=== PATIENT | female | born 1940 | race Caucasian/White ===

== ENCOUNTER → 2017-05-27 12:27 | Outpatient (CLI) | payer MEDICARE, OTHER, SELFPAY ==
[2017-05-27 14:41] LABS: Absolute Neutrophil Count 6.4 X10^3/uL (2.0-7.7); Basophil# 0.02 X10^3/uL; Basophil% 0.3 % (0-1); Eosinophil# 0.01 X10^3/uL; Eosinophils% 0.1 % (0-5); Hematocrit 39.7 % (37-47); Hemoglobin 13.1 g/dl (12.0-15.0); Lymphocyte % 7.6 % (19-41); Mean Corpuscular Hgb 31.7 pg (27.0-32.0); Mean Corpuscular Volume 96.1 fL (81-99); Mean Platelet Vol. 11.3 fl (6.2-12.0); Monocyte# 0.83 X10^3/uL; Monocyte% 10.5 % (0-10); Neutrophil # 6.42 X10^3/uL (2.7-7.7); Neutrophil % 81.2 % (47-70); Platelet Count 181 K/mm3 (150-450); RBC Distribution Width CV 13.4 % (11.6-14.6); RBC Distribution Width SD 45.7 fl (35.1-43.9); Red Blood Count 4.13 M/mm3 (4.2-5.4); White Blood Count 7.9 K/mm3 (4.4-11.0)
[2017-05-27 14:42] LABS: Differential Indicated SCAN CRITERIA MET; POSITIVE COUNT NO; POSITIVE DIFFERENTIAL YES; POSITIVE MORPHOLOGY NO
[2017-05-27 14:54] LABS: ALB/GLOB Ratio 0.9 RATIO (0.9-2.4); AST(SGOT) 18 U/L (15-37); Alanine Aminotransfer ALT/SGPT 19 U/L (13-56); Albumin, Serum 3.4 g/dL (3.2-5.0); Alkaline Phosphatase 76 U/L (45-117); Anion Gap 7 (5-15); BUN 12 mg/dL (7-18); BUN/Creat Ratio 14.4 RATIO (10-20); Calcium,Total 9.4 mg/dL (8.5-10.1); Chloride 103 mmol/L (98-107); Creatinine, Serum 0.84 mg/dL (0.55-1.02); EST Glomerular Filtration Rate 70 mL/min (>60); Est Glom Filt Rate - Afr Amer 85 mL/min (>60); Globulin 3.8 g/dL (2.2-4.2); Glucose 94 mg/dL (74-106); Protein, Total 7.2 g/dL (6.4-8.2); Sodium Level 138 mmol/L (136-145)
[2017-05-27 15:04] LABS: Platelet Estimate ADEQUATE (ADEQ); Platelet Morphology LARGE
== END ==
PROVIDERS: Family Provider Internal Medicine; PCP Internal Medicine; Visit Provider Internal Medicine Rheumatology
DX: M06.00 Rheumatoid arthritis without rheumatoid factor, unspecified site (principal); M18.9 Osteoarthritis of first carpometacarpal joint, unspecified; E11.9 Type 2 diabetes mellitus without complications; I10 Essential (primary) hypertension; M79.7 Fibromyalgia; Z79.899 Other long term (current) drug therapy
CPT/HCPCS: 36415; 80053; 85025

== ENCOUNTER → 2017-07-29 11:16 | Outpatient (CLI) | payer MEDICARE, OTHER, SELFPAY ==
--- NOTE | 2017-07-29 11:16 | DT_ITS ---
This patient was seen during an EMR downtime July 27, 2017 - August 03, 2017. This patient may have a combination of paper and electronic documentation or all paper documentation. All documentation is viewable within the e-chart portion of [employer] for each patient visit.
[2017-08-03 12:48] LABS: Hematocrit 40.9 % (37-47); Hemoglobin 13.4 g/dl (12.0-15.0); Mean Corp Hgb Conc 32.8 g/gl (32-36); Mean Corpuscular Hgb 31.6 pg (27.0-32.0); Mean Corpuscular Volume 96.5 fL (81-99); Mean Platelet Vol. 11.2 fl (6.2-12.0); Platelet Count 168 K/mm3 (150-450); RBC Distribution Width CV 14.4 % (11.6-14.6); RBC Distribution Width SD 48.6 fl (35.1-43.9); Red Blood Count 4.24 M/mm3 (4.2-5.4); White Blood Count 6.4 K/mm3 (4.4-11.0)
[2017-08-03 12:49] LABS: Absolute Lymphocyte Count 0.49 X10^3/ul (0.83-4.51); Absolute Neutrophil Count 5.1 X10^3/uL (2.0-7.7); Basophil% 0.5 % (0-1); Eosinophils% 0.8 % (0-5); Lymphocyte # 0.49 X10^3/ul (4.0); Lymphocyte % 7.6 % (19-41); Monocyte% 11.2 % (0-10); Neutrophil # 5.13 X10^3/uL (2.7-7.7); Neutrophil % 79.7 % (47-70); POSITIVE COUNT NO; POSITIVE DIFFERENTIAL NO; POSITIVE MORPHOLOGY NO; Platelet Estimate ADEQUATE (ADEQ); Red Cell Morphology NORM C+C NORMAL (NORM C&C)
[2017-08-03 13:03] LABS: BUN 11 mg/dL (7-18); BUN/Creat Ratio 13.6 RATIO (10-20); Creatinine, Serum 0.81 mg/dL (0.55-1.02); EST Glomerular Filtration Rate 73 mL/min (>60); Est Glom Filt Rate - Afr Amer 88 mL/min (>60); Glucose 94 mg/dL (74-106); Protein, Total 7.4 g/dL (6.4-8.2)
[2017-08-03 13:04] LABS: ALB/GLOB Ratio 0.8 RATIO (0.9-2.4); AST(SGOT) 24 U/L (15-37); Alanine Aminotransfer ALT/SGPT 22 U/L (13-56); Albumin, Serum 3.3 g/dL (3.2-5.0); Alkaline Phosphatase 75 U/L (45-117); Anion Gap 6 (5-15); Calcium,Total 9.5 mg/dL (8.5-10.1); Chloride 105 mmol/L (98-107); Globulin 4.1 g/dL (2.2-4.2); Potassium 4.2 mmol/L (3.5-5.1); Sodium Level 140 mmol/L (136-145)
== END ==
PROVIDERS: Family Provider Internal Medicine; PCP Internal Medicine; Visit Provider Internal Medicine Rheumatology
DX: M06.00 Rheumatoid arthritis without rheumatoid factor, unspecified site (principal); Z79.899 Other long term (current) drug therapy; M79.7 Fibromyalgia; M18.9 Osteoarthritis of first carpometacarpal joint, unspecified; E11.9 Type 2 diabetes mellitus without complications; I10 Essential (primary) hypertension
CPT/HCPCS: 36415; 80053; 85025

== ENCOUNTER 2017-08-03 13:00 | Outpatient (RCR) | payer MEDICARE, OTHER, SELFPAY ==
--- NOTE | 2017-06-29 15:30 | HP.PTEVAL_ITS ---
Patient's Visit Information SAMAN HERNANDEZ is a 76 year old F referred to Physical Therapy by Shama Hernadez with a diagnosis of BACK AND SHOULDER PAIN. Date of Evaluation: 06/29/17 Physical Therapist: Lizzie Engle - Visit Plan Frequency: 2-3x /Week Duration: 4-6 Weeks Plan: *RA*. RIGHT SHOULDER AND LOW BACK US NEEDED. POSTURE CORRECTION/ STRENGTHENING, INSTRUCTION IN APPROPRIATE BODY MECHANICS AND ACTIVITY MODIFICATIONS. DLS STARTING WITH A NEUTRAL SPINE PROGRESSING ROM TOLERATED. ABHIJIT UE AND LE ROM, STRETCHING AND STRENGTHENING. HEP INSTRUCTION. - Subjective Subjective: Diagnosis: BACK AND SHOULDER PAIN. Work/Leisure: RETIRED. Present symptoms: LOW BACK PAIN L>R. MOSTLY IN HIP AREAS. RIGHT SHOULDER AND UPPER ARM PAIN. DIFFICULTY STANDING UP STRAIGHT. Present since: CHRONIC LOW BACK PAIN. RIGHT SHOULDER PAIN STARTED MORE RECENTLY. DR. HOWARD APPARENTLY GAVE HER A SHOT IN HER SHOULDER AND SHE REPORTS IT DID NOT HELP. Pain Scale: BACK: WORST 6/10, LEAST 4/10. RIGHT SHOULDER: WORST 8/10, LEAST 4/10. Currently: BACK: 4/10. SHOULDER: 4/10. Commenced as a result of: PATIENT REPORTS HER LOW BACK PAIN STARTED PROBABLY ROM ARTHRITIS AND HER RIGHT SHOULDER THE DOCTORS THINK IS FROM USING HER WALKER. Worse: STANDING, WALKING, AND REACHING WRONG. Better: SITTING. RESTING ARM. Disturbed sleep: YES. Previous history/Previous treatment: RECENT RIGHT SHOULDER INJECTION THAT DID NOT HELP BY DR. HOWARD. ALSO HAD RECENT LOW BACK INJECTION BY DR. HERNADEZ THAT DIDN'T HELP EITHER. NO RIGHT SHOULDER SURGERY. NO LOW BACK SURGERY. PT IN THE PAST FOR HER NECK, BACK AND SHOULDERS. Gait: INDEP GAIT WITH FRONT WHEELED WALKER FOR A FEW YEARS. Accidents: MOST RECENT FALL WAS ABOUT A FEW WEEKS AGO. SHE HAS HAD SEVERAL FALLS OVER THE YEARS. Unexplained weight loss: NO. Imaging: PMH: PMH: MACULAR DEGENERATION, RHEUMATOID ARTHRITIS, HTN, HEART DZ? , ABHIJIT TKR'S, EMERGENCY BOWEL SURGERY A FEW YEARS AGO. - Objective *PATIENT IS A HIGH FALL RISK*. SHE AMBULATES INDEP'LY INTO PT WITH A FWW AND SHE DOES GOOD WITH THE WALKER HOWEVER SHE REPORTS SHE FALLS AND SHE TYPICALLY FALLS BACKWARDS. SHE IS UNABLE TO TRANSFER INDEP'LY FROM SIT TO STAND WITHOUT THE USE OF HER UE'S. SHE HAS SCOLIOSIS AND MAJOR LUMBAR MVMT LOSS ALL PLANES EXCEPT FLEXION WHICH IS MOD. SHE IS ESPECIALLY LIMITED INTO EXTENSION AND LEFT SIDEGLIDING. CERVICAL MVMT LOSS: FLEX - MIN, EXT - KIA, PRO - NIL, RET - KIA, LEFT ROT - KIA, RIGHT ROT - MOD, ABHIJIT SB - KIA. BILATERAL UE AROM AT HER SHOULDERS IS ABOUT 75% AND PAINFUL ON THE RIGHT WITH A CATCHING TYPE PAIN WITH TESTING. BILATERAL SHOULDER STRENGTH IS GROSSLY 3+/5 WITH MMT. SHE HAS ARTHRITIC HANDS AND ELBOWS. BILATERAL HIP STRENGHT - 4-/5, ABHIJIT KNEE EXT 4/5, ABHIJIT KNEE FLEX 4/5, ABHIJIT ANKLE DORSIFLEXION 5/5. SHE HAS POOR CORE STRENGTH. SHE IS TENDER LATERALLY IN THE RIGHT SHOULDER INFERIOR TO THE AC JOINT. SHE IS ALSO TENDER IN THE LOWER THORACIC REGION RIGHT > LEFT. OTHER: PATIENT IS ALERT AND ORIENTED X 3. SHE FOLLOWS COMMANDS WELL LONG IS SHE IS GUIEDED DUE TO EYE SIGHT DEFICITS AND SHE IS PLEASANT AND COOPERATIVE TO WORK WITH. - Goals Goal 1:: DECREASE C/O BACK PAIN Goal Time Frame: 4-6 Weeks Goal 2:: DECREASE C/O RIGHT SHOULDER PAIN Goal Time Frame: 4-6 Weeks Goal 3:: IMPROVE STANDING, WALKING, ADL, REACHING AND HOMEMAKING FUNCTION Goal Time Frame: 4-6 Weeks Goal 4:: INDEP HEP Goal Time Frame: 4-6 Weeks - Rehabilitation Potential Rehabilitation Potential: Good - Anticipated Interventions Patient/Client Instruction: Educate patient on: Condition, Plan of Care, Risk Factors, Benefits of Fitness Program For the Purpose of:: To improve self management Therapeutic Exercise to Include: Strength training, Body mechanics, Postural training, Flexibilty training, Gait and locomotor training, Passive ROM, Active ROM, Dynamic Lumbar Stabilization, Scapular Strength/Stabilization For the Purpose of:: To decrease pain, To improve muscle performance and motor function, To increase tolerance to activity/condition/position, To improve performance and independence with ADL's, To improve ability of physical actions for home/community/work/leisure, To improve gait and locomotor functions Thermo therapy (hot pack): Yes Ultrasound (thermal/non thermal): Yes For the Purpose of:: To decrease pain, To decrease swelling/inflammation Thank you for the opportunity to evaluate your patient. For Medicare and Medicare HMO plans, please review the plan of care and approve it. It will need to be FAXED BACK to us at [phone] for Medicare purposes. Please let me know if there are questions or concerns regarding this plan of care. Physician Signature: Date:
--- NOTE | 2017-08-03 13:00 | DT_ITS ---
This patient was seen during an EMR downtime July 27, 2017 - August 03, 2017. This patient may have a combination of paper and electronic documentation or all paper documentation. All documentation is viewable within the e-chart portion of [employer] for each patient visit.
--- NOTE | 2017-09-27 12:46 | HP.PT.NRP ---
HP - Discharge Summary (1) - Patient Information SAMAN HERNANDEZ was seen in my office for initial evaluation on 06/29/17. The following Plan of Care was established for this patient: Initial Frequency: 2-3x /Week Initial Duration: 4-6 Weeks - Anticipated Interventions Patient/Client Instruction: Educate patient on: Condition, Plan of Care, Risk Factors, Benefits of Fitness Program For the Purpose of:: To improve self management Therapeutic Exercise to Include: Strength training, Body mechanics, Postural training, Flexibilty training, Gait and locomotor training, Passive ROM, Active ROM, Dynamic Lumbar Stabilization, Scapular Strength/Stabilization For the Purpose of:: To decrease pain, To improve muscle performance and motor function, To increase tolerance to activity/condition/position, To improve performance and independence with ADL's, To improve ability of physical actions for home/community/work/leisure, To improve gait and locomotor functions Thermo therapy (hot pack): Yes Ultrasound (thermal/non thermal): Yes For the Purpose of:: To decrease pain, To decrease swelling/inflammation This patient was last seen in our office 08/03/17. Pertinent comments regarding their Physical therapy will appear below: This patient has not returned to Physical Therapy and is appropriate to return to MD for further follow-up as needed. At this point I will be discontinuing this patient from physical therapy. I would be happy to see this patient again in the future if found appropriate by the physician. Thank you! Lizzie Engle
== END 2017-08-03 19:00 | disposition home or self-care (01) ==
LOC: PT 13:00
PROVIDERS: Family Provider Internal Medicine; PCP Internal Medicine; Visit Provider Anesthesiology Pain Medicine
DX: M54.9 Dorsalgia, unspecified (principal); M25.519 Pain in unspecified shoulder
CPT/HCPCS: 97035; 97110; 97162

== ENCOUNTER 2017-09-22 17:00 | Emergency (ER) | payer MEDICARE, OTHER, SELFPAY ==
[2017-09-22 17:01] VITALS: BP 211/107; PULSE 86; RESP 16; TEMP 36.7; O2SAT 95; BMI 32.8
--- NOTE | 2017-09-22 17:55 | US_ITS ---
STUDY: VENOUS DOPPLER ULTRASOUND - RIGHT LOWER EXTREMITY REASON FOR EXAM: Female, 76 years old. Swelling TECHNIQUE: Ultrasound evaluation of the deep vein system to include skelton-scale imaging and compression was performed. Skelton-scale imaging and Doppler sonographic evaluation, including duplex spectral analysis and qualitative color flow sonography, was performed. COMPARISON: None. FINDINGS: Common Femoral Vein: Normal compression, spontaneity and augmentation. Normal color Doppler. Common Femoral Vein/Greater Saphenous Junction: Normal compression. Femoral Proximal: Normal compression. Femoral Middle: Normal compression, spontaneity and augmentation. Normal color Doppler. Femoral Distal: Normal compression. Popliteal Vein: Normal compression, spontaneity and augmentation. Normal color Doppler. Posterior Tibial Vein: Normal compression. Peroneal Vein: Normal compression. Subcutaneous edema is noted. US/Venous Duplex Imag/Limited/Uni IMPRESSION: No deep venous thrombosis of the lower extremity. Electronically Signed: Andry Kim DO at 18:58 EDT Tel [phone], Service support ,
[2017-09-22 18:18] LABS: Anion Gap 6 (5-15); BUN 13 mg/dL (7-18); BUN/Creat Ratio 13.3 RATIO (10-20); Calcium,Total 9.5 mg/dL (8.5-10.1); Chloride 104 mmol/L (98-107); Creatinine, Serum 0.98 mg/dL (0.55-1.02); EST Glomerular Filtration Rate 59 mL/min (>60); Est Glom Filt Rate - Afr Amer 71 mL/min (>60); Estimated Creatinine Clearance 52.33 ml/min; Glucose 179 mg/dL (74-106); Sodium Level 138 mmol/L (136-145)
--- NOTE | 2017-09-22 18:51 | ED.VISSUMM ---
- ER Visit Summary Date of Service: 09/22/17 Chief Complaint: Right leg swelling History of Present Illness: The patient is a [address] Tidwell. She reports that she has had swelling of her right leg that is chronic but is gotten worse over the past week. She complains of an aching pain is 6 out of 10 when she pushes on it. She is pain-free at rest. She denies any paresthesias or weakness. She denies any trauma. No fall, MVA, or change in activity. Review of systems: General: No fever, chills, cold sweats. Cardiovascular: No chest pain, palpitations. Respiratory: No cough, shortness of breath, dyspnea on exertion. Gastrointestinal: No abdominal pain, nausea, vomiting, diarrhea, melena, or hematochezia. Genitourinary: No dysuria, frequency, hematuria. Skin: No rash. Neuro: No headache, numbness, weakness. Physical Examination: Vitals: Stable. Afebrile. General: Well-nourished and well-developed. Head: Normocephalic atraumatic. Neck: Supple, no lymphadenopathy. No JVD. Nontender. Cardiovascular: Regular rate and rhythm. 2 out of 6 systolic murmur. Respiratory: No respiratory distress. Clear to auscultation bilaterally. Abdominal: Soft, nontender, nondistended, normal bowel sounds. No guarding, rebound, or peritoneal signs. Back: Nontender. Extremities: 2+ pitting edema on the right. 1+ pitting edema on the left. She does have mild tenderness palpation over her calf. Skin: Normal color, no rash. Neurologic: Alert and oriented ?3. Cranial nerves II through XII are intact. Normal strength and sensation. Psych: Normal affect. Test Results: Right lower extremity Doppler is negative. Chem-7 is more for creatinine 0.98 and glucose 179. This was obtained because I thought that she would need to be anticoagulated. Emergency Department Course and Treatment: Patient refused pain medications and is resting comfortably. Treatment Plan: Patient will be discharged instructions follow-up her primary care physician in 3-5 days not improving. Return to the emergency department for any worsening symptoms. Disposition: To home in improved and stable condition. Impression: 1. Right leg edema, acute on chronic. This note was generated with [employer] software. It may contain incorrect words, spelling, and punctuation that were not noted in review of the chart prior to signing ED Disposition - Plan for ED Patient: Disposition: Home or Assisted Living Chief Complaint: Lower Extremity Injury Instructions: ED Leg Swelling Unilateral Referrals: Ge Tidwell MD [Primary Care Provider] - 1-2 Days if not improving
== END 2017-09-22 19:03 | disposition home or self-care (01) ==
PROVIDERS: Emergency Provider Emergency Medicine; Family Provider Family Medicine; PCP Family Medicine
DX: R60.0 Localized edema (principal); G89.29 Other chronic pain; I25.10 Atherosclerotic heart disease of native coronary artery without angina pectoris; E11.9 Type 2 diabetes mellitus without complications; I10 Essential (primary) hypertension; H54.8 Legal blindness, as defined in USA; Z79.02 Long term (current) use of antithrombotics/antiplatelets; Z79.82 Long term (current) use of aspirin; Z79.899 Other long term (current) drug therapy; Z96.651 Presence of right artificial knee joint
CPT/HCPCS: 80048; 93971; 99282

== ENCOUNTER → 2017-11-09 15:36 | Outpatient (CLI) | payer MEDICARE, OTHER, SELFPAY ==
[2017-11-09 16:12] LABS: Absolute Lymphocyte Count 0.75 X10^3/ul (0.83-4.51); Absolute Neutrophil Count 3.9 X10^3/uL (2.0-7.7); Basophil# 0.03 X10^3/uL; Basophil% 0.5 % (0-1); Eosinophil# 0.16 X10^3/uL; Eosinophils% 2.9 % (0-5); Hematocrit 39.9 % (37-47); Lymphocyte # 0.75 X10^3/ul (4.0); Lymphocyte % 13.6 % (19-41); Mean Corp Hgb Conc 32.6 g/gl (32-36); Mean Corpuscular Hgb 31.6 pg (27.0-32.0); Mean Corpuscular Volume 96.8 fL (81-99); Mean Platelet Vol. 11.3 fl (6.2-12.0); Monocyte# 0.67 X10^3/uL; Monocyte% 12.1 % (0-10); Neutrophil # 3.92 X10^3/uL (2.7-7.7); Neutrophil % 70.9 % (47-70); Platelet Count 136 K/mm3 (150-450); RBC Distribution Width CV 13.8 % (11.6-14.6); RBC Distribution Width SD 48.7 fl (35.1-43.9); Red Blood Count 4.12 M/mm3 (4.2-5.4); White Blood Count 5.5 K/mm3 (4.4-11.0)
[2017-11-09 16:14] LABS: POSITIVE COUNT NO; POSITIVE DIFFERENTIAL NO; POSITIVE MORPHOLOGY NO
[2017-11-09 17:44] LABS: ALB/GLOB Ratio 0.8 RATIO (0.9-2.4); AST(SGOT) 27 U/L (15-37); Alanine Aminotransfer ALT/SGPT 21 U/L (13-56); Albumin, Serum 3.2 g/dL (3.2-5.0); Alkaline Phosphatase 78 U/L (45-117); Anion Gap 5 (5-15); BUN 14 mg/dL (7-18); BUN/Creat Ratio 15.1 RATIO (10-20); Calcium,Total 9.6 mg/dL (8.5-10.1); Chloride 107 mmol/L (98-107); Creatinine, Serum 0.93 mg/dL (0.55-1.02); EST Glomerular Filtration Rate 62 mL/min (>60); Est Glom Filt Rate - Afr Amer 75 mL/min (>60); Glucose 92 mg/dL (74-106); Potassium 4.3 mmol/L (3.5-5.1); Protein, Total 7.2 g/dL (6.4-8.2); Sodium Level 138 mmol/L (136-145)
== END ==
PROVIDERS: Family Provider Family Medicine; PCP Family Medicine; Visit Provider Internal Medicine Rheumatology
DX: M06.00 Rheumatoid arthritis without rheumatoid factor, unspecified site (principal); M79.7 Fibromyalgia; M25.511 Pain in right shoulder; E11.9 Type 2 diabetes mellitus without complications; I10 Essential (primary) hypertension; M18.9 Osteoarthritis of first carpometacarpal joint, unspecified; Z79.899 Other long term (current) drug therapy
CPT/HCPCS: 36415; 80053; 85025

== ENCOUNTER 2017-11-29 16:12 | Emergency (ER) | payer MEDICARE, OTHER, SELFPAY ==
[2017-11-29 16:13] VITALS: BP 112/93; PULSE 77; RESP 16; TEMP 37.1; O2SAT 97; BMI 35.0
--- NOTE | 2017-11-29 16:26 | RAD_ITS ---
STUDY: X-RAY CHEST REASON FOR EXAM: Female, 77 years old. Fall, without chest complaints. TECHNIQUE: Portable chest COMPARISON: 06/16/2015. FINDINGS: Chronically commonly elevated right hemidiaphragm. Clear lungs. The lungs are somewhat hyperlucent suggesting underlying COPD. Correlate smoking history. Normal cardiomediastinal silhouette, rosalee and pleural margins. No acute osseous process. Mild thoracal lumbar scoliosis. No acute process is evident below the hemidiaphragms. RAD/Chest 1 View (Portable) IMPRESSION: Stable chest compared to prior imaging of 2015 with no acute cardiac pulmonary process and no evidence of acute traumatic injury. Electronically Signed: Anil Rosas, at 18:01 EDT Tel , Service support ,
--- NOTE | 2017-11-29 16:27 | RAD_ITS ---
STUDY: X-RAY - PELVIS AND LEFT HIP REASON FOR EXAM: Female, 77 years old. Fall, pain TECHNIQUE: Radiological exam, hip, unilateral, with pelvis when performed; 2 or 3 views. COMPARISON: None. FINDINGS: Prominent osteopenia. Prominent lumbar scoliosis. Multilevel low lumbar spondylosis. Mild and slightly asymmetric degenerative changes of the SI joints on the greater on the right. The sacral arcades appear symmetric and grossly intact. Iliac crests and pubic rami intact. Right hip intact. Avulsion fracture of the greater trochanter of the left femur. There does not appear to be a complete intertrochanteric fracture. The neck appears intact. There are minimal degenerative features of the articulation. There are prominent lead pipe calcifications of the femoral arteries. RAD/HIP, UNI W/ Pelvis 2-3 Views IMPRESSION: Avulsion fracture of the greater trochanter of the left femur. Severe peripheral arterial disease. Electronically Signed: Anil Rosas, at 17:35 EDT Tel , Service support ,
--- NOTE | 2017-11-29 16:29 | EKG12_ITS ---
Test Reason : DYSRHYTHMIA Blood Pressure : / mmHG Vent. Rate : 071 BPM Atrial Rate : 071 BPM P-R Int : 156 ms QRS Dur : 076 ms QT Int : 412 ms P-R-T Axes : 047 -07 036 degrees QTc Int : 447 ms Normal sinus rhythm Inferior infarct , age undetermined Abnormal ECG Confirmed by ANGELIA RIVAS, KIMBERLY ([id number]), production editor ANN GEIGER ([id number]) on 11/30/2017 2:17:38 PM Referred By: MARLEEN Confirmed By:KIMBERLY GALAN MD
[2017-11-29 16:49] LABS: Absolute Lymphocyte Count 0.79 X10^3/ul (0.83-4.51); Absolute Neutrophil Count 2.4 X10^3/uL (2.0-7.7); Basophil# 0.03 X10^3/uL; Basophil% 0.8 % (0-1); Eosinophil# 0.11 X10^3/uL; Eosinophils% 2.8 % (0-5); Hematocrit 36.9 % (37-47); Hemoglobin 12.1 g/dl (12.0-15.0); Lymphocyte # 0.79 X10^3/ul (4.0); Lymphocyte % 20.3 % (19-41); Mean Corp Hgb Conc 32.8 g/gl (32-36); Mean Corpuscular Hgb 31.7 pg (27.0-32.0); Mean Corpuscular Volume 96.6 fL (81-99); Mean Platelet Vol. 11.5 fl (6.2-12.0); Monocyte# 0.59 X10^3/uL; Monocyte% 15.1 % (0-10); Neutrophil # 2.37 X10^3/uL (2.7-7.7); Neutrophil % 60.7 % (47-70); Platelet Count 152 K/mm3 (150-450); RBC Distribution Width SD 49.7 fl (35.1-43.9); Red Blood Count 3.82 M/mm3 (4.2-5.4); White Blood Count 3.9 K/mm3 (4.4-11.0)
--- NOTE | 2017-11-29 16:49 | ED.DCSUM_ITS ---
- ER Visit Summary Date of Service: 11/29/17 Chief Complaint: Left hip pain History of Present Illness: The patient is a 77 F who presents with left hip pain that began after a fall today. Patient states she slipped in the bathroom and fell backwards. Patient states she has pain in her left hip. Patient states she was unable to ambulate after the fall. Patient states the pain is worse with any movement. Patient describes her pain as aching. Patient states the pain improves with rest. Patient denies any head injury or loss of consciousness. Patient denies any paresthesias or weakness. Patient denies any other injuries. Physical Examination: Vital signs are stable. Patient is afebrile. Patient is in no acute distress. Oral mucosa is pink and moist. Neck is supple. Trachea is midline. Heart was regular rate and rhythm. Lungs are clear and equal bilateral. There is good respiratory effort noted. Musculoskeletal exam reveals tenderness over the left hip. There is pain with external rotation. There is no obvious deformity noted. Pedal pulses are equal bilaterally. Sensation was intact to light touch in all dermatomes of the lower extremities bilaterally. The remaining physical exam is within normal limits. Test Results: EKG showed normal sinus rhythm with a rate of 71. There are no acute ST or T wave changes. This was unchanged compared to previous EKG dated 06/18/2015. Chest x-ray does not show any acute process. X-ray of the left hip shows a fracture of the greater trochanter but no femoral neck fracture. CBC was essentially within normal limits. Basic metabolic profile shows slightly elevated creatinine of 1.21. Emergency Department Course and Treatment: Case was discussed with Dr. Montano. He will follow-up with the patient as an outpatient. Patient was given a pr escription for [place]. Patient was instructed to continue using her walker. Patient was instructed to follow-up in 3-5 days. Patient and family understood and were agreeable with the plan. All questions were answered. Disposition: Discharged home Impression: Acute fracture left greater trochanter This note was generated with [employer] dictation software. It may contain incorrect words, spelling, and punctuation that were not noted in review of the chart prior to signing ED Disposition - Plan for ED Patient: Disposition: Home or Assisted Living Chief Complaint: Lower Extremity Injury Diagnosis: Fracture of greater trochanter of left femur Instructions: ED Fx Lower Ext Prescriptions: Hydrocodone Bitart/Apap 5-325 [[place] 5MG-325MG] 1 tab PO Q6H PRN PRN 3 Days #12 tab PRN Reason: Pain Referrals: Ge Tidwell MD [Primary Care Provider] -
[2017-11-29 16:52] LABS: POSITIVE COUNT NO; POSITIVE DIFFERENTIAL NO; POSITIVE MORPHOLOGY NO
[2017-11-29 17:04] LABS: ALB/GLOB Ratio 0.9 RATIO (0.9-2.4); AST(SGOT) 26 U/L (15-37); Alanine Aminotransfer ALT/SGPT 21 U/L (13-56); Albumin, Serum 3.1 g/dL (3.2-5.0); Alkaline Phosphatase 73 U/L (45-117); Anion Gap 6 (5-15); BUN 12 mg/dL (7-18); BUN/Creat Ratio 9.9 RATIO (10-20); Chloride 103 mmol/L (98-107); Creatinine, Serum 1.21 mg/dL (0.55-1.02); EST Glomerular Filtration Rate 46 mL/min (>60); Est Glom Filt Rate - Afr Amer 55 mL/min (>60); Globulin 3.6 g/dL (2.2-4.2); Glucose 156 mg/dL (74-106); Potassium 4.2 mmol/L (3.5-5.1); Protein, Total 6.7 g/dL (6.4-8.2); Sodium Level 138 mmol/L (136-145)
[2017-11-29 17:24] LABS: Prothrombin Time (Protime)PT. 13.1 SECONDS (11.7-14.9)
[2017-11-29 17:25] LABS: Partial Thromboplast Time 28.9 Seconds (24.1-36.2)
[2017-11-29 18:36] VITALS: PULSE 79; RESP 16; O2SAT 97
[2017-11-29 19:10] VITALS: BP 130/80; PULSE 78; RESP 16; O2SAT 98
== END 2017-11-29 19:11 | disposition home or self-care (01) ==
PROVIDERS: Emergency Provider Emergency Medicine; Family Provider Family Medicine; PCP Family Medicine
DX: S72.112A Displaced fracture of greater trochanter of left femur, initial encounter for closed fracture (principal); M54.2 Cervicalgia; R51 Headache; W01.0XXA Fall on same level from slipping, tripping and stumbling without subsequent striking against object, initial encounter; Y93.9 Activity, unspecified; Y92.002 Bathroom of unspecified non-institutional (private) residence as the place of occurrence of the external cause; Y99.9 Unspecified external cause status; I25.10 Atherosclerotic heart disease of native coronary artery without angina pectoris; I10 Essential (primary) hypertension; Z79.02 Long term (current) use of antithrombotics/antiplatelets; Z79.82 Long term (current) use of aspirin; Z79.899 Other long term (current) drug therapy; Z95.5 Presence of coronary angioplasty implant and graft
CPT/HCPCS: 71045; 73502; 80053; 85025; 85610; 85730; 93005; 99285; A4216

== ENCOUNTER 2017-12-01 12:15 | Inpatient (IN) | payer MEDICARE, OTHER, SELFPAY ==
[2017-12-01] VITALS (7 sets, daily range): BP systolic 148–184; BP diastolic 60–81; PULSE 72–88; RESP 16–18; TEMP 36.8–37.1; O2SAT 94–96; BMI 32.4; BMI 31.4
--- NOTE | 2017-12-01 12:48 | ED.VISSUMM ---
- ER Visit Summary Date of Service: 12/01/17 Chief Complaint: Weakness inability to ambulate History of Present Illness: The patient is a 77 F who was recently diagnosed with a greater trochanteric fracture, she was able to get around until the last few days where now she has increased weakness and has difficulty ambulating. Physical Examination: Not appear in acute distress. Lightly dry mucous membranes, no obvious facial deformity No C-spine tenderness supple neck. Regular rate and rhythm without any obvious murmurs Clear lungs bilaterally speaking in full sentences without any obvious respiratory distress Abdomen soft and nontender no guarding or rebound Patient has pain over the left greater trochanter. She has contusion over her left buttock region. She has some tenderness over the posterior elbow but full flexion-extension pronation and supination. Skin does not show any obvious rashes or lesions, no trauma. Alert oriented ?3 with no gross focal deficit Emergency Department Course and Treatment: Discussed with case management as well as hospitalist patient will be admitted, she needs placement for an ECF. At in stable condition Impression: [Trochanteric fracture, weakness] This note was generated with [employer] dictation software. It may contain incorrect words, spelling, and punctuation that were not noted in review of the chart prior to signing ED Disposition - Plan for ED Patient: Chief Complaint: Fall Referrals: Ge Tidwell MD [Primary Care Provider] -
--- NOTE | 2017-12-01 13:36 | CM.ED ---
OLAYINKA INITIAL ASSESSMENT: Patient is currently in the ED, with and [id number] at bedside. Home: Patient lives in a one-story home, with a basement. There are two steps into the home. Patient is legally blind. She lives with her , who is a dialysis patient. She has two daughters who lives in [place] and [place]. HHS/Aides: Patient states her children privately pay for an aide to clean, one day per week. Denies further HHS in past or aides. DME: Patient uses a walker at all times. She states she has a cane, grab bars, and shower chair. She does not have a wheel chair or elevated toilet seat. Home Oxygen: Denies Pharmacy: [facility] in [place] Advance Directives: Yes, she states her is her medical POA (Bryan Mclean). Advance directives are found present in the e-chart. PCP: Ge Tidwell Specialists: Dr. Killian (cardiology) and Dr. Gonsalez (rheumatology) Patient was in emergency room, on Thursday, after falling. She was found to have a fractured hip. She discharged to home and has fallen twice more. Patient's spouse states he had to call the patient's two daughters to come get her off the floor. The patient states, When I move I have pain. Discussed safe discharge planning options with patient and family. Patient expresses that she is worried to leave her spouse at home alone. Patient's spouse expresses that he does not feel the patient is safe to return home. Family at bedside agrees. I reviewed likelihood that therapy will be recommended and that a short-term SNF stay will likely be in the patient's best interest. Patient and family states they are agreeable to this plan, if recommended. Patient's goal is to return home, safely. DC Plan: TBD. Likely SNF, pending PT/OT evaluations. CM/SW will continue to follow for safe and effective discharge planning.
--- NOTE | 2017-12-01 14:04 | NURSING ---
DR LEONA SANDOVAL
--- NOTE | 2017-12-01 14:13 | NURSING ---
MED SURG LEONA ALVAREZ FX
--- NOTE | 2017-12-01 14:36 | HP.PCM_ITS ---
Problem List (1) Closed avulsion fracture of greater trochanter of femur Status: Acute (2) Hyperlipidemia Status: Chronic Qualifiers: (3) CAD (coronary artery disease) Status: Chronic Qualifiers: Comment: stent to LAD (4) HTN (hypertension) Status: Chronic Qualifiers: History of Present Illness Date of Admission: 12/01/17 Chief Complaint: Weakness The patient is a 77 year old F with a PMH as above presenting 2 days after leaving the ER after a fall. She has been falling because of age and blindness secondary to macular degeneration. She came to the ER and was found to have an avulsion fracture of the greater trochanter of the left femur. The case at the time was discussed with ortho who said it was a non-operative fracture. At the time, she elected to go home. At home she was finding mobility exceedingly difficult and her is on dialysis three times a week and was unable to provide the amount of assistance she needed. At home, because of her hip pain, she was unable to transfer and change positions and therefore unable to perform her ADLs. She was brought back to the ED for further evaluation and possible admission. Past Medical History Past Medical History (Chronic Problems): Chronic Problems (Last Updated 03/23/17 @ 16:07 by ANA Hobbs) Hyperlipidemia (Chronic) Depression (Chronic) Coronary arteriosclerosis (Chronic) CAD (coronary artery disease) (Chronic) stent to LAD S/P PTCA (percutaneous transluminal coronary angioplasty) (Chronic ~2012) LAD HTN (hypertension) (Chronic) Diabetes mellitus (Chronic) Medical History: Medical History (Last Updated 03/23/17 @ 16:07 by ANA Hobbs) Hyperlipidemia (Chronic) E78.5 Coronary arteriosclerosis (Chronic) I25.10 CAD (coronary artery disease) (Chronic) I25.10 stent to LAD HTN (hypertension) (Chronic) I10 Diabetes mellitus (Chronic) E11.9 Allergies ampicillin Allergy (Verified 12/01/17 12:19) Unknown codeine Allergy (Verified 12/01/17 12:19) Unknown diclofenac sodium [From Arthrotec 50] Allergy (Verified 12/01/17 12:19) Unknown doxycycline Allergy (Verified 12/01/17 12:19) Unknown fluticasone propionate [From Flonase] Allergy (Verified 12/01/17 12:19) Unknown misoprostol [From Arthrotec 50] Allergy (Verified 12/01/17 12:19) Unknown morphine Allergy (Verified 12/01/17 12:19) Unknown Sulfa (Sulfonamide Antibiotics) Allergy (Verified 12/01/17 12:19) Unknown Tetanus Vaccines and Toxoid [Tetanus Vaccines & Toxoid] Allergy (Verified 12/01/17 12:19) Unknown Home Medications: Ambulatory Orders Medication Instructions Recorded Aspirin 325 mg PO DAILY@0800 05/30/13 Citalopram [Celexa] 20 mg PO DAILY 05/30/13 Multivitamins,Therapeutic 1 tab PO DAILY 05/30/13 [Multivitamin] Oxybutynin Chloride [Ditropan Xl] 5 mg PO BID 05/30/13 buPROPion SR [Wellbutrin SR (150mg 150 mg PO DAILY 05/30/13 tablets)] Calcium Carbonate/Vitamin D3 1 ea PO BID 09/16/16 [Liquid Calcium 600-Vit D3 Sfgl] Leflunomide 20 mg PO DAILY 09/16/16 Nitroglycerin [Nitrostat] 0.4 mg SUBLINGUAL Q5M PRN 09/16/16 Omeprazole [Prilosec] 20 mg PO BID 09/16/16 Polyethylene Glycol 3350 [Miralax] 17 gm PO DAILY 09/16/16 Hydrocodone/Acetaminophen [[place] 1 ea PO PRN PRN 01/10/17 5-325 Tablet] atorvastatin 40 mg tablet 40 mg PO DAILY 90 Days #90 03/23/17 clopidogrel 75 mg tablet 75 mg PO DAILY #30 tab 03/23/17 lisinopril 10 mg tablet 10 mg PO DAILY #30 tab 03/23/17 metoprolol tartrate 50 mg tablet 50 mg PO BID #60 tab 03/23/17 Hydrocodone Bitart/Apap 5-325 1 tab PO Q6H PRN PRN 3 Days #12 tab 11/29/17 [[place] 5MG-325MG] Surgical History: Surgical History (Last Updated 03/23/17 @ 16:07 by ANA Hobbs) S/P PTCA (percutaneous transluminal coronary angioplasty) (Chronic) Onset Date: ~2012 Z98.61 LAD Surgical History: angioplasty, appendectomy, cataract, cholecystectomy, total knee arthroplasty - Bilaterally, - - 3 cardiac stents, surgery for diverticulitis and diverticular abscess Psychiatric History: Depression DENTAL SCHEDULING COORDINATOR History: No pertinent DENTAL SCHEDULING COORDINATOR history Smoking Status: Never smoker Alcohol: None Drugs: None - *Family History Maternal Family History: Family History (Last Updated 03/23/17 @ 16:07 by ANA Hobbs) Brother CAD (coronary artery disease) History Items: No pertinent history Paternal Family History: Family History (Last Updated 03/23/17 @ 16:07 by ANA Hobbs) Brother CAD (coronary artery disease) History Items: No pertinent history Sibling Family History: Family History (Last Updated 03/23/17 @ 16:07 by ANA Hobbs) Brother CAD (coronary artery disease) History Items: No pertinent history Review of Systems Constitutional: Denies: Chills, Fever, Weight Change HEENT: Denies: Head Aches, Sinus Congestion, Sinus Drainage Cardiovascular: Denies: Chest Pain, Palpitations Respiratory: Denies: Cough, Shortness of breath at rest, Sputum production Gastrointestinal: Denies: Abdominal Pain, Nausea, Vomiting Genitourinary: Denies: Dysuria Musculoskeletal: Reports: Arm Pain, Joint Pain, Joint Tenderness Skin: Denies: Rash, Wounds Neurological: Denies: Numbness, Tingling, Focal weakness Psychiatric: Denies: Anxiety, Depression Hematologic/ Lymphatic: Denies: Easy Bruising, Easy Bleeding VTE Information - Inpt Only VTE Present on Admission: No Patient Problems: Active and Suspected Problems (Last Updated 03/23/17 @ 16:07 by ANA Hobbs) Closed avulsion fracture of greater trochanter of femur (Acute) - Physical Exam General: Alert, Oriented x3, Cooperative, No apparent distress HEENT: Atraumatic, EOMI, Normocephalic Oral: Moist Mucosa Neck: Supple, No JVD Lungs: Clear to auscultation, Normal air movement, No rhonchi, No wheeze, No rales Cardiovascular: Regular rate, Regular Rhythm, Normal S1, Normal S2, No murmurs Abdomen: Soft, Non Tender, Non-Distended, No Hepato-splenomegaly Extremities: Capillary Refill Less than 3 Seconds, No Calf Tenderness, Edema - 1+ pitting b/l Skin: No rashes, No breakdown, - - ecchymosis over left elbow Musculoskeletal: Tenderness - left greater trochanter, left elbow Neurological: Neuro grossly intact, Sensory exam intact to light touch and pain, - - exam is limited by pain, though hip flexors appear 5/5, she had difficutly changing position d/t pain in her left hip and arm. Psych/Mental Status: Normal Affect, Appropriate Vital Signs Temp Pulse Resp BP Pulse Ox 98.8 F 81 16 148/81 H 95 12/01/17 12:16 12/01/17 12:16 12/01/17 12:16 12/01/17 12:16 12/01/17 12:21 Oxygen Delivery Method Room Air Weight: 150 lb Body Mass Index (BMI) 32.4 Assessment/Plan All Active Problems (Last Updated 03/23/17 @ 16:07 by ANA Hobbs) Closed avulsion fracture of greater trochanter of femur (Acute) 1. Avulsion of the Left greater trochanter of the femur/Contusion of left elbow/Inability to complete ADL - PT/OT for evaluation and CM for discharge planning - She would like to hold off of pain medication for now - Will start colace in anticipation fo needing pain medication to participate with therapy 2. HLD/HTN/CAD - C/w home ASA/plavix, lisinopril, metoprolol and lipitor - will monitor - Stable 3. Depression - stable - C/w wellbutrin and celexa 4. GERD - stable - c/w PPI DVT: Heparin Diet: Cardiac FULL Code Code Visit Inpatient E&M: 31196 Init Hosp L3
--- NOTE | 2017-12-01 15:38 | CASEMGMT ---
Social Work Note Physician updated this worker that he thinks pt would be a good candidate for TCU at discharge. SW placed a call to Kaylyn in TCU who states she is able to accept pt on Thursday as pt's third midnight will be . Plan: TCU Thursday Sofia Moses MSW, FABRICATION ENGINEER
[2017-12-01] MEDS: HYDROcodone Bitartrate/Apap 5/325 Tablet PO ×2 (17:07→23:40)
[2017-12-01] MEDS: Metoprolol Tartrate 50 MG Tablet PO (17:08)
[2017-12-01] MEDS: Aspirin 325 MG Tablet PO (17:09)
[2017-12-01] MEDS: Pantoprazole Sodium 20 MG Tablet PO (17:09)
[2017-12-01] MEDS: Docusate Sodium 100 MG Capsule PO (21:20)
[2017-12-01] MEDS: Atorvastatin Calcium 40 MG Tablet PO (21:20)
[2017-12-01] MEDS: Heparin Injection (Vial) 5,000 UNIT/ML VIAL 5000 UNIT SC (21:20)
[2017-12-01] MEDS: Magnesium Hydroxide 30 ML UDC PO (21:25)
[2017-12-02 02:11] VITALS: BP 147/57; PULSE 73; RESP 18; TEMP 36.9; O2SAT 95
--- NOTE | 2017-12-02 03:15 | NURSING ---
PT C/O THAT SHE FEELS LIKE SHE HAS TO VOID BUT CANT. BLADDER SCAN FOR 525. PT DOES NOT WANT TO BE CATH BUT WILL ATTEMPT ONE MORE TIME IF CANT THEN WILL BE CATH.
[2017-12-02] MEDS: HYDROcodone Bitartrate/Apap 5/325 Tablet PO (05:40)
[2017-12-02] MEDS: Polyethylene Glycol 3350 17 GM PACKET PO (05:40)
[2017-12-02 06:30] LABS: Absolute Lymphocyte Count 0.92 X10^3/ul (0.83-4.51); Absolute Neutrophil Count 3.5 X10^3/uL (2.0-7.7); Basophil# 0.03 X10^3/uL; Basophil% 0.6 % (0-1); Eosinophil# 0.14 X10^3/uL; Eosinophils% 2.7 % (0-5); Hematocrit 35.3 % (37-47); Hemoglobin 11.6 g/dl (12.0-15.0); Lymphocyte # 0.92 X10^3/ul (4.0); Lymphocyte % 17.5 % (19-41); Mean Corp Hgb Conc 32.9 g/gl (32-36); Mean Corpuscular Hgb 31.7 pg (27.0-32.0); Mean Corpuscular Volume 96.4 fL (81-99); Monocyte# 0.63 X10^3/uL; Neutrophil # 3.54 X10^3/uL (2.7-7.7); Platelet Count 139 K/mm3 (150-450); RBC Distribution Width SD 47.5 fl (35.1-43.9); Red Blood Count 3.66 M/mm3 (4.2-5.4); White Blood Count 5.3 K/mm3 (4.4-11.0)
[2017-12-02 06:34] LABS: POSITIVE COUNT NO; POSITIVE DIFFERENTIAL NO; POSITIVE MORPHOLOGY NO
[2017-12-02 06:40] LABS: Anion Gap 5 (5-15); BUN 12 mg/dL (7-18); BUN/Creat Ratio 15.9 RATIO (10-20); Calcium,Total 9.1 mg/dL (8.5-10.1); Chloride 104 mmol/L (98-107); Creatinine, Serum 0.75 mg/dL (0.55-1.02); EST Glomerular Filtration Rate 79 mL/min (>60); Est Glom Filt Rate - Afr Amer 96 mL/min (>60); Estimated Creatinine Clearance 48.17 ml/min; Glucose 110 mg/dL (74-106); Sodium Level 138 mmol/L (136-145)
[2017-12-02 08:08] VITALS: BP 185/85; PULSE 84; RESP 16; TEMP 36.5; O2SAT 95
[2017-12-02] MEDS: Aspirin 325 MG Tablet PO (08:26)
[2017-12-02] MEDS: Multivitamins,Therapeutic Tablet 1 TABLET PO (08:26)
[2017-12-02] MEDS: Citalopram 20 MG Tablet PO (09:52)
[2017-12-02 09:53] VITALS: PULSE 84
[2017-12-02] MEDS: Leflunomide 10 MG TABLET 20 MG PO (09:53)
[2017-12-02] MEDS: Metoprolol Tartrate 50 MG Tablet PO (09:53)
[2017-12-02] MEDS: Pantoprazole Sodium 20 MG Tablet PO (09:54)
[2017-12-02] MEDS: buPROPion (SR) 150 MG Tablet.SA PO (09:54)
[2017-12-02] MEDS: Lisinopril 10 MG Tablet PO (09:54)
[2017-12-02] MEDS: Heparin Injection (Vial) 5,000 UNIT/ML VIAL 5000 UNIT SC (10:03)
[2017-12-02] MEDS: Docusate Sodium 100 MG Capsule PO (10:03)
[2017-12-02] MEDS: Clopidogrel Bisulfate 75 MG Tablet PO (10:03)
--- NOTE | 2017-12-02 10:04 | CASEMGMT ---
Addendum entered by Sofia Moses 12/02/17 10:11: LUKE also placed a call to Kaylyn in TCU and left her a message that PT is stating pt is a good candidate for [facility], pt is agreeable and [facility] is able to accept pt. Original Note: Social Work Note SW discuss case with Tigist with [facility]. Tigist states that per PT, pt would be a good candidate for [facility]. SW in to speak with pt regarding discharge plans. SW educted pt to [facility]. Pt agreeable to [facility]. SW updated physician. LUKE placed a call to Tigist and informed her that pt is agreeable to [facility]. Plan: [facility] when medically cleared Sofia Moses RN TRANSITIONAL, PAVING PLANT OPERATOR
--- NOTE | 2017-12-02 14:48 | CASEMGMT ---
Social Work Note Pt is able to discharge today to [facility] if medically cleared. Green sheet on chart. Plan: [facility] when medically cleared Sofia Moses MSW, LOG CLERK
--- NOTE | 2017-12-02 16:14 | DCINST_ITS ---
- Discharge Diagnoses Current Active Problems: Current Active and Chronic Problems (Last Updated 03/23/17 @ 16:07 by ANA Hobbs) Closed avulsion fracture of greater trochanter of femur (Acute) You will use the following diet at home:: No restrictions Your food should be the consistency of: Regular Your liquids should be the consistency of: Regular/Thin Discharge Activity: Use Walker - as needed Weight Bearing Status: Weight bearing as tolerated Allergies/Adverse Reactions: Allergies ampicillin Allergy (Verified 12/01/17 12:19) Unknown codeine Allergy (Verified 12/01/17 12:19) Unknown diclofenac sodium [From Arthrotec 50] Allergy (Verified 12/01/17 12:19) Unknown doxycycline Allergy (Verified 12/01/17 12:19) Unknown fluticasone propionate [From Flonase] Allergy (Verified 12/01/17 12:19) Unknown green pepper Allergy (Verified 12/01/17 15:29) Food Allergy misoprostol [From Arthrotec 50] Allergy (Verified 12/01/17 12:19) Unknown morphine Allergy (Verified 12/01/17 12:19) Unknown Sulfa (Sulfonamide Antibiotics) Allergy (Verified 12/01/17 12:19) Unknown Tetanus Vaccines and Toxoid [Tetanus Vaccines & Toxoid] Allergy (Verified 12/01/17 12:19) Unknown Medications to take at Discharge Citalopram [Celexa] 20 mg PO DAILY 05/30/13 Multivitamins,Therapeutic [Multivitamin] 1 tab PO DAILY 05/30/13 Oxybutynin Chloride [Ditropan Xl] 5 mg PO BID 05/30/13 buPROPion SR [Wellbutrin SR (150mg tablets)] 150 mg PO DAILY 05/30/13 Calcium Carbonate/Vitamin D3 [Liquid Calcium 600-Vit D3 Sfgl] 1 ea PO BID 09/16/16 Leflunomide 20 mg PO DAILY 09/16/16 Omeprazole [Prilosec] 20 mg PO BID 09/16/16 Polyethylene Glycol 3350 [Miralax] 17 gm PO DAILY PRN 09/16/16 atorvastatin 40 mg tablet 40 mg PO QHS 90 Days #90 03/23/17 Clopidogrel Bisulfate [Plavix] 75 mg PO DAILY 12/01/17 Lisinopril [Zestril] 10 mg PO DAILY 12/01/17 Metoprolol Tartrate [Lopressor (beta hermilo)] 50 mg PO BID 12/01/17 Aspirin [Adult Aspirin] 81 mg PO DAILY #1 tablet. 12/02/17 Docusate Sodium [Colace] 100 mg PO BID capsule 12/02/17 Ensure Enlive 120 ml PO 4X/DAY liquid 12/02/17 Heparin Injection (Vial) [Heparin Na] 5,000 unit SC Q12 #28 vial 12/02/17 Hydrocodone Bitart/Apap 5-325 [[place] 5/325] 1 tablet PO Q6H PRN PRN 1 Days #1 tablet 12/02/17 The following prescriptions were given: Aspirin [Adult Aspirin] 81 mg PO DAILY #1 tablet. Heparin Injection (Vial) [Heparin Na] 5,000 unit SC Q12 #28 vial Primary Care Physician: Ge Tidwell MD [Primary Care Provider] - Test Results: Test results from this visit will be discussed in further detail at your follow- up appointment, if applicable.
[2017-12-02 16:34] VITALS: BP 172/79; PULSE 79; RESP 16; TEMP 36.6; O2SAT 97
--- NOTE | 2017-12-03 10:09 | PCM.DC.SUM ---
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 #4 coronary artery disease #5 hypertension #6 hyperlipidemia #7 GERD - Secondary Discharge Diagnosis Chronic Problems (Last Updated 03/23/17 @ 16:07 by ANA Hobbs) Hyperlipidemia (Chronic) Depression (Chronic) Coronary arteriosclerosis (Chronic) CAD (coronary artery disease) (Chronic) stent to LAD S/P PTCA (percutaneous transluminal coronary angioplasty) (Chronic ~2013) LAD HTN (hypertension) (Chronic) Diabetes mellitus (Chronic) Hospital Course and Treatment Operations: None Procedures: None Summary of Care Provided: The patient is a 77 year old F who was seen in the emergency room at [facility] with a chief complaint of stability and inability to perform ADLs at home secondary to her recent avulsion of the left greater trochanter from a fall. Patient was admitted to [place] [address], she was seen by PT and OT, and initially arrangements were made for the patient to be [facility] pending approval but the rehab unit at [facility] was contacted and agreed to take the patient for rehab services. On 12/02/17, patient was seen and examined felt to be in stable condition for transfer to the rehab unit at [facility] for inpatient rehab. Exam: On examination she appeared in good health and spirits. Vital signs as documented. Skin warm and dry and without overt rashes. Neck without JVD. Lungs clear. Heart exam notable for regular rhythm, normal sounds and absence of murmurs, rubs or gallops. Abdomen unremarkable and without evidence of organomegaly, masses, or abdominal aortic enlargement. Extremities: There is tenderness to palpation over the left hip area, no edema is noted in either lower extremity. Neuro: Cranial nerves II through XII grossly intact, no focal motor deficits were noted, sensation to pinprick and light touch is intact. Psych: Patient is alert and oriented x3, she does not appear anxious or depressed. - Physical Exam Vital Signs Temp Pulse Resp BP Pulse Ox 97.9 F 79 16 172/79 H 97 12/02/17 16:34 12/02/17 16:34 12/02/17 16:34 12/02/17 16:34 12/02/17 16:34 Oxygen Delivery Method Room Air Weight: 65.81 kg Body Mass Index (BMI) 31.4 Intake and Output for Last 24 Hours 12/01/17 12/02/17 12/03/17 23:59 23:59 23:59 Intake Total 670 / 670 1040 / 1040 Output Total 350 / 350 Balance 670 / 670 690 / 690 Discharge Activity: Use Walker - as needed Weight Bearing Status: Weight bearing as tolerated Home Medications: Medications to take at Discharge Multivitamins,Therapeutic [Multivitamin] 1 tab PO DAILY 05/30/13 Oxybutynin Chloride [Ditropan Xl] 5 mg PO BID 05/30/13 buPROPion SR [Wellbutrin SR (150mg tablets)] 150 mg PO DAILY 05/30/13 Calcium Carbonate/Vitamin D3 [Liquid Calcium 600-Vit D3 Sfgl] 1 ea PO BID 09/16/16 Leflunomide 20 mg PO DAILY 09/16/16 Omeprazole [Prilosec] 20 mg PO BID 09/16/16 Polyethylene Glycol 3350 [Miralax] 17 gm PO DAILY PRN 09/16/16 atorvastatin 40 mg tablet 40 mg PO QHS 90 Days #90 03/23/17 Clopidogrel Bisulfate [Plavix] 75 mg PO DAILY 12/01/17 Lisinopril [Zestril] 10 mg PO DAILY 12/01/17 Metoprolol Tartrate [Lopressor (beta hermilo)] 50 mg PO BID 12/01/17 Aspirin [Adult Aspirin] 81 mg PO DAILY 12/02/17 Primary Care Physician: Ge Tidwell MD [Primary Care Provider] - Disposition: Inpt Rehab Unit/Facility Minutes spent on discharge:: 32 Patient Condition:: Stable Medical Necessity - Tobacco Use Smoking Status: Never smoker Meaningful Use Info Meaningful Use Diagnoses (Choose all that apply): None applicable Code Visit Inpatient E&M: 48004 Disch Hosp
--- NOTE | 2017-12-03 10:14 | DS.PCM_ITS ---
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 #4 coronary artery disease #5 hypertension #6 hyperlipidemia #7 GERD - Secondary Discharge Diagnosis Chronic Problems (Last Updated 03/23/17 @ 16:07 by ANA Hobbs) Hyperlipidemia (Chronic) Depression (Chronic) Coronary arteriosclerosis (Chronic) CAD (coronary artery disease) (Chronic) stent to LAD S/P PTCA (percutaneous transluminal coronary angioplasty) (Chronic ~2013) LAD HTN (hypertension) (Chronic) Diabetes mellitus (Chronic) Hospital Course and Treatment Operations: None Procedures: None Summary of Care Provided: The patient is a 77 year old F who was seen in the emergency room at [facility] with a chief complaint of stability and inability to perform ADLs at home secondary to her recent avulsion of the left greater trochanter from a fall. Patient was admitted to [place] [address], she was seen by PT and OT, and initially arrangements were made for the patient to be transferred [place] a [place] [facility] facility pending approval but the rehab unit at [facility] was contacted and agreed to take the patient for rehab services. On 12/02/17, patient was seen and examined felt to be in stable condition for transfer to the rehab unit at [facility] for inpatient rehab. Exam: On examination she appeared in good health and spirits. Vital signs as documented. Skin warm and dry and without overt rashes. Neck without JVD. Lungs clear. Heart exam notable for regular rhythm, normal sounds and absence of murmurs, rubs or gallops. Abdomen unremarkable and without evidence of organomegaly, masses, or abdominal aortic enlargement. Extremities: There is tenderness to palpation over the left hip area, no edema is noted in either lower extremity. Neuro: Cranial nerves II through XII grossly intact, no focal motor deficits were noted, sensation to pinprick and light touch is intact. Psych: Patient is alert and oriented x3, she does not appear anxious or depressed. - Physical Exam Vital Signs Temp Pulse Resp BP Pulse Ox 97.9 F 79 16 172/79 H 97 12/02/17 16:34 12/02/17 16:34 12/02/17 16:34 12/02/17 16:34 12/02/17 16:34 Oxygen Delivery Method Room Air Weight: 65.81 kg Body Mass Index (BMI) 31.4 Intake and Output for Last 24 Hours 12/01/17 12/02/17 12/03/17 23:59 23:59 23:59 Intake Total 670 / 670 1040 / 1040 Output Total 350 / 350 Balance 670 / 670 690 / 690 Discharge Activity: Use Walker - as needed Weight Bearing Status: Weight bearing as tolerated Home Medications: Medications to take at Discharge Multivitamins,Therapeutic [Multivitamin] 1 tab PO DAILY 05/30/13 Oxybutynin Chloride [Ditropan Xl] 5 mg PO BID 05/30/13 buPROPion SR [Wellbutrin SR (150mg tablets)] 150 mg PO DAILY 05/30/13 Calcium Carbonate/Vitamin D3 [Liquid Calcium 600-Vit D3 Sfgl] 1 ea PO BID 09/16/16 Leflunomide 20 mg PO DAILY 09/16/16 Omeprazole [Prilosec] 20 mg PO BID 09/16/16 Polyethylene Glycol 3350 [Miralax] 17 gm PO DAILY PRN 09/16/16 atorvastatin 40 mg tablet 40 mg PO QHS 90 Days #90 03/23/17 Clopidogrel Bisulfate [Plavix] 75 mg PO DAILY 12/01/17 Lisinopril [Zestril] 10 mg PO DAILY 12/01/17 Metoprolol Tartrate [Lopressor (beta hermilo)] 50 mg PO BID 12/01/17 Aspirin [Adult Aspirin] 81 mg PO DAILY 12/02/17 Primary Care Physician: Ge Tidwell MD [Primary Care Provider] - Disposition: Inpt Rehab Unit/Facility Minutes spent on discharge:: 32 Patient Condition:: Stable Medical Necessity - Tobacco Use Smoking Status: Never smoker Meaningful Use Info Meaningful Use Diagnoses (Choose all that apply): None applicable Code Visit Inpatient E&M: 19248 Disch Hosp
== END 2017-12-02 16:55 | DRG 544 ==
LOC: ED 13:54 → MS3 14:33
PROVIDERS: Admitting Provider Family Medicine; Emergency Provider Emergency Medicine; Family Provider Family Medicine; PCP Family Medicine; Visit Provider Internal Medicine
DX: M80.052A Age-related osteoporosis with current pathological fracture, left femur, initial encounter for fracture (principal); S50.02XA Contusion of left elbow, initial encounter; S30.0XXA Contusion of lower back and pelvis, initial encounter; W19.XXXA Unspecified fall, initial encounter; Z91.81 History of falling; H35.30 Unspecified macular degeneration; E78.5 Hyperlipidemia, unspecified; I10 Essential (primary) hypertension; I25.10 Atherosclerotic heart disease of native coronary artery without angina pectoris; F32.9 Major depressive disorder, single episode, unspecified; K21.9 Gastro-esophageal reflux disease without esophagitis; R53.81 Other malaise; H54.7 Unspecified visual loss; Z95.5 Presence of coronary angioplasty implant and graft; Z79.02 Long term (current) use of antithrombotics/antiplatelets; Z79.82 Long term (current) use of aspirin; Z79.899 Other long term (current) drug therapy
CPT/HCPCS: 36415; 71045; 73502; 80048; 80053; 85025; 85610; 85730; 93005; 97162; 97165; 97802; 99285; A4216

== ENCOUNTER 2017-12-02 17:31 | Inpatient (IN) | payer MEDICARE, OTHER, SELFPAY ==
[2017-12-02 17:37] VITALS: BP 167/83; PULSE 77; RESP 16; TEMP 36.8; O2SAT 94; BMI 31.4
[2017-12-02 19:49] VITALS: O2SAT 98
[2017-12-02 20:13] VITALS: BP 149/72; PULSE 74; RESP 16; TEMP 36.8; O2SAT 95
[2017-12-02] MEDS: HYDROcodone Bitartrate/Apap 5/325 Tablet PO (21:12)
[2017-12-02] MEDS: Pantoprazole Sodium 20 MG Tablet PO (21:13)
[2017-12-02 21:14] VITALS: BP 149/72; PULSE 74
[2017-12-02] MEDS: Metoprolol Tartrate 50 MG Tablet PO (21:14)
[2017-12-02] MEDS: Atorvastatin Calcium 40 MG Tablet PO (21:14)
[2017-12-02] MEDS: Oxybutynin 5 MG Tablet PO (21:14)
[2017-12-02 22:46] LABS: Bedside Glucose 117 mg/dL (70-110)
--- NOTE | 2017-12-02 23:45 | NURSING ---
PT UP TO BSC 2 TIMES IN A ROW AND UNABLE TO PASS URINE AND FEELS UNCOMFORTABLE IN BLADDER AREA. BLADDER SCANNED FOR >450 ML.
--- NOTE | 2017-12-03 00:28 | NURSING ---
PT STRAIGHT CATHED FOR 375 ML OF CLEAR YELLOW URINE WITH NORMAL ODOR. PT TOLERATES PROCEDURE WELL.
[2017-12-03] MEDS: HYDROcodone Bitartrate/Apap 5/325 Tablet PO ×2 (04:27→20:08)
[2017-12-03 05:43] LABS: ALB/GLOB Ratio 0.7 RATIO (0.9-2.4); AST(SGOT) 17 U/L (15-37); Alanine Aminotransfer ALT/SGPT 17 U/L (13-56); Albumin, Serum 2.6 g/dL (3.2-5.0); Alkaline Phosphatase 64 U/L (45-117); Anion Gap 6 (5-15); BUN 16 mg/dL (7-18); BUN/Creat Ratio 22.5 RATIO (10-20); Chloride 104 mmol/L (98-107); Creatinine, Serum 0.71 mg/dL (0.55-1.02); EST Glomerular Filtration Rate 84 mL/min (>60); Est Glom Filt Rate - Afr Amer 102 mL/min (>60); Estimated Creatinine Clearance 48.24 ml/min; Globulin 3.5 g/dL (2.2-4.2); Glucose 104 mg/dL (74-106); Magnesium 1.8 mg/dL (1.6-2.6); Phosphorus 2.8 mg/dL (2.5-4.9); Potassium 4.1 mmol/L (3.5-5.1); Protein, Total 6.1 g/dL (6.4-8.2); Sodium Level 139 mmol/L (136-145)
[2017-12-03 05:46] LABS: Absolute Lymphocyte Count 0.85 X10^3/ul (0.83-4.51); Absolute Neutrophil Count 3.6 X10^3/uL (2.0-7.7); Basophil# 0.04 X10^3/uL; Basophil% 0.7 % (0-1); Eosinophil# 0.17 X10^3/uL; Eosinophils% 3.1 % (0-5); Hematocrit 32.9 % (37-47); Hemoglobin 10.8 g/dl (12.0-15.0); Lymphocyte # 0.85 X10^3/ul (4.0); Lymphocyte % 15.7 % (19-41); Mean Corp Hgb Conc 32.8 g/gl (32-36); Mean Corpuscular Hgb 31.9 pg (27.0-32.0); Mean Corpuscular Volume 97.1 fL (81-99); Mean Platelet Vol. 11.1 fl (6.2-12.0); Monocyte# 0.73 X10^3/uL; Monocyte% 13.5 % (0-10); Neutrophil % 66.8 % (47-70); Platelet Count 133 K/mm3 (150-450); RBC Distribution Width CV 13.8 % (11.6-14.6); RBC Distribution Width SD 46.7 fl (35.1-43.9); Red Blood Count 3.39 M/mm3 (4.2-5.4); White Blood Count 5.4 K/mm3 (4.4-11.0)
[2017-12-03 05:55] LABS: POSITIVE COUNT NO; POSITIVE DIFFERENTIAL NO; POSITIVE MORPHOLOGY NO
[2017-12-03 06:58] VITALS: O2SAT 94
[2017-12-03 07:21] LABS: Bedside Glucose 102 mg/dL (70-110)
[2017-12-03 08:13] VITALS: BP 164/83; PULSE 85; RESP 16; TEMP 36.9; O2SAT 93
[2017-12-03] MEDS: Lisinopril 10 MG Tablet PO ×2 (08:17→09:41)
[2017-12-03] MEDS: Enoxaparin 40 MG/0.4 ML Syringe SC (08:17)
[2017-12-03 08:18] VITALS: BP 164/83; PULSE 85
[2017-12-03] MEDS: Calcium Carb/Vitamin D 1 TABLET Tablet PO ×2 (08:18→17:05)
[2017-12-03] MEDS: Leflunomide 10 MG TABLET 20 MG PO (08:18)
[2017-12-03] MEDS: Clopidogrel Bisulfate 75 MG Tablet PO (08:18)
[2017-12-03] MEDS: Multivitamins,Therapeutic Tablet 1 TABLET PO (08:18)
[2017-12-03] MEDS: buPROPion (SR) 150 MG Tablet.SA PO (08:18)
[2017-12-03] MEDS: Senna/Docusate Sodium 1 Tablet 2 TABLET PO (08:18)
[2017-12-03] MEDS: Metoprolol Tartrate 50 MG Tablet PO ×2 (08:18→20:09)
[2017-12-03] MEDS: Pantoprazole Sodium 20 MG Tablet PO ×2 (08:18→20:09)
[2017-12-03] MEDS: Aspirin E.C. 81 MG Tablet PO (08:18)
--- NOTE | 2017-12-03 09:45 | VDLE_ITS ---
Reason For Study: pain RIGHT LEFT GSV is normal. GSV is normal. CFV is compressible, spontaneous, phasic, CFV is compressible, spontaneous, phasic, competent and demonstrates normal competent, and demonstrates normal augmentation. augmentation. FV is compressible, spontaneous, phasic, FV is compressible, spontaneous, phasic, competent and demonstrates normal competent and demonstrates normal augmentation. augmentation. POP V is compressible, spontaneous, phasic, POP V is compressible, spontaneous, phasic, competent and demonstrates normal competent and demonstrates normal augmentation. augmentation. T/P Trunk is compressible. T/P Trunk is compressible. PTV is compressible. PTV is compressible. RT PerV is compressible. LT PerV is compressible. Procedure Exam performed portable in patient room. The exam was diagnostic. A preliminary report was called and/or faxed to the pt's RN. Interpretation Summary Deep veins of the lower extremities are bilaterally patent and compressible segmentally. There is no evidence of deep vein thrombosis on either side. Valvular competence appears intact within the proximal deep venous systems bilaterally. The greater saphenous veins appear bilaterally patent and compressible segmentally. Ordering Physician: Lorena Elizabeth Referring Physician: Shane Yadav Performed By: Abel Hawk RVT
--- NOTE | 2017-12-03 09:50 | PCM.RU.PYE ---
Admission Information Status Changes from Prescreening?: No changes Identified Actual Problem List:: Falls, Mobility Impaired, Self Care Deficit Potential Problem List:: DVT, Bleeding, Infection, UTI, Aspiration, Falls, Skin Integrity, Depression Risk of Complications DVT: LMWH, REN Hose, Sequential Compression Device Bleeding: Monitor Lab Values, Nursing to Teach Precautions for anti-coagulation therapy., Wound, if applicable, to be assessed every shift., Stroke patients assessed for lethargy or change in status. Infection: Clinical Staff to Monitor for S/S of infection:, S/S of infection include fever, redness, warmth, etc. Urinary Tract Infection: Monitor for frequency, burning, discomfort, or incontinence., Nursing will obtain urine sample for urinalysis and C&S when ordered. Aspiration: Clinical staff will monitor for coughing, drooling, congestion., Speech will evaluate swallowing and dsyphasia., Nursing will monitor patient swallowing during meals. Falls: Patient will be evaluated for Fall Precautions, Patient will be placed on Fall Precautions as indicated per protocol. Skin Breakdown: Nursing will assess skin daily using assessment tool., Nursing will place on Skin Breakdown Precautions as indicated. Pain: Clinical staff will assess patient's pain level per protocol., Medications will be given, if needed, and the pain level reassessed., Other methods: Massage, distraction, decrease stimulus, etc. used PRN. Plan of Care Patient requires physician specializing in physical medicine and rehab oversight to provide close medical supervision of rehab issues including: Pain Management, Sleep Problems, Bowel and Bladder, Medical and co-morbidity Management, DVT prophylaxis, Rehabilitation Leadership, Coordination of treatment team Patient needs Physical Therapy: For a minimum of 1 hour, At least 5 out of 7 days Patient needs Physical Therapy to improve:: Mobility, Mobility, Mobility, Strengthening, Transfers, Stretching, ROM, Endurance, Stairs, Gait, Balance Patient needs Occupational Therapy: For a minimum of 1 hour, At least 5 out of 7 days Patient needs Occupational Therapy to improve ADL's incl.: Eating, Grooming, Bathing, Dressing, Toileting, Toilet transfers, Community Reintegration, Higher functioning activities, Household tasks, Adaptive Equipment, Splinting, Other activities as determined Patient requires 24/7 Rehabilitation Nursing for: Pain Issues, Identifying and preventing risk factors, Monitoring and reporting current medical conditions, Assisting with ambulation, transfer, and all ADL's, Teaching patients about disease process and medications, Family teaching, Providing safe environment, Bowel and Bladder Issues, Skin integrity, Medication Management Patient needs Certified Rehabilitation Counselor/ Case Management for: Discharge Planning, Arranging Home Equipment or Services, Family Interventions Patient needs Dietary and Nutrition Services for: Adequate Nutrition, Nutritional Supplements, Nutritional Education Goals Patient will remain: free from falls, or injury at time of discharge. Patient will perform bed mobility at: MOD I level of assist. Patient will complete transfers from bed to chair at: MOD I level of assist. Patient will ambulate: 100 feet, with MOD I assist, with LRD Patient will complete upper body dressing at: MOD I level of assist. Patient will complete lower body dressing at: MOD I level of assist. Patient will complete toileting at: MOD I level of assist. Patient will perform bathing at: MOD I level of assist. Patient will complete grooming at: MOD I level of assist. Patient will complete home management skills at: MOD I level of assist. Patient will achieve: 12 stairs, at MOD I assist Patient will have pain level of: of 3 or less Patient's skin will: remain intact, free from infection. Patient will receive: adequate nutrition. Discharge Planning Pt Prognosis for Sig. Practical Improv. w/in Reasonable Time: Fair Estimated Length of stay (days): 16 Anticipated D/C Destination: Home with Outpt Therapy Was Preadmission Assessment Accurate?: Yes
[2017-12-03 11:45] LABS: Bedside Glucose 81 mg/dL (70-110)
--- NOTE | 2017-12-03 13:11 | HP.PCM.COS_ITS ---
History of Present Illness Date of Admission: 12/02/17 Chief Complaint: Left Hip Fracture The patient is a 77 year old right handed Female, who is admitted to the rehab unit for rehabilitation after suffering a mechanical fall, she original presented to the ED on 11/29, and was found to have an avulsion fracture of the g reater trochanter of the left femur. Ortho Dr. Montano was consulted, there was no surgical invention required and he would follow up as an outpatient. The patient elected to go home at that time, She was discharged home with follow up appointment and pain medication. She returned on 12/01 with increase pain and in ability to ambulate without difficulty. At home she was finding mobility exceedingly difficult and her is on dialysis three times a week and was unable to provide the amount of assistance she needed. She has had an increased number of falls per the patient, when she saw her family doctor and asked him about why she was falling he felt it was a combination of her age and her blindness from macular degeneration. She has a PMH of HTN, HLD, DM II, CAD, depression and Macular degeneration. At home, because of her hip pain, she was unable to transfer and change positions and therefore unable to perform her ADLs. She lives with her in a one story home with a finished basement, but she does not go down there since falling down the steps a few months ago. She is legally blind, but prior to this fall was able to do all her own personal care. She is admitted to the rehab unit in order to restore her previous level of functional independence. Past Medical History Past Medical History (Chronic Problems): Chronic Problems (Last Updated 03/23/17 @ 16:07 by ANA Hobbs) Hyperlipidemia (Chronic) Depression (Chronic) Coronary arteriosclerosis (Chronic) CAD (coronary artery disease) (Chronic) stent to LAD S/P PTCA (percutaneous transluminal coronary angioplasty) (Chronic ~2013) LAD HTN (hypertension) (Chronic) Diabetes mellitus (Chronic) Medical History: Medical History (Last Updated 03/23/17 @ 16:07 by ANA Hobbs) Hyperlipidemia (Chronic) E78.5 Coronary arteriosclerosis (Chronic) I25.10 CAD (coronary artery disease) (Chronic) I25.10 stent to LAD HTN (hypertension) (Chronic) I10 Diabetes mellitus (Chronic) E11.9 Allergies ampicillin Allergy (Verified 12/01/17 12:19) Unknown codeine Allergy (Verified 12/01/17 12:19) Unknown diclofenac sodium [From Arthrotec 50] Allergy (Verified 12/01/17 12:19) Unknown doxycycline Allergy (Verified 12/01/17 12:19) Unknown fluticasone propionate [From Flonase] Allergy (Verified 12/01/17 12:19) Unknown green pepper Allergy (Verified 12/01/17 15:29) Food Allergy misoprostol [From Arthrotec 50] Allergy (Verified 12/01/17 12:19) Unknown morphine Allergy (Verified 12/01/17 12:19) Unknown Sulfa (Sulfonamide Antibiotics) Allergy (Verified 12/01/17 12:19) Unknown Tetanus Vaccines and Toxoid [Tetanus Vaccines & Toxoid] Allergy (Verified 12/01/17 12:19) Unknown Home Medications: Ambulatory Orders Medication Instructions Recorded Multivitamins,Therapeutic 1 tab PO DAILY 05/30/13 [Multivitamin] Oxybutynin Chloride [Ditropan Xl] 5 mg PO BID 05/30/13 buPROPion SR [Wellbutrin SR (150mg 150 mg PO DAILY 05/30/13 tablets)] Calcium Carbonate/Vitamin D3 1 ea PO BID 09/16/16 [Liquid Calcium 600-Vit D3 Sfgl] Leflunomide 20 mg PO DAILY 09/16/16 Omeprazole [Prilosec] 20 mg PO BID 09/16/16 Polyethylene Glycol 3350 [Miralax] 17 gm PO DAILY PRN 09/16/16 atorvastatin 40 mg tablet 40 mg PO QHS 90 Days #90 03/23/17 Clopidogrel Bisulfate [Plavix] 75 mg PO DAILY 12/01/17 Lisinopril [Zestril] 10 mg PO DAILY 12/01/17 Metoprolol Tartrate [Lopressor 50 mg PO BID 12/01/17 (beta maximiliano)] Aspirin [Adult Aspirin] 81 mg PO DAILY 12/02/17 Surgical History: Surgical History (Last Updated 03/23/17 @ 16:07 by ANA Hobbs) S/P PTCA (percutaneous transluminal coronary angioplasty) (Chronic) Onset Date: ~2012 Z98.61 LAD Surgical History: angioplasty, appendectomy, cataract, cholecystectomy, total knee arthroplasty - Bilaterally, - - 3 cardiac stents, surgery for diverticulitis and diverticular abscess Psychiatric History: Depression 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 Lives: Spouse/ Significant Other Smoking Status: Never smoker Alcohol: None Drugs: None - *Family History Maternal Family History: Family History (Last Updated 03/23/17 @ 16:07 by ANA Hobbs) Brother CAD (coronary artery disease) History Items: No pertinent history Paternal Family History: Family History (Last Updated 03/23/17 @ 16:07 by ANA Hobbs) Brother CAD (coronary artery disease) History Items: No pertinent history Sibling Family History: Family History (Last Updated 03/23/17 @ 16:07 by ANA Hobbs) Brother CAD (coronary artery disease) History Items: No pertinent history Review of Systems Constitutional: Denies: Chills, Fever, Weight Change HEENT: Denies: Head Aches, Sinus Congestion, Sinus Drainage Cardiovascular: Denies: Chest Pain, Palpitations Respiratory: Denies: Cough, Shortness of breath at rest, Sputum production Gastrointestinal: Denies: Abdominal Pain, Nausea, Vomiting Genitourinary: Denies: Dysuria Musculoskeletal: Denies: Joint Pain, Joint Tenderness Skin: Denies: Rash, Wounds Neurological: Denies: Numbness, Tingling, Focal weakness Psychiatric: Denies: Anxiety, Depression, Homicidal Ideations, Suicidal Ideations Hematologic/ Lymphatic: Denies: Easy Bruising, Easy Bleeding VTE Information - Inpt Only VTE Present on Admission: No VTE Mechan Device Prophylaxis: SCD's, Knee High REN Hose VTE Pharm Prophylaxis ordered?: Yes - Physical Exam General: Alert, Oriented x3, Cooperative HEENT: Atraumatic, PERRLA, EOMI, Normocephalic Neck: Supple, No JVD, Negative Carotid Bruits Lungs: Clear to auscultation, Normal air movement Cardiovascular: Regular rate, No murmurs Abdomen: Bowel Sounds Present, Soft, Non Tender Extremities: No edema, Capillary Refill Less than 3 Seconds Skin: No rashes, No breakdown Musculoskeletal: No Tenderness to Palpation of Joints or Extremities Neurological: Cranial nerves II-XII grossly intact Psych/Mental Status: Normal Affect, Appropriate, Alert and oriented to time, place, person, mood and affect Vital Signs Temp Pulse Resp BP Pulse Ox 98.4 F 85 16 164/83 H 93 10/11/18 08:13 12/03/17 08:18 12/03/17 08:13 12/03/17 08:18 12/03/17 08:13 Oxygen Delivery Method Room Air Weight: 65.9 kg Body Mass Index (BMI) 31.4 Intake and Output for Last 24 Hours 12/01/17 12/02/17 12/03/17 23:59 23:59 23:59 Output Total 1125 / 1125 Balance -1125 / -1125 Laboratory Tests Past 24 Hrs 12/03/17 12/03/17 05:00 05:00 WBC 5.4 RBC 3.39 L Hgb 10.8 L Hct 32.9 L MCV 97.1 MCH 31.9 MCHC 32.8 RDW 13.8 RDW Differential 46.7 H Plt Count 133 L MPV 11.1 Immature Gran % (Auto) 0.200 Neut % (Auto) 66.8 Lymph % (Auto) 15.7 L [place] % (Auto) 13.5 H Eos % (Auto) 3.1 Baso % (Auto) 0.7 Absolute Neuts (auto) 3.6 Absolute Lymphs (auto) 0.85 Total Counted Not Reportable Sodium 139 Potassium 4.1 Chloride 104 Carbon Dioxide 29.0 Anion Gap 6 BUN 16 Creatinine 0.71 Estim Creat Clear Calc 48.24 Est GFR (MDRD) Af Amer 102 Est GFR (MDRD) Non-Af 84 BUN/Creatinine Ratio 22.5 H Glucose 104 Calcium 9.0 Phosphorus 2.8 Magnesium 1.8 Total Bilirubin 0.60 AST 17 ALT 17 Alkaline Phosphatase 64 Total Protein 6.1 L Albumin 2.6 L Globulin 3.5 Albumin/Globulin Ratio 0.7 L POC Glucose 12/03/17 12/03/17 12/02/17 11:39 06:53 22:39 POC Glucose 81 102 117 H Active Medications Acetaminophen (Tylenol) 650 mg PO Q6H PRN PRN PRN Reason: Mild Pain (0-3/10)/Headache Hydrocodone Bitart/Acetaminophen ([place] 5mg-325mg) 1 tablet PO Q6H PRN PRN PRN Reason: PAIN Last Admin: 12/03/17 04:27 Dose: 1 tablet Aspirin (Ecotrin) 81 mg PO DAILY DANIEL Last Admin: 12/03/17 08:18 Dose: 81 mg Atorvastatin Calcium (Lipitor) 40 mg PO QHS [facility] Last Admin: 12/02/17 21:14 Dose: 40 mg Bisacodyl (Dulcolax) 10 mg RECTAL .PRN X 1 PRN PRN Reason: Constipation Bupropion HCl (Wellbutrin Sr (150mg Tablets)) 150 mg PO DAILY [facility] Last Admin: 12/03/17 08:18 Dose: 150 mg Calcium/Vitamin D (Os-Apollo 500mg + D) [facility] Last Admin: 12/03/17 08:18 Dose: 1 tablet Clopidogrel Bisulfate (Plavix) 75 mg PO DAILY [facility] Last Admin: 12/03/17 08:18 Dose: 75 mg Enoxaparin Sodium (Lovenox) 40 mg SC DAILY@0600 [facility] Last Admin: 12/03/17 08:17 Dose: 40 mg Leflunomide (Leflunomide) 20 mg PO DAILY [facility] Last Admin: 12/03/17 08:18 Dose: 20 mg Lisinopril (Zestril) 20 mg PO DAILY [facility] Magnesium Hydroxide (Milk Of Magnesia) 30 ml PO .PRN X 1 PRN PRN Reason: Constipation Metoprolol Tartrate (Lopressor (Beta Maximiliano)) 50 mg PO BID [facility] Last Admin: 12/03/17 08:18 Dose: 50 mg Multivitamins (Multivitamin) [facility] Last Admin: 12/03/17 08:18 Dose: 1 tablet Nutritional Formula (Lactose Free) (Ensure Enlive) 120 ml PO 4X/DAY [facility] Last Admin: 12/03/17 14:44 Dose: 120 ml Pantoprazole Sodium (Protonix) 20 mg PO BID [facility] Last Admin: 12/03/17 08:18 Dose: 20 mg Polyethylene Glycol (Miralax) 17 gm PO DAILY PRN PRN Reason: Constipation Senna/Docusate Sodium (Senokot-S, Lindsay-Colace) 2 tablet PO BID [facility] Last Admin: 12/03/17 08:18 Dose: 2 tablet Tamsulosin HCl (Flomax) 0.4 mg PO DAILY@1730 [facility] Assessment/Plan All Active Problems (Last Updated 03/23/17 @ 16:07 by ANA Hobbs) Closed avulsion fracture of greater trochanter of femur (Acute) Debility 2/2 to a non-operative avulsion fracture of the greater trochanter of the left femur. [id number] by DM II, HTN and Macular degeneration. Plan: - Physical therapy for gait and balance - Occupational Therapy for ADLs - Speech therapy - As needed analgesics - Bowel protoco - DVT prophylaxis: SCDs, ASA, Lovenox - Hypertension: Stable with good control, continue metoprolol and lisinopril regimen. Lisinopril regimen was increased to 20mg daily prior to admission to Rehab unit continue to monitor BP and make adjustment accordingly. - Check Hba1c => Goal is <7% - Diabetes type 2 => continue home medication. - Macular degeneration => increased fall risk 2/2 associated blindness - Hx of CAD -> continue aspirin, Plavix, metoprolol, statin. - HX of HLD -> continue statin. - Hx of Depression >-continue home dose of Wellbutrin and Celexa regimen. - Hx of GERD -> continue home does of PPI. - Hx Urinary retention -> home Ditropan regimen was switched to Flomax.
--- NOTE | 2017-12-03 15:54 | PN_ITS ---
Subjective: Patient seen and examined. Resting comfortably in bed. Denies pain currently. States she did well with therapy today and denies pain during PT. Denies GI/ complaints. - Physical Exam General: Alert, Oriented x3, Cooperative HEENT: Atraumatic, PERRLA, EOMI, Normocephalic, - - Blindness. Neck: Supple, No JVD, Negative Carotid Bruits Lungs: Clear to auscultation, Normal air movement Cardiovascular: Regular rate, Regular Rhythm, Normal S1, Normal S2, No murmurs Abdomen: Bowel Sounds Present, Soft, Non Tender, Non-Distended Extremities: No clubbing, No cyanosis, No edema, Capillary Refill Less than 3 Seconds Skin: No rashes, No breakdown, - - Scattered ecchymosis secondary to fall prior to admission. Musculoskeletal: Tenderness - Left hip. Neurological: Cranial nerves II-XII grossly intact Psych/Mental Status: Normal Affect, Appropriate Vital Signs Temp Pulse Resp BP Pulse Ox 98.4 F 85 16 164/83 H 93 12/03/17 08:13 12/03/17 08:18 12/03/17 08:13 12/03/17 08:18 12/03/17 08:13 Oxygen Delivery Method Room Air Weight: 145 lb 4.554 oz Body Mass Index (BMI) 31.4 Intake and Output for Last 24 Hours 12/01/17 12/02/17 12/03/17 23:59 23:59 23:59 Output Total 1125 / 1125 Balance -1125 / -1125 Laboratory Tests Past 24 Hrs 12/03/17 12/03/17 05:00 05:00 WBC 5.4 RBC 3.39 L Hgb 10.8 L Hct 32.9 L MCV 97.1 MCH 31.9 MCHC 32.8 RDW 13.8 RDW Differential 46.7 H Plt Count 133 L MPV 11.1 Immature Gran % (Auto) 0.200 Neut % (Auto) 66.8 Lymph % (Auto) 15.7 L [place] % (Auto) 13.5 H Eos % (Auto) 3.1 Baso % (Auto) 0.7 Absolute Neuts (auto) 3.6 Absolute Lymphs (auto) 0.85 Total Counted Not Reportable Sodium 139 Potassium 4.1 Chloride 104 Carbon Dioxide 29.0 Anion Gap 6 BUN 16 Creatinine 0.71 Estim Creat Clear Calc 48.24 Est GFR (MDRD) Af Amer 102 Est GFR (MDRD) Non-Af 84 BUN/Creatinine Ratio 22.5 H Glucose 104 Calcium 9.0 Phosphorus 2.8 Magnesium 1.8 Total Bilirubin 0.60 AST 17 ALT 17 Alkaline Phosphatase 64 Total Protein 6.1 L Albumin 2.6 L Globulin 3.5 Albumin/Globulin Ratio 0.7 L POC Glucose 12/03/17 12/03/17 12/02/17 11:39 06:53 22:39 POC Glucose 81 102 117 H Medical Necessity - Tobacco Use Smoking Status: Never smoker Assessment/Plan All Active Problems (Last Updated 03/23/17 @ 16:07 by ANA Hobbs) Closed avulsion fracture of greater trochanter of femur (Acute) 1. Debility secondary to avulsion fracture of the left greater trochanter status post mechanical fall prior to admission with underlying osteoporosis- PT/OT. PRN pain regimen. Fall precautions. 2. Macular degeneration with associated blindness-fall precautions. 3. CAD-continue aspirin, Plavix, metoprolol, statin. 4. Hypertension-Continue metoprolol and lisinopril regimen. Lisinopril regimen increased to 20 mg daily with improvement of blood pressure. Continue to monitor. 5. Hyperlipidemia-continue statin. 6. Depression-continue home Wellbutrin and Celexa regimen. 7. GERD-continue PPI. 8. Urinary retention-resolved. Home Ditropan regimen switched to Flomax. DVT prophylaxis-Lovenox subcu. This patient was seen by SNEHA Cárdenas under the supervision of Dr. Johnson.
[2017-12-03 16:21] VITALS: BP 147/72; PULSE 75
[2017-12-03] MEDS: Tamsulosin HCl 0.4 MG Capsule PO (17:05)
[2017-12-03 17:10] LABS: Bedside Glucose 149 mg/dL (70-110)
[2017-12-03 19:35] VITALS: BP 132/71; PULSE 88; RESP 16; TEMP 37.1; O2SAT 97
[2017-12-03 20:09] VITALS: BP 122/71; PULSE 98
[2017-12-03] MEDS: Atorvastatin Calcium 40 MG Tablet PO (20:09)
[2017-12-03 21:46] LABS: Bedside Glucose 190 mg/dL (70-110)
[2017-12-04] MEDS: Enoxaparin 40 MG/0.4 ML Syringe SC (05:34)
[2017-12-04] MEDS: HYDROcodone Bitartrate/Apap 5/325 Tablet PO ×2 (05:54→19:44)
[2017-12-04 06:36] LABS: Bedside Glucose 106 mg/dL (70-110)
[2017-12-04 07:10] VITALS: BP 150/76; PULSE 80; RESP 16; TEMP 36.8; O2SAT 94
[2017-12-04 07:16] VITALS: BP 150/76; PULSE 80
[2017-12-04] MEDS: Clopidogrel Bisulfate 75 MG Tablet PO (07:16)
[2017-12-04] MEDS: buPROPion (SR) 150 MG Tablet.SA PO (07:16)
[2017-12-04] MEDS: Lisinopril 20 MG Tablet PO (07:16)
[2017-12-04] MEDS: Pantoprazole Sodium 20 MG Tablet PO ×2 (07:16→21:36)
[2017-12-04] MEDS: Aspirin E.C. 81 MG Tablet PO (07:16)
[2017-12-04] MEDS: Metoprolol Tartrate 50 MG Tablet PO ×2 (07:16→21:36)
[2017-12-04] MEDS: Calcium Carb/Vitamin D 1 TABLET Tablet PO ×2 (07:17→18:30)
[2017-12-04] MEDS: Leflunomide 10 MG TABLET 20 MG PO (07:17)
[2017-12-04] MEDS: Multivitamins,Therapeutic Tablet 1 TABLET PO (07:17)
[2017-12-04 12:35] LABS: Bedside Glucose 79 mg/dL (70-110)
--- NOTE | 2017-12-04 13:41 | PCM.PN.NEU ---
Subjective: Patient seen during therapy. No new complaints, tolerating therapy. Denies any dizziness, or headaches. No issues with GI/. - Physical Exam General: Alert, Oriented x3, Cooperative HEENT: Atraumatic, PERRLA, EOMI, Normocephalic Neck: Supple, No JVD, Negative Carotid Bruits Lungs: Clear to auscultation, Normal air movement Cardiovascular: Regular rate, No murmurs Abdomen: Bowel Sounds Present, Soft, Non Tender Extremities: No edema, Capillary Refill Less than 3 Seconds Skin: No rashes, No breakdown Musculoskeletal: No Tenderness to Palpation of Joints or Extremities Neurological: Cranial nerves II-XII grossly intact Psych/Mental Status: Normal Affect, Appropriate, Alert and oriented to time, place, person, mood and affect Vital Signs Temp Pulse Resp BP Pulse Ox 98.2 F 80 16 150/76 H 94 12/04/17 07:10 12/04/17 07:16 12/04/17 07:10 12/04/17 07:16 12/04/17 07:10 Oxygen Delivery Method Room Air Weight: 65.9 kg Body Mass Index (BMI) 31.4 Intake and Output for Last 24 Hours 12/02/17 12/03/17 12/04/17 23:59 23:59 23:59 Intake Total 240 / 240 Output Total 1125 / 1125 Balance -1125 / -1125 240 / 240 POC Glucose 12/04/17 12/04/17 12/03/17 12:27 06:33 21:30 POC Glucose 79 106 190 H 12/03/17 17:04 POC Glucose 149 H Active Medications Acetaminophen (Tylenol) 650 mg PO Q6H PRN PRN PRN Reason: Mild Pain (0-3/10)/Headache Hydrocodone Bitart/Acetaminophen ([place] 5mg-325mg) 1 tablet PO Q6H PRN PRN PRN Reason: PAIN Last Admin: 12/04/17 05:54 Dose: 1 tablet Aspirin (Ecotrin) 81 mg PO DAILY [facility] Last Admin: 12/04/17 07:16 Dose: 81 mg Atorvastatin Calcium (Lipitor) 40 mg PO QHS [facility] Last Admin: 12/03/17 20:09 Dose: 40 mg Bisacodyl (Dulcolax) 10 mg RECTAL .PRN X 1 PRN PRN Reason: Constipation Bupropion HCl (Wellbutrin Sr (150mg Tablets)) 150 mg PO DAILY [facility] Last Admin: 12/04/17 07:16 Dose: 150 mg Calcium/Vitamin D (Os-Apollo 500mg + D) [facility] Last Admin: 12/04/17 07:17 Dose: 1 tablet Clopidogrel Bisulfate (Plavix) 75 mg PO DAILY [facility] Last Admin: 12/04/17 07:16 Dose: 75 mg Enoxaparin Sodium (Lovenox) 40 mg SC DAILY@0600 [facility] Last Admin: 12/04/17 05:34 Dose: 40 mg Leflunomide (Leflunomide) 20 mg PO DAILY [facility] Last Admin: 12/04/17 07:17 Dose: 20 mg Lisinopril (Zestril) 20 mg PO DAILY [facility] Last Admin: 12/04/17 07:16 Dose: 20 mg Magnesium Hydroxide (Milk Of Magnesia) 30 ml PO .PRN X 1 PRN PRN Reason: Constipation Metoprolol Tartrate (Lopressor (Beta Maximiliano)) 50 mg PO BID [facility] Last Admin: 12/04/17 07:16 Dose: 50 mg Multivitamins (Multivitamin) [facility] Last Admin: 12/04/17 07:17 Dose: 1 tablet Pantoprazole Sodium (Protonix) 20 mg PO BID [facility] Last Admin: 12/04/17 07:16 Dose: 20 mg Polyethylene Glycol (Miralax) 17 gm PO DAILY PRN PRN Reason: Constipation Senna/Docusate Sodium (Senokot-S, Lindsay-Colace) 2 tablet PO BID [facility] Last Admin: 12/04/17 07:18 Dose: Not Given Tamsulosin HCl (Flomax) 0.4 mg PO DAILY@1730 [facility] Last Admin: 12/03/17 17:05 Dose: 0.4 mg Medical Necessity - Tobacco Use Smoking Status: Never smoker Assessment/Plan All Active Problems (Last Updated 03/23/17 @ 16:07 by ANA Hobbs) Closed avulsion fracture of greater trochanter of femur (Acute) Debility 2/2 to a non-operative avulsion fracture of the greater trochanter of the left femur. [id number] by DM II, HTN and Macular degeneration. Plan: - Physical therapy for gait and balance - Occupational Therapy for ADLs - Speech therapy - As needed analgesics - Bowel protoco - DVT prophylaxis: SCDs, ASA, Lovenox - Hypertension: Stable with good control, continue metoprolol and lisinopril regimen. Lisinopril regimen was increased to 20mg daily prior to admission to Rehab unit continue to monitor BP and make adjustment accordingly. - Check Hba1c => Goal is <7% - Diabetes type 2 => continue home medication. - Macular degeneration => increased fall risk 2/2 associated blindness - Hx of CAD -> continue aspirin, Plavix, metoprolol, statin. - HX of HLD -> continue statin. - Hx of Depression >-continue home dose of Wellbutrin and Celexa regimen. - Hx of GERD -> continue home does of PPI. - Hx Urinary retention -> home Ditropan regimen was switched to Flomax.
--- NOTE | 2017-12-04 13:44 | PN.NEURO_ITS ---
Subjective: Patient seen during therapy. No new complaints, tolerating therapy. Denies any dizziness, or headaches. No issues with GI/. - Physical Exam General: Alert, Oriented x3, Cooperative HEENT: Atraumatic, PERRLA, EOMI, Normocephalic Neck: Supple, No JVD, Negative Carotid Bruits Lungs: Clear to auscultation, Normal air movement Cardiovascular: Regular rate, No murmurs Abdomen: Bowel Sounds Present, Soft, Non Tender Extremities: No edema, Capillary Refill Less than 3 Seconds Skin: No rashes, No breakdown Musculoskeletal: No Tenderness to Palpation of Joints or Extremities Neurological: Cranial nerves II-XII grossly intact Psych/Mental Status: Normal Affect, Appropriate, Alert and oriented to time, place, person, mood and affect Vital Signs Temp Pulse Resp BP Pulse Ox 98.2 F 80 16 150/76 H 94 12/04/17 07:10 12/04/17 07:16 12/04/17 07:10 12/04/17 07:16 12/04/17 07:10 Oxygen Delivery Method Room Air Weight: 65.9 kg Body Mass Index (BMI) 31.4 Intake and Output for Last 24 Hours 12/02/17 12/03/17 12/04/17 23:59 23:59 23:59 Intake Total 240 / 240 Output Total 1125 / 1125 Balance -1125 / -1125 240 / 240 POC Glucose 12/04/17 12/04/17 12/03/17 12:27 06:33 21:30 POC Glucose 79 106 190 H 12/03/17 17:04 POC Glucose 149 H Active Medications Acetaminophen (Tylenol) 650 mg PO Q6H PRN PRN PRN Reason: Mild Pain (0-3/10)/Headache Hydrocodone Bitart/Acetaminophen ([place] 5mg-325mg) 1 tablet PO Q6H PRN PRN PRN Reason: PAIN Last Admin: 12/04/17 05:54 Dose: 1 tablet Aspirin (Ecotrin) 81 mg PO DAILY [facility] Last Admin: 12/04/17 07:16 Dose: 81 mg Atorvastatin Calcium (Lipitor) 40 mg PO QHS [facility] Last Admin: 12/03/17 20:09 Dose: 40 mg Bisacodyl (Dulcolax) 10 mg RECTAL .PRN X 1 PRN PRN Reason: Constipation Bupropion HCl (Wellbutrin Sr (150mg Tablets)) 150 mg PO DAILY [facility] Last Admin: 12/04/17 07:16 Dose: 150 mg Calcium/Vitamin D (Os-Apollo 500mg + D) [facility] Last Admin: 12/04/17 07:17 Dose: 1 tablet Clopidogrel Bisulfate (Plavix) 75 mg PO DAILY [facility] Last Admin: 12/04/17 07:16 Dose: 75 mg Enoxaparin Sodium (Lovenox) 40 mg SC DAILY@0600 [facility] Last Admin: 12/04/17 05:34 Dose: 40 mg Leflunomide (Leflunomide) 20 mg PO DAILY [facility] Last Admin: 12/04/17 07:17 Dose: 20 mg Lisinopril (Zestril) 20 mg PO DAILY [facility] Last Admin: 12/04/17 07:16 Dose: 20 mg Magnesium Hydroxide (Milk Of Magnesia) 30 ml PO .PRN X 1 PRN PRN Reason: Constipation Metoprolol Tartrate (Lopressor (Beta Maximiliano)) 50 mg PO BID [facility] Last Admin: 12/04/17 07:16 Dose: 50 mg Multivitamins (Multivitamin) [facility] Last Admin: 12/04/17 07:17 Dose: 1 tablet Pantoprazole Sodium (Protonix) 20 mg PO BID [facility] Last Admin: 12/04/17 07:16 Dose: 20 mg Polyethylene Glycol (Miralax) 17 gm PO DAILY PRN PRN Reason: Constipation Senna/Docusate Sodium (Senokot-S, Lindsay-Colace) 2 tablet PO BID [facility] Last Admin: 12/04/17 07:18 Dose: Not Given Tamsulosin HCl (Flomax) 0.4 mg PO DAILY@1730 [facility] Last Admin: 12/03/17 17:05 Dose: 0.4 mg Medical Necessity - Tobacco Use Smoking Status: Never smoker Assessment/Plan All Active Problems (Last Updated 03/23/17 @ 16:07 by ANA Hobbs) Closed avulsion fracture of greater trochanter of femur (Acute) Debility 2/2 to a non-operative avulsion fracture of the greater trochanter of the left femur. [id number] by DM II, HTN and Macular degeneration. Plan: - Physical therapy for gait and balance - Occupational Therapy for ADLs - Speech therapy - As needed analgesics - Bowel protoco - DVT prophylaxis: SCDs, ASA, Lovenox - Hypertension: Stable with good control, continue metoprolol and lisinopril regimen. Lisinopril regimen was increased to 20mg daily prior to admission to Rehab unit continue to monitor BP and make adjustment accordingly. - Check Hba1c => Goal is <7% - Diabetes type 2 => continue home medication. - Macular degeneration => increased fall risk 2/2 associated blindness - Hx of CAD -> continue aspirin, Plavix, metoprolol, statin. - HX of HLD -> continue statin. - Hx of Depression >-continue home dose of Wellbutrin and Celexa regimen. - Hx of GERD -> continue home does of PPI. - Hx Urinary retention -> home Ditropan regimen was switched to Flomax.
[2017-12-04] MEDS: Tamsulosin HCl 0.4 MG Capsule PO (18:30)
[2017-12-04 19:39] VITALS: BP 164/72; PULSE 78; RESP 16; TEMP 36.9; O2SAT 97
[2017-12-04 21:36] VITALS: BP 164/72; PULSE 78
[2017-12-04] MEDS: Atorvastatin Calcium 40 MG Tablet PO (21:36)
[2017-12-05] MEDS: Enoxaparin 40 MG/0.4 ML Syringe SC (05:59)
[2017-12-05] MEDS: HYDROcodone Bitartrate/Apap 5/325 Tablet PO ×3 (05:59→21:26)
--- NOTE | 2017-12-05 06:07 | NURSING ---
PT C/O ACHING IN ABDOMEN RATED #5. ABDOMEN IS SOFT AND PT IS PASSING SOME FLATUS SHE STATES. NOTED THAT MOST RECENT BM'S WERE SMALL. BOWEL SOUNDS ARE NORMOACTIVE X 4 QUADS. HERNIA IS SOFT. MOM GIVEN.
[2017-12-05] MEDS: Magnesium Hydroxide 30 ML UDC PO (06:10)
[2017-12-05 06:25] LABS: Bedside Glucose 103 mg/dL (70-110)
[2017-12-05 07:20] VITALS: O2SAT 92
[2017-12-05 07:33] VITALS: BP 160/87; PULSE 74; RESP 16; TEMP 37.1; O2SAT 95
[2017-12-05] MEDS: Aspirin E.C. 81 MG Tablet PO (09:05)
[2017-12-05 09:06] VITALS: BP 160/87; PULSE 74
[2017-12-05] MEDS: Multivitamins,Therapeutic Tablet 1 TABLET PO (09:06)
[2017-12-05] MEDS: Leflunomide 10 MG TABLET 20 MG PO (09:06)
[2017-12-05] MEDS: Metoprolol Tartrate 50 MG Tablet PO ×2 (09:06→21:26)
[2017-12-05] MEDS: Calcium Carb/Vitamin D 1 TABLET Tablet PO ×2 (09:06→17:55)
[2017-12-05] MEDS: buPROPion (SR) 150 MG Tablet.SA PO (09:07)
[2017-12-05] MEDS: Pantoprazole Sodium 20 MG Tablet PO ×2 (09:07→21:26)
[2017-12-05] MEDS: Clopidogrel Bisulfate 75 MG Tablet PO (09:07)
[2017-12-05] MEDS: Lisinopril 20 MG Tablet PO (09:07)
[2017-12-05] MEDS: Tamsulosin HCl 0.4 MG Capsule PO (17:55)
[2017-12-05 19:36] VITALS: BP 164/89; PULSE 79; RESP 16; TEMP 36.8; O2SAT 96
[2017-12-05 21:26] VITALS: PULSE 82
[2017-12-05] MEDS: Atorvastatin Calcium 40 MG Tablet PO (21:26)
[2017-12-06] MEDS: Enoxaparin 40 MG/0.4 ML Syringe SC (05:59)
[2017-12-06 06:41] LABS: Bedside Glucose 119 mg/dL (70-110)
[2017-12-06 08:06] VITALS: BP 160/80; PULSE 80; RESP 18; TEMP 36.9; O2SAT 95
[2017-12-06] MEDS: Calcium Carb/Vitamin D 1 TABLET Tablet PO ×2 (08:59→18:16)
[2017-12-06] MEDS: Aspirin E.C. 81 MG Tablet PO (08:59)
[2017-12-06] MEDS: Leflunomide 10 MG TABLET 20 MG PO (08:59)
[2017-12-06] MEDS: Multivitamins,Therapeutic Tablet 1 TABLET PO (08:59)
[2017-12-06 09:00] VITALS: BP 160/80; PULSE 80
[2017-12-06] MEDS: Pantoprazole Sodium 20 MG Tablet PO ×2 (09:00→20:34)
[2017-12-06] MEDS: Clopidogrel Bisulfate 75 MG Tablet PO (09:00)
[2017-12-06] MEDS: buPROPion (SR) 150 MG Tablet.SA PO (09:00)
[2017-12-06] MEDS: Metoprolol Tartrate 50 MG Tablet PO ×2 (09:00→20:35)
[2017-12-06] MEDS: HYDROcodone Bitartrate/Apap 5/325 Tablet PO ×2 (09:01→20:33)
[2017-12-06] MEDS: Lisinopril 20 MG Tablet PO (09:03)
--- NOTE | 2017-12-06 12:11 | PN_ITS ---
Subjective: The patient has macular degeneration and complete blindness. Vision is restricted to head movement and perception of light Patient also has bruise in left forearm and arm secondary to fall, prior to admission. Vitals/I&O's: Vital Signs Temp Pulse Resp BP Pulse Ox 98.5 F 80 18 160/80 H 95 12/06/17 08:06 12/06/17 09:00 12/06/17 08:06 12/06/17 09:00 12/06/17 08:06 Oxygen Delivery Method Room Air Weight: 145 lb 4.554 oz Body Mass Index (BMI) 31.4 Intake and Output for Last 24 Hours 12/04/17 12/05/17 12/06/17 23:59 23:59 23:59 Intake Total 720 / 720 600 / 600 Balance 720 / 720 600 / 600 General: Alert, Oriented x3, Cooperative HEENT: Atraumatic, PERRLA, EOMI, Normocephalic Neck: Supple, No JVD, Negative Carotid Bruits Lungs: Clear to auscultation, Diminished - Diminished in bilateral lung bases Cardiovascular: Regular rate, Normal S1, Normal S2, No murmurs Abdomen: Bowel Sounds Present, Soft, Non Tender Extremities: No edema, Capillary Refill Less than 3 Seconds Skin: No rashes, No breakdown, - - Bruise and ecchymosis secondary to fall Musculoskeletal: No Tenderness to Palpation of Joints or Extremities, Arthritic Changes, Muscle Wasting Neurological: Cranial nerves II-XII grossly intact Psych/Mental Status: Normal Affect, Appropriate Laboratory Results 12/06/17 06:35: POC Glucose 119 H Current Medications Acetaminophen (Tylenol) 650 mg PO Q6H PRN PRN PRN Reason: Mild Pain (0-3/10)/Headache Hydrocodone Bitart/Acetaminophen ([place] 5mg-325mg) 1 tablet PO Q6H PRN PRN PRN Reason: PAIN Last Admin: 12/06/17 09:01 Dose: 1 tablet Aspirin (Ecotrin) 81 mg PO DAILY [facility] Last Admin: 12/06/17 08:59 Dose: 81 mg Atorvastatin Calcium (Lipitor) 40 mg PO QHS [facility] Last Admin: 12/05/17 21:26 Dose: 40 mg Bisacodyl (Dulcolax) 10 mg RECTAL .PRN X 1 PRN PRN Reason: Constipation Bupropion HCl (Wellbutrin Sr (150mg Tablets)) 150 mg PO DAILY [facility] Last Admin: 12/06/17 09:00 Dose: 150 mg Calcium/Vitamin D (Os-Apollo 500mg + D) [facility] Last Admin: 12/06/17 08:59 Dose: 1 tablet Clopidogrel Bisulfate (Plavix) 75 mg PO DAILY [facility] Last Admin: 12/06/17 09:00 Dose: 75 mg Enoxaparin Sodium (Lovenox) 40 mg SC DAILY@0600 [facility] Last Admin: 12/06/17 05:59 Dose: 40 mg Leflunomide (Leflunomide) 20 mg PO DAILY [facility] Last Admin: 12/06/17 08:59 Dose: 20 mg Lisinopril (Zestril) 20 mg PO DAILY [facility] Last Admin: 12/06/17 09:03 Dose: 20 mg Magnesium Hydroxide (Milk Of Magnesia) 30 ml PO .PRN X 1 PRN PRN Reason: Constipation Last Admin: 12/05/17 06:10 Dose: 30 ml Metoprolol Tartrate (Lopressor (Beta Maximiliano)) 50 mg PO BID [facility] Last Admin: 12/06/17 09:00 Dose: 50 mg Multivitamins (Multivitamin) [facility] Last Admin: 12/06/17 08:59 Dose: 1 tablet Pantoprazole Sodium (Protonix) 20 mg PO BID [facility] Last Admin: 12/06/17 09:00 Dose: 20 mg Polyethylene Glycol (Miralax) 17 gm PO DAILY PRN PRN Reason: Constipation Senna/Docusate Sodium (Senokot-S, Lindsay-Colace) 2 tablet PO BID [facility] Last Admin: 12/06/17 08:51 Dose: Not Given Tamsulosin HCl (Flomax) 0.4 mg PO DAILY@1730 [facility] Last Admin: 12/05/17 17:55 Dose: 0.4 mg Medical Necessity - Tobacco Use Smoking Status: Never smoker Assessment/Plan All Active Problems (Last Updated 03/23/17 @ 16:07 by ANA Hobbs) Closed avulsion fracture of greater trochanter of femur (Acute) This is a 27-year-old female who was admitted to the rehab unit at [facility] for inpatient rehab due to generalized debility from an avulsion fracture of the left hip. The patient also has blindness from macular degeneration. 1. Debility secondary to avulsion fracture of the left greater trochanter status post mechanical fall prior to admission with underlying osteoporosis- PT/OT. Patient had nonoperative conservative management. As per the orthopedic surgeon it was a nonoperative fracture. After that, she elected to go home from ER on 11/29 but came back after 2 days. She had been falling secondary to macular degeneration, arthritis and mobility issues secondary to advanced age. Thereafter patient was admitted on 10/2017 and discharged to acute rehab. PRN pain regimen. Fall precautions. 2. Macular degeneration with associated blindness-fall precautions. 3. CAD-continue aspirin, Plavix, metoprolol, statin. 4. Hypertension-Continue metoprolol and lisinopril regimen. Lisinopril regimen increased to 20 mg daily with improvement of blood pressure. Continue to monitor. 5. Hyperlipidemia-continue statin. 6. Depression-continue home Wellbutrin and Celexa regimen. 7. GERD-continue PPI. 8. Urinary retention-resolved. Home Ditropan regimen switched to Flomax. DVT prophylaxis-Lovenox subcu. Patient is having good bowel movement. Active Medications Acetaminophen (Tylenol) 650 mg PO Q6H PRN PRN PRN Reason: Mild Pain (0-3/10)/Headache Hydrocodone Bitart/Acetaminophen ([place] 5mg-325mg) 1 tablet PO Q6H PRN PRN PRN Reason: PAIN Last Admin: 12/06/17 09:01 Dose: 1 tablet Aspirin (Ecotrin) 81 mg PO DAILY [facility] Last Admin: 12/06/17 08:59 Dose: 81 mg Atorvastatin Calcium (Lipitor) 40 mg PO QHS [facility] Last Admin: 12/05/17 21:26 Dose: 40 mg Bisacodyl (Dulcolax) 10 mg RECTAL .PRN X 1 PRN PRN Reason: Constipation Bupropion HCl (Wellbutrin Sr (150mg Tablets)) 150 mg PO DAILY [facility] Last Admin: 12/06/17 09:00 Dose: 150 mg Calcium/Vitamin D (Os-Apollo 500mg + D) 1 tablet PO BIDCM [facility] Last Admin: 12/06/17 08:59 Dose: 1 tablet Clopidogrel Bisulfate (Plavix) 75 mg PO DAILY [facility] Last Admin: 12/06/17 09:00 Dose: 75 mg Enoxaparin Sodium (Lovenox) 40 mg SC DAILY@0600 [facility] Last Admin: 12/06/17 05:59 Dose: 40 mg Leflunomide (Leflunomide) 20 mg PO DAILY [facility] Last Admin: 12/06/17 08:59 Dose: 20 mg Lisinopril (Zestril) 20 mg PO DAILY [facility] Last Admin: 12/06/17 09:03 Dose: 20 mg Magnesium Hydroxide (Milk Of Magnesia) 30 ml PO .PRN X 1 PRN PRN Reason: Constipation Last Admin: 12/05/17 06:10 Dose: 30 ml Metoprolol Tartrate (Lopressor (Beta Maximiliano)) 50 mg PO BID [facility] Last Admin: 12/06/17 09:00 Dose: 50 mg Multivitamins ([facility]itamin) [facility] Last Admin: 12/06/17 08:59 Dose: 1 tablet Pantoprazole Sodium (Protonix) 20 mg PO BID [facility] Last Admin: 12/06/17 09:00 Dose: 20 mg Polyethylene Glycol (Miralax) 17 gm PO DAILY PRN PRN Reason: Constipation Senna/Docusate Sodium (Senokot-S, Lindsay-Colace) 2 tablet PO BID [facility] Last Admin: 12/06/17 08:51 Dose: Not Given Tamsulosin HCl (Flomax) 0.4 mg PO DAILY@1730 [facility] Last Admin: 12/05/17 17:55 Dose: 0.4 mg Code Visit Inpatient E&M: 54573 Subs Hosp L2
[2017-12-06] MEDS: Tamsulosin HCl 0.4 MG Capsule PO (18:16)
[2017-12-06 18:41] VITALS: BP 165/83; PULSE 78; RESP 16; TEMP 36.4; O2SAT 95
[2017-12-06 19:56] VITALS: BP 148/86; PULSE 83; RESP 17; TEMP 36.6; O2SAT 96
[2017-12-06] MEDS: Atorvastatin Calcium 40 MG Tablet PO (20:34)
[2017-12-06 20:35] VITALS: PULSE 78
[2017-12-07] MEDS: Enoxaparin 40 MG/0.4 ML Syringe SC (05:00)
[2017-12-07] MEDS: HYDROcodone Bitartrate/Apap 5/325 Tablet PO ×3 (05:01→21:20)
[2017-12-07 07:38] VITALS: BP 153/92; PULSE 74; RESP 17; TEMP 36.4; O2SAT 95
[2017-12-07] MEDS: Multivitamins,Therapeutic Tablet 1 TABLET PO (08:04)
[2017-12-07] MEDS: Calcium Carb/Vitamin D 1 TABLET Tablet PO ×2 (08:04→16:51)
[2017-12-07 08:05] VITALS: PULSE 74
[2017-12-07] MEDS: Aspirin E.C. 81 MG Tablet PO (08:05)
[2017-12-07] MEDS: Leflunomide 10 MG TABLET 20 MG PO (08:05)
[2017-12-07] MEDS: Pantoprazole Sodium 20 MG Tablet PO ×2 (08:05→21:19)
[2017-12-07] MEDS: Metoprolol Tartrate 50 MG Tablet PO ×2 (08:05→21:19)
[2017-12-07] MEDS: Clopidogrel Bisulfate 75 MG Tablet PO (08:05)
[2017-12-07] MEDS: Lisinopril 20 MG Tablet PO (08:06)
[2017-12-07] MEDS: buPROPion (SR) 150 MG Tablet.SA PO (08:07)
--- NOTE | 2017-12-07 09:52 | PCM.PN.NEU ---
Subjective: Staffed in team meeting. Family at bedside, questions answered. With Physical therapy, she is contact guard with getting in and out of the bed, and coming from a sitting position to a standing position. She is able to walk 100 feet using wheel walker, and verbal cues for directions. With Occupational therapy, she is able to do her own personal care with minimal assistance as to location of items. With lower body care once her clothing items are pull up to her knees she is able to pull them the rest of the way. With Nursing, she is having increased pain will add a Fentanyl patch and K-pad. Will re-team next Thursday 12/14. - Physical Exam General: Alert, Oriented x3, Cooperative HEENT: Atraumatic, PERRLA, EOMI, Normocephalic Neck: Supple, No JVD, Negative Carotid Bruits Lungs: Clear to auscultation, Normal air movement Cardiovascular: Regular rate, No murmurs Abdomen: Bowel Sounds Present, Soft, Non Tender Extremities: No edema, Capillary Refill Less than 3 Seconds Skin: No rashes, No breakdown Musculoskeletal: No Tenderness to Palpation of Joints or Extremities Neurological: Cranial nerves II-XII grossly intact Psych/Mental Status: Normal Affect, Appropriate, Alert and oriented to time, place, person, mood and affect Vital Signs Temp Pulse Resp BP Pulse Ox 97.6 F L 74 17 153/92 H 95 12/07/17 07:38 12/07/17 08:05 12/07/17 07:38 12/07/17 07:38 12/07/17 07:38 Oxygen Delivery Method Room Air Weight: 65.9 kg Body Mass Index (BMI) 31.4 Intake and Output for Last 24 Hours 12/05/17 12/06/17 12/07/17 23:59 23:59 23:59 Intake Total 600 / 600 Balance 600 / 600 Active Medications Acetaminophen (Tylenol) 650 mg PO Q6H PRN PRN PRN Reason: Mild Pain (0-3/10)/Headache Hydrocodone Bitart/Acetaminophen ([place] 5mg-325mg) 1 tablet PO Q6H PRN PRN PRN Reason: PAIN Last Admin: 12/07/17 05:01 Dose: 1 tablet Aspirin (Ecotrin) 81 mg PO DAILY [facility] Last Admin: 12/07/17 08:05 Dose: 81 mg Atorvastatin Calcium (Lipitor) 40 mg PO QHS [facility] Last Admin: 12/06/17 20:34 Dose: 40 mg Bisacodyl (Dulcolax) 10 mg RECTAL .PRN X 1 PRN PRN Reason: Constipation Bupropion HCl (Wellbutrin Sr (150mg Tablets)) 150 mg PO DAILY [facility] Last Admin: 12/07/17 08:07 Dose: 150 mg Calcium/Vitamin D (Os-Apollo 500mg + D) [facility] Last Admin: 12/07/17 08:04 Dose: 1 tablet Clopidogrel Bisulfate (Plavix) 75 mg PO DAILY [facility] Last Admin: 12/07/17 08:05 Dose: 75 mg Enoxaparin Sodium (Lovenox) 40 mg SC DAILY@0600 [facility] Last Admin: 12/07/17 05:00 Dose: 40 mg Fentanyl (Duragesic Patch) 12 mcg TRANSDERM. Q3D [facility] Leflunomide (Leflunomide) 20 mg PO DAILY [facility] Last Admin: 12/07/17 08:05 Dose: 20 mg Lisinopril (Zestril) 20 mg PO DAILY [facility] Last Admin: 12/07/17 08:06 Dose: 20 mg Magnesium Hydroxide (Milk Of Magnesia) 30 ml PO .PRN X 1 PRN PRN Reason: Constipation Last Admin: 12/05/17 06:10 Dose: 30 ml Metoprolol Tartrate (Lopressor (Beta Maximiliano)) 50 mg PO BID [facility] Last Admin: 12/07/17 08:05 Dose: 50 mg Multivitamins ([facility]ivitamin) [facility] Last Admin: 12/07/17 08:04 Dose: 1 tablet Pantoprazole Sodium (Protonix) 20 mg PO BID [facility] Last Admin: 12/07/17 08:05 Dose: 20 mg Polyethylene Glycol (Miralax) 17 gm PO DAILY PRN PRN Reason: Constipation Senna/Docusate Sodium (Senokot-S, Lindsay-Colace) 2 tablet PO BID [facility] Last Admin: 12/07/17 08:05 Dose: Not Given Tamsulosin HCl (Flomax) 0.4 mg PO DAILY@1730 [facility] Last Admin: 12/06/17 18:16 Dose: 0.4 mg Medical Necessity - Tobacco Use Smoking Status: Never smoker Assessment/Plan All Active Problems (Last Updated 03/23/17 @ 16:07 by ANA Hobbs) Closed avulsion fracture of greater trochanter of femur (Acute) Debility 2/2 to a non-operative avulsion fracture of the greater trochanter of the left femur. [id number] by DM II, HTN and Macular degeneration. Plan: - Physical therapy for gait and balance - Occupational Therapy for ADLs - Speech therapy - As needed analgesics - Bowel protoco - DVT prophylaxis: SCDs, ASA, Lovenox - Hypertension: Stable with good control, continue metoprolol and lisinopril regimen. Lisinopril regimen was increased to 20mg daily prior to admission to Rehab unit continue to monitor BP and make adjustment accordingly. - Check Hba1c => Goal is <7% - Diabetes type 2 => continue home medication. - Macular degeneration => increased fall risk 2/2 associated blindness - Hx of CAD -> continue aspirin, Plavix, metoprolol, statin. - HX of HLD -> continue statin. - Hx of Depression >-continue home dose of Wellbutrin and Celexa regimen. - Hx of GERD -> continue home does of PPI. - Hx Urinary retention -> home Ditropan regimen was switched to Flomax. - Uncontrolled pain => add a Fentanyl patch and K-Pad for comfort.
--- NOTE | 2017-12-07 10:11 | PN.NEURO_ITS ---
Subjective: Staffed in team meeting. Family at bedside, questions answered. With Physical therapy, she is contact guard with getting in and out of the bed, and coming from a sitting position to a standing position. She is able to walk 100 feet using wheel walker, and verbal cues for directions. With Occupational therapy, she is able to do her own personal care with minimal assistance as to location of items. With lower body care once her clothing items are pull up to her knees she is able to pull them the rest of the way. With Nursing, she is having incr eased pain will add a Fentanyl patch and K-pad. Will re-team next Thursday 12/14. - Physical Exam General: Alert, Oriented x3, Cooperative HEENT: Atraumatic, PERRLA, EOMI, Normocephalic Neck: Supple, No JVD, Negative Carotid Bruits Lungs: Clear to auscultation, Normal air movement Cardiovascular: Regular rate, No murmurs Abdomen: Bowel Sounds Present, Soft, Non Tender Extremities: No edema, Capillary Refill Less than 3 Seconds Skin: No rashes, No breakdown Musculoskeletal: No Tenderness to Palpation of Joints or Extremities Neurological: Cranial nerves II-XII grossly intact Psych/Mental Status: Normal Affect, Appropriate, Alert and oriented to time, place, person, mood and affect Vital Signs Temp Pulse Resp BP Pulse Ox 97.6 F L 74 17 153/92 H 95 12/07/17 07:38 12/07/17 08:05 12/07/17 07:38 12/07/17 07:38 12/07/17 07:38 Oxygen Delivery Method Room Air Weight: 65.9 kg Body Mass Index (BMI) 31.4 Intake and Output for Last 24 Hours 12/05/17 12/06/17 12/07/17 23:59 23:59 23:59 Intake Total 600 / 600 Balance 600 / 600 Active Medications Acetaminophen (Tylenol) 650 mg PO Q6H PRN PRN PRN Reason: Mild Pain (0-3/10)/Headache Hydrocodone Bitart/Acetaminophen ([place] 5mg-325mg) 1 tablet PO Q6H PRN PRN PRN Reason: PAIN Last Admin: 12/07/17 05:01 Dose: 1 tablet Aspirin (Ecotrin) 81 mg PO DAILY [facility] Last Admin: 12/07/17 08:05 Dose: 81 mg Atorvastatin Calcium (Lipitor) [address] [facility] Last Admin: 12/06/17 20:34 Dose: 40 mg Bisacodyl (Dulcolax) 10 mg RECTAL .PRN X 1 PRN PRN Reason: Constipation Bupropion HCl (Wellbutrin Sr (150mg Tablets)) [address] [facility] Last Admin: 12/07/17 08:07 Dose: 150 mg Calcium/Vitamin D (Os-Apollo 500mg + D) [facility] Last Admin: 12/07/17 08:04 Dose: 1 tablet Clopidogrel Bisulfate (Plavix) [address] [facility] Last Admin: 12/07/17 08:05 Dose: 75 mg Enoxaparin Sodium (Lovenox) 40 mg SC DAILY@0600 [facility] Last Admin: 12/07/17 05:00 Dose: 40 mg Fentanyl (Duragesic Patch) [address] [facility] Leflunomide (Leflunomide) [address] [facility] Last Admin: 12/07/17 08:05 Dose: 20 mg Lisinopril (Zestril) [address] [facility] Last Admin: 12/07/17 08:06 Dose: 20 mg Magnesium Hydroxide (Milk Of Magnesia) 30 ml PO .PRN X 1 PRN PRN Reason: Constipation Last Admin: 12/05/17 06:10 Dose: 30 ml Metoprolol Tartrate (Lopressor (Beta Maximiliano)) [address] [facility] Last Admin: 12/07/17 08:05 Dose: 50 mg Multivitamins (Multivitamin) [facility] Last Admin: 12/07/17 08:04 Dose: 1 tablet Pantoprazole Sodium (Protonix) [address] [facility] Last Admin: 12/07/17 08:05 Dose: 20 mg Polyethylene Glycol (Miralax) 17 gm PO DAILY PRN PRN Reason: Constipation Senna/Docusate Sodium (Senokot-S, Lindsay-Colace) [address] [facility] Last Admin: 12/07/17 08:05 Dose: Not Given Tamsulosin HCl (Flomax) 0.4 mg PO DAILY@1730 [facility] Last Admin: 12/06/17 18:16 Dose: 0.4 mg Medical Necessity - Tobacco Use Smoking Status: Never smoker Assessment/Plan All Active Problems (Last Updated 01/29/18 @ 16:07 by ANA Hobbs) Closed avulsion fracture of greater trochanter of femur (Acute) Debility 2/2 to a non-operative avulsion fracture of the greater trochanter of the left femur. [id number] by DM II, HTN and Macular degeneration. Plan: - Physical therapy for gait and balance - Occupational Therapy for ADLs - Speech therapy - As needed analgesics - Bowel protoco - DVT prophylaxis: SCDs, ASA, Lovenox - Hypertension: Stable with good control, continue metoprolol and lisinopril regimen. Lisinopril regimen was increased to 20mg daily prior to admission to Rehab unit continue to monitor BP and make adjustment accordingly. - Check Hba1c => Goal is <7% - Diabetes type 2 => continue home medication. - Macular degeneration => increased fall risk 2/2 associated blindness - Hx of CAD -> continue aspirin, Plavix, metoprolol, statin. - HX of HLD -> continue statin. - Hx of Depression >-continue home dose of Wellbutrin and Celexa regimen. - Hx of GERD -> continue home does of PPI. - Hx Urinary retention -> home Ditropan regimen was switched to Flomax. - Uncontrolled pain => add a Fentanyl patch and K-Pad for comfort.
--- NOTE | 2017-12-07 10:33 | CASEMGMT ---
Team meeting held. Patient present as well as patient daughter's. No discharge date set at this time. Patient to continue with further care and treatment on the Transitional Care Unit. Patient approved 16 Medicare Days with a discharge on or by 12/19/17. Patient plans to discharge to home with spouse at time of discharge. Patient daughter's expressing concern of patient returning to home with spouse as patient spouse is on dialysis 3x a week and is unable to assist patient within the home. Patient daughter's also reporting that patient has had multiple falls within the past year. This social and human services assistant exploring options of assisted living and [facility] home placement in the event that this is needed. Patient reluctant to discuss placement but open to conversation. This social and human services assistant provided patient and patient family with list of assisted living and [facility] facilities in the area. Current plan is to re-team patient next week and go from there. Support given. Will continue to follow. Kinjal AWAN, [employer]
--- NOTE | 2017-12-07 15:05 | RAD_ITS ---
STUDY: X-RAY - PELVIS AND LEFT HIP REASON FOR EXAM: Female, 77 years old. Increasing pain. Known left femoral greater trochanteric avulsion fracture. TECHNIQUE: Radiological exam, hip, unilateral, with pelvis when performed; 2 or 3 views. COMPARISON: November 29, 2017. FINDINGS: There is a non-specific bowel gas pattern. Normal visualized soft tissue structures. There are multiple calcified phleboliths. There are vascular calcifications. There is narrowing with cortical sclerosis and osteophyte formation of the sacroiliac joint consistent with degenerative osteoarthritic changes. Normal bilateral iliac wings and visualized sacrum. Normal bilateral superior and inferior pubic rami. Normal pubic symphysis. Normal bilateral ischial tuberosities. Normal visualized left femoral head. Normal left acetabulum. There is mild articular joint space narrowing of the left hip. Again seen is the avulsion fracture of the greater trochanter of the left femur. This appears essentially unchanged in position when compared to the prior study. There is no evidence of callus formation. RAD/HIP, UNI W/ Pelvis 2-3 Views IMPRESSION: 1. Avulsion fracture of the greater trochanter of the left femur, unchanged from previous study. 2. No other major interval change. Electronically Signed: Kodak Cheatham MD at 17:46 EDT , Service support ,
[2017-12-07] MEDS: Tamsulosin HCl 0.4 MG Capsule PO (16:51)
--- NOTE | 2017-12-07 18:16 | NURSING ---
xray orderd by dr pop d/t patient having increase pain with therapy, new today. xray results Avulsion fracture of the greater trochanter of the left femur, unchanged from previous study and No other major interval change. patient sitting up in chair stating her pain has decreased to 4/10 to left hip.
[2017-12-07 21:19] VITALS: BP 164/82; PULSE 81
[2017-12-07] MEDS: Atorvastatin Calcium 40 MG Tablet PO (21:19)
[2017-12-07 22:00] VITALS: BP 164/82; PULSE 84; RESP 16; TEMP 37.1; O2SAT 96
--- NOTE | 2017-12-08 03:35 | NURSING ---
REVIEWED AND AGREE WITH INSECT CONTROL AIDE'S FIM AND HANDOFF CHARTING.
[2017-12-08] MEDS: Enoxaparin 40 MG/0.4 ML Syringe SC (05:21)
[2017-12-08] MEDS: HYDROcodone Bitartrate/Apap 5/325 Tablet PO ×3 (05:21→20:13)
[2017-12-08 07:45] LABS: Bedside Glucose 104 mg/dL (70-110)
[2017-12-08 08:01] VITALS: BP 137/65; PULSE 69; RESP 18; TEMP 36.4; O2SAT 94
[2017-12-08] MEDS: Multivitamins,Therapeutic Tablet 1 TABLET PO (08:08)
[2017-12-08] MEDS: Aspirin E.C. 81 MG Tablet PO (08:08)
[2017-12-08] MEDS: Leflunomide 10 MG TABLET 20 MG PO (08:08)
[2017-12-08] MEDS: Calcium Carb/Vitamin D 1 TABLET Tablet PO ×2 (08:08→18:24)
[2017-12-08] MEDS: Clopidogrel Bisulfate 75 MG Tablet PO (08:08)
[2017-12-08 08:09] VITALS: BP 137/65; PULSE 69
[2017-12-08] MEDS: Lisinopril 20 MG Tablet PO (08:09)
[2017-12-08] MEDS: buPROPion (SR) 150 MG Tablet.SA PO (08:09)
[2017-12-08] MEDS: Pantoprazole Sodium 20 MG Tablet PO ×2 (08:09→20:15)
[2017-12-08] MEDS: Metoprolol Tartrate 50 MG Tablet PO ×2 (08:09→20:15)
--- NOTE | 2017-12-08 16:53 | PCM.PN.NEU ---
Subjective: Patient seen, tolerating therapy. No new complaints. - Physical Exam General: Alert, Oriented x3, Cooperative HEENT: Atraumatic, PERRLA, EOMI, Normocephalic Neck: Supple, No JVD, Negative Carotid Bruits Lungs: Clear to auscultation, Normal air movement Cardiovascular: Regular rate, No murmurs Abdomen: Bowel Sounds Present, Soft, Non Tender Extremities: No edema, Capillary Refill Less than 3 Seconds Skin: No rashes, No breakdown Musculoskeletal: No Tenderness to Palpation of Joints or Extremities Neurological: Cranial nerves II-XII grossly intact Psych/Mental Status: Normal Affect, Appropriate, Alert and oriented to time, place, person, mood and affect Vital Signs Temp Pulse Resp BP Pulse Ox 97.6 F L 69 18 137/65 H 94 12/08/17 08:01 12/08/17 08:09 12/08/17 08:01 12/08/17 08:09 12/08/17 08:01 Oxygen Delivery Method Room Air Weight: 65.9 kg Body Mass Index (BMI) 31.4 Intake and Output for Last 24 Hours 12/06/17 12/07/17 12/08/17 23:59 23:59 23:59 Intake Total 600 / 600 Balance 600 / 600 POC Glucose 12/08/17 07:40 POC Glucose 104 Active Medications Acetaminophen (Tylenol) 650 mg PO Q6H PRN PRN PRN Reason: Mild Pain (0-3/10)/Headache Hydrocodone Bitart/Acetaminophen ([place] 5mg-325mg) 1 tablet PO Q6H PRN PRN PRN Reason: PAIN Last Admin: 12/08/17 12:04 Dose: 1 tablet Aspirin (Ecotrin) 81 mg PO DAILY [facility] Last Admin: 12/08/17 08:08 Dose: 81 mg Atorvastatin Calcium (Lipitor) 40 mg PO QHS [facility] Last Admin: 12/07/17 21:19 Dose: 40 mg Bisacodyl (Dulcolax) 10 mg RECTAL .PRN X 1 PRN PRN Reason: Constipation Bupropion HCl (Wellbutrin Sr (150mg Tablets)) 150 mg PO DAILY [facility] Last Admin: 12/08/17 08:09 Dose: 150 mg Calcium/Vitamin D (Os-Apollo 500mg + D) [facility] Last Admin: 12/08/17 08:08 Dose: 1 tablet Clopidogrel Bisulfate (Plavix) 75 mg PO DAILY [facility] Last Admin: 12/08/17 08:08 Dose: 75 mg Enoxaparin Sodium (Lovenox) 40 mg SC DAILY@0600 [facility] Last Admin: 12/08/17 05:21 Dose: 40 mg Fentanyl (Duragesic Patch) 12 mcg TRANSDERM. Q3D [facility] Last Admin: 12/07/17 10:16 Dose: 12 mcg Leflunomide (Leflunomide) 20 mg PO DAILY [facility] Last Admin: 12/08/17 08:08 Dose: 20 mg Lisinopril (Zestril) 20 mg PO DAILY [facility] Last Admin: 12/08/17 08:09 Dose: 20 mg Magnesium Hydroxide (Milk Of Magnesia) 30 ml PO .PRN X 1 PRN PRN Reason: Constipation Last Admin: 12/05/17 06:10 Dose: 30 ml Metoprolol Tartrate (Lopressor (Beta Maximiliano)) 50 mg PO BID [facility] Last Admin: 12/08/17 08:09 Dose: 50 mg Multivitamins (Multivitamin) 1 tablet PO DAILYCM [facility] Last Admin: 12/08/17 08:08 Dose: 1 tablet Pantoprazole Sodium (Protonix) 20 mg PO BID [facility] Last Admin: 12/08/17 08:09 Dose: 20 mg Polyethylene Glycol (Miralax) 17 gm PO DAILY PRN PRN Reason: Constipation Senna/Docusate Sodium (Senokot-S, Lindsay-Colace) 2 tablet PO BID [facility] Last Admin: 12/08/17 08:06 Dose: Not Given Tamsulosin HCl (Flomax) 0.4 mg PO DAILY@1730 [facility] Last Admin: 12/07/17 16:51 Dose: 0.4 mg Medical Necessity - Tobacco Use Smoking Status: Never smoker Assessment/Plan All Active Problems (Last Updated 03/23/17 @ 16:07 by ANA Hobbs) Closed avulsion fracture of greater trochanter of femur (Acute) Debility 2/2 to a non-operative avulsion fracture of the greater trochanter of the left femur. [id number] by DM II, HTN and Macular degeneration. Plan: - Physical therapy for gait and balance - Occupational Therapy for ADLs - Speech therapy - As needed analgesics - Bowel protoco - DVT prophylaxis: SCDs, ASA, Lovenox - Hypertension: Stable with good control, continue metoprolol and lisinopril regimen. Lisinopril regimen was increased to 20mg daily prior to admission to Rehab unit continue to monitor BP and make adjustment accordingly. - Check Hba1c => Goal is <7% - Diabetes type 2 => continue home medication. - Macular degeneration => increased fall risk 2/2 associated blindness - Hx of CAD -> continue aspirin, Plavix, metoprolol, statin. - HX of HLD -> continue statin. - Hx of Depression >-continue home dose of Wellbutrin and Celexa regimen. - Hx of GERD -> continue home does of PPI. - Hx Urinary retention -> home Ditropan regimen was switched to Flomax. - Uncontrolled pain => add a Fentanyl patch and K-Pad for comfort.
[2017-12-08] MEDS: Tamsulosin HCl 0.4 MG Capsule PO (18:24)
[2017-12-08 20:00] VITALS: BP 160/78; PULSE 83; RESP 18; TEMP 36.3; O2SAT 93
[2017-12-08 20:15] VITALS: BP 160/78; PULSE 83
[2017-12-08] MEDS: Atorvastatin Calcium 40 MG Tablet PO (20:15)
--- NOTE | 2017-12-09 02:50 | NURSING ---
pt up to the br to void and a scant amt of urine was noted in attends. pt did void 250cc and then scanned for an amt >511. pt to be straight cathed and rn aware
[2017-12-09] MEDS: HYDROcodone Bitartrate/Apap 5/325 Tablet PO ×3 (03:21→19:07)
--- NOTE | 2017-12-09 03:26 | NURSING ---
pt straight cathed for 750cc of clear dark yellow with a strong odor, pt tolerated procedure fair
[2017-12-09] MEDS: Enoxaparin 40 MG/0.4 ML Syringe SC (05:18)
[2017-12-09 07:01] VITALS: BP 145/67; PULSE 79; RESP 12; TEMP 36.8; O2SAT 93
[2017-12-09 07:57] VITALS: PULSE 79
[2017-12-09] MEDS: Metoprolol Tartrate 50 MG Tablet PO ×2 (07:57→22:11)
[2017-12-09] MEDS: Multivitamins,Therapeutic Tablet 1 TABLET PO (07:57)
[2017-12-09] MEDS: Aspirin E.C. 81 MG Tablet PO (07:57)
[2017-12-09] MEDS: Senna/Docusate Sodium 1 Tablet 2 TABLET PO (07:57)
[2017-12-09] MEDS: Leflunomide 10 MG TABLET 20 MG PO (07:57)
[2017-12-09] MEDS: Clopidogrel Bisulfate 75 MG Tablet PO (07:57)
[2017-12-09] MEDS: Calcium Carb/Vitamin D 1 TABLET Tablet PO ×2 (07:57→18:45)
[2017-12-09] MEDS: Pantoprazole Sodium 20 MG Tablet PO ×2 (07:58→22:10)
[2017-12-09] MEDS: buPROPion (SR) 150 MG Tablet.SA PO (07:58)
[2017-12-09] MEDS: Lisinopril 20 MG Tablet PO (07:58)
--- NOTE | 2017-12-09 09:44 | PCM.PN.NEU ---
Subjective: Patient seen and examined. Pain remains uncontrolled at this time, will increase Fentanyl patch dosage. Will reassess pain later today. Was straight cath for urine retention 750ml of urine was removed, is currently on Flomax 0.4mg will increase to 0.8mg, continue to monitor. - Physical Exam General: Alert, Oriented x3, Cooperative HEENT: Atraumatic, PERRLA, EOMI, Normocephalic Neck: Supple, No JVD, Negative Carotid Bruits Lungs: Clear to auscultation, Normal air movement Cardiovascular: Regular rate, No murmurs Abdomen: Bowel Sounds Present, Soft, Non Tender Extremities: No edema, Capillary Refill Less than 3 Seconds Skin: No rashes, No breakdown Musculoskeletal: No Tenderness to Palpation of Joints or Extremities Neurological: Cranial nerves II-XII grossly intact Psych/Mental Status: Normal Affect, Appropriate, Alert and oriented to time, place, person, mood and affect Vital Signs Temp Pulse Resp BP Pulse Ox 98.3 F 79 12 145/67 H 93 12/09/17 07:01 12/09/17 07:57 12/09/17 07:01 12/09/17 07:01 12/09/17 07:01 Oxygen Delivery Method Room Air Weight: 65.1 kg Body Mass Index (BMI) 31.4 Intake and Output for Last 24 Hours 12/07/17 12/08/17 12/09/17 23:59 23:59 23:59 Intake Total 600 / 600 Output Total 1000 / 1000 Balance 600 / 600 -1000 / -1000 Active Medications Acetaminophen (Tylenol) 650 mg PO Q6H PRN PRN PRN Reason: Mild Pain (0-3/10)/Headache Hydrocodone Bitart/Acetaminophen ([place] 5mg-325mg) 1 tablet PO Q6H PRN PRN PRN Reason: PAIN Last Admin: 12/09/17 09:29 Dose: 1 tablet Aspirin (Ecotrin) 81 mg PO DAILY [facility] Last Admin: 12/09/17 07:57 Dose: 81 mg Atorvastatin Calcium (Lipitor) 40 mg PO QHS [facility] Last Admin: 12/08/17 20:15 Dose: 40 mg Bisacodyl (Dulcolax) 10 mg RECTAL .PRN X 1 PRN PRN Reason: Constipation Bupropion HCl (Wellbutrin Sr (150mg Tablets)) 150 mg PO DAILY [facility] Last Admin: 12/09/17 07:58 Dose: 150 mg Calcium/Vitamin D (Os-Apollo 500mg + D) 1 tablet PO BIDCM [facility] Last Admin: 12/09/17 07:57 Dose: 1 tablet Clopidogrel Bisulfate (Plavix) 75 mg PO DAILY [facility] Last Admin: 12/09/17 07:57 Dose: 75 mg Enoxaparin Sodium (Lovenox) 40 mg SC DAILY@0600 [facility] Last Admin: 12/09/17 05:18 Dose: 40 mg Fentanyl (Duragesic Patch) 12 mcg TRANSDERM. Q3D [facility] Last Admin: 12/07/17 10:16 Dose: 12 mcg Leflunomide (Leflunomide) 20 mg PO DAILY [facility] Last Admin: 12/09/17 07:57 Dose: 20 mg Lisinopril (Zestril) 20 mg PO DAILY [facility] Last Admin: 12/09/17 07:58 Dose: 20 mg Magnesium Hydroxide (Milk Of Magnesia) 30 ml PO .PRN X 1 PRN PRN Reason: Constipation Last Admin: 12/05/17 06:10 Dose: 30 ml Metoprolol Tartrate (Lopressor (Beta Maximiliano)) 50 mg PO BID [facility] Last Admin: 12/09/17 07:57 Dose: 50 mg [facility]it[facility] ([facility]amin) [facility] Last Admin: 12/09/17 07:57 Dose: 1 tablet Pantoprazole Sodium (Protonix) 20 mg PO BID [facility] Last Admin: 12/09/17 07:58 Dose: 20 mg Polyethylene Glycol (Miralax) 17 gm PO DAILY PRN PRN Reason: Constipation Senna/Docusate Sodium (Senokot-S, Lindsay-Colace) 2 tablet PO BID [facility] Last Admin: 12/09/17 07:57 Dose: 2 tablet Tamsulosin HCl (Flomax) 0.4 mg PO DAILY@1730 [facility] Last Admin: 12/08/17 18:24 Dose: 0.4 mg Medical Necessity - Tobacco Use Smoking Status: Never smoker Assessment/Plan All Active Problems (Last Updated 03/23/17 @ 16:07 by ANA Hobbs) Closed avulsion fracture of greater trochanter of femur (Acute) Debility 2/2 to a non-operative avulsion fracture of the greater trochanter of the left femur. [id number] by DM II, HTN and Macular degeneration. Plan: - Physical therapy for gait and balance - Occupational Therapy for ADLs - Speech therapy - As needed analgesics - Bowel protoco - DVT prophylaxis: SCDs, ASA, Lovenox - Hypertension: Stable with good control, continue metoprolol and lisinopril regimen. Lisinopril regimen was increased to 20mg daily prior to admission to Rehab unit continue to monitor BP and make adjustment accordingly. - Check Hba1c => Goal is <7% - Diabetes type 2 => continue home medication. - Macular degeneration => increased fall risk 2/2 associated blindness - Hx of CAD -> continue aspirin, Plavix, metoprolol, statin. - HX of HLD -> continue statin. - Hx of Depression >-continue home dose of Wellbutrin and Celexa regimen. - Hx of GERD -> continue home does of PPI. - Hx Urinary retention -> Currently on Flomax. Was straight cath for urinary retention, 750ml of urine was removed => increase dosage to 0.8mg - Uncontrolled pain => add a Fentanyl patch and K-Pad for comfort. pain has improved, but still not at a tolerable level for her to do therapy, increase fentanyl patch to 25mcq.
--- NOTE | 2017-12-09 09:54 | PN.NEURO_ITS ---
Subjective: Patient seen and examined. Pain remains uncontrolled at this time, will increase Fentanyl patch dosage. Will reassess pain later today. Was straight cath for urine retention 750ml of urine was removed, is currently on Flomax 0.4mg will increase to 0.8mg, continue to monitor. - Physical Exam General: Alert, Oriented x3, Cooperative HEENT: Atraumatic, PERRLA, EOMI, Normocephalic Neck: Supple, No JVD, Negative Carotid Bruits Lungs: Clear to auscultation, Normal air movement Cardiovascular: Regular rate, No murmurs Abdomen: Bowel Sounds Present, Soft, Non Tender Extremities: No edema, Capillary Refill Less than 3 Seconds Skin: No rashes, No breakdown Musculoskeletal: No Tenderness to Palpation of Joints or Extremities Neurological: Cranial nerves II-XII grossly intact Psych/Mental Status: Normal Affect, Appropriate, Alert and oriented to time, place, person, mood and affect Vital Signs Temp Pulse Resp BP Pulse Ox 98.3 F 79 12 145/67 H 93 12/09/17 07:01 12/09/17 07:57 12/09/17 07:01 12/09/17 07:01 12/09/17 07:01 Oxygen Delivery Method Room Air Weight: 65.1 kg Body Mass Index (BMI) 31.4 Intake and Output for Last 24 Hours 12/07/17 12/08/17 12/09/17 23:59 23:59 23:59 Intake Total 600 / 600 Output Total 1000 / 1000 Balance 600 / 600 -1000 / -1000 Active Medications Acetaminophen (Tylenol) 650 mg PO Q6H PRN PRN PRN Reason: Mild Pain (0-3/10)/Headache Hydrocodone Bitart/Acetaminophen ([place] 5mg-325mg) 1 tablet PO Q6H PRN PRN PRN Reason: PAIN Last Admin: 12/09/17 09:29 Dose: 1 tablet Aspirin (Ecotrin) 81 mg PO DAILY [facility] Last Admin: 12/09/17 07:57 Dose: 81 mg Atorvastatin Calcium (Lipitor) 40 mg PO QHS [facility] Last Admin: 12/08/17 20:15 Dose: 40 mg Bisacodyl (Dulcolax) 10 mg RECTAL .PRN X 1 PRN PRN Reason: Constipation Bupropion HCl (Wellbutrin Sr (150mg Tablets)) 150 mg PO DAILY [facility] Last Admin: 12/09/17 07:58 Dose: 150 mg Calcium/Vitamin D (Os-Apollo 500mg + D) 1 tablet PO BIDCM [facility] Last Admin: 12/09/17 07:57 Dose: 1 tablet Clopidogrel Bisulfate (Plavix) 75 mg PO DAILY [facility] Last Admin: 12/09/17 07:57 Dose: 75 mg Enoxaparin Sodium (Lovenox) 40 mg SC DAILY@0600 [facility] Last Admin: 12/09/17 05:18 Dose: 40 mg Fentanyl (Duragesic Patch) 12 mcg TRANSDERM. Q3D [facility] Last Admin: 12/07/17 10:16 Dose: 12 mcg Leflunomide (Leflunomide) 20 mg PO DAILY [facility] Last Admin: 12/09/17 07:57 Dose: 20 mg Lisinopril (Zestril) 20 mg PO DAILY [facility] Last Admin: 12/09/17 07:58 Dose: 20 mg Magnesium Hydroxide (Milk Of Magnesia) 30 ml PO .PRN X 1 PRN PRN Reason: Constipation Last Admin: 12/05/17 06:10 Dose: 30 ml Metoprolol Tartrate (Lopressor (Beta Maximiliano)) 50 mg PO BID [facility] Last Admin: 12/09/17 07:57 Dose: 50 mg [facility]) [facility] Last Admin: 12/09/17 07:57 Dose: 1 tablet Pantoprazole Sodium (Protonix) 20 mg PO BID [facility] Last Admin: 12/09/17 07:58 Dose: 20 mg Polyethylene Glycol (Miralax) 17 gm PO DAILY PRN PRN Reason: Constipation Senna/Docusate Sodium (Senokot-S, Lindsay-Colace) 2 tablet PO BID [facility] Last Admin: 12/09/17 07:57 Dose: 2 tablet Tamsulosin HCl (Flomax) 0.4 mg PO DAILY@1730 [facility] Last Admin: 12/08/17 18:24 Dose: 0.4 mg Medical Necessity - Tobacco Use Smoking Status: Never smoker Assessment/Plan All Active Problems (Last Updated 03/23/17 @ 16:07 by ANA Hobbs) Closed avulsion fracture of greater trochanter of femur (Acute) Debility 2/2 to a non-operative avulsion fracture of the greater trochanter of the left femur. [id number] by DM II, HTN and Macular degeneration. Plan: - Physical therapy for gait and balance - Occupational Therapy for ADLs - Speech therapy - As needed analgesics - Bowel protoco - DVT prophylaxis: SCDs, ASA, Lovenox - Hypertension: Stable with good control, continue metoprolol and lisinopril regimen. Lisinopril regimen was increased to 20mg daily prior to admission to Rehab unit continue to monitor BP and make adjustment accordingly. - Check Hba1c => Goal is <7% - Diabetes type 2 => continue home medication. - Macular degeneration => increased fall risk 2/2 associated blindness - Hx of CAD -> continue aspirin, Plavix, metoprolol, statin. - HX of HLD -> continue statin. - Hx of Depression >-continue home dose of Wellbutrin and Celexa regimen. - Hx of GERD -> continue home does of PPI. - Hx Urinary retention -> Currently on Flomax. Was straight cath for urinary retention, 750ml of urine was removed => increase dosage to 0.8mg - Uncontrolled pain => add a Fentanyl patch and K-Pad for comfort. pain has improved, but still not at a tolerable level for her to do therapy, increase fentanyl patch to 25mcq.
[2017-12-09] MEDS: fentaNYL 25 MCG Patch TRANSDERM. (12:57)
[2017-12-09] MEDS: Nystatin Powder 15gm Bottle 1 APPLIC TOPICAL ×2 (14:29→22:33)
--- NOTE | 2017-12-09 17:44 | PCM.PN.HOSP ---
Subjective: Patient had urinary retention, most probably she is on opioid medications. Fentanyl patch dose was adjusted. Blood pressure elevated. Vitals/I&O's: Vital Signs Temp Pulse Resp BP Pulse Ox 98.3 F 79 12 145/67 H 93 12/09/17 07:01 12/09/17 07:57 12/09/17 07:01 12/09/17 07:01 12/09/17 07:01 Oxygen Delivery Method Room Air Weight: 143 lb 8.335 oz Body Mass Index (BMI) 31.4 Intake and Output for Last 24 Hours 12/07/17 12/08/17 12/09/17 23:59 23:59 23:59 Intake Total 600 / 600 Output Total 1550 / 1550 Balance 600 / 600 -1550 / -1550 General: Alert, Oriented x3, Cooperative HEENT: Atraumatic, PERRLA, EOMI, Normocephalic, - - Bilateral legally blind. Neck: Supple, No JVD, Negative Carotid Bruits Lungs: Clear to auscultation, Normal air movement Cardiovascular: Regular rate, Normal S1, Normal S2, No murmurs Abdomen: Bowel Sounds Present, Soft, Non Tender, Non-Distended Extremities: No edema, Capillary Refill Less than 3 Seconds Skin: No rashes, No breakdown Musculoskeletal: No Tenderness to Palpation of Joints or Extremities, Arthritic Changes Neurological: Cranial nerves II-XII grossly intact Psych/Mental Status: Normal Affect, Appropriate Current Medications Acetaminophen (Tylenol) 650 mg PO Q6H PRN PRN PRN Reason: Mild Pain (0-3/10)/Headache Hydrocodone Bitart/Acetaminophen ([place] 5mg-325mg) 1 tablet PO Q6H PRN PRN PRN Reason: PAIN Last Admin: 12/09/17 09:29 Dose: 1 tablet Aspirin (Ecotrin) 81 mg PO DAILY [facility] Last Admin: 12/09/17 07:57 Dose: 81 mg Atorvastatin Calcium (Lipitor) 40 mg PO QHS [facility] Last Admin: 12/08/17 20:15 Dose: 40 mg Bisacodyl (Dulcolax) 10 mg RECTAL .PRN X 1 PRN PRN Reason: Constipation Bupropion HCl (Wellbutrin Sr (150mg Tablets)) 150 mg PO DAILY [facility] Last Admin: 12/09/17 07:58 Dose: 150 mg Calcium/Vitamin D (Os-Apollo 500mg + D) [facility] Last Admin: 12/09/17 07:57 Dose: 1 tablet Clopidogrel Bisulfate (Plavix) 75 mg PO DAILY [facility] Last Admin: 12/09/17 07:57 Dose: 75 mg Enoxaparin Sodium (Lovenox) 40 mg SC DAILY@0600 [facility] Last Admin: 12/09/17 05:18 Dose: 40 mg Fentanyl (Duragesic Patch) 25 mcg TRANSDERM. Q72H [facility] Last Admin: 12/09/17 12:57 Dose: 25 mcg Leflunomide (Leflunomide) 20 mg PO DAILY [facility] Last Admin: 12/09/17 07:57 Dose: 20 mg Lisinopril (Zestril) 20 mg PO DAILY [facility] Last Admin: 12/09/17 07:58 Dose: 20 mg Magnesium Hydroxide (Milk Of Magnesia) 30 ml PO .PRN X 1 PRN PRN Reason: Constipation Last Admin: 12/05/17 06:10 Dose: 30 ml Metoprolol Tartrate (Lopressor (Beta Maximiliano)) 50 mg PO BID [facility] Last Admin: 12/09/17 07:57 Dose: 50 mg Multivitamins ([facility]ivitamin) [facility] Last Admin: 12/09/17 07:57 Dose: 1 tablet Nystatin (Mycostatin Powder) 1 applic TOPICAL 0600,2200 [facility]; Protocol Last Admin: 12/09/17 14:29 Dose: 1 applicatio Pantoprazole Sodium (Protonix) 20 mg PO BID [facility] Last Admin: 12/09/17 07:58 Dose: 20 mg Polyethylene Glycol (Miralax) 17 gm PO DAILY PRN PRN Reason: Constipation Senna/Docusate Sodium (Senokot-S, Lindsay-Colace) 2 tablet PO BID [facility] Last Admin: 12/09/17 07:57 Dose: 2 tablet Tamsulosin HCl (Flomax) 0.4 mg PO DAILY@1730 [facility] Last Admin: 12/08/17 18:24 Dose: 0.4 mg Medical Necessity - Tobacco Use Smoking Status: Never smoker Assessment/Plan All Active Problems (Last Updated 03/23/17 @ 16:07 by ANA Hobbs) Closed avulsion fracture of greater trochanter of femur (Acute) This is a 27-year-old female who was admitted to the rehab unit at [facility] for inpatient rehab due to generalized debility from an avulsion fracture of the left hip. The patient also has blindness from macular degeneration. 1. Debility secondary to avulsion fracture of the left greater trochanter status post mechanical fall prior to admission with underlying osteoporosis-PT/OT. Patient had nonoperative conservative management. As per the orthopedic surgeon it was a nonoperative fracture. After that, she elected to go home from ER on 11/29 but came back after 2 days. She had been falling secondary to macular degeneration, arthritis and mobility issues secondary to advanced age. Thereafter patient was admitted on 10/2017 and discharged to acute rehab. In ED, patient was discussed with Dr. Montano. He advised to follow-up as an outpatient. If patient gets left hip pain or orthopedic related problem, call Dr. Montano. Patient had left hip pain and repeat x-ray on 12/07 and showed no major interval change. PRN pain regimen. Fall precautions. 2. Macular degeneration with associated blindness-fall precautions. 3. CAD-continue aspirin, Plavix, metoprolol, statin. 4. Hypertension-Continue metoprolol and lisinopril regimen. Blood pressure elevated to 160/78. Lisinopril regimen increased to 40 mg daily. Continue to monitor. 5. Hyperlipidemia-continue statin. 6. Depression-continue home Wellbutrin and Celexa regimen. 7. GERD-continue PPI. 8. Sometimes, urinary retention-bladder scan after voiding to record PVR or if patient does not urinate for 4 hours. Home Ditropan regimen switched to Flomax. DVT prophylaxis-Lovenox subcu. Patient is having good bowel movement. Clinical Impression(s) from Imaging Studies Hip/Pelvis X-Ray 12/07/17 15:05 IMPRESSION: 1. Avulsion fracture of the greater trochanter of the left femur, unchanged from previous study. 2. No other major interval change. Active Medications Acetaminophen (Tylenol) 650 mg PO Q6H PRN PRN PRN Reason: Mild Pain (0-3/10)/Headache Hydrocodone Bitart/Acetaminophen ([place] 5mg-325mg) 1 tablet PO Q6H PRN PRN PRN Reason: PAIN Last Admin: 12/09/17 09:29 Dose: 1 tablet Aspirin (Ecotrin) 81 mg PO DAILY [facility] Last Admin: 12/09/17 07:57 Dose: 81 mg Atorvastatin Calcium (Lipitor) 40 mg PO QHS [facility] Last Admin: 12/08/17 20:15 Dose: 40 mg Bisacodyl (Dulcolax) 10 mg RECTAL .PRN X 1 PRN PRN Reason: Constipation Bupropion HCl (Wellbutrin Sr (150mg Tablets)) 150 mg PO DAILY [facility] Last Admin: 12/09/17 07:58 Dose: 150 mg Calcium/Vitamin D (Os-Apollo 500mg + D) [facility] Last Admin: 12/09/17 07:57 Dose: 1 tablet Clopidogrel Bisulfate (Plavix) 75 mg PO DAILY [facility] Last Admin: 12/09/17 07:57 Dose: 75 mg Enoxaparin Sodium (Lovenox) 40 mg SC DAILY@0600 [facility] Last Admin: 12/09/17 05:18 Dose: 40 mg Fentanyl (Duragesic Patch) 25 mcg TRANSDERM. Q72H [facility] Last Admin: 12/09/17 12:57 Dose: 25 mcg Leflunomide (Leflunomide) 20 mg PO DAILY [facility] Last Admin: 12/09/17 07:57 Dose: 20 mg Lisinopril (Zestril) 20 mg PO DAILY [facility] Last Admin: 12/09/17 07:58 Dose: 20 mg Magnesium Hydroxide (Milk Of Magnesia) 30 ml PO .PRN X 1 PRN PRN Reason: Constipation Last Admin: 12/05/17 06:10 Dose: 30 ml Metoprolol Tartrate (Lopressor (Beta Maximiliano)) 50 mg PO BID [facility] Last Admin: 12/09/17 07:57 Dose: 50 mg Multivitamins (Multivitamin) [facility] Last Admin: 12/09/17 07:57 Dose: 1 tablet Nystatin (Mycostatin Powder) 1 applic TOPICAL 0600,2200 [facility]; Protocol Last Admin: 12/09/17 14:29 Dose: 1 applicatio Pantoprazole Sodium (Protonix) 20 mg PO BID [facility] Last Admin: 12/09/17 07:58 Dose: 20 mg Polyethylene Glycol (Miralax) 17 gm PO DAILY PRN PRN Reason: Constipation Senna/Docusate Sodium (Senokot-S, Lindsay-Colace) 2 tablet PO BID [facility] Last Admin: 12/09/17 07:57 Dose: 2 tablet Tamsulosin HCl (Flomax) 0.4 mg PO DAILY@1730 [facility] Last Admin: 12/08/17 18:24 Dose: 0.4 mg Code Visit Inpatient E&M: 52117 Subs Hosp L2
--- NOTE | 2017-12-09 17:49 | PN_ITS ---
Subjective: Patient had urinary retention, most probably she is on opioid medications. Fentanyl patch dose was adjusted. Blood pressure elevated. Vitals/I&O's: Vital Signs Temp Pulse Resp BP Pulse Ox 98.3 F 79 12 145/67 H 93 12/09/17 07:01 12/09/17 07:57 12/09/17 07:01 12/09/17 07:01 12/09/17 07:01 Oxygen Delivery Method Room Air Weight: 143 lb 8.335 oz Body Mass Index (BMI) 31.4 Intake and Output for Last 24 Hours 12/07/17 12/08/17 12/09/17 23:59 23:59 23:59 Intake Total 600 / 600 Output Total 1550 / 1550 Balance 600 / 600 -1550 / -1550 General: Alert, Oriented x3, Cooperative HEENT: Atraumatic, PERRLA, EOMI, Normocephalic, - - Bilateral legally blind. Neck: Supple, No JVD, Negative Carotid Bruits Lungs: Clear to auscultation, Normal air movement Cardiovascular: Regular rate, Normal S1, Normal S2, No murmurs Abdomen: Bowel Sounds Present, Soft, Non Tender, Non-Distended Extremities: No edema, Capillary Refill Less than 3 Seconds Skin: No rashes, No breakdown Musculoskeletal: No Tenderness to Palpation of Joints or Extremities, Arthritic Changes Neurological: Cranial nerves II-XII grossly intact Psych/Mental Status: Normal Affect, Appropriate Current Medications Acetaminophen (Tylenol) 650 mg PO Q6H PRN PRN PRN Reason: Mild Pain (0-3/10)/Headache Hydrocodone Bitart/Acetaminophen ([place] 5mg-325mg) 1 tablet PO Q6H PRN PRN PRN Reason: PAIN Last Admin: 12/09/17 09:29 Dose: 1 tablet Aspirin (Ecotrin) 81 mg PO DAILY [facility] Last Admin: 12/09/17 07:57 Dose: 81 mg Atorvastatin Calcium (Lipitor) 40 mg PO QHS [facility] [place] Last Admin: 12/08/17 20:15 Dose: 40 mg Bisacodyl (Dulcolax) 10 mg RECTAL .PRN X 1 PRN PRN Reason: Constipation Bupropion HCl (Wellbutrin Sr (150mg Tablets)) 150 mg PO DAILY [facility] [place] Last Admin: 12/09/17 07:58 Dose: 150 mg Calcium/Vitamin D (Os-Apollo 500mg + D) [facility] Last Admin: 12/09/17 07:57 Dose: 1 tablet Clopidogrel Bisulfate (Plavix) 75 mg PO DAILY [facility] Last Admin: 12/09/17 07:57 Dose: 75 mg Enoxaparin Sodium (Lovenox) 40 mg SC DAILY@0600 [facility] [place] Last Admin: 12/09/17 05:18 Dose: 40 mg Fentanyl (Duragesic Patch) 25 mcg TRANSDERM. Q72H [facility] [place] Last Admin: 12/09/17 12:57 Dose: 25 mcg Leflunomide (Leflunomide) 20 mg PO DAILY [facility] [place] Last Admin: 12/09/17 07:57 Dose: 20 mg Lisinopril (Zestril) 20 mg PO DAILY [facility] [place] Last Admin: 12/09/17 07:58 Dose: 20 mg Magnesium Hydroxide (Milk Of Magnesia) 30 ml PO .PRN X 1 PRN PRN Reason: Constipation Last Admin: 12/05/17 06:10 Dose: 30 ml Metoprolol Tartrate (Lopressor (Beta Maximiliano)) 50 mg PO BID [facility] [place] Last Admin: 12/09/17 07:57 Dose: 50 mg Multivitamins (Multivitamin) [facility] Last Admin: 12/09/17 07:57 Dose: 1 tablet Nystatin (Mycostatin Powder) 1 applic TOPICAL 0600,2200 [facility]; Protocol Last Admin: 12/09/17 14:29 Dose: 1 applicatio Pantoprazole Sodium (Protonix) 20 mg PO BID [facility] Last Admin: 12/09/17 07:58 Dose: 20 mg Polyethylene Glycol (Miralax) 17 gm PO DAILY PRN PRN Reason: Constipation Senna/Docusate Sodium (Senokot-S, Lindsay-Colace) 2 tablet PO BID [facility] [place] Last Admin: 12/09/17 07:57 Dose: 2 tablet Tamsulosin HCl (Flomax) 0.4 mg PO DAILY@1730 [facility] Last Admin: 12/08/17 18:24 Dose: 0.4 mg Medical Necessity - Tobacco Use Smoking Status: Never smoker Assessment/Plan All Active Problems (Last Updated 03/23/17 @ 16:07 by ANA Hobbs) Closed avulsion fracture of greater trochanter of femur (Acute) This is a 27-year-old female who was admitted to the rehab unit at [facility] for inpatient rehab due to generalized debility from an avulsion fracture of the left hip. The patient also has blindness from macular degeneration. 1. Debility secondary to avulsion fracture of the left greater trochanter s tatus post mechanical fall prior to admission with underlying osteoporosis- PT/OT. Patient had nonoperative conservative management. As per the orthopedic surgeon it was a nonoperative fracture. After that, she elected to go home from ER on 11/29 but came back after 2 days. She had been falling secondary to macular degeneration, arthritis and mobility issues secondary to advanced age. [facility] [facility] was admitted on 10/2017 and discharged to acute rehab. In ED, patient was discussed with Dr. Montano. He advised to follow-up as an outpatient. If patient gets left hip pain or orthopedic related problem, call Dr. Montano. Patient had left hip pain and repeat x-ray on 12/07 and showed no major interval change. PRN pain regimen. Fall precautions. 2. Macular degeneration with associated blindness-fall precautions. 3. CAD-continue aspirin, Plavix, metoprolol, statin. 4. Hypertension-Continue metoprolol and lisinopril regimen. Blood pressure elevated to 160/78. Lisinopril regimen increased to 40 mg daily. Continue to monitor. 5. Hyperlipidemia-continue statin. 6. Depression-continue home Wellbutrin and Celexa regimen. 7. GERD-continue PPI. 8. Sometimes, urinary retention-bladder scan after voiding to record PVR or if patient does not urinate for 4 hours. Home Ditropan regimen switched to Flomax. DVT prophylaxis-Lovenox subcu. Patient is having good bowel movement. Clinical Impression(s) from Imaging Studies Hip/Pelvis X-Ray 12/07/17 15:05 IMPRESSION: 1. Avulsion fracture of the greater trochanter of the left femur, unchanged from previous study. 2. No other major interval change. Active Medications Acetaminophen (Tylenol) 650 mg PO Q6H PRN PRN PRN Reason: Mild Pain (0-3/10)/Headache Hydrocodone Bitart/Acetaminophen ([place] 5mg-325mg) 1 tablet PO Q6H PRN PRN PRN Reason: PAIN Last Admin: 12/09/17 09:29 Dose: 1 tablet Aspirin (Ecotrin) 81 mg PO DAILY [facility] Last Admin: 12/09/17 07:57 Dose: 81 mg Atorvastatin Calcium (Lipitor) 40 mg PO QHS [facility] Last Admin: 12/08/17 20:15 Dose: 40 mg Bisacodyl (Dulcolax) 10 mg RECTAL .PRN X 1 PRN PRN Reason: Constipation Bupropion HCl (Wellbutrin Sr (150mg Tablets)) 150 mg PO DAILY [facility] Last Admin: 12/09/17 07:58 Dose: 150 mg Calcium/Vitamin D (Os-Apollo 500mg + D) [facility] Last Admin: 12/09/17 07:57 Dose: 1 tablet Clopidogrel Bisulfate (Plavix) 75 mg PO DAILY [facility] Last Admin: 12/09/17 07:57 Dose: 75 mg Enoxaparin Sodium (Lovenox) 40 mg SC DAILY@0600 [facility] Last Admin: 12/09/17 05:18 Dose: 40 mg Fentanyl (Duragesic Patch) 25 mcg TRANSDERM. Q72H [facility] Last Admin: 12/09/17 12:57 Dose: 25 mcg Leflunomide (Leflunomide) 20 mg PO DAILY [facility] Last Admin: 12/09/17 07:57 Dose: 20 mg Lisinopril (Zestril) 20 mg PO DAILY [facility] Last Admin: 12/09/17 07:58 Dose: 20 mg Magnesium Hydroxide (Milk Of Magnesia) 30 ml PO .PRN X 1 PRN PRN Reason: Constipation Last Admin: 12/05/17 06:10 Dose: 30 ml Metoprolol Tartrate (Lopressor (Beta Maximiliano)) 50 mg PO BID [facility] Last Admin: 12/09/17 07:57 Dose: 50 mg Multivitamins ([facility]ivitamin) [facility] Last Admin: 12/09/17 07:57 Dose: 1 tablet Nystatin (Mycostatin Powder) 1 applic TOPICAL 0600,2200 [facility]; Protocol Last Admin: 12/09/17 14:29 Dose: 1 applicatio Pantoprazole Sodium (Protonix) 20 mg PO BID [facility] Last Admin: 12/09/17 07:58 Dose: 20 mg Polyethylene Glycol (Miralax) 17 gm PO DAILY PRN PRN Reason: Constipation Senna/Docusate Sodium (Senokot-S, Lindsay-Colace) 2 tablet PO BID [facility] [place] Last Admin: 12/09/17 07:57 Dose: 2 tablet Tamsulosin HCl (Flomax) 0.4 mg PO DAILY@1730 [facility] Last Admin: 12/08/17 18:24 Dose: 0.4 mg Code Visit Inpatient E&M: 42351 Subs Hosp L2
[2017-12-09 21:42] VITALS: BP 146/80; PULSE 81; RESP 17; TEMP 36.9; O2SAT 94
[2017-12-09 22:11] VITALS: BP 152/72; PULSE 75
[2017-12-09] MEDS: Atorvastatin Calcium 40 MG Tablet PO (22:11)
[2017-12-10] MEDS: Enoxaparin 40 MG/0.4 ML Syringe SC (05:41)
[2017-12-10] MEDS: Nystatin Powder 15gm Bottle 1 APPLIC TOPICAL ×2 (05:41→21:49)
[2017-12-10] MEDS: HYDROcodone Bitartrate/Apap 5/325 Tablet PO ×2 (05:42→21:53)
[2017-12-10 07:50] VITALS: BP 132/74; PULSE 92; RESP 16; TEMP 36.9; O2SAT 93
[2017-12-10] MEDS: Pantoprazole Sodium 20 MG Tablet PO ×2 (08:01→21:49)
[2017-12-10] MEDS: buPROPion (SR) 150 MG Tablet.SA PO (08:01)
[2017-12-10] MEDS: Lisinopril 20 MG Tablet PO (08:01)
[2017-12-10 08:02] VITALS: BP 132/74; PULSE 92
[2017-12-10] MEDS: Clopidogrel Bisulfate 75 MG Tablet PO (08:02)
[2017-12-10] MEDS: Metoprolol Tartrate 50 MG Tablet PO ×2 (08:02→21:49)
[2017-12-10] MEDS: Leflunomide 10 MG TABLET 20 MG PO (08:02)
[2017-12-10] MEDS: Multivitamins,Therapeutic Tablet 1 TABLET PO (08:04)
[2017-12-10] MEDS: Aspirin E.C. 81 MG Tablet PO (08:04)
[2017-12-10] MEDS: Calcium Carb/Vitamin D 1 TABLET Tablet PO ×2 (08:04→17:31)
--- NOTE | 2017-12-10 10:30 | PN.NEURO_ITS ---
Subjective: Patient seen and examined. No acute events over night. Tolerating therapy. No issues with GI/. - Physical Exam General: Alert, Oriented x3, Cooperative HEENT: Atraumatic, PERRLA, EOMI, Normocephalic Neck: Supple, No JVD, Negative Carotid Bruits Lungs: Clear to auscultation, Normal air movement Cardiovascular: Regular rate, No murmurs Abdomen: Bowel Sounds Present, Soft, Non Tender Extremities: No edema, Capillary Refill Less than 3 Seconds Skin: No rashes, No breakdown Musculoskeletal: No Tenderness to Palpation of Joints or Extremities Neurological: Cranial nerves II-XII grossly intact Psych/Mental Status: Normal Affect, Appropriate, Alert and oriented to time, place, person, mood and affect Vital Signs Temp Pulse Resp BP Pulse Ox 98.4 F 92 16 132/74 H 93 12/10/17 07:50 12/10/17 08:02 12/10/17 07:50 12/10/17 08:02 12/10/17 07:50 Oxygen Delivery Method Room Air Weight: 65.1 kg Body Mass Index (BMI) 31.4 Intake and Output for Last 24 Hours 12/08/17 12/09/17 12/10/17 23:59 23:59 23:59 Intake Total 240 / 240 Output Total 1550 / 1550 Balance -1550 / -1550 240 / 240 Active Medications Acetaminophen (Tylenol) 650 mg PO Q6H PRN PRN PRN Reason: Mild Pain (0-3/10)/Headache Hydrocodone Bitart/Acetaminophen ([place] 5mg-325mg) 1 tablet PO Q6H PRN PRN PRN Reason: PAIN Last Admin: 12/10/17 05:42 Dose: 1 tablet Aspirin (Ecotrin) 81 mg PO DAILY [facility] Last Admin: 12/10/17 08:04 Dose: 81 mg Atorvastatin Calcium (Lipitor) 40 mg PO QHS [facility] Last Admin: 12/09/17 22:11 Dose: 40 mg Bisacodyl (Dulcolax) 10 mg RECTAL .PRN X 1 PRN PRN Reason: Constipation Bupropion HCl (Wellbutrin Sr (150mg Tablets)) 150 mg PO DAILY [facility] Last Admin: 12/10/17 08:01 Dose: 150 mg Calcium/Vitamin D (Os-Apollo 500mg + D) 1 tablet PO BIDCM [facility] Last Admin: 12/10/17 08:04 Dose: 1 tablet Clopidogrel Bisulfate (Plavix) 75 mg PO DAILY [facility] Last Admin: 12/10/17 08:02 Dose: 75 mg Enoxaparin Sodium (Lovenox) 40 mg SC DAILY@0600 [facility] Last Admin: 12/10/17 05:41 Dose: 40 mg Fentanyl (Duragesic Patch) 25 mcg TRANSDERM. Q72H [facility] Last Admin: 12/09/17 12:57 Dose: 25 mcg Leflunomide (Leflunomide) 20 mg PO DAILY [facility] Last Admin: 12/10/17 08:02 Dose: 20 mg Lisinopril (Zestril) 20 mg PO DAILY [facility] Last Admin: 12/10/17 08:01 Dose: 20 mg Magnesium Hydroxide (Milk Of Magnesia) 30 ml PO .PRN X 1 PRN PRN Reason: Constipation Last Admin: 12/05/17 06:10 Dose: 30 ml Metoprolol Tartrate (Lopressor (Beta Maximiliano)) 50 mg PO BID [facility] Last Admin: 12/10/17 08:02 Dose: 50 mg [facility]it[facility] ([facility]) [facility] Last Admin: 12/10/17 08:04 Dose: 1 tablet Nystatin (Mycostatin Powder) 1 applic TOPICAL 0600,2200 [facility]; Protocol Last Admin: 12/10/17 05:41 Dose: 1 applicatio Pantoprazole Sodium (Protonix) 20 mg PO BID [facility] Last Admin: 12/10/17 08:01 Dose: 20 mg Polyethylene Glycol (Miralax) 17 gm PO DAILY PRN PRN Reason: Constipation Senna/Docusate Sodium (Senokot-S, Lindsay-Colace) 2 tablet PO BID [facility] Last Admin: 12/10/17 08:01 Dose: Not Given Tamsulosin HCl (Flomax) 0.8 mg PO DAILY@1730 [facility] Medical Necessity - Tobacco Use Smoking Status: Never smoker Assessment/Plan All Active Problems (Last Updated 03/23/17 @ 16:07 by ANA Hobbs) Closed avulsion fracture of greater trochanter of femur (Acute) Debility 2/2 to a non-operative avulsion fracture of the greater trochanter of the left femur. [id number] by DM II, HTN and Macular degeneration. Plan: - Physical therapy for gait and balance - Occupational Therapy for ADLs - Speech therapy - As needed analgesics - Bowel protoco - DVT prophylaxis: SCDs, ASA, Lovenox - Hypertension: Stable with good control, continue metoprolol and lisinopril regimen. Lisinopril regimen was increased to 20mg daily prior to admission to Rehab unit continue to monitor BP and make adjustment accordingly. - Check Hba1c => Goal is <7% - Diabetes type 2 => continue home medication. - Macular degeneration => increased fall risk 2/2 associated blindness - Hx of CAD -> continue aspirin, Plavix, metoprolol, statin. - HX of HLD -> continue statin. - Hx of Depression >-continue home dose of Wellbutrin and Celexa regimen. - Hx of GERD -> continue home does of PPI. - Hx Urinary retention -> Currently on Flomax. Was straight cath for urinary retention, 750ml of urine was removed => increase dosage to 0.8mg - Uncontrolled pain => add a Fentanyl patch and K-Pad for comfort. pain has improved, but still not at a tolerable level for her to do therapy, increase fentanyl patch to 25mcq.
--- NOTE | 2017-12-10 15:35 | PCM.PN.HOSP ---
Subjective: Patient no leg pain. Patient is doing good with physical therapy. Had one 100 mL urine output. Urinary incontinence Vitals/I&O's: Vital Signs Temp Pulse Resp BP Pulse Ox 98.4 F 92 16 132/74 H 93 12/10/17 07:50 12/10/17 08:02 12/10/17 07:50 12/10/17 08:02 12/10/17 07:50 Oxygen Delivery Method Room Air Weight: 143 lb 8.335 oz Body Mass Index (BMI) 31.4 Intake and Output for Last 24 Hours 12/08/17 12/09/17 12/10/17 23:59 23:59 23:59 Intake Total 240 / 240 Output Total 1550 / 1550 100 / 100 Balance -1550 / -1550 140 / 140 General: Alert, Oriented x3, Cooperative HEENT: Atraumatic, PERRLA, EOMI, Normocephalic, - - Bilaterally legally blind Neck: Supple, No JVD, Negative Carotid Bruits Lungs: Clear to auscultation, Normal air movement Cardiovascular: Regular rate, No murmurs Abdomen: Bowel Sounds Present, Soft, Non Tender Extremities: No edema, Capillary Refill Less than 3 Seconds Skin: No rashes, No breakdown Musculoskeletal: No Tenderness to Palpation of Joints or Extremities, Arthritic Changes, - - Left hip fracture, on conservative management. Neurological: Cranial nerves II-XII grossly intact Psych/Mental Status: Normal Affect, Appropriate Current Medications Acetaminophen (Tylenol) 650 mg PO Q6H PRN PRN PRN Reason: Mild Pain (0-3/10)/Headache Hydrocodone Bitart/Acetaminophen ([place] 5mg-325mg) 1 tablet PO Q6H PRN PRN PRN Reason: PAIN Last Admin: 12/10/17 05:42 Dose: 1 tablet Aspirin (Ecotrin) 81 mg PO DAILY [facility] Last Admin: 12/10/17 08:04 Dose: 81 mg Atorvastatin Calcium (Lipitor) 40 mg PO QHS [facility] Last Admin: 12/09/17 22:11 Dose: 40 mg Bisacodyl (Dulcolax) 10 mg RECTAL .PRN X 1 PRN PRN Reason: Constipation Bupropion HCl (Wellbutrin Sr (150mg Tablets)) 150 mg PO DAILY [facility] Last Admin: 12/10/17 08:01 Dose: 150 mg Calcium/Vitamin D (Os-Apollo 500mg + D) [facility] Last Admin: 12/10/17 08:04 Dose: 1 tablet Clopidogrel Bisulfate (Plavix) 75 mg PO DAILY [facility] Last Admin: 12/10/17 08:02 Dose: 75 mg Enoxaparin Sodium (Lovenox) 40 mg SC DAILY@0600 [facility] Last Admin: 12/10/17 05:41 Dose: 40 mg Fentanyl (Duragesic Patch) 25 mcg TRANSDERM. Q72H [facility] Last Admin: 12/09/17 12:57 Dose: 25 mcg Leflunomide (Leflunomide) 20 mg PO DAILY [facility] Last Admin: 12/10/17 08:02 Dose: 20 mg Lisinopril (Zestril) 20 mg PO DAILY [facility] Last Admin: 12/10/17 08:01 Dose: 20 mg Magnesium Hydroxide (Milk Of Magnesia) 30 ml PO .PRN X 1 PRN PRN Reason: Constipation Last Admin: 12/05/17 06:10 Dose: 30 ml Metoprolol Tartrate (Lopressor (Beta Maximiliano)) 50 mg PO BID [facility] Last Admin: 12/10/17 08:02 Dose: 50 mg Multivitamins (Multivitamin) 1 tablet [facility] Last Admin: 12/10/17 08:04 Dose: 1 tablet Nystatin (Mycostatin Powder) 1 applic TOPICAL 0600,2200 [facility]; Protocol Last Admin: 12/10/17 05:41 Dose: 1 applicatio Pantoprazole Sodium (Protonix) 20 mg PO BID [facility] Last Admin: 12/10/17 08:01 Dose: 20 mg Polyethylene Glycol (Miralax) 17 gm PO DAILY PRN PRN Reason: Constipation Senna/Docusate Sodium (Senokot-S, Lindsay-Colace) 2 tablet PO BID [facility] Last Admin: 12/10/17 08:01 Dose: Not Given Tamsulosin HCl (Flomax) 0.8 mg PO DAILY@1730 [facility] Medical Necessity - Tobacco Use Smoking Status: Never smoker Assessment/Plan All Active Problems (Last Updated 03/23/17 @ 16:07 by ANA Hobbs) Closed avulsion fracture of greater trochanter of femur (Acute) This is a 27-year-old female who was admitted to the rehab unit at [facility] for inpatient rehab due to generalized debility from an avulsion fracture of the left hip. The patient also has blindness from macular degeneration. 1. Debility secondary to avulsion fracture of the left greater trochanter status post mechanical fall prior to admission with underlying osteoporosis-PT/OT. Patient had nonoperative conservative management. As per the orthopedic surgeon it was a nonoperative fracture. The patient went home and came back after 2 days and was admitted. She had been falling secondary to macular degeneration, arthritis and mobility issues secondary to advanced age. Thereafter patient was admitted on 10/2017 and discharged to acute rehab. In ED, patient was discussed with Dr. Montano. He advised to follow-up as an outpatient. If patient gets left hip pain or orthopedic related problem, consult Dr. Montano Patient had left hip pain and repeat x-ray on 12/07 and showed no major interval change. PRN pain regimen. Fall precautions. 2. Macular degeneration with associated blindness-fall precautions. 3. CAD-continue aspirin, Plavix, metoprolol, statin. 4. Hypertension-Continue metoprolol and lisinopril regimen. Blood pressure elevated to 160/78. Lisinopril regimen increased to 40 mg daily. Continue to monitor. 5. Hyperlipidemia-continue statin. 6. Depression-continue home Wellbutrin and Celexa regimen. 7. GERD-continue PPI. 8. Sometimes, urinary retention-bladder scan after voiding to record PVR or if patient does not urinate for 4 hours. Home Ditropan regimen switched to Flomax. DVT prophylaxis-Lovenox subcu. Patient is having good bowel movement. Clinical Impression(s) from Imaging Studies Hip/Pelvis X-Ray 12/07/17 15:05 IMPRESSION: 1. Avulsion fracture of the greater trochanter of the left femur, unchanged from previous study. 2. No other major interval change. Code Visit Inpatient E&M: 07734 Subs Hosp L2
--- NOTE | 2017-12-10 15:38 | PN_ITS ---
Subjective: Patient no leg pain. Patient is doing good with physical therapy. Had one 100 mL urine output. Urinary incontinence Vitals/I&O's: Vital Signs Temp Pulse Resp BP Pulse Ox 98.4 F 92 16 132/74 H 93 12/10/17 07:50 12/10/17 08:02 12/10/17 07:50 12/10/17 08:02 12/10/17 07:50 Oxygen Delivery Method Room Air Weight: 143 lb 8.335 oz Body Mass Index (BMI) 31.4 Intake and Output for Last 24 Hours 12/08/17 12/09/17 12/10/17 23:59 23:59 23:59 Intake Total 240 / 240 Output Total 1550 / 1550 100 / 100 Balance -1550 / -1550 140 / 140 General: Alert, Oriented x3, Cooperative HEENT: Atraumatic, PERRLA, EOMI, Normocephalic, - - Bilaterally legally blind Neck: Supple, No JVD, Negative Carotid Bruits Lungs: Clear to auscultation, Normal air movement Cardiovascular: Regular rate, No murmurs Abdomen: Bowel Sounds Present, Soft, Non Tender Extremities: No edema, Capillary Refill Less than 3 Seconds Skin: No rashes, No breakdown Musculoskeletal: No Tenderness to Palpation of Joints or Extremities, Arthritic Changes, - - Left hip fracture, on conservative management. Neurological: Cranial nerves II-XII grossly intact Psych/Mental Status: Normal Affect, Appropriate Current Medications Acetaminophen (Tylenol) 650 mg PO Q6H PRN PRN PRN Reason: Mild Pain (0-3/10)/Headache Hydrocodone Bitart/Acetaminophen ([place] 5mg-325mg) 1 tablet PO Q6H PRN PRN PRN Reason: PAIN Last Admin: 12/10/17 05:42 Dose: 1 tablet Aspirin (Ecotrin) 81 mg PO DAILY [facility] Last Admin: 12/10/17 08:04 Dose: 81 mg Atorvastatin Calcium (Lipitor) 40 mg PO QHS [facility] Last Admin: 12/09/17 22:11 Dose: 40 mg Bisacodyl (Dulcolax) 10 mg RECTAL .PRN X 1 PRN PRN Reason: Constipation Bupropion HCl (Wellbutrin Sr (150mg Tablets)) 150 mg PO DAILY [facility] Last Admin: 12/10/17 08:01 Dose: 150 mg Calcium/Vitamin D (Os-Apollo 500mg + D) [facility] Last Admin: 12/10/17 08:04 Dose: 1 tablet Clopidogrel Bisulfate (Plavix) 75 mg PO DAILY [facility] Last Admin: 12/10/17 08:02 Dose: 75 mg Enoxaparin Sodium (Lovenox) 40 mg SC DAILY@0600 [facility] Last Admin: 12/10/17 05:41 Dose: 40 mg Fentanyl (Duragesic Patch) 25 mcg TRANSDERM. Q72H [facility] Last Admin: 12/09/17 12:57 Dose: 25 mcg Leflunomide (Leflunomide) 20 mg PO DAILY [facility] Last Admin: 12/10/17 08:02 Dose: 20 mg Lisinopril (Zestril) 20 mg PO DAILY [facility] Last Admin: 12/10/17 08:01 Dose: 20 mg Magnesium Hydroxide (Milk Of Magnesia) 30 ml PO .PRN X 1 PRN PRN Reason: Constipation Last Admin: 12/05/17 06:10 Dose: 30 ml Metoprolol Tartrate (Lopressor (Beta Maximiliano)) 50 mg PO BID [facility] Last Admin: 12/10/17 08:02 Dose: 50 mg Multivitamins (Multivitamin) [facility] Last Admin: 12/10/17 08:04 Dose: 1 tablet Nystatin (Mycostatin Powder) 1 applic TOPICAL 0600,2200 [facility]; Protocol Last Admin: 12/10/17 05:41 Dose: 1 applicatio Pantoprazole Sodium (Protonix) 20 mg PO BID [facility] Last Admin: 12/10/17 08:01 Dose: 20 mg Polyethylene Glycol (Miralax) 17 gm PO DAILY PRN PRN Reason: Constipation Senna/Docusate Sodium (Senokot-S, Lindsay-Colace) 2 tablet PO BID [facility] Last Admin: 12/10/17 08:01 Dose: Not Given Tamsulosin HCl (Flomax) 0.8 mg PO DAILY@1730 [facility] Medical Necessity - Tobacco Use Smoking Status: Never smoker Assessment/Plan All Active Problems (Last Updated 03/23/17 @ 16:07 by ANA Hobbs) Closed avulsion fracture of greater trochanter of femur (Acute) This is a 27-year-old female who was admitted to the rehab unit at [facility] for inpatient rehab due to generalized debility from an avulsion fracture of the left hip. The patient also has blindness from macular degeneration. 1. Debility secondary to avulsion fracture of the left greater trochanter status post mechanical fall prior to admission with underlying osteoporosis- PT/OT. Patient had nonoperative conservative management. As per the orthopedic surgeon it was a nonoperative fracture. The patient went home and came back after 2 days and was admitted. She had been falling secondary to macular degeneration, arthritis and mobility issues secondary to advanced age. Thereafter patient was admitted on 10/2017 and discharged to acute rehab. In ED, patient was discussed with Dr. Montano. He advised to follow-up as an outpatient. If patient gets left hip pain or orthopedic related problem, consult Dr. Montano Patient had left hip pain and repeat x-ray on 12/07 and showed no major interval change. PRN pain regimen. Fall precautions. 2. Macular degeneration with associated blindness-fall precautions. 3. CAD-continue aspirin, Plavix, metoprolol, statin. 4. Hypertension-Continue metoprolol and lisinopril regimen. Blood pressure elevated to 160/78. Lisinopril regimen increased to 40 mg daily. Continue to monitor. 5. Hyperlipidemia-continue statin. 6. Depression-continue home Wellbutrin and Celexa regimen. 7. GERD-continue PPI. 8. Sometimes, urinary retention-bladder scan after voiding to record PVR or if patient does not urinate for 4 hours. Home Ditropan regimen switched to Flomax. DVT prophylaxis-Lovenox subcu. Patient is having good bowel movement. Clinical Impression(s) from Imaging Studies Hip/Pelvis X-Ray 12/07/17 15:05 IMPRESSION: 1. Avulsion fracture of the greater trochanter of the left femur, unchanged from previous study. 2. No other major interval change. Code Visit Inpatient E&M: 03018 Subs Hosp L2
[2017-12-10] MEDS: Tamsulosin HCl 0.4 MG Capsule 0.8 MG PO (17:31)
[2017-12-10 18:43] VITALS: BP 134/67; PULSE 79; RESP 16; TEMP 37.1; O2SAT 94
[2017-12-10 19:49] VITALS: BP 137/77; PULSE 84; RESP 18; TEMP 36.7; O2SAT 95
[2017-12-10] MEDS: Senna/Docusate Sodium 1 Tablet 2 TABLET PO (21:48)
[2017-12-10 21:49] VITALS: BP 122/66; PULSE 86
[2017-12-10] MEDS: Atorvastatin Calcium 40 MG Tablet PO (21:49)
[2017-12-11] MEDS: HYDROcodone Bitartrate/Apap 5/325 Tablet PO ×3 (04:14→20:10)
[2017-12-11] MEDS: Enoxaparin 40 MG/0.4 ML Syringe SC (05:56)
[2017-12-11] MEDS: Nystatin Powder 15gm Bottle 1 APPLIC TOPICAL ×2 (06:05→20:11)
[2017-12-11 07:00] VITALS: BP 118/71; PULSE 69; RESP 18; TEMP 36.8; O2SAT 95
[2017-12-11 07:50] VITALS: BP 96/62
--- NOTE | 2017-12-11 07:50 | NURSING ---
Patient had a large bowel movement after shower and then shortly after reported she felt dizzy, bp taken and systolic under 100, skin color pale. OT and this nurse assisted patient to bed and she reported no further dizziness. Will monitor. Fluids encouraged and patient had 60cc at this time.
[2017-12-11 08:15] VITALS: BP 131/70
[2017-12-11] MEDS: Aspirin E.C. 81 MG Tablet PO (08:15)
[2017-12-11] MEDS: Clopidogrel Bisulfate 75 MG Tablet PO (08:15)
[2017-12-11] MEDS: Lisinopril 20 MG Tablet PO (08:15)
[2017-12-11] MEDS: buPROPion (SR) 150 MG Tablet.SA PO (08:15)
[2017-12-11] MEDS: Calcium Carb/Vitamin D 1 TABLET Tablet PO ×2 (08:15→18:03)
[2017-12-11] MEDS: Pantoprazole Sodium 20 MG Tablet PO ×2 (08:15→20:10)
[2017-12-11] MEDS: Multivitamins,Therapeutic Tablet 1 TABLET PO (08:15)
--- NOTE | 2017-12-11 08:30 | NURSING ---
Symptoms subsided and BP WNL. Resting in bed.
[2017-12-11] MEDS: Leflunomide 10 MG TABLET 20 MG PO (10:17)
[2017-12-11 10:18] VITALS: PULSE 70
[2017-12-11] MEDS: Metoprolol Tartrate 50 MG Tablet PO ×2 (10:18→20:10)
[2017-12-11 13:49] LABS: Mucous, Urine 0 SEEN /hpf (<or=2+)
[2017-12-11 13:52] LABS: Color, Urine Yellow (Yellow); Glucose, Dipstick Normal (Normal); Ketone-Dipstick Negative (Negative); Leukocyte Esterase-Dipstick 500 /ul (Negative); Nitrite-Dipstick Negative (Negative); Occult Blood-Urine 250 /ul (Negative); Protein-Dipstick 100 mg/dl (Negative); Urine Bilirubin Dipstick Negative (Negative); Urine Clarity Sl. Cloudy (Clear); Urine Urobilinogen Normal (Normal)
[2017-12-11 13:58] LABS: Bacteria 2+ /hpf (None Seen); Red Blood Cells-Urine 25-50 SEEN /hpf (0-5); Squamous Epithelial Cells - UA 0-5 SEEN /hpf (5-10); White Blood Cells 25-50 SEEN /hpf (0-5)
[2017-12-11] MEDS: Ciprofloxacin 500 MG Tablet PO (18:03)
[2017-12-11] MEDS: Tamsulosin HCl 0.4 MG Capsule 0.8 MG PO (18:03)
[2017-12-11 19:45] VITALS: BP 128/59; PULSE 96; RESP 18; TEMP 36.8; O2SAT 94
[2017-12-11 20:10] VITALS: BP 128/59; PULSE 96
[2017-12-11] MEDS: Atorvastatin Calcium 40 MG Tablet PO (20:11)
[2017-12-12 06:31] LABS: Bedside Glucose 105 mg/dL (70-110)
[2017-12-12] MEDS: HYDROcodone Bitartrate/Apap 5/325 Tablet PO ×3 (06:40→23:41)
[2017-12-12] MEDS: Enoxaparin 40 MG/0.4 ML Syringe SC (06:41)
[2017-12-12 07:11] VITALS: BP 138/69; PULSE 78; RESP 20; TEMP 36.7; O2SAT 95
[2017-12-12] MEDS: Lisinopril 20 MG Tablet PO (07:42)
[2017-12-12] MEDS: buPROPion (SR) 150 MG Tablet.SA PO (07:42)
[2017-12-12] MEDS: Clopidogrel Bisulfate 75 MG Tablet PO (07:43)
[2017-12-12] MEDS: Pantoprazole Sodium 20 MG Tablet PO ×2 (07:43→20:34)
[2017-12-12] MEDS: Multivitamins,Therapeutic Tablet 1 TABLET PO (07:43)
[2017-12-12] MEDS: Aspirin E.C. 81 MG Tablet PO (07:43)
[2017-12-12] MEDS: Calcium Carb/Vitamin D 1 TABLET Tablet PO ×2 (07:43→17:15)
[2017-12-12 07:44] VITALS: PULSE 78
[2017-12-12] MEDS: Metoprolol Tartrate 50 MG Tablet PO ×2 (07:44→20:35)
[2017-12-12] MEDS: Ciprofloxacin 500 MG Tablet PO (10:20)
[2017-12-12] MEDS: Leflunomide 10 MG TABLET 20 MG PO (10:20)
[2017-12-12] MEDS: Senna/Docusate Sodium 1 Tablet 2 TABLET PO (10:22)
[2017-12-12] MEDS: fentaNYL 25 MCG Patch TRANSDERM. (13:41)
[2017-12-12] MEDS: Tamsulosin HCl 0.4 MG Capsule 0.8 MG PO (17:15)
[2017-12-12 20:35] VITALS: BP 133/56; PULSE 79
[2017-12-12] MEDS: Atorvastatin Calcium 40 MG Tablet PO (20:35)
[2017-12-12] MEDS: Nystatin Powder 15gm Bottle 1 APPLIC TOPICAL (20:37)
[2017-12-12 20:48] VITALS: BP 133/56; PULSE 79; RESP 20; TEMP 36.4; O2SAT 95
[2017-12-13] MEDS: Enoxaparin 40 MG/0.4 ML Syringe SC (05:55)
[2017-12-13] MEDS: Nystatin Powder 15gm Bottle 1 APPLIC TOPICAL ×2 (05:56→21:29)
[2017-12-13 07:45] VITALS: BP 158/74; PULSE 80; RESP 18; TEMP 36.6; O2SAT 94
[2017-12-13] MEDS: Lisinopril 20 MG Tablet PO (07:47)
[2017-12-13] MEDS: Multivitamins,Therapeutic Tablet 1 TABLET PO (07:48)
[2017-12-13] MEDS: Calcium Carb/Vitamin D 1 TABLET Tablet PO ×2 (07:48→17:47)
[2017-12-13] MEDS: buPROPion (SR) 150 MG Tablet.SA PO (07:48)
[2017-12-13] MEDS: Pantoprazole Sodium 20 MG Tablet PO ×2 (07:48→21:26)
[2017-12-13] MEDS: Senna/Docusate Sodium 1 Tablet 2 TABLET PO (07:48)
[2017-12-13] MEDS: Aspirin E.C. 81 MG Tablet PO (07:48)
[2017-12-13] MEDS: Leflunomide 10 MG TABLET 20 MG PO (07:48)
[2017-12-13] MEDS: Ciprofloxacin 500 MG Tablet PO (07:48)
[2017-12-13 07:49] VITALS: BP 158/74; PULSE 80
[2017-12-13] MEDS: Clopidogrel Bisulfate 75 MG Tablet PO (07:49)
[2017-12-13] MEDS: Metoprolol Tartrate 50 MG Tablet PO ×2 (07:49→21:26)
--- NOTE | 2017-12-13 15:12 | NURSING ---
pt ambulating throughout hallways with wheeled walker and x1 assist with staff. Gait belt worn at all times during ambulation. Pt tolerated well.
[2017-12-13] MEDS: Tamsulosin HCl 0.4 MG Capsule 0.8 MG PO (17:47)
[2017-12-13] MEDS: HYDROcodone Bitartrate/Apap 5/325 Tablet PO (18:46)
[2017-12-13 21:15] VITALS: BP 120/60; PULSE 83; RESP 16; TEMP 36.6; O2SAT 97
[2017-12-13 21:26] VITALS: BP 120/60; PULSE 83
[2017-12-13] MEDS: Atorvastatin Calcium 40 MG Tablet PO (21:27)
[2017-12-14] MEDS: HYDROcodone Bitartrate/Apap 5/325 Tablet PO ×3 (01:08→20:35)
[2017-12-14] MEDS: Enoxaparin 40 MG/0.4 ML Syringe SC (06:10)
[2017-12-14] MEDS: Nystatin Powder 15gm Bottle 1 APPLIC TOPICAL ×2 (06:13→20:42)
[2017-12-14] MEDS: Acetaminophen 325 MG Tablet 650 MG PO (06:13)
--- NOTE | 2017-12-14 06:16 | NURSING ---
Found getting oob, stating I have to pee. Unaware of place or time. Unable to state birthdate. Equal hand grasps per command. Lifts bilateral feet per command. Able to state name, place and birthdate at this time. Frequent urination during night (12 times to this point since 1899). VSS. Will moniter
[2017-12-14] MEDS: Senna/Docusate Sodium 1 Tablet 2 TABLET PO (08:41)
[2017-12-14] MEDS: Pantoprazole Sodium 20 MG Tablet PO ×2 (08:41→20:36)
[2017-12-14] MEDS: buPROPion (SR) 150 MG Tablet.SA PO (08:41)
[2017-12-14 08:42] VITALS: BP 145/73; PULSE 78
[2017-12-14] MEDS: Calcium Carb/Vitamin D 1 TABLET Tablet PO ×2 (08:42→18:19)
[2017-12-14] MEDS: Clopidogrel Bisulfate 75 MG Tablet PO (08:42)
[2017-12-14] MEDS: Leflunomide 10 MG TABLET 20 MG PO (08:42)
[2017-12-14] MEDS: Aspirin E.C. 81 MG Tablet PO (08:42)
[2017-12-14] MEDS: Ciprofloxacin 500 MG Tablet PO (08:42)
[2017-12-14] MEDS: Metoprolol Tartrate 50 MG Tablet PO ×2 (08:42→20:42)
[2017-12-14] MEDS: Multivitamins,Therapeutic Tablet 1 TABLET PO (08:42)
[2017-12-14] MEDS: Lisinopril 20 MG Tablet PO (08:42)
[2017-12-14 09:03] VITALS: BP 145/73; PULSE 78; RESP 18; TEMP 36.6; O2SAT 94
--- NOTE | 2017-12-14 10:38 | PCM.PN.NEU ---
Subjective: Staffed in team meeting. Family at bedside, questions answered. With Physical therapy, she is contact guard with transfers and for coming to a stand from a sitting position. She is able to walk 135 feet with a wheel walker at [facility] by assist and verbal cues as to which way she should go. With Occupational therapy, she is able to do her own self care, the amount of assistance she needs at any given time is depended on how much back pain she is having. She requires max assist for lower body bathing and dressing, she requires contact guard for getting into and out of the shower. With Nursing she has chronic back pain 07/02 she is on a Fentanyl patch, she had an episode of confusion during the night where she got out of the bed and started undressing herself and didn't know where she was. She does have a UTI and is on Cipro 500mg BID, will continue to monitor. The patient is scheduled for discharge on Tuesday 12/19, family is discussing weather the patient will return home or go to a SNF for additional therapy. Will decide no later than what the plan will be. - Physical Exam General: Alert, Oriented x3, Cooperative HEENT: Atraumatic, PERRLA, EOMI, Normocephalic Neck: Supple, No JVD, Negative Carotid Bruits Lungs: Clear to auscultation, Normal air movement Cardiovascular: Regular rate, No murmurs Abdomen: Bowel Sounds Present, Soft, Non Tender Extremities: No edema, Capillary Refill Less than 3 Seconds Skin: No rashes, No breakdown Musculoskeletal: No Tenderness to Palpation of Joints or Extremities Neurological: Cranial nerves II-XII grossly intact Psych/Mental Status: Normal Affect, Appropriate, Alert and oriented to time, place, person, mood and affect Vital Signs Temp Pulse Resp BP Pulse Ox 97.8 F 78 18 145/73 H 94 12/14/17 09:03 12/14/17 09:03 12/14/17 09:03 12/14/17 09:03 12/14/17 09:03 Oxygen Delivery Method Room Air Weight: 65.1 kg Body Mass Index (BMI) 31.4 Microbiology Past 72 Hours 12/11/17 13:30 Urine Culture - Final Urine, Catheterized Escherichia coli Klebsiella oxytoca Active Medications Acetaminophen (Tylenol) 650 mg PO Q6H PRN PRN PRN Reason: Mild Pain (0-3/10)/Headache Last Admin: 12/14/17 06:13 Dose: 650 mg Hydrocodone Bitart/Acetaminophen ([place] 5mg-325mg) 1 tablet PO Q6H PRN PRN PRN Reason: PAIN Last Admin: 12/14/17 01:08 Dose: 1 tablet Aspirin (Ecotrin) 81 mg PO DAILY [facility] Last Admin: 12/14/17 08:42 Dose: 81 mg Atorvastatin Calcium (Lipitor) 40 mg PO QHS [facility] Last Admin: 12/13/17 21:27 Dose: 40 mg Bisacodyl (Dulcolax) 10 mg RECTAL .PRN X 1 PRN PRN Reason: Constipation Bupropion HCl (Wellbutrin Sr (150mg Tablets)) 150 mg PO DAILY [facility] Last Admin: 12/14/17 08:41 Dose: 150 mg Calcium/Vitamin D (Os-Apollo 500mg + D) [facility] Last Admin: 12/14/17 08:42 Dose: 1 tablet Ciprofloxacin HCl (Cipro) 500 mg PO DAILY [facility] Stop: 12/24/17 10:01 Last Admin: 12/14/17 08:42 Dose: 500 mg Clopidogrel Bisulfate (Plavix) 75 mg PO DAILY [facility] Last Admin: 12/14/17 08:42 Dose: 75 mg Enoxaparin Sodium (Lovenox) 40 mg SC DAILY@0600 [facility] Last Admin: 12/14/17 06:10 Dose: 40 mg Fentanyl (Duragesic Patch) 25 mcg TRANSDERM. Q72H [facility] Last Admin: 12/12/17 13:41 Dose: 25 mcg Leflunomide (Leflunomide) 20 mg PO DAILY [facility] Last Admin: 12/14/17 08:42 Dose: 20 mg Lisinopril (Zestril) 20 mg PO DAILY [facility] Last Admin: 12/14/17 08:42 Dose: 20 mg Magnesium Hydroxide (Milk Of Magnesia) 30 ml PO .PRN X 1 PRN PRN Reason: Constipation Last Admin: 12/05/17 06:10 Dose: 30 ml Metoprolol Tartrate (Lopressor (Beta Maximiliano)) 50 mg PO BID [facility] Last Admin: 12/14/17 08:42 Dose: 50 mg Multivitamins (Multivitamin) [facility] Last Admin: 12/14/17 08:42 Dose: 1 tablet Nystatin (Mycostatin Powder) 1 applic TOPICAL 0600,2200 [facility]; Protocol Last Admin: 12/14/17 06:13 Dose: 1 applicatio Pantoprazole Sodium (Protonix) 20 mg PO BID [facility] Last Admin: 12/14/17 08:41 Dose: 20 mg Polyethylene Glycol (Miralax) 17 gm PO DAILY PRN PRN Reason: Constipation Senna/Docusate Sodium (Senokot-S, Lindsay-Colace) 2 tablet PO DAILY [facility] Last Admin: 12/14/17 08:41 Dose: 1 tablet Tamsulosin HCl (Flomax) 0.8 mg PO DAILY@1730 [facility] Last Admin: 12/13/17 17:47 Dose: 0.8 mg Medical Necessity - Tobacco Use Smoking Status: Never smoker Assessment/Plan All Active Problems (Last Updated 03/23/17 @ 16:07 by ANA Hobbs) Closed avulsion fracture of greater trochanter of femur (Acute) Debility 2/2 to a non-operative avulsion fracture of the greater trochanter of the left femur. [id number] by DM II, HTN and Macular degeneration. Plan: - Physical therapy for gait and balance - Occupational Therapy for ADLs - Speech therapy - As needed analgesics - Bowel protoco - DVT prophylaxis: SCDs, ASA, Lovenox - Hypertension: Stable with good control, continue metoprolol and lisinopril regimen. Lisinopril regimen was increased to 20mg daily prior to admission to Rehab unit continue to monitor BP and make adjustment accordingly. - Check Hba1c => Goal is <7% - Diabetes type 2 => continue home medication. - Macular degeneration => increased fall risk 2/2 associated blindness - Hx of CAD -> continue aspirin, Plavix, metoprolol, statin. - HX of HLD -> continue statin. - Hx of Depression >-continue home dose of Wellbutrin and Celexa regimen. - Hx of GERD -> continue home does of PPI. - Hx Urinary retention -> Currently on Flomax. Was straight cath for urinary retention, 750ml of urine was removed => increase dosage to 0.8mg - Uncontrolled pain => add a Fentanyl patch and K-Pad for comfort. pain has improved, but still not at a tolerable level for her to do therapy, increase fentanyl patch to 25mcq. - UTI = on Cipro 500mg BID - Plan is for discharge on Thursday to either home or to a SNF for additional therapy, decision will be made by of this week
--- NOTE | 2017-12-14 12:06 | CASEMGMT ---
Team meeting held. Patient present as well as patient family. Patient Medicare days are up on 12/19/17. Patient aware that team is recommending for patient to have 24hr care within the home or a facility. Patient family reporting to be unable to provide 24hr care for patient at home and are also expressing concerns of patient discharging to home where patient spouse is unable to assist and has had some almost falls while patient has been gone. Patient family reporting that patient was falling 2-3 times a day prior to hospitalization. Patient is unsure about transitioning to a facility and patient and family plan to discuss further. This social security assessor to meet with patient and patient family on 12/16/17 @ 3:00pm to establish a discharge plan. Support given. Proposed discharge date: 12/19/17. PLAN: Undetermined at this time. Will continue to follow. Kinjal AWAN, BOARD CERTIFIED FAMILY PHYSICIAN
--- NOTE | 2017-12-14 15:59 | CHAPLAIN ---
Type of Pastoral Visit _x__ Initial Visit ___ Follow-up Visit ___ On-call Visit ___ General Patient Visit ___ Spiritual Assessment ___ Family Conference ___ Bereavement ___ Rapid Response ___ Code Blue ___ Other (describe below) Pastoral Care Referral From _x__ Patient ___ Family ___ Nurse ___ Physician ___ Shipping & Receiving Lead ___ Cq Developer ___ Other (describe below) Sacrament/Intervention _x__ Active listening ___ Anointing ___ Adventism ___ Bereavement ___ Communion _x__ Jessie exploration ___ __x_ Life review __x_ Prayer ___ Reconciliation ___ Sacrament of Sick ___ Supportive presence ___ Wedding ___ Other (describe below) Pastoral Comments patient shows interest in talking with lineworker; pt has a spiritual background and an active restorationism membership; pt has family members around to help her she says; pt speaks of her concern for her who is lonely without her and needing dialysis; she indicates family and restorationism members are helping him in this time; pt has connections to [place] and [employer]; pt accepts prayer and future visits
--- NOTE | 2017-12-14 17:14 | PCM.PN.HOSP ---
Subjective: The patient has chronic urinary incontinence and UTI. Urine culture shows 50-80,000 E. coli and 25,000-50,000 Klebsiella oxytoca, sensitive to Cipro and Levaquin. Currently on Cipro. Patient has bilateral macular degeneration. Vitals/I&O's: Vital Signs Temp Pulse Resp BP Pulse Ox 97.8 F 78 18 145/73 H 94 12/14/17 09:03 12/14/17 09:03 12/14/17 09:03 12/14/17 09:03 12/14/17 09:03 Oxygen Delivery Method Room Air Weight: 143 lb 8.335 oz Body Mass Index (BMI) 31.4 Intake and Output for Last 24 Hours 12/12/17 12/13/17 12/14/17 23:59 23:59 23:59 Intake Total 220 / 220 Balance 220 / 220 General: Alert, Oriented x3, Cooperative HEENT: Atraumatic, PERRLA, EOMI, Normocephalic, - - Bilateral legally blind. Neck: Supple, No JVD, Negative Carotid Bruits Lungs: Clear to auscultation, Normal air movement Cardiovascular: Regular rate, Regular Rhythm, Normal S1, Normal S2, No murmurs Abdomen: Bowel Sounds Present, Soft, Non Tender, Non-Distended Extremities: No edema, Capillary Refill Less than 3 Seconds Skin: No rashes, No breakdown Musculoskeletal: No Tenderness to Palpation of Joints or Extremities, Arthritic Changes, Muscle Wasting, - - Left hip fracture, on conservative management Neurological: Cranial nerves II-XII grossly intact Psych/Mental Status: Normal Affect, Appropriate Microbiology Past 72 Hours 12/11/17 13:30 Urine, Catheterized Urine Culture - Final Escherichia coli Klebsiella oxytoca Current Medications Acetaminophen (Tylenol) 650 mg PO Q6H PRN PRN PRN Reason: Mild Pain (0-3/10)/Headache Last Admin: 12/14/17 06:13 Dose: 650 mg Hydrocodone Bitart/Acetaminophen ([place] 5mg-325mg) 1 tablet PO Q6H PRN PRN PRN Reason: PAIN Last Admin: 12/14/17 13:20 Dose: 1 tablet Aspirin (Ecotrin) 81 mg PO DAILY [facility] Last Admin: 12/14/17 08:42 Dose: 81 mg Atorvastatin Calcium (Lipitor) 40 mg PO QHS [facility] Last Admin: 12/13/17 21:27 Dose: 40 mg Bisacodyl (Dulcolax) 10 mg RECTAL .PRN X 1 PRN PRN Reason: Constipation Bupropion HCl (Wellbutrin Sr (150mg Tablets)) 150 mg PO DAILY [facility] Last Admin: 12/14/17 08:41 Dose: 150 mg Calcium/Vitamin D (Os-Apollo 500mg + D) [facility] Last Admin: 12/14/17 08:42 Dose: 1 tablet Ciprofloxacin HCl (Cipro) 500 mg PO DAILY [facility] Stop: 12/24/17 10:01 Last Admin: 12/14/17 08:42 Dose: 500 mg Clopidogrel Bisulfate (Plavix) 75 mg PO DAILY [facility] Last Admin: 12/14/17 08:42 Dose: 75 mg Enoxaparin Sodium (Lovenox) 40 mg SC DAILY@0600 [facility] Last Admin: 12/14/17 06:10 Dose: 40 mg Fentanyl (Duragesic Patch) 25 mcg TRANSDERM. Q72H [facility] Last Admin: 12/12/17 13:41 Dose: 25 mcg Leflunomide (Leflunomide) 20 mg PO DAILY [facility] Last Admin: 12/14/17 08:42 Dose: 20 mg Lisinopril (Zestril) 20 mg PO DAILY [facility] Last Admin: 12/14/17 08:42 Dose: 20 mg Magnesium Hydroxide (Milk Of Magnesia) 30 ml PO .PRN X 1 PRN PRN Reason: Constipation Last Admin: 12/05/17 06:10 Dose: 30 ml Metoprolol Tartrate (Lopressor (Beta Maximiliano)) 50 mg PO BID [facility] Last Admin: 12/14/17 08:42 Dose: 50 mg Multivitamins ([facility]amin) [facility] Last Admin: 12/14/17 08:42 Dose: 1 tablet Nystatin (Mycostatin Powder) 1 applic TOPICAL 0600,2200 [facility]; Protocol Last Admin: 12/14/17 06:13 Dose: 1 applicatio Pantoprazole Sodium (Protonix) 20 mg PO BID [facility] Last Admin: 12/14/17 08:41 Dose: 20 mg Polyethylene Glycol (Miralax) 17 gm PO DAILY PRN PRN Reason: Constipation Senna/Docusate Sodium (Senokot-S, Lindsay-Colace) 2 tablet PO DAILY [facility] Last Admin: 12/14/17 08:41 Dose: 1 tablet Tamsulosin HCl (Flomax) 0.8 mg PO DAILY@1730 [facility] Last Admin: 12/13/17 17:47 Dose: 0.8 mg Medical Necessity - Tobacco Use Smoking Status: Never smoker Assessment/Plan All Active Problems (Last Updated 03/23/17 @ 16:07 by ANA Hobbs) Closed avulsion fracture of greater trochanter of femur (Acute) This is a 27-year-old female who was admitted to the rehab unit at [facility] for inpatient rehab due to generalized debility from an avulsion fracture of the left hip. The patient also has blindness from macular degeneration. 1. Debility secondary to avulsion fracture of the left greater trochanter status post mechanical fall prior to admission with underlying osteoporosis-PT/OT. Patient had nonoperative conservative management. As per the orthopedic surgeon it was a nonoperative fracture. The patient went home and came back after 2 days and was admitted. She had been falling secondary to macular degeneration, arthritis and mobility issues secondary to advanced age. Thereafter patient was admitted on 10/2017 and discharged to acute rehab. In ED, patient was discussed with Dr. Montano. He advised to follow-up as an outpatient. If patient gets left hip pain or orthopedic related problem, consult Dr. Montano Patient had left hip pain and repeat x-ray on 12/07 and showed no major interval change. PRN pain regimen. Fall precautions. Lower UTI/cystitis E. coli and Klebsiella oxytoca: Patient has E. coli 50-80,000 and Klebsiella oxytoca 25,000-50,000. The colonies are not in the range of pathogenic that is not more than 100,000. Currently on Cipro. Started on 12/11/2017. I think, 5 days total 10 tablets will be good enough. 2. Macular degeneration with associated blindness-fall precautions. 3. CAD-continue aspirin, Plavix, metoprolol, statin. 4. Hypertension-Continue metoprolol and lisinopril regimen. Blood pressure elevated to 160/78. Lisinopril regimen increased to 40 mg daily. Continue to monitor. 5. Hyperlipidemia-continue statin. 6. Depression-continue home Wellbutrin and Celexa regimen. 7. GERD-continue PPI. 8. Sometimes, urinary retention-bladder scan after voiding to record PVR or if patient does not urinate for 4 hours. Home Ditropan regimen switched to Flomax. DVT prophylaxis-Lovenox subcu. Patient is having good bowel movement. Clinical Impression(s) from Imaging Studies Hip/Pelvis X-Ray 12/07/17 15:05 IMPRESSION: 1. Avulsion fracture of the greater trochanter of the left femur, unchanged from previous study. 2. No other major interval change. Code Visit Inpatient E&M: 35570 Subs Hosp L2
--- NOTE | 2017-12-14 17:19 | PN_ITS ---
Subjective: The patient has chronic urinary incontinence and UTI. Urine culture shows 50- 80,000 E. coli and 25,000-50,000 Klebsiella oxytoca, sensitive to Cipro and Levaquin. Currently on Cipro. Patient has bilateral macular degeneration. Vitals/I&O's: Vital Signs Temp Pulse Resp BP Pulse Ox 97.8 F 78 18 145/73 H 94 12/14/17 09:03 12/14/17 09:03 12/14/17 09:03 12/14/17 09:03 12/14/17 09:03 Oxygen Delivery Method Room Air Weight: 143 lb 8.335 oz Body Mass Index (BMI) 31.4 Intake and Output for Last 24 Hours 12/12/17 12/13/17 12/14/17 23:59 23:59 23:59 Intake Total 220 / 220 Balance 220 / 220 General: Alert, Oriented x3, Cooperative HEENT: Atraumatic, PERRLA, EOMI, Normocephalic, - - Bilateral legally blind. Neck: Supple, No JVD, Negative Carotid Bruits Lungs: Clear to auscultation, Normal air movement Cardiovascular: Regular rate, Regular Rhythm, Normal S1, Normal S2, No murmurs Abdomen: Bowel Sounds Present, Soft, Non Tender, Non-Distended Extremities: No edema, Capillary Refill Less than 3 Seconds Skin: No rashes, No breakdown Musculoskeletal: No Tenderness to Palpation of Joints or Extremities, Arthritic Changes, Muscle Wasting, - - Left hip fracture, on conservative management Neurological: Cranial nerves II-XII grossly intact Psych/Mental Status: Normal Affect, Appropriate Microbiology Past 72 Hours 12/11/17 13:30 Urine, Catheterized Urine Culture - Final Escherichia coli Klebsiella oxytoca Current Medications Acetaminophen (Tylenol) 650 mg PO Q6H PRN PRN PRN Reason: Mild Pain (0-3/10)/Headache Last Admin: 12/14/17 06:13 Dose: 650 mg Hydrocodone Bitart/Acetaminophen ([place] 5mg-325mg) 1 tablet PO Q6H PRN PRN PRN Reason: PAIN Last Admin: 12/14/17 13:20 Dose: 1 tablet Aspirin (Ecotrin) 81 mg PO DAILY [facility] Last Admin: 12/14/17 08:42 Dose: 81 mg Atorvastatin Calcium (Lipitor) 40 mg PO QHS [facility] Last Admin: 12/13/17 21:27 Dose: 40 mg Bisacodyl (Dulcolax) 10 mg RECTAL .PRN X 1 PRN PRN Reason: Constipation Bupropion HCl (Wellbutrin Sr (150mg Tablets)) 150 mg PO DAILY [facility] Last Admin: 12/14/17 08:41 Dose: 150 mg Calcium/Vitamin D (Os-Apollo 500mg + D) [facility] Last Admin: 12/14/17 08:42 Dose: 1 tablet Ciprofloxacin HCl (Cipro) 500 mg PO DAILY [facility] Stop: 12/24/17 10:01 Last Admin: 12/14/17 08:42 Dose: 500 mg Clopidogrel Bisulfate (Plavix) 75 mg PO DAILY [facility] Last Admin: 12/14/17 08:42 Dose: 75 mg Enoxaparin Sodium (Lovenox) 40 mg SC DAILY@0600 [facility] Last Admin: 12/14/17 06:10 Dose: 40 mg Fentanyl (Duragesic Patch) 25 mcg TRANSDERM. Q72H [facility] Last Admin: 12/12/17 13:41 Dose: 25 mcg Leflunomide (Leflunomide) 20 mg PO DAILY [facility] Last Admin: 12/14/17 08:42 Dose: 20 mg Lisinopril (Zestril) 20 mg PO DAILY [facility] Last Admin: 12/14/17 08:42 Dose: 20 mg Magnesium Hydroxide (Milk Of Magnesia) 30 ml PO .PRN X 1 PRN PRN Reason: Constipation Last Admin: 12/05/17 06:10 Dose: 30 ml Metoprolol Tartrate (Lopressor (Beta Maximiliano)) 50 mg PO BID [facility] Last Admin: 12/14/17 08:42 Dose: 50 mg Multivitamins (Multivitamin) [facility] Last Admin: 12/14/17 08:42 Dose: 1 tablet Nystatin (Mycostatin Powder) 1 applic TOPICAL 0600,2200 [facility]; Protocol Last Admin: 12/14/17 06:13 Dose: 1 applicatio Pantoprazole Sodium (Protonix) 20 mg PO BID [facility] Last Admin: 12/14/17 08:41 Dose: 20 mg Polyethylene Glycol (Miralax) 17 gm PO DAILY PRN PRN Reason: Constipation Senna/Docusate Sodium (Senokot-S, Lindsay-Colace) 2 tablet PO DAILY [facility] Last Admin: 12/14/17 08:41 Dose: 1 tablet Tamsulosin HCl (Flomax) 0.8 mg PO DAILY@1730 [facility] Last Admin: 12/13/17 17:47 Dose: 0.8 mg Medical Necessity - Tobacco Use Smoking Status: Never smoker Assessment/Plan All Active Problems (Last Updated 03/23/17 @ 16:07 by ANA Hobbs) Closed avulsion fracture of greater trochanter of femur (Acute) This is a 27-year-old female who was admitted to the rehab unit at [facility] for inpatient rehab due to generalized debility from an avulsion fracture of the left hip. The patient also has blindness from macular degeneration. 1. Debility secondary to avulsion fracture of the left greater trochanter status post mechanical fall prior to admission with underlying osteoporosis- PT/OT. Patient had nonoperative conservative management. As per the orthopedic surgeon it was a nonoperative fracture. The patient went home and came back after 2 days and was admitted. She had been falling secondary to macular degeneration, arthritis and mobility issues secondary to advanced age. Thereafter patient was admitted on 10/2017 and discharged to acute rehab. In ED, patient was discussed with Dr. Montano. He advised to follow-up as an outpatient. If patient gets left hip pain or orthopedic related problem, consult Dr. Montano Patient had left hip pain and repeat x-ray on 12/07 and showed no major interval change. PRN pain regimen. Fall precautions. Lower UTI/cystitis E. coli and Klebsiella oxytoca: Patient has E. coli 50-80,000 and Klebsiella oxytoca 25,000-50,000. The colonies are not in the range of pathogenic that is not more than 100,000. Currently on Cipro. Started on 12/11/2017. I think, 5 days total 10 tablets will be good enough. 2. Macular degeneration with associated blindness-fall precautions. 3. CAD-continue aspirin, Plavix, metoprolol, statin. 4. Hypertension-Continue metoprolol and lisinopril regimen. Blood pressure elevated to 160/78. Lisinopril regimen increased to 40 mg daily. Continue to monitor. 5. Hyperlipidemia-continue statin. 6. Depression-continue home Wellbutrin and Celexa regimen. 7. GERD-continue PPI. 8. Sometimes, urinary retention-bladder scan after voiding to record PVR or if patient does not urinate for 4 hours. Home Ditropan regimen switched to Flomax. DVT prophylaxis-Lovenox subcu. Patient is having good bowel movement. Clinical Impression(s) from Imaging Studies Hip/Pelvis X-Ray 12/07/17 15:05 IMPRESSION: 1. Avulsion fracture of the greater trochanter of the left femur, unchanged from previous study. 2. No other major interval change. Code Visit Inpatient E&M: 35472 Subs Hosp L2
[2017-12-14] MEDS: Tamsulosin HCl 0.4 MG Capsule 0.8 MG PO (18:19)
[2017-12-14] MEDS: Atorvastatin Calcium 40 MG Tablet PO ×2 (20:36→20:42)
[2017-12-14 20:42] VITALS: PULSE 78
[2017-12-14] MEDS: Polyethylene Glycol 3350 17 GM PACKET PO (21:50)
[2017-12-14 22:00] VITALS: BP 118/62; PULSE 82; RESP 18; TEMP 36.7; O2SAT 95
[2017-12-15] MEDS: Enoxaparin 40 MG/0.4 ML Syringe SC (06:10)
[2017-12-15] MEDS: HYDROcodone Bitartrate/Apap 5/325 Tablet PO ×2 (06:52→20:23)
[2017-12-15] MEDS: Nystatin Powder 15gm Bottle 1 APPLIC TOPICAL ×2 (07:10→20:28)
[2017-12-15 08:23] VITALS: BP 109/55; PULSE 67; RESP 17; TEMP 36.6; O2SAT 92
[2017-12-15] MEDS: Multivitamins,Therapeutic Tablet 1 TABLET PO (08:45)
[2017-12-15] MEDS: Calcium Carb/Vitamin D 1 TABLET Tablet PO ×2 (08:45→18:08)
[2017-12-15 08:46] VITALS: BP 109/55; PULSE 67
[2017-12-15] MEDS: Senna/Docusate Sodium 1 Tablet 2 TABLET PO (08:46)
[2017-12-15] MEDS: Metoprolol Tartrate 50 MG Tablet PO ×2 (08:46→20:29)
[2017-12-15] MEDS: Leflunomide 10 MG TABLET 20 MG PO (08:46)
[2017-12-15] MEDS: Clopidogrel Bisulfate 75 MG Tablet PO (08:46)
[2017-12-15] MEDS: Pantoprazole Sodium 20 MG Tablet PO ×2 (08:46→20:27)
[2017-12-15] MEDS: Ciprofloxacin 500 MG Tablet PO (08:46)
[2017-12-15] MEDS: buPROPion (SR) 150 MG Tablet.SA PO (08:47)
[2017-12-15] MEDS: Lisinopril 20 MG Tablet PO (08:47)
[2017-12-15] MEDS: Aspirin E.C. 81 MG Tablet PO (08:48)
--- NOTE | 2017-12-15 12:55 | PCM.PN.NEU ---
Subjective: Patient seen and examined. No new events over night. Tolerating therapy. Denies any shortness of breath, or leg pain. Her pain is well controlled on the current medication she is on. - Physical Exam General: Alert, Oriented x3, Cooperative HEENT: Atraumatic, PERRLA, EOMI, Normocephalic Neck: Supple, No JVD, Negative Carotid Bruits Lungs: Clear to auscultation, Normal air movement Cardiovascular: Regular rate, No murmurs Abdomen: Bowel Sounds Present, Soft, Non Tender Extremities: No edema, Capillary Refill Less than 3 Seconds Skin: No rashes, No breakdown Musculoskeletal: No Tenderness to Palpation of Joints or Extremities Neurological: Cranial nerves II-XII grossly intact Psych/Mental Status: Normal Affect, Appropriate, Alert and oriented to time, place, person, mood and affect Vital Signs Temp Pulse Resp BP Pulse Ox 97.9 F 67 17 109/55 L 92 12/15/17 08:23 12/15/17 08:46 12/15/17 08:23 12/15/17 08:46 12/15/17 08:23 Oxygen Delivery Method Room Air Weight: 65.1 kg Body Mass Index (BMI) 31.4 Intake and Output for Last 24 Hours 12/13/17 12/14/17 12/15/17 23:59 23:59 23:59 Intake Total 220 / 220 240 / 240 Balance 220 / 220 240 / 240 Microbiology Past 72 Hours 12/11/17 13:30 Urine Culture - Final Urine, Catheterized Escherichia coli Klebsiella oxytoca Active Medications Acetaminophen (Tylenol) 650 mg PO Q6H PRN PRN PRN Reason: Mild Pain (0-3/10)/Headache Last Admin: 12/14/17 06:13 Dose: 650 mg Hydrocodone Bitart/Acetaminophen ([place] 5mg-325mg) 1 tablet PO Q6H PRN PRN PRN Reason: PAIN Last Admin: 12/15/17 06:52 Dose: 1 tablet Aspirin (Ecotrin) 81 mg PO DAILY [facility] Last Admin: 12/15/17 08:48 Dose: 81 mg Atorvastatin Calcium (Lipitor) 40 mg PO QHS [facility] Last Admin: 12/14/17 20:42 Dose: 40 mg Bisacodyl (Dulcolax) 10 mg RECTAL .PRN X 1 PRN PRN Reason: Constipation Bupropion HCl (Wellbutrin Sr (150mg Tablets)) 150 mg PO DAILY [facility] Last Admin: 12/15/17 08:47 Dose: 150 mg Calcium/Vitamin D (Os-Apollo 500mg + D) [facility] Last Admin: 12/15/17 08:45 Dose: 1 tablet Ciprofloxacin HCl (Cipro) 500 mg PO DAILY [facility] Stop: 12/20/17 10:01 Last Admin: 12/15/17 08:46 Dose: 500 mg Clopidogrel Bisulfate (Plavix) 75 mg PO DAILY [facility] Last Admin: 12/15/17 08:46 Dose: 75 mg Enoxaparin Sodium (Lovenox) 40 mg SC DAILY@0600 [facility] Last Admin: 12/15/17 06:10 Dose: 40 mg Fentanyl (Duragesic Patch) 25 mcg TRANSDERM. Q72H [facility] Last Admin: 12/12/17 13:41 Dose: 25 mcg Leflunomide (Leflunomide) 20 mg PO DAILY [facility] Last Admin: 12/15/17 08:46 Dose: 20 mg Lisinopril (Zestril) 20 mg PO DAILY [facility] Last Admin: 12/15/17 08:47 Dose: 20 mg Magnesium Hydroxide (Milk Of Magnesia) 30 ml PO .PRN X 1 PRN PRN Reason: Constipation Last Admin: 12/05/17 06:10 Dose: 30 ml Metoprolol Tartrate (Lopressor (Beta Maximiliano)) 50 mg PO BID [facility] Last Admin: 12/15/17 08:46 Dose: 50 mg Multivitamins (Multivitamin) [facility] Last Admin: 12/15/17 08:45 Dose: 1 tablet Nystatin (Mycostatin Powder) 1 applic TOPICAL 0600,2200 [facility]; Protocol Last Admin: 12/15/17 07:10 Dose: 1 applicatio Pantoprazole Sodium (Protonix) 20 mg PO BID [facility] Last Admin: 12/15/17 08:46 Dose: 20 mg Polyethylene Glycol (Miralax) 17 gm PO DAILY PRN PRN Reason: Constipation Last Admin: 12/14/17 21:50 Dose: 17 gm Senna/Docusate Sodium (Senokot-S, Lindsay-Colace) 2 tablet PO DAILY [facility] Last Admin: 12/15/17 08:46 Dose: 2 tablet Tamsulosin HCl (Flomax) 0.8 mg PO DAILY@1730 [facility] Last Admin: 12/14/17 18:19 Dose: 0.8 mg Medical Necessity - Tobacco Use Smoking Status: Never smoker Assessment/Plan All Active Problems (Last Updated 03/23/17 @ 16:07 by ANA Hobbs) Closed avulsion fracture of greater trochanter of femur (Acute) Debility 2/2 to a non-operative avulsion fracture of the greater trochanter of the left femur. [id number] by DM II, HTN and Macular degeneration. Plan: - Physical therapy for gait and balance - Occupational Therapy for ADLs - Speech therapy - As needed analgesics - Bowel protoco - DVT prophylaxis: SCDs, ASA, Lovenox - Hypertension: Stable with good control, continue metoprolol and lisinopril regimen. Lisinopril regimen was increased to 20mg daily prior to admission to Rehab unit continue to monitor BP and make adjustment accordingly. - Check Hba1c => Goal is <7% - Diabetes type 2 => continue home medication. - Macular degeneration => increased fall risk 2/2 associated blindness - Hx of CAD -> continue aspirin, Plavix, metoprolol, statin. - HX of HLD -> continue statin. - Hx of Depression >-continue home dose of Wellbutrin and Celexa regimen. - Hx of GERD -> continue home does of PPI. - Hx Urinary retention -> Currently on Flomax. Was straight cath for urinary retention, 750ml of urine was removed => increase dosage to 0.8mg - Uncontrolled pain => add a Fentanyl patch and K-Pad for comfort. pain has improved, but still not at a tolerable level for her to do therapy, increase fentanyl patch to 25mcq. - UTI = on Cipro 500mg BID - Plan is for discharge on Thursday to either home or to a SNF for additional therapy, decision will be made by of this week
--- NOTE | 2017-12-15 13:02 | PN.NEURO_ITS ---
Subjective: Patient seen and examined. No new events over night. Tolerating therapy. Denies any shortness of breath, or leg pain. Her pain is well controlled on the current medication she is on. - Physical Exam General: Alert, Oriented x3, Cooperative HEENT: Atraumatic, PERRLA, EOMI, Normocephalic Neck: Supple, No JVD, Negative Carotid Bruits Lungs: Clear to auscultation, Normal air movement Cardiovascular: Regular rate, No murmurs Abdomen: Bowel Sounds Present, Soft, Non Tender Extremities: No edema, Capillary Refill Less than 3 Seconds Skin: No rashes, No breakdown Musculoskeletal: No Tenderness to Palpation of Joints or Extremities Neurological: Cranial nerves II-XII grossly intact Psych/Mental Status: Normal Affect, Appropriate, Alert and oriented to time, place, person, mood and affect Vital Signs Temp Pulse Resp BP Pulse Ox 97.9 F 67 17 109/55 L 92 12/15/17 08:23 12/15/17 08:46 12/15/17 08:23 12/15/17 08:46 12/15/17 08:23 Oxygen Delivery Method Room Air Weight: 65.1 kg Body Mass Index (BMI) 31.4 Intake and Output for Last 24 Hours 12/13/17 12/14/17 12/15/17 23:59 23:59 23:59 Intake Total 220 / 220 240 / 240 Balance 220 / 220 240 / 240 Microbiology Past 72 Hours 12/11/17 13:30 Urine Culture - Final Urine, Catheterized Escherichia coli Klebsiella oxytoca Active Medications Acetaminophen (Tylenol) 650 mg PO Q6H PRN PRN PRN Reason: Mild Pain (0-3/10)/Headache Last Admin: 12/14/17 06:13 Dose: 650 mg Hydrocodone Bitart/Acetaminophen ([place] 5mg-325mg) 1 tablet PO Q6H PRN PRN PRN Reason: PAIN Last Admin: 12/15/17 06:52 Dose: 1 tablet Aspirin (Ecotrin) 81 mg PO DAILY [facility] Last Admin: 12/15/17 08:48 Dose: 81 mg Atorvastatin Calcium (Lipitor) 40 mg PO QHS [facility] Last Admin: 12/14/17 20:42 Dose: 40 mg Bisacodyl (Dulcolax) 10 mg RECTAL .PRN X 1 PRN PRN Reason: Constipation Bupropion HCl (Wellbutrin Sr (150mg Tablets)) 150 mg PO DAILY [facility] Last Admin: 12/15/17 08:47 Dose: 150 mg Calcium/Vitamin D (Os-Apollo 500mg + D) [facility] Last Admin: 12/15/17 08:45 Dose: 1 tablet Ciprofloxacin HCl (Cipro) 500 mg PO DAILY [facility] Stop: 12/20/17 10:01 Last Admin: 12/15/17 08:46 Dose: 500 mg Clopidogrel Bisulfate (Plavix) 75 mg PO DAILY [facility] Last Admin: 12/15/17 08:46 Dose: 75 mg Enoxaparin Sodium (Lovenox) 40 mg SC DAILY@0600 [facility] Last Admin: 12/15/17 06:10 Dose: 40 mg Fentanyl (Duragesic Patch) 25 mcg TRANSDERM. Q72H [facility] Last Admin: 12/12/17 13:41 Dose: 25 mcg Leflunomide (Leflunomide) 20 mg PO DAILY [facility] Last Admin: 12/15/17 08:46 Dose: 20 mg Lisinopril (Zestril) 20 mg PO DAILY [facility] Last Admin: 12/15/17 08:47 Dose: 20 mg Magnesium Hydroxide (Milk Of Magnesia) 30 ml PO .PRN X 1 PRN PRN Reason: Constipation Last Admin: 12/05/17 06:10 Dose: 30 ml Metoprolol Tartrate (Lopressor (Beta Maximiliano)) 50 mg PO BID [facility] Last Admin: 12/15/17 08:46 Dose: 50 mg Multivitamins (Multivitamin) [facility] Last Admin: 12/15/17 08:45 Dose: 1 tablet Nystatin (Mycostatin Powder) 1 applic TOPICAL 0600,2200 [facility]; Protocol Last Admin: 12/15/17 07:10 Dose: 1 applicatio Pantoprazole Sodium (Protonix) 20 mg PO BID [facility] Last Admin: 12/15/17 08:46 Dose: 20 mg Polyethylene Glycol (Miralax) 17 gm PO DAILY PRN PRN Reason: Constipation Last Admin: 12/14/17 21:50 Dose: 17 gm Senna/Docusate Sodium (Senokot-S, Lindsay-Colace) 2 tablet PO DAILY [facility] Last Admin: 12/15/17 08:46 Dose: 2 tablet Tamsulosin HCl (Flomax) 0.8 mg PO DAILY@1730 [facility] Last Admin: 12/14/17 18:19 Dose: 0.8 mg Medical Necessity - Tobacco Use Smoking Status: Never smoker Assessment/Plan All Active Problems (Last Updated 03/23/17 @ 16:07 by ANA Hobbs) Closed avulsion fracture of greater trochanter of femur (Acute) Debility 2/2 to a non-operative avulsion fracture of the greater trochanter of the left femur. [id number] by DM II, HTN and Macular degeneration. Plan: - Physical therapy for gait and balance - Occupational Therapy for ADLs - Speech therapy - As needed analgesics - Bowel protoco - DVT prophylaxis: SCDs, ASA, Lovenox - Hypertension: Stable with good control, continue metoprolol and lisinopril regimen. Lisinopril regimen was increased to 20mg daily prior to admission to Rehab unit continue to monitor BP and make adjustment accordingly. - Check Hba1c => Goal is <7% - Diabetes type 2 => continue home medication. - Macular degeneration => increased fall risk 2/2 associated blindness - Hx of CAD -> continue aspirin, Plavix, metoprolol, statin. - HX of HLD -> continue statin. - Hx of Depression >-continue home dose of Wellbutrin and Celexa regimen. - Hx of GERD -> continue home does of PPI. - Hx Urinary retention -> Currently on Flomax. Was straight cath for urinary retention, 750ml of urine was removed => increase dosage to 0.8mg - Uncontrolled pain => add a Fentanyl patch and K-Pad for comfort. pain has improved, but still not at a tolerable level for her to do therapy, increase fentanyl patch to 25mcq. - UTI = on Cipro 500mg BID - Plan is for discharge on Thursday to either home or to a SNF for additional therapy, decision will be made by of this week
[2017-12-15] MEDS: fentaNYL 25 MCG Patch TRANSDERM. (14:43)
[2017-12-15] MEDS: Tamsulosin HCl 0.4 MG Capsule 0.8 MG PO (18:08)
[2017-12-15 19:08] VITALS: BP 155/70; PULSE 76; RESP 16; TEMP 36.6; O2SAT 95
[2017-12-15] MEDS: Polyethylene Glycol 3350 17 GM PACKET PO (20:25)
[2017-12-15 20:29] VITALS: BP 146/72; PULSE 81
[2017-12-16] MEDS: Enoxaparin 40 MG/0.4 ML Syringe SC (05:22)
[2017-12-16] MEDS: Nystatin Powder 15gm Bottle 1 APPLIC TOPICAL ×2 (05:22→21:46)
--- NOTE | 2017-12-16 05:27 | NURSING ---
Pt denied pain or need for pain meds even though ADLs with therapy are scheduled for 06:30.
[2017-12-16] MEDS: Pantoprazole Sodium 20 MG Tablet PO ×2 (07:45→21:44)
[2017-12-16] MEDS: HYDROcodone Bitartrate/Apap 5/325 Tablet PO ×2 (07:45→17:45)
[2017-12-16] MEDS: buPROPion (SR) 150 MG Tablet.SA PO (07:45)
[2017-12-16] MEDS: Clopidogrel Bisulfate 75 MG Tablet PO (07:45)
[2017-12-16] MEDS: Senna/Docusate Sodium 1 Tablet 2 TABLET PO (07:45)
[2017-12-16] MEDS: Lisinopril 20 MG Tablet PO (07:45)
[2017-12-16 07:47] VITALS: PULSE 82
[2017-12-16] MEDS: Metoprolol Tartrate 50 MG Tablet PO ×2 (07:47→21:43)
[2017-12-16] MEDS: Aspirin E.C. 81 MG Tablet PO (07:47)
[2017-12-16] MEDS: Multivitamins,Therapeutic Tablet 1 TABLET PO (07:47)
[2017-12-16] MEDS: Calcium Carb/Vitamin D 1 TABLET Tablet PO ×2 (07:47→17:45)
[2017-12-16] MEDS: Leflunomide 10 MG TABLET 20 MG PO (07:47)
[2017-12-16 08:00] VITALS: BP 150/72; PULSE 79; RESP 17; TEMP 36.8; O2SAT 96
--- NOTE | 2017-12-16 09:17 | PCM.PN.NEU ---
Subjective: Patient seen during therapy, is tolerating therapy, is walk greater than 100 feet using the wheel walker, distance is dependent on pain level. Has a UTI and is currently on Cipro for treatment, also has chronic incontinence with urinary retention. Denies any shortness of breath or chest pains. Tolerating regular diet, no issues with GI. - Physical Exam General: Alert, Oriented x3, Cooperative HEENT: Atraumatic, PERRLA, EOMI, Normocephalic Neck: Supple, No JVD, Negative Carotid Bruits Lungs: Clear to auscultation, Normal air movement Cardiovascular: Regular rate, No murmurs Abdomen: Bowel Sounds Present, Soft, Non Tender Extremities: No edema, Capillary Refill Less than 3 Seconds Skin: No rashes, No breakdown Musculoskeletal: No Tenderness to Palpation of Joints or Extremities Neurological: Cranial nerves II-XII grossly intact Psych/Mental Status: Normal Affect, Appropriate, Alert and oriented to time, place, person, mood and affect Vital Signs Temp Pulse Resp BP Pulse Ox 98 F 82 16 146/72 H 95 12/15/17 19:08 12/16/17 07:47 12/15/17 19:08 12/15/17 20:29 12/15/17 19:08 Oxygen Delivery Method Room Air Weight: 63.8 kg Body Mass Index (BMI) 31.4 Intake and Output for Last 24 Hours 12/14/17 12/15/17 12/16/17 23:59 23:59 23:59 Intake Total 220 / 220 480 / 480 Balance 220 / 220 480 / 480 Microbiology Past 72 Hours 12/11/17 13:30 Urine Culture - Final Urine, Catheterized Escherichia coli Klebsiella oxytoca Active Medications Acetaminophen (Tylenol) 650 mg PO Q6H PRN PRN PRN Reason: Mild Pain (0-3/10)/Headache Last Admin: 12/14/17 06:13 Dose: 650 mg Hydrocodone Bitart/Acetaminophen ([place] 5mg-325mg) 1 tablet PO Q6H PRN PRN PRN Reason: PAIN Last Admin: 12/16/17 07:45 Dose: 1 tablet Aspirin (Ecotrin) 81 mg PO DAILY [facility] Last Admin: 12/16/17 07:47 Dose: 81 mg Atorvastatin Calcium (Lipitor) 40 mg PO QHS [facility] Last Admin: 12/14/17 20:42 Dose: 40 mg Bisacodyl (Dulcolax) 10 mg RECTAL .PRN X 1 PRN PRN Reason: Constipation Bupropion HCl (Wellbutrin Sr (150mg Tablets)) 150 mg PO DAILY [facility] Last Admin: 12/16/17 07:45 Dose: 150 mg Calcium/Vitamin D (Os-Apollo 500mg + D) [facility] Last Admin: 12/16/17 07:47 Dose: 1 tablet Ciprofloxacin HCl (Cipro) 500 mg PO DAILY [facility] Stop: 12/20/17 10:01 Last Admin: 12/15/17 08:46 Dose: 500 mg Clopidogrel Bisulfate (Plavix) 75 mg PO DAILY [facility] Last Admin: 12/16/17 07:45 Dose: 75 mg Enoxaparin Sodium (Lovenox) 40 mg SC DAILY@0600 [facility] Last Admin: 12/16/17 05:22 Dose: 40 mg Fentanyl (Duragesic Patch) 25 mcg TRANSDERM. Q72H [facility] Last Admin: 12/15/17 14:43 Dose: 25 mcg Leflunomide (Leflunomide) 20 mg PO DAILY [facility] Last Admin: 12/16/17 07:47 Dose: 20 mg Lisinopril (Zestril) 20 mg PO DAILY [facility] Last Admin: 12/16/17 07:45 Dose: 20 mg Magnesium Hydroxide (Milk Of Magnesia) 30 ml PO .PRN X 1 PRN PRN Reason: Constipation Last Admin: 12/05/17 06:10 Dose: 30 ml Metoprolol Tartrate (Lopressor (Beta Maximiliano)) 50 mg PO BID [facility] Last Admin: 12/16/17 07:47 Dose: 50 mg Multivitamins (Multivitamin) [facility] Last Admin: 12/16/17 07:47 Dose: 1 tablet Nystatin (Mycostatin Powder) 1 applic TOPICAL 0600,2200 [facility]; Protocol Last Admin: 12/16/17 05:22 Dose: 1 applicatio Pantoprazole Sodium (Protonix) 20 mg PO BID [facility] Last Admin: 12/16/17 07:45 Dose: 20 mg Polyethylene Glycol (Miralax) 17 gm PO DAILY PRN PRN Reason: Constipation Last Admin: 12/15/17 20:25 Dose: 17 gm Senna/Docusate Sodium (Senokot-S, Lindsay-Colace) 2 tablet PO DAILY [facility] Last Admin: 12/16/17 07:45 Dose: 2 tablet Tamsulosin HCl (Flomax) 0.8 mg PO DAILY@1730 [facility] Last Admin: 12/15/17 18:08 Dose: 0.8 mg Medical Necessity - Tobacco Use Smoking Status: Never smoker Assessment/Plan All Active Problems (Last Updated 03/23/17 @ 16:07 by ANA Hobbs) Closed avulsion fracture of greater trochanter of femur (Acute) Debility 2/2 to a non-operative avulsion fracture of the greater trochanter of the left femur. [id number] by DM II, HTN and Macular degeneration. Plan: - Physical therapy for gait and balance - Occupational Therapy for ADLs - Speech therapy - As needed analgesics - Bowel protoco - DVT prophylaxis: SCDs, ASA, Lovenox - Hypertension: Stable with good control, continue metoprolol and lisinopril regimen. Lisinopril regimen was increased to 20mg daily prior to admission to Rehab unit continue to monitor BP and make adjustment accordingly. - Check Hba1c => Goal is <7% - Diabetes type 2 => continue home medication. - Macular degeneration => increased fall risk 2/2 associated blindness - Hx of CAD -> continue aspirin, Plavix, metoprolol, statin. - HX of HLD -> continue statin. - Hx of Depression >-continue home dose of Wellbutrin and Celexa regimen. - Hx of GERD -> continue home does of PPI. - Hx Urinary retention -> Currently on Flomax. Was straight cath for urinary retention, 750ml of urine was removed => increase dosage to 0.8mg - Uncontrolled pain => add a Fentanyl patch and K-Pad for comfort. pain has improved, but still not at a tolerable level for her to do therapy, increase fentanyl patch to 25mcq. - UTI = on Cipro 500mg BID - Plan is for discharge on Thursday to either home or to a SNF for additional therapy, decision will be made by of this week
[2017-12-16] MEDS: Ciprofloxacin 500 MG Tablet PO (09:37)
--- NOTE | 2017-12-16 16:03 | CASEMGMT ---
Social Work Met with patient and patient family in room. This outreach and education social worker collaborating with patient and patient family on discharge plan. Patient aware that team is recommending for patient to discharge to transition to a group home facility as there are safety concerns with patient being able to manage own needs at home. Patient voicing understanding and is agreeable to group home home stay. Patient requesting for referral to be made to the [facility] [place] and to have transportation set up via wheelchair van after lunch on 12/19/17. Support given. [facility]. This outreach and education social worker making referral at this time. Transfer form initiated. Proposed discharge date: 12/19/17 PLAN: Discharge to the [facility] [place] pending approval. Kinjal AWAN, ELOCUTION TEACHER
--- NOTE | 2017-12-16 16:16 | PCM.PN.HOSP ---
Subjective: No acute issues. Blood pressure is controlled. No pain. No hypoxia Objective: General: Alert, Oriented x3, Cooperative HEENT: Atraumatic, PERRLA, EOMI, Normocephalic,Bilateral legally blind. Macular degeneration both eyes Neck: Supple, No JVD, Negative Carotid Bruits Lungs: Clear to auscultation, Normal air movement Cardiovascular: Regular rate, Regular Rhythm, Normal S1, Normal S2, No murmurs Abdomen: Bowel Sounds Present, Soft, Non Tender, Non-Distended Extremities: No edema, Capillary Refill Less than 3 Seconds Skin: No rashes, No breakdown Musculoskeletal: No Tenderness to Palpation of Joints or Extremities, Arthritic Changes, Muscle Wasting, Left hip fracture, no tenderness. Neurological: Cranial nerves II-XII grossly intact Psych/Mental Status: Normal Affect, Appropriate Vitals/I&O's: Vital Signs Temp Pulse Resp BP Pulse Ox 98.2 F 79 17 150/72 H 96 12/16/17 08:00 12/16/17 08:00 12/16/17 08:00 12/16/17 08:00 12/16/17 08:00 Oxygen Delivery Method Room Air Weight: 140 lb 10.479 oz Body Mass Index (BMI) 31.4 Intake and Output for Last 24 Hours 12/14/17 12/15/17 12/16/17 23:59 23:59 23:59 Intake Total 220 / 220 480 / 480 480 / 480 Balance 220 / 220 480 / 480 480 / 480 Microbiology Past 72 Hours 12/11/17 13:30 Urine, Catheterized Urine Culture - Final Escherichia coli Klebsiella oxytoca Current Medications Acetaminophen (Tylenol) 650 mg PO Q6H PRN PRN PRN Reason: Mild Pain (0-3/10)/Headache Last Admin: 12/14/17 06:13 Dose: 650 mg Hydrocodone Bitart/Acetaminophen ([place] 5mg-325mg) 1 tablet PO Q6H PRN PRN PRN Reason: PAIN Last Admin: 12/16/17 07:45 Dose: 1 tablet Aspirin (Ecotrin) 81 mg PO DAILY [facility] Last Admin: 12/16/17 07:47 Dose: 81 mg Atorvastatin Calcium (Lipitor) 40 mg PO QHS [facility] Last Admin: 12/14/17 20:42 Dose: 40 mg Bisacodyl (Dulcolax) 10 mg RECTAL .PRN X 1 PRN PRN Reason: Constipation Bupropion HCl (Wellbutrin Sr (150mg Tablets)) 150 mg PO DAILY [facility] Last Admin: 12/16/17 07:45 Dose: 150 mg Calcium/Vitamin D (Os-Apollo 500mg + D) [facility] Last Admin: 12/16/17 07:47 Dose: 1 tablet Ciprofloxacin HCl (Cipro) 500 mg PO DAILY [facility] Stop: 12/20/17 10:01 Last Admin: 12/16/17 09:37 Dose: 500 mg Clopidogrel Bisulfate (Plavix) 75 mg PO DAILY [facility] Last Admin: 12/16/17 07:45 Dose: 75 mg Enoxaparin Sodium (Lovenox) 40 mg SC DAILY@0600 [facility] Last Admin: 12/16/17 05:22 Dose: 40 mg Fentanyl (Duragesic Patch) 25 mcg TRANSDERM. Q72H [facility] Last Admin: 12/15/17 14:43 Dose: 25 mcg Leflunomide (Leflunomide) 20 mg PO DAILY [facility] Last Admin: 12/16/17 07:47 Dose: 20 mg Lisinopril (Zestril) 20 mg PO DAILY [facility] Last Admin: 12/16/17 07:45 Dose: 20 mg Magnesium Hydroxide (Milk Of Magnesia) 30 ml PO .PRN X 1 PRN PRN Reason: Constipation Last Admin: 12/05/17 06:10 Dose: 30 ml Metoprolol Tartrate (Lopressor (Beta Maximiliano)) 50 mg PO BID [facility] Last Admin: 12/16/17 07:47 Dose: 50 mg [facility]ivit[facility] ([facility]itamin) [facility] Last Admin: 12/16/17 07:47 Dose: 1 tablet Nystatin (Mycostatin Powder) 1 applic TOPICAL 0600,2200 [facility]; Protocol Last Admin: 12/16/17 05:22 Dose: 1 applicatio Pantoprazole Sodium (Protonix) 20 mg PO BID [facility] Last Admin: 12/16/17 07:45 Dose: 20 mg Polyethylene Glycol (Miralax) 17 gm PO DAILY PRN PRN Reason: Constipation Last Admin: 12/15/17 20:25 Dose: 17 gm Senna/Docusate Sodium (Senokot-S, Lindsay-Colace) 2 tablet PO DAILY [facility] Last Admin: 12/16/17 07:45 Dose: 2 tablet Tamsulosin HCl (Flomax) 0.8 mg PO DAILY@1730 [facility] Last Admin: 12/15/17 18:08 Dose: 0.8 mg Medical Necessity - Tobacco Use Smoking Status: Never smoker Assessment/Plan All Active Problems (Last Updated 03/23/17 @ 16:07 by ANA Hobbs) Closed avulsion fracture of greater trochanter of femur (Acute) This is a 27-year-old female who was admitted to the rehab unit at [facility] for inpatient rehab due to generalized debility from an avulsion fracture of the left hip. The patient also has blindness from macular degeneration. 1. Debility secondary to avulsion fracture of the left greater trochanter status post mechanical fall prior to admission with underlying osteoporosis-PT/OT. Patient had nonoperative conservative management. As per the orthopedic surgeon it was a nonoperative fracture. The patient went home and came back after 2 days and was admitted. She had been falling secondary to macular degeneration, arthritis and mobility issues secondary to advanced age. Thereafter patient was admitted on 10/2017 and discharged to acute rehab. In ED, patient was discussed with Dr. Montano. Follow-up as an outpatient. If patient gets left hip pain or orthopedic related problem, consult Dr. Montano Patient had left hip pain and repeat x-ray on 12/07 and showed no major interval change. PRN pain regimen. Fall precautions. Lower UTI/cystitis E. coli and Klebsiella oxytoca: Patient has E. coli 50-80,000 and Klebsiella oxytoca 25,000-50,000. The colonies are not in the range of pathogenic that is not more than 100,000. Currently on Cipro. Started on 12/11/2017. Patient was advised 5 days of antibiotics. 2. Macular degeneration with associated blindness-fall precautions. 3. CAD-continue aspirin, Plavix, metoprolol, statin. 4. Hypertension-Continue metoprolol and lisinopril regimen. Lisinopril regimen increased to 40 mg daily. Blood pressure controlled 150/72 5. Hyperlipidemia-continue statin. 6. Depression-continue home Wellbutrin and Celexa regimen. 7. GERD-continue PPI. 8. Sometimes, urinary retention- Home Ditropan regimen switched to Flomax. DVT prophylaxis-Lovenox subcu. Clinical Impression(s) from Imaging Studies Hip/Pelvis X-Ray 12/07/17 15:05 IMPRESSION: 1. Avulsion fracture of the greater trochanter of the left femur, unchanged from previous study. 2. No other major interval change. Microbiology Past 72 Hours 12/11/17 13:30 Urine, Catheterized Urine Culture - Final Escherichia coli Klebsiella oxytoca Code Visit Inpatient E&M: 97221 Subs Hosp L2
--- NOTE | 2017-12-16 16:19 | PN_ITS ---
Subjective: No acute issues. Blood pressure is controlled. No pain. No hypoxia Objective: General: Alert, Oriented x3, Cooperative HEENT: Atraumatic, PERRLA, EOMI, Normocephalic,Bilateral legally blind. Macular degeneration both eyes Neck: Supple, No JVD, Negative Carotid Bruits Lungs: Clear to auscultation, Normal air movement Cardiovascular: Regular rate, Regular Rhythm, Normal S1, Normal S2, No murmurs Abdomen: Bowel Sounds Present, Soft, Non Tender, Non-Distended Extremities: No edema, Capillary Refill Less than 3 Seconds Skin: No rashes, No breakdown Musculoskeletal: No Tenderness to Palpation of Joints or Extremities, Arthritic Changes, Muscle Wasting, Left hip fracture, no tenderness. Neurological: Cranial nerves II-XII grossly intact Psych/Mental Status: Normal Affect, Appropriate Vitals/I&O's: Vital Signs Temp Pulse Resp BP Pulse Ox 98.2 F 79 17 150/72 H 96 12/16/17 08:00 12/16/17 08:00 12/16/17 08:00 12/16/17 08:00 12/16/17 08:00 Oxygen Delivery Method Room Air Weight: 140 lb 10.479 oz Body Mass Index (BMI) 31.4 Intake and Output for Last 24 Hours 12/14/17 12/15/17 12/16/17 23:59 23:59 23:59 Intake Total 220 / 220 480 / 480 480 / 480 Balance 220 / 220 480 / 480 480 / 480 Microbiology Past 72 Hours 12/11/17 13:30 Urine, Catheterized Urine Culture - Final Escherichia coli Klebsiella oxytoca Current Medications Acetaminophen (Tylenol) 650 mg PO Q6H PRN PRN PRN Reason: Mild Pain (0-3/10)/Headache Last Admin: 12/14/17 06:13 Dose: 650 mg Hydrocodone Bitart/Acetaminophen ([place] 5mg-325mg) 1 tablet PO Q6H PRN PRN PRN Reason: PAIN Last Admin: 12/16/17 07:45 Dose: 1 tablet Aspirin (Ecotrin) 81 mg PO DAILY [facility] Last Admin: 12/16/17 07:47 Dose: 81 mg Atorvastatin Calcium (Lipitor) 40 mg PO QHS [facility] Last Admin: 12/14/17 20:42 Dose: 40 mg Bisacodyl (Dulcolax) 10 mg RECTAL .PRN X 1 PRN PRN Reason: Constipation Bupropion HCl (Wellbutrin Sr (150mg Tablets)) 150 mg PO DAILY [facility] Last Admin: 12/16/17 07:45 Dose: 150 mg Calcium/Vitamin D (Os-Apollo 500mg + D) [facility] Last Admin: 12/16/17 07:47 Dose: 1 tablet Ciprofloxacin HCl (Cipro) 500 mg PO DAILY [facility] Stop: 12/20/17 10:01 Last Admin: 12/16/17 09:37 Dose: 500 mg Clopidogrel Bisulfate (Plavix) 75 mg PO DAILY [facility] Last Admin: 12/16/17 07:45 Dose: 75 mg Enoxaparin Sodium (Lovenox) 40 mg SC DAILY@0600 [facility] Last Admin: 12/16/17 05:22 Dose: 40 mg Fentanyl (Duragesic Patch) 25 mcg TRANSDERM. Q72H [facility] Last Admin: 12/15/17 14:43 Dose: 25 mcg Leflunomide (Leflunomide) 20 mg PO DAILY [facility] Last Admin: 12/16/17 07:47 Dose: 20 mg Lisinopril (Zestril) 20 mg PO DAILY [facility] Last Admin: 12/16/17 07:45 Dose: 20 mg Magnesium Hydroxide (Milk Of Magnesia) 30 ml PO .PRN X 1 PRN PRN Reason: Constipation Last Admin: 12/05/17 06:10 Dose: 30 ml Metoprolol Tartrate (Lopressor (Beta Maximiliano)) 50 mg PO BID [facility] Last Admin: 12/16/17 07:47 Dose: 50 mg Multivitamins ([facility]ivitamin) [facility] Last Admin: 12/16/17 07:47 Dose: 1 tablet Nystatin (Mycostatin Powder) 1 applic TOPICAL 0600,2200 [facility]; Protocol Last Admin: 12/16/17 05:22 Dose: 1 applicatio Pantoprazole Sodium (Protonix) 20 mg PO BID [facility] Last Admin: 12/16/17 07:45 Dose: 20 mg Polyethylene Glycol (Miralax) 17 gm PO DAILY PRN PRN Reason: Constipation Last Admin: 12/15/17 20:25 Dose: 17 gm Senna/Docusate Sodium (Senokot-S, Lindsay-Colace) 2 tablet PO DAILY [facility] Last Admin: 12/16/17 07:45 Dose: 2 tablet Tamsulosin HCl (Flomax) 0.8 mg PO DAILY@1730 [facility] Last Admin: 12/15/17 18:08 Dose: 0.8 mg Medical Necessity - Tobacco Use Smoking Status: Never smoker Assessment/Plan All Active Problems (Last Updated 03/23/17 @ 16:07 by ANA Hobbs) Closed avulsion fracture of greater trochanter of femur (Acute) This is a 27-year-old female who was admitted to the rehab unit at [facility] for inpatient rehab due to generalized debility from an avulsion fracture of the left hip. The patient also has blindness from macular degeneration. 1. Debility secondary to avulsion fracture of the left greater trochanter status post mechanical fall prior to admission with underlying osteoporosis- PT/OT. Patient had nonoperative conservative management. As per the orthopedic surgeon it was a nonoperative fracture. The patient went home and came back after 2 days and was admitted. She had been falling secondary to macular degeneration, arthritis and mobility issues secondary to advanced age. Thereafter patient was admitted on 10/2017 and discharged to acute rehab. In ED, patient was discussed with Dr. Montano. Follow-up as an outpatient. If patient gets left hip pain or orthopedic related problem, consult Dr. Montano Patient had left hip pain and repeat x-ray on 12/07 and showed no major interval change. PRN pain regimen. Fall precautions. Lower UTI/cystitis E. coli and Klebsiella oxytoca: Patient has E. coli 50-80,000 and Klebsiella oxytoca 25,000-50,000. The colonies are not in the range of pathogenic that is not more than 100,000. Currently on Cipro. Started on 12/11/2017. Patient was advised 5 days of antibiotics. 2. Macular degeneration with associated blindness-fall precautions. 3. CAD-continue aspirin, Plavix, metoprolol, statin. 4. Hypertension-Continue metoprolol and lisinopril regimen. Lisinopril regimen increased to 40 mg daily. Blood pressure controlled 150/72 5. Hyperlipidemia-continue statin. 6. Depression-continue home Wellbutrin and Celexa regimen. 7. GERD-continue PPI. 8. Sometimes, urinary retention- Home Ditropan regimen switched to Flomax. DVT prophylaxis-Lovenox subcu. Clinical Impression(s) from Imaging Studies Hip/Pelvis X-Ray 12/07/17 15:05 IMPRESSION: 1. Avulsion fracture of the greater trochanter of the left femur, unchanged from previous study. 2. No other major interval change. Microbiology Past 72 Hours 12/11/17 13:30 Urine, Catheterized Urine Culture - Final Escherichia coli Klebsiella oxytoca Code Visit Inpatient E&M: [id number] Subs Hosp L2
[2017-12-16] MEDS: Tamsulosin HCl 0.4 MG Capsule 0.8 MG PO (17:45)
[2017-12-16 21:43] VITALS: BP 164/78; PULSE 85
[2017-12-16] MEDS: Atorvastatin Calcium 40 MG Tablet PO (21:43)
[2017-12-16 21:52] VITALS: BP 164/78; PULSE 85; RESP 18; TEMP 36.8; O2SAT 94
--- NOTE | 2017-12-16 22:10 | NURSING ---
pt noted to be very emotional this shift about d/c to a brand new facility without her . this nurse sat with patient to give emotional support. pt understands that the situation is best for her, will just be an adjustment. pt hoping can also be placed at same facility. pt open with staff and willing to chat. pt states she felt better after talking about the situation. will continue to monitor
--- NOTE | 2017-12-16 23:18 | NURSING ---
Reviewed and agree with ALTERATION WORKER documentation and FIMs charting.
--- NOTE | 2017-12-17 02:41 | NURSING ---
Pt got skin pinched in rear bilat thighs when sitting onto toilet seat. RN cleaned wounds & covered them with band-aids. Will continue to asses.
[2017-12-17] MEDS: Enoxaparin 40 MG/0.4 ML Syringe SC (05:53)
[2017-12-17] MEDS: HYDROcodone Bitartrate/Apap 5/325 Tablet PO ×3 (05:54→23:11)
[2017-12-17] MEDS: Nystatin Powder 15gm Bottle 1 APPLIC TOPICAL ×2 (05:55→20:29)
[2017-12-17 07:21] VITALS: BP 111/54; PULSE 78; RESP 20; TEMP 36.7; O2SAT 95
[2017-12-17] MEDS: Multivitamins,Therapeutic Tablet 1 TABLET PO (08:04)
[2017-12-17] MEDS: buPROPion (SR) 150 MG Tablet.SA PO (08:04)
[2017-12-17] MEDS: Leflunomide 10 MG TABLET 20 MG PO (08:04)
[2017-12-17] MEDS: Calcium Carb/Vitamin D 1 TABLET Tablet PO ×2 (08:04→17:05)
[2017-12-17 08:05] VITALS: PULSE 77
[2017-12-17] MEDS: Lisinopril 20 MG Tablet PO (08:05)
[2017-12-17] MEDS: Clopidogrel Bisulfate 75 MG Tablet PO (08:05)
[2017-12-17] MEDS: Metoprolol Tartrate 50 MG Tablet PO ×2 (08:05→20:24)
[2017-12-17] MEDS: Aspirin E.C. 81 MG Tablet PO (08:05)
[2017-12-17] MEDS: Pantoprazole Sodium 20 MG Tablet PO ×2 (08:05→20:25)
[2017-12-17] MEDS: Ciprofloxacin 500 MG Tablet PO (09:06)
--- NOTE | 2017-12-17 10:08 | PCM.PN.NEU ---
Subjective: Patient seen during Occupational therapy session, doing very well she is tolerating therapy. Still having some lower back pain which is chronic pain for her, will try a Lidocaine patch to area. [facility] - Physical Exam General: Alert, Oriented x3, Cooperative HEENT: Atraumatic, PERRLA, EOMI, Normocephalic Neck: Supple, No JVD, Negative Carotid Bruits Lungs: Clear to auscultation, Normal air movement Cardiovascular: Regular rate, No murmurs Abdomen: Bowel Sounds Present, Soft, Non Tender Extremities: No edema, Capillary Refill Less than 3 Seconds Skin: No rashes, No breakdown Musculoskeletal: No Tenderness to Palpation of Joints or Extremities Neurological: Cranial nerves II-XII grossly intact Psych/Mental Status: Normal Affect, Appropriate, Alert and oriented to time, place, person, mood and affect Vital Signs Temp Pulse Resp BP Pulse Ox 98.1 F 77 20 H 111/54 L 95 12/17/17 07:21 12/17/17 08:05 12/17/17 07:21 12/17/17 07:21 12/17/17 07:21 Oxygen Delivery Method Room Air Weight: 63.8 kg Body Mass Index (BMI) 31.4 Intake and Output for Last 24 Hours 12/15/17 12/16/17 12/17/17 23:59 23:59 23:59 Intake Total 480 / 480 480 / 480 120 / 120 Balance 480 / 480 480 / 480 120 / 120 Microbiology Past 72 Hours 12/11/17 13:30 Urine Culture - Final Urine, Catheterized Escherichia coli Klebsiella oxytoca Active Medications Acetaminophen (Tylenol) 650 mg PO Q6H PRN PRN PRN Reason: Mild Pain (0-3/10)/Headache Last Admin: 12/14/17 06:13 Dose: 650 mg Hydrocodone Bitart/Acetaminophen ([place] 5mg-325mg) 1 tablet PO Q6H PRN PRN PRN Reason: PAIN Last Admin: 12/17/17 05:54 Dose: 1 tablet Aspirin (Ecotrin) 81 mg PO DAILY [facility] Last Admin: 12/17/17 08:05 Dose: 81 mg Atorvastatin Calcium (Lipitor) 40 mg PO QHS [facility] Last Admin: 12/16/17 21:43 Dose: 40 mg Bisacodyl (Dulcolax) 10 mg RECTAL .PRN X 1 PRN PRN Reason: Constipation Bupropion HCl (Wellbutrin Sr (150mg Tablets)) 150 mg PO DAILY [facility] Last Admin: 12/17/17 08:04 Dose: 150 mg Calcium/Vitamin D (Os-Apollo 500mg + D) [facility] Last Admin: 12/17/17 08:04 Dose: 1 tablet Ciprofloxacin HCl (Cipro) 500 mg PO DAILY [facility] Stop: 12/20/17 10:01 Last Admin: 12/17/17 09:06 Dose: 500 mg Clopidogrel Bisulfate (Plavix) 75 mg PO DAILY [facility] Last Admin: 12/17/17 08:05 Dose: 75 mg Enoxaparin Sodium (Lovenox) 40 mg SC DAILY@0600 [facility] Last Admin: 12/17/17 05:53 Dose: 40 mg Fentanyl (Duragesic Patch) 25 mcg TRANSDERM. Q72H [facility] Last Admin: 12/15/17 14:43 Dose: 25 mcg Leflunomide (Leflunomide) 20 mg PO DAILY [facility] Last Admin: 12/17/17 08:04 Dose: 20 mg Lidocaine (Lidoderm Patch) 1 patch TOPICAL DAILY [facility]; Protocol Lisinopril (Zestril) 20 mg PO DAILY [facility] Last Admin: 12/17/17 08:05 Dose: 20 mg Magnesium Hydroxide (Milk Of Magnesia) 30 ml PO .PRN X 1 PRN PRN Reason: Constipation Last Admin: 12/05/17 06:10 Dose: 30 ml Metoprolol Tartrate (Lopressor (Beta Maximiliano)) 50 mg PO BID [facility] Last Admin: 12/17/17 08:05 Dose: 50 mg Multivitamins (Multivitamin) [facility] Last Admin: 12/17/17 08:04 Dose: 1 tablet Nystatin (Mycostatin Powder) 1 applic TOPICAL 0600,2200 [facility]; Protocol Last Admin: 12/17/17 05:55 Dose: 1 applicatio Pantoprazole Sodium (Protonix) 20 mg PO BID [facility] Last Admin: 12/17/17 08:05 Dose: 20 mg Polyethylene Glycol (Miralax) 17 gm PO DAILY PRN PRN Reason: Constipation Last Admin: 12/15/17 20:25 Dose: 17 gm Senna/Docusate Sodium (Senokot-S, Lindsay-Colace) 2 tablet PO DAILY [facility] Last Admin: 12/17/17 08:07 Dose: Not Given Tamsulosin HCl (Flomax) 0.8 mg PO DAILY@1730 [facility] Last Admin: 12/16/17 17:45 Dose: 0.8 mg Medical Necessity - Tobacco Use Smoking Status: Never smoker Assessment/Plan All Active Problems (Last Updated 03/23/17 @ 16:07 by ANA Hobbs) Closed avulsion fracture of greater trochanter of femur (Acute) Debility 2/2 to a non-operative avulsion fracture of the greater trochanter of the left femur. [id number] by DM II, HTN and Macular degeneration. Plan: - Physical therapy for gait and balance - Occupational Therapy for ADLs - Speech therapy - As needed analgesics - Bowel protoco - DVT prophylaxis: SCDs, ASA, Lovenox - Hypertension: Stable with good control, continue metoprolol and lisinopril regimen. Lisinopril regimen was increased to 20mg daily prior to admission to Rehab unit continue to monitor BP and make adjustment accordingly. - Check Hba1c => Goal is <7% - Diabetes type 2 => continue home medication. - Macular degeneration => increased fall risk 2/2 associated blindness - Hx of CAD -> continue aspirin, Plavix, metoprolol, statin. - HX of HLD -> continue statin. - Hx of Depression >-continue home dose of Wellbutrin and Celexa regimen. - Hx of GERD -> continue home does of PPI. - Hx Urinary retention -> Currently on Flomax. Was straight cath for urinary retention, 750ml of urine was removed => increase dosage to 0.8mg - Uncontrolled pain => add a Fentanyl patch and K-Pad for comfort. pain has improved, but still not at a tolerable level for her to do therapy, increase fentanyl patch to 25mcq. - UTI = on Cipro 500mg BID = resolving - Plan is for [facility]
--- NOTE | 2017-12-17 10:12 | PN.NEURO_ITS ---
Subjective: Patient seen during Occupational therapy session, doing very well she is tolerating therapy. Still having some lower back pain which is chronic pain for her, will try a Lidocaine patch to area. She is schedule for [facility]. - Physical Exam General: Alert, Oriented x3, Cooperative HEENT: Atraumatic, PERRLA, EOMI, Normocephalic Neck: Supple, No JVD, Negative Carotid Bruits Lungs: Clear to auscultation, Normal air movement Cardiovascular: Regular rate, No murmurs Abdomen: Bowel Sounds Present, Soft, Non Tender Extremities: No edema, Capillary Refill Less than 3 Seconds Skin: No rashes, No breakdown Musculoskeletal: No Tenderness to Palpation of Joints or Extremities Neurological: Cranial nerves II-XII grossly intact Psych/Mental Status: Normal Affect, Appropriate, Alert and oriented to time, place, person, mood and affect Vital Signs Temp Pulse Resp BP Pulse Ox 98.1 F 77 20 H 111/54 L 95 12/17/17 07:21 12/17/17 08:05 12/17/17 07:21 12/17/17 07:21 12/17/17 07:21 Oxygen Delivery Method Room Air Weight: 63.8 kg Body Mass Index (BMI) 31.4 Intake and Output for Last 24 Hours 12/15/17 12/16/17 12/17/17 23:59 23:59 23:59 Intake Total 480 / 480 480 / 480 120 / 120 Balance 480 / 480 480 / 480 120 / 120 Microbiology Past 72 Hours 12/11/17 13:30 Urine Culture - Final Urine, Catheterized Escherichia coli Klebsiella oxytoca Active Medications Acetaminophen (Tylenol) 650 mg PO Q6H PRN PRN PRN Reason: Mild Pain (0-3/10)/Headache Last Admin: 12/14/17 06:13 Dose: 650 mg Hydrocodone Bitart/Acetaminophen ([place] 5mg-325mg) 1 tablet PO Q6H PRN PRN PRN Reason: PAIN Last Admin: 12/17/17 05:54 Dose: 1 tablet Aspirin (Ecotrin) 81 mg PO DAILY [facility] Last Admin: 12/17/17 08:05 Dose: 81 mg Atorvastatin Calcium (Lipitor) 40 mg PO QHS [facility] Last Admin: 12/16/17 21:43 Dose: 40 mg Bisacodyl (Dulcolax) 10 mg RECTAL .PRN X 1 PRN PRN Reason: Constipation Bupropion HCl (Wellbutrin Sr (150mg Tablets)) 150 mg PO DAILY [facility] Last Admin: 12/17/17 08:04 Dose: 150 mg Calcium/Vitamin D (Os-Apollo 500mg + D) [facility] Last Admin: 12/17/17 08:04 Dose: 1 tablet Ciprofloxacin HCl (Cipro) 500 mg PO DAILY [facility] Stop: 12/20/17 10:01 Last Admin: 12/17/17 09:06 Dose: 500 mg Clopidogrel Bisulfate (Plavix) 75 mg PO DAILY [facility] Last Admin: 12/17/17 08:05 Dose: 75 mg Enoxaparin Sodium (Lovenox) 40 mg SC DAILY@0600 [facility] Last Admin: 12/17/17 05:53 Dose: 40 mg Fentanyl (Duragesic Patch) 25 mcg TRANSDERM. Q72H [facility] Last Admin: 12/15/17 14:43 Dose: 25 mcg Leflunomide (Leflunomide) 20 mg PO DAILY [facility] Last Admin: 12/17/17 08:04 Dose: 20 mg Lidocaine (Lidoderm Patch) 1 patch TOPICAL DAILY [facility]; Protocol Lisinopril (Zestril) 20 mg PO DAILY [facility] Last Admin: 12/17/17 08:05 Dose: 20 mg Magnesium Hydroxide (Milk Of Magnesia) 30 ml PO .PRN X 1 PRN PRN Reason: Constipation Last Admin: 12/05/17 06:10 Dose: 30 ml Metoprolol Tartrate (Lopressor (Beta Maximiliano)) 50 mg PO BID [facility] Last Admin: 12/17/17 08:05 Dose: 50 mg Multivitamins (Multivitamin) 1 [facility] Last Admin: 12/17/17 08:04 Dose: 1 tablet Nystatin (Mycostatin Powder) 1 applic TOPICAL 0600,2200 [facility]; Protocol Last Admin: 12/17/17 05:55 Dose: 1 applicatio Pantoprazole Sodium (Protonix) 20 mg PO BID [facility] Last Admin: 12/17/17 08:05 Dose: 20 mg Polyethylene Glycol (Miralax) 17 gm PO DAILY PRN PRN Reason: Constipation Last Admin: 12/15/17 20:25 Dose: 17 gm Senna/Docusate Sodium (Senokot-S, Lindsay-Colace) 2 tablet PO DAILY [facility] Last Admin: 12/17/17 08:07 Dose: Not Given Tamsulosin HCl (Flomax) 0.8 mg PO DAILY@1730 [facility] Last Admin: 12/16/17 17:45 Dose: 0.8 mg Medical Necessity - Tobacco Use Smoking Status: Never smoker Assessment/Plan All Active Problems (Last Updated 03/23/17 @ 16:07 by ANA Hobbs) Closed avulsion fracture of greater trochanter of femur (Acute) Debility 2/2 to a non-operative avulsion fracture of the greater trochanter of the left femur. [id number] by DM II, HTN and Macular degeneration. Plan: - Physical therapy for gait and balance - Occupational Therapy for ADLs - Speech therapy - As needed analgesics - Bowel protoco - DVT prophylaxis: SCDs, ASA, Lovenox - Hypertension: Stable with good control, continue metoprolol and lisinopril regimen. Lisinopril regimen was increased to 20mg daily prior to admission to Rehab unit continue to monitor BP and make adjustment accordingly. - Check Hba1c => Goal is <7% - Diabetes type 2 => continue home medication. - Macular degeneration => increased fall risk 2/2 associated blindness - Hx of CAD -> continue aspirin, Plavix, metoprolol, statin. - HX of HLD -> continue statin. - Hx of Depression >-continue home dose of Wellbutrin and Celexa regimen. - Hx of GERD -> continue home does of PPI. - Hx Urinary retention -> Currently on Flomax. Was straight cath for urinary retention, 750ml of urine was removed => increase dosage to 0.8mg - Uncontrolled pain => add a Fentanyl patch and K-Pad for comfort. pain has improved, but still not at a tolerable level for her to do therapy, increase fentanyl patch to 25mcq. - UTI = on Cipro 500mg BID = resolving - Plan is for [facility]
[2017-12-17] MEDS: Lidocaine 5% Patch 1 PATCH TOPICAL (13:24)
--- NOTE | 2017-12-17 14:20 | CASEMGMT ---
Social Work PASRR completed in [facility]. Telephone call to [facility], transportation set up on 12/18/17 @ 1:00pm. Transportation form completed and placed with patient discharge information. Will fax discharge information and PASRR results to the [facility] when all is obtained. Proposed discharge date: 12/19/17 PLAN: Discharge to the [facility] Skilled. Kinjal AWAN, RESOURCING ADVISOR
[2017-12-17] MEDS: Tamsulosin HCl 0.4 MG Capsule 0.8 MG PO (17:05)
[2017-12-17 20:24] VITALS: BP 155/82; PULSE 78
[2017-12-17] MEDS: Atorvastatin Calcium 40 MG Tablet PO (20:24)
[2017-12-17 20:30] VITALS: BP 155/82; PULSE 78; RESP 16; TEMP 36.7; O2SAT 97
[2017-12-18] MEDS: Enoxaparin 40 MG/0.4 ML Syringe SC (06:27)
[2017-12-18] MEDS: HYDROcodone Bitartrate/Apap 5/325 Tablet PO ×3 (06:27→20:56)
[2017-12-18] MEDS: Nystatin Powder 15gm Bottle 1 APPLIC TOPICAL ×2 (06:28→20:45)
[2017-12-18] MEDS: Multivitamins,Therapeutic Tablet 1 TABLET PO (07:17)
[2017-12-18] MEDS: Calcium Carb/Vitamin D 1 TABLET Tablet PO ×2 (07:18→16:51)
[2017-12-18 07:19] VITALS: BP 145/79; PULSE 72
[2017-12-18] MEDS: Leflunomide 10 MG TABLET 20 MG PO (07:19)
[2017-12-18] MEDS: Lidocaine 5% Patch 1 PATCH TOPICAL (07:19)
[2017-12-18] MEDS: Aspirin E.C. 81 MG Tablet PO (07:19)
[2017-12-18] MEDS: Ciprofloxacin 500 MG Tablet PO (07:19)
[2017-12-18] MEDS: Metoprolol Tartrate 50 MG Tablet PO ×2 (07:19→20:44)
[2017-12-18] MEDS: buPROPion (SR) 150 MG Tablet.SA PO (07:20)
[2017-12-18] MEDS: Lisinopril 20 MG Tablet PO (07:20)
[2017-12-18] MEDS: Clopidogrel Bisulfate 75 MG Tablet PO (07:20)
[2017-12-18] MEDS: Pantoprazole Sodium 20 MG Tablet PO ×2 (07:20→20:44)
[2017-12-18 07:50] VITALS: BP 145/79; PULSE 70; RESP 18; TEMP 36.8; O2SAT 95
--- NOTE | 2017-12-18 12:20 | PCM.TXEXTCAR ---
- Diet 12/02/17 17:49 Diet: Calorie Controlled Food consistency:: Soft Liquid Consistency:: Regular/Thin How many daily calories?: 1800 calorie - Wound(s) bilat distal abdominal area Wound Type: scratched area - Therapies Weight Bearing: Weight bearing as tolerated Physical Therapy: Eval and Treat Occupational Therapy: Eval and Treat - Allergies/Procedures Done in Hospital Allergies/Adverse Reactions: Allergies ampicillin Allergy (Verified 12/01/17 12:19) Unknown codeine Allergy (Verified 12/01/17 12:19) Unknown diclofenac sodium [From [employer] 50] Allergy (Verified 12/01/17 12:19) Unknown doxycycline Allergy (Verified 12/01/17 12:19) Unknown fluticasone propionate [From Flonase] Allergy (Verified 12/01/17 12:19) Unknown green pepper Allergy (Verified 12/01/17 15:29) Food Allergy misoprostol [From [employer] 50] Allergy (Verified 12/01/17 12:19) Unknown morphine Allergy (Verified 12/01/17 12:19) Unknown Sulfa (Sulfonamide Antibiotics) Allergy (Verified 12/01/17 12:19) Unknown Tetanus Vaccines and Toxoid [Tetanus Vaccines & Toxoid] Allergy (Verified 12/01/17 12:19) Unknown - Type of Care/Length of Stay Estimated LOS: More Than 30 Days Type of Care Needed: Skilled Rehab Potential: Good Prognosis: Good - Additional Orders/Day of Discharge Day of Discharge: 12/19/17 - Dietary and Speech Recommendations Dietitian Recommendations/Changes: Will provide Ensure Enlive 120 ml 4x/day w/ medpass due to recent dental extraction & decreased intake. - Follow Up Care Primary Care Physician: Ge Tidwell MD [Primary Care Provider] -
--- NOTE | 2017-12-18 12:37 | PCM.RU.DC ---
Rehab Discharge Summary DATE OF ADMISSION: 12/02/17 DATE OF DISCHARGE: 12/19/17 - Rehab Diagnosis Left Hip Fx - Physical Exam General: Alert, Oriented x3, Cooperative HEENT: Atraumatic, PERRLA, EOMI, Normocephalic Neck: Supple, No JVD, Negative Carotid Bruits Lungs: Clear to auscultation, Normal air movement Cardiovascular: Regular rate, No murmurs Abdomen: Bowel Sounds Present, Soft, Non Tender Extremities: No edema, Capillary Refill Less than 3 Seconds Skin: No rashes, No breakdown Musculoskeletal: No Tenderness to Palpation of Joints or Extremities Neurological: Cranial nerves II-XII grossly intact Psych/Mental Status: Normal Affect, Appropriate, Alert and oriented to time, place, person, mood and affect Vital Signs Temp Pulse Resp BP Pulse Ox 98.2 F 70 18 145/79 H 95 12/18/17 07:50 12/18/17 07:50 12/18/17 07:50 12/18/17 07:50 12/18/17 07:50 Oxygen Flow Rate (L/min) 2 Oxygen Delivery Method Nasal Cannula Weight: 63.8 kg Body Mass Index (BMI) 31.4 Intake and Output for Last 24 Hours 12/16/17 12/17/17 12/18/17 23:59 23:59 23:59 Intake Total 480 / 480 600 / 600 240 / 240 Balance 480 / 480 600 / 600 240 / 240 Active Medications Acetaminophen (Tylenol) 650 mg PO Q6H PRN PRN PRN Reason: Mild Pain (0-3/10)/Headache Last Admin: 12/14/17 06:13 Dose: 650 mg Hydrocodone Bitart/Acetaminophen ([place] 5mg-325mg) 1 tablet PO Q6H PRN PRN PRN Reason: PAIN Last Admin: 12/18/17 06:27 Dose: 1 tablet Aspirin (Ecotrin) 81 mg PO DAILY [facility] Last Admin: 12/18/17 07:19 Dose: 81 mg Atorvastatin Calcium (Lipitor) 40 mg PO QHS [facility] Last Admin: 12/17/17 20:24 Dose: 40 mg Bisacodyl (Dulcolax) 10 mg RECTAL .PRN X 1 PRN PRN Reason: Constipation Bupropion HCl (Wellbutrin Sr (150mg Tablets)) 150 mg PO DAILY [facility] Last Admin: 12/18/17 07:20 Dose: 150 mg Calcium/Vitamin D (Os-[place] 500mg + D) [facility] Last Admin: 12/18/17 07:18 Dose: 1 tablet Ciprofloxacin HCl (Cipro) 500 mg PO DAILY [facility] Stop: 12/20/17 10:01 Last Admin: 12/18/17 07:19 Dose: 500 mg Clopidogrel Bisulfate (Plavix) 75 mg PO DAILY [facility] Last Admin: 12/18/17 07:20 Dose: 75 mg Enoxaparin Sodium (Lovenox) 40 mg SC DAILY@0600 [facility] Last Admin: 12/18/17 06:27 Dose: 40 mg Fentanyl (Duragesic Patch) 25 mcg TRANSDERM. Q72H [facility] Last Admin: 12/15/17 14:43 Dose: 25 mcg Leflunomide (Leflunomide) 20 mg PO DAILY [facility] Last Admin: 12/18/17 07:19 Dose: 20 mg Lidocaine (Lidoderm Patch) 1 patch TOPICAL DAILY [facility]; Protocol Last Admin: 12/18/17 07:19 Dose: 1 patch Lisinopril (Zestril) 20 mg PO DAILY [facility] Last Admin: 12/18/17 07:20 Dose: 20 mg Magnesium Hydroxide (Milk Of Magnesia) 30 ml PO .PRN X 1 PRN PRN Reason: Constipation Last Admin: 12/05/17 06:10 Dose: 30 ml Metoprolol Tartrate (Lopressor (Beta Maximiliano)) 50 mg PO BID [facility] Last Admin: 12/18/17 07:19 Dose: 50 mg Multivitamins ([facility]ivitamin) [facility] Last Admin: 12/18/17 07:17 Dose: 1 tablet Nystatin (Mycostatin Powder) 1 applic TOPICAL 0600,2200 [facility]; Protocol Last Admin: 12/18/17 06:28 Dose: 1 applicatio Pantoprazole Sodium (Protonix) 20 mg PO BID [facility] Last Admin: 12/18/17 07:20 Dose: 20 mg Polyethylene Glycol (Miralax) 17 gm PO DAILY PRN PRN Reason: Constipation Last Admin: 12/15/17 20:25 Dose: 17 gm Senna/Docusate Sodium (Senokot-S, Lindsay-Colace) 2 tablet PO DAILY [facility] Last Admin: 12/18/17 07:20 Dose: Not Given Tamsulosin HCl (Flomax) 0.8 mg PO DAILY@1730 [facility] Last Admin: 12/17/17 17:05 Dose: 0.8 mg Discharge Diet: Soft diet Discharge Activity: May Not Drive, May not drive while taking narcotic pain medications., May Shower, May Take a Tub Bath, Use Walker Weight Bearing Status: Weight bearing as tolerated Call your doctor if you observe: Fever of 101 or Higher, Coldness, Increased Pain, Numbness or Tingling, Change in Color, Inability to urinate, Inability to have a bowel movement, Using more than one pad per hour, Shortness of breath, Dizziness, Fainting spells, Swelling in the ankles, Chest pain, Prolonged hiccoughing, Increased palpitations (irregular heartbeat), Calf discomfort, Uncontrolled pain Home Medications: Medications to take at Discharge Multivitamins,Therapeutic [Multivitamin] 1 tab PO DAILY 05/30/13 buPROPion SR [Wellbutrin SR (150mg tablets)] 150 mg PO DAILY 05/30/13 Calcium Carbonate/Vitamin D3 [Liquid Calcium 600-Vit D3 Sfgl] 1 ea PO BID 09/16/16 Leflunomide 20 mg PO DAILY 09/16/16 Omeprazole [Prilosec] 20 mg PO BID 09/16/16 atorvastatin 40 mg tablet 40 mg PO QHS 90 Days #90 03/23/17 Clopidogrel Bisulfate [Plavix] 75 mg PO DAILY 12/01/17 Lisinopril [Zestril] 10 mg PO DAILY 12/01/17 Metoprolol Tartrate [Lopressor (beta maximiliano)] 50 mg PO BID 12/01/17 Aspirin [Adult Aspirin] 81 mg PO DAILY 12/02/17 Acetaminophen [Tylenol Tablet] 650 mg PO Q6H PRN PRN tablet 12/18/17 Ciprofloxacin [Cipro] 500 mg PO DAILY tablet 12/18/17 Lidocaine [Lidoderm Patch] 1 patch TOPICAL DAILY #3 patch 12/18/17 Nystatin Powder [Mycostatin Powder] 1 applic TOPICAL 0600,2200 bottle 12/18/17 Tamsulosin HCl [Flomax] 0.8 mg PO DAILY@1730 capsule 12/18/17 fentaNYL patch [Duragesic patch] 25 mcg TRANSDERM. Q72H 6 Days #2 patch 12/18/17 Following Prescrptions Were Given to Patient: fentaNYL patch [Duragesic patch] 25 mcg TRANSDERM. Q72H 6 Days #2 patch Lidocaine [Lidoderm Patch] 1 patch TOPICAL DAILY #3 patch Primary Care Physician: Ge Tidwell MD [Primary Care Provider] - Disposition: [facility] facility Minutes spent on discharge:: 40 Patient Condition:: Good Rehab Course The patient is a 77 year old right handed Female, who is admitted to the rehab unit for rehabilitation after suffering a mechanical fall, she original presented to the ED on 11/29, and was found to have an avulsion fracture of the greater trochanter of the left femur. Ortho Dr. Montano was consulted, there was no surgical invention required and he would follow up as an outpatient. The patient elected to go home at that time, She was discharged home with follow up appointment and pain medication. She returned on 12/01 with increase pain and in ability to ambulate without difficulty. At home she was finding mobility exceedingly difficult and her is on dialysis three times a week and was unable to provide the amount of assistance she needed. She has had an increased number of falls per the patient, when she saw her family doctor and asked him about why she was falling he felt it was a combination of her age and her blindness from macular degeneration. She has a PMH of HTN, HLD, DM II, CAD, depression and Macular degeneration. At home, because of her hip pain, she was unable to transfer and change positions and therefore unable to perform her ADLs. She lives with her in a one story home with a finished basement, but she does not go down there since falling down the steps a few months ago. She is legally blind, but prior to this fall was able to do all her own personal care. She is admitted to the rehab unit in order to restore her previous level of functional independence. While in the RU her medical conditions were monitored. While in the [facility] she improved with therapy and gained strength. The remainder of her care was uncomplicated and she was able to be discharged to a [facility] on 12/19 to complete the reminder of her care as an outpatient. Summary of care: Debility 2/2 to a non-operative avulsion fracture of the greater trochanter of the left femur. [id number] by DM II, HTN and Macular degeneration. Plan: - Physical therapy for gait and balance - Occupational Therapy for ADLs - Speech therapy - As needed analgesics - Bowel protoco - DVT prophylaxis: SCDs, ASA, Lovenox - Hypertension: Stable with good control, continue metoprolol and lisinopril regimen. Lisinopril regimen was increased to 20mg daily prior to admission to Rehab unit continue to monitor BP and make adjustment accordingly. - Check Hba1c => Goal is <7% - Diabetes type 2 => continue home medication. - Macular degeneration => increased fall risk 2/2 associated blindness - Hx of CAD -> continue aspirin, Plavix, metoprolol, statin. - HX of HLD -> continue statin. - Hx of Depression >-continue home dose of Wellbutrin and Celexa regimen. - Hx of GERD -> continue home does of PPI. - Hx Urinary retention -> Currently on Flomax. Was straight cath for urinary retention, 750ml of urine was removed => increase dosage to 0.8mg - Uncontrolled pain => add a Fentanyl patch and K-Pad for comfort. pain has improved, but still not at a tolerable level for her to do therapy, increase fentanyl patch to 25mcq. - UTI = on Cipro 500mg BID = resolving - Plan is for discharge on Thursday to the [facility] for additional therapy Summary of Therapy Sessions: With Physical therapy, she is contact guard with transfers and for coming to a stand from a sitting position. She is able to walk 135 feet with a wheel walker at stand by assist and verbal cues as to which way she should go. With Occupational therapy, she is able to do her own self care, the amount of assistance she needs at any given time is depended on how much back pain she is having. She requires max assist for lower body bathing and dressing, she requires contact guard for getting into and out of the shower. With Nursing she has chronic back pain 5/10 she is on a Fentanyl patch, she had an episode of confusion during the night where she got out of the bed and started undressing herself and didn't know where she was. She does have a UTI and is on Cipro 500mg BID, will continue to monitor. The patient is scheduled for discharge on Tuesday 12/19, To [facility] Meaningful Use Info Meaningful Use Diagnoses (Choose all that apply): None applicable
[2017-12-18] MEDS: fentaNYL 25 MCG Patch TRANSDERM. (12:39)
--- NOTE | 2017-12-18 12:55 | DCINST_ITS ---
- Discharge Diagnoses Reason(s) for Visit for Discharge Instructions: Left Hip Fx You will use the following diet at home:: Regular Your food should be the consistency of: Soft (bite-sized & easy to chew/swallow) Your liquids should be the consistency of: Regular/Thin Discharge Activity: May Not Drive, May not drive while taking narcotic pain medications., May Shower, May Take a Tub Bath, Use Walker Weight Bearing Status: Weight bearing as tolerated Call your doctor if you observe: Fever of 101 or Higher, Coldness, Increased Pain, Numbness or Tingling, Change in Color, Inability to urinate, Inability to have a bowel movement, Using more than one pad per hour, Shortness of breath, Dizziness, Fainting spells, Swelling in the ankles, Chest pain, Prolonged hiccoughing, Increased palpitations (irregular heartbeat), Calf discomfort, Uncontrolled pain Allergies/Adverse Reactions: Allergies ampicillin Allergy (Verified 12/01/17 12:19) Unknown codeine Allergy (Verified 12/01/17 12:19) Unknown diclofenac sodium [From Arthrotec 50] Allergy (Verified 12/01/17 12:19) Unknown doxycycline Allergy (Verified 12/01/17 12:19) Unknown fluticasone propionate [From Flonase] Allergy (Verified 12/01/17 12:19) Unknown green pepper Allergy (Verified 12/01/17 15:29) Food Allergy misoprostol [From Arthrotec 50] Allergy (Verified 12/01/17 12:19) Unknown morphine Allergy (Verified 12/01/17 12:19) Unknown Sulfa (Sulfonamide Antibiotics) Allergy (Verified 12/01/17 12:19) Unknown Tetanus Vaccines and Toxoid [Tetanus Vaccines & Toxoid] Allergy (Verified 12/01/17 12:19) Unknown Medications to take at Discharge Multivitamins,Therapeutic [Multivitamin] 1 tab PO DAILY 05/30/13 buPROPion SR [Wellbutrin SR (150mg tablets)] 150 mg PO DAILY 05/30/13 Calcium Carbonate/Vitamin D3 [Liquid Calcium 600-Vit D3 Sfgl] 1 ea PO BID 09/16/16 Leflunomide 20 mg PO DAILY 09/16/16 Omeprazole [Prilosec] 20 mg PO BID 09/16/16 atorvastatin 40 mg tablet 40 mg PO QHS 90 Days #90 03/23/17 Clopidogrel Bisulfate [Plavix] 75 mg PO DAILY 12/01/17 Lisinopril [Zestril] 10 mg PO DAILY 12/01/17 Metoprolol Tartrate [Lopressor (beta hermilo)] 50 mg PO BID 12/01/17 Aspirin [Adult Aspirin] 81 mg PO DAILY 12/02/17 Acetaminophen [Tylenol Tablet] 650 mg PO Q6H PRN PRN tablet 12/18/17 Ciprofloxacin [Cipro] 500 mg PO DAILY tablet 12/18/17 Lidocaine [Lidoderm Patch] 1 patch TOPICAL DAILY #3 patch 12/18/17 Nystatin Powder [Mycostatin Powder] 1 applic TOPICAL 0600,2200 bottle 12/18/17 Tamsulosin HCl [Flomax] 0.8 mg PO DAILY@1730 capsule 12/18/17 fentaNYL patch [Duragesic patch] 25 mcg TRANSDERM. Q72H 6 Days #2 patch 12/18/17 The following prescriptions were given: fentaNYL patch [Duragesic patch] 25 mcg TRANSDERM. Q72H 6 Days #2 patch Lidocaine [Lidoderm Patch] 1 patch TOPICAL DAILY #3 patch Primary Care Physician: Ge Tidwell MD [Primary Care Provider] - Test Results: Test results from this visit will be discussed in further detail at your follow- up appointment, if applicable. Proposed Discharge Date: 12/19/17
--- NOTE | 2017-12-18 13:08 | CASEMGMT ---
Social Work Order and PASRR results faxed to the [facility]. Proposed discharge date: 12/19/17 PLAN: Discharge to the [facility] Skilled.
[2017-12-18] MEDS: Tamsulosin HCl 0.4 MG Capsule 0.8 MG PO (16:51)
--- NOTE | 2017-12-18 19:03 | PCM.PN.HOSP ---
Subjective: Patient is doing good. No acute change. Pressure is controlled. Heart rate in 70s. Pulse ox 95% on 2 L of oxygen. Earlier, 97% on room air. Objective: General: Alert, Oriented x3, Cooperative HEENT: Atraumatic, PERRLA, EOMI, Normocephalic,Bilateral legally blind. Macular degeneration both eyes Neck: Supple, No JVD, Negative Carotid Bruits Lungs: Clear to auscultation, air entry diminished in bilateral lung bases. Cardiovascular: Regular rate, Regular Rhythm, Normal S1, Normal S2, No murmurs Abdomen: Bowel Sounds Present, Soft, Non Tender, Non-Distended Extremities: No edema, Capillary Refill Less than 3 Seconds Skin: No rashes, No breakdown Musculoskeletal: No Tenderness to Palpation of Joints or Extremities, Arthritic Changes, Muscle Wasting, Left hip fracture, no tenderness. Neurological: Cranial nerves II-XII grossly intact Psych/Mental Status: Normal Affect, Appropriate Vitals/I&O's: Vital Signs Temp Pulse Resp BP Pulse Ox 98.2 F 70 18 145/79 H 95 12/18/17 07:50 12/18/17 07:50 12/18/17 07:50 12/18/17 07:50 12/18/17 07:50 Oxygen Flow Rate (L/min) 2 Oxygen Delivery Method Nasal Cannula Weight: 140 lb 10.479 oz Body Mass Index (BMI) 31.4 Intake and Output for Last 24 Hours 12/16/17 12/17/17 12/18/17 23:59 23:59 23:59 Intake Total 480 / 480 600 / 600 480 / 480 Balance 480 / 480 600 / 600 480 / 480 Current Medications Acetaminophen (Tylenol) 650 mg PO Q6H PRN PRN PRN Reason: Mild Pain (0-3/10)/Headache Last Admin: 12/14/17 06:13 Dose: 650 mg Hydrocodone Bitart/Acetaminophen ([place] 5mg-325mg) 1 tablet PO Q6H PRN PRN PRN Reason: PAIN Last Admin: 12/18/17 12:39 Dose: 1 tablet Aspirin (Ecotrin) 81 mg PO DAILY DANIEL Last Admin: 12/18/17 07:19 Dose: 81 mg Atorvastatin Calcium (Lipitor) 40 mg PO QHS DANIEL Last Admin: 12/17/17 20:24 Dose: 40 mg Bisacodyl (Dulcolax) 10 mg RECTAL .PRN X 1 PRN PRN Reason: Constipation Bupropion HCl (Wellbutrin Sr (150mg Tablets)) 150 mg PO DAILY [facility] Last Admin: 12/18/17 07:20 Dose: 150 mg Calcium/Vitamin D (Os-[place] 500mg + D) [facility] Last Admin: 12/18/17 16:51 Dose: 1 tablet Ciprofloxacin HCl (Cipro) 500 mg PO DAILY [facility] Stop: 12/20/17 10:01 Last Admin: 12/18/17 07:19 Dose: 500 mg Clopidogrel Bisulfate (Plavix) 75 mg PO DAILY [facility] Last Admin: 12/18/17 07:20 Dose: 75 mg Enoxaparin Sodium (Lovenox) 40 mg SC DAILY@0600 [facility] Last Admin: 12/18/17 06:27 Dose: 40 mg Fentanyl (Duragesic Patch) 25 mcg TRANSDERM. Q72H [facility] Last Admin: 12/18/17 12:39 Dose: 25 mcg Leflunomide (Leflunomide) 20 mg PO DAILY [facility] Last Admin: 12/18/17 07:19 Dose: 20 mg Lidocaine (Lidoderm Patch) 1 patch TOPICAL DAILY [facility]; Protocol Last Admin: 12/18/17 07:19 Dose: 1 patch Lisinopril (Zestril) 20 mg PO DAILY [facility] Last Admin: 12/18/17 07:20 Dose: 20 mg Magnesium Hydroxide (Milk Of Magnesia) 30 ml PO .PRN X 1 PRN PRN Reason: Constipation Last Admin: 12/05/17 06:10 Dose: 30 ml Metoprolol Tartrate (Lopressor (Beta Maximiliano)) 50 mg PO BID [facility] Last Admin: 12/18/17 07:19 Dose: 50 mg Multivitamins (Multivitamin) [facility] Last Admin: 12/18/17 07:17 Dose: 1 tablet Nystatin (Mycostatin Powder) 1 applic TOPICAL 0600,2200 [facility]; Protocol Last Admin: 12/18/17 06:28 Dose: 1 applicatio Pantoprazole Sodium (Protonix) 20 mg PO BID [facility] Last Admin: 12/18/17 07:20 Dose: 20 mg Polyethylene Glycol (Miralax) 17 gm PO DAILY PRN PRN Reason: Constipation Last Admin: 10/23/18 20:25 Dose: 17 gm Senna/Docusate Sodium (Senokot-S, Lindsay-Colace) 2 tablet PO DAILY [facility] Last Admin: 12/18/17 07:20 Dose: Not Given Tamsulosin HCl (Flomax) 0.8 mg PO DAILY@1730 [facility] Last Admin: 12/18/17 16:51 Dose: 0.8 mg Medical Necessity - Tobacco Use Smoking Status: Never smoker Assessment/Plan All Active Problems (Last Updated 03/23/17 @ 16:07 by ANA Hobbs) Closed avulsion fracture of greater trochanter of femur (Acute) This is a 27-year-old female who was admitted to the rehab unit at [facility] for inpatient rehab due to generalized debility from an avulsion fracture of the left hip. The patient also has blindness from macular degeneration. 1. Debility secondary to avulsion fracture of the left greater trochanter status post mechanical fall prior to admission with underlying osteoporosis-PT/OT. Patient had nonoperative conservative management. As per the orthopedic surgeon it was a nonoperative fracture. The patient went home and came back after 2 days and was admitted. She had been falling secondary to macular degeneration, arthritis and mobility issues secondary to advanced age. Thereafter patient was admitted on 10/2017 and discharged to acute rehab. In ED, patient was discussed with Dr. Montano. Follow-up as an outpatient. If patient gets left hip pain or orthopedic related problem, consult Dr. Montano Patient had left hip pain and repeat x-ray on 12/07 and showed no major interval change. PRN pain regimen. Fall precautions. Lower UTI/cystitis E. coli and Klebsiella oxytoca: Patient has E. coli 50-80,000 and Klebsiella oxytoca 25,000-50,000. The colonies are not in the range of pathogenic that is not more than 100,000. Currently on Cipro. Started on 12/11/2017. Patient was advised 5 days of antibiotics. 2. Macular degeneration with associated blindness-fall precautions. 3. CAD-continue aspirin, Plavix, metoprolol, statin. 4. Hypertension-Continue metoprolol and lisinopril regimen. Lisinopril regimen increased to 40 mg daily. Blood pressure controlled 150/72 5. Hyperlipidemia-continue statin. 6. Depression-continue home Wellbutrin and Celexa regimen. 7. GERD-continue PPI. 8. Sometimes, urinary retention- Home Ditropan regimen switched to Flomax. DVT prophylaxis-Lovenox subcu. Clinical Impression(s) from Imaging Studies Hip/Pelvis X-Ray 12/07/17 15:05 IMPRESSION: 1. Avulsion fracture of the greater trochanter of the left femur, unchanged from previous study. 2. No other major interval change. Microbiology Past 72 Hours 12/11/17 13:30 Urine, Catheterized Urine Culture - Final Escherichia coli Klebsiella oxytoca Code Visit Inpatient E&M: 47213 Subs Hosp L2
[2017-12-18 20:20] VITALS: BP 141/77; PULSE 87; RESP 18; TEMP 36.3; O2SAT 95
[2017-12-18 20:44] VITALS: PULSE 87
[2017-12-18] MEDS: Atorvastatin Calcium 40 MG Tablet PO (20:44)
[2017-12-19] MEDS: HYDROcodone Bitartrate/Apap 5/325 Tablet PO (06:16)
[2017-12-19] MEDS: Enoxaparin 40 MG/0.4 ML Syringe SC (06:16)
[2017-12-19] MEDS: Nystatin Powder 15gm Bottle 1 APPLIC TOPICAL (06:18)
[2017-12-19] MEDS: Calcium Carb/Vitamin D 1 TABLET Tablet PO (07:34)
[2017-12-19] MEDS: Multivitamins,Therapeutic Tablet 1 TABLET PO (07:34)
[2017-12-19] MEDS: Pantoprazole Sodium 20 MG Tablet PO (07:34)
[2017-12-19] MEDS: Aspirin E.C. 81 MG Tablet PO (07:35)
[2017-12-19] MEDS: Leflunomide 10 MG TABLET 20 MG PO (07:35)
[2017-12-19] MEDS: Clopidogrel Bisulfate 75 MG Tablet PO (07:35)
[2017-12-19] MEDS: buPROPion (SR) 150 MG Tablet.SA PO (07:36)
[2017-12-19 07:39] VITALS: BP 141/78; PULSE 88; RESP 16; TEMP 36.9; O2SAT 95
[2017-12-19] MEDS: Lisinopril 20 MG Tablet PO (08:31)
[2017-12-19 08:32] VITALS: PULSE 78
[2017-12-19] MEDS: Metoprolol Tartrate 50 MG Tablet PO (08:32)
[2017-12-19] MEDS: Lidocaine 5% Patch 1 PATCH TOPICAL (08:32)
[2017-12-19] MEDS: Ciprofloxacin 500 MG Tablet PO (08:32)
--- NOTE | 2017-12-19 13:00 | NURSING ---
Report given to detention and family and transport here. Discharged at this time. Patient in good spirits.
== END 2017-12-19 13:05 | disposition skilled nursing facility (03) | DRG 561 ==
PROVIDERS: Family Medicine; Internal Medicine; Nurse Practitioner Acute Care; Admitting Provider Psychiatry & Neurology Neurology; Family Provider Family Medicine; PCP Family Medicine; Referring Provider Psychiatry & Neurology Neurology; Visit Provider Internal Medicine
DX: S72.112D Displaced fracture of greater trochanter of left femur, subsequent encounter for closed fracture with routine healing (principal); I25.10 Atherosclerotic heart disease of native coronary artery without angina pectoris; E78.5 Hyperlipidemia, unspecified; H54.8 Legal blindness, as defined in USA; H35.30 Unspecified macular degeneration; F32.9 Major depressive disorder, single episode, unspecified; I10 Essential (primary) hypertension; W10.9XXD Fall (on) (from) unspecified stairs and steps, subsequent encounter; Z95.5 Presence of coronary angioplasty implant and graft; K21.9 Gastro-esophageal reflux disease without esophagitis; R33.9 Retention of urine, unspecified; B96.20 Unspecified Escherichia coli [E. coli] as the cause of diseases classified elsewhere; B96.89 Other specified bacterial agents as the cause of diseases classified elsewhere; N30.90 Cystitis, unspecified without hematuria; G89.29 Other chronic pain; E11.39 Type 2 diabetes mellitus with other diabetic ophthalmic complication
CPT/HCPCS: 36415; 73502; 80053; 81001; 82962; 83735; 84100; 85025; 87077; 87086; 87088; 87186; 93970; 97110; 97116; 97162; 97166; 97530; 97535; 97802

== ENCOUNTER 2018-04-06 17:04 | Emergency (ER) | payer MEDICARE, OTHER, SELFPAY ==
[2018-04-06 17:05] VITALS: BP 179/85; PULSE 76; RESP 16; TEMP 36.7; O2SAT 95; BMI 31.3
--- NOTE | 2018-04-06 17:33 | RAD_ITS ---
STUDY: X-RAY - LEFT HIP REASON FOR EXAM: Female, 77 years old. Fall. TECHNIQUE: 2 views of the hip. COMPARISON: None. FINDINGS: There are atherosclerotic vascular calcifications. Normal femoral head, neck, intertrochanteric region and visualized proximal femur. Normal acetabulum. Normal hip joint. Normal visualized superior and inferior pubic rami and ischial tuberosities. There is no demonstrated hip fracture. RAD/HIP, UNI W/ Pelvis 2-3 Views IMPRESSION: No acute fracture or dislocation. Electronically Signed: Jasmeet Curiel MD at 18:42 EST , Service support ,
[2018-04-06 18:08] VITALS: BP 166/77; PULSE 67; RESP 16; O2SAT 98
--- NOTE | 2018-04-06 19:12 | ED.DCSUM_ITS ---
- ER Visit Summary Date of Service: 04/06/18 Chief Complaint: Left hip injury History of Present Illness: The patient is a 77 F who fell 2 weeks ago and noted some left hip discomfort. She is still out of bed last night to the floor. Left hip x-ray was done at the assisted today and revealed a fracture. Patient was noted to be admitted last year with a nonsurgical avulsion fracture of the left hip. Patient states she has been up and ambulating on her left leg for the last 2 weeks. Physical Examination: Vital signs significant for blood pressure of 179/85, otherwise unremarkable. Patient sitting upright in bed no acute distress. Head neck examination reveals no sign of trauma. Heart is regular rate and rhythm. Lungs sounds clear. Abdomen is soft nontender. Extremity examination was mild tenderness to the left hip, worse over the greater trochanter. She has strong distal pulses and normal sensation. No significant leg shortening noted. Test Results: Pelvis x-ray with left hip shows no evidence of an acute fracture or dislocation. Old avulsion pieces noted. Emergency Department Course and Treatment: Test results were discussed with patient and daughter at bedside. I spoke with Dr. Puente, on-call for patient's [facility] physician. Treatment Plan: [] Disposition: Discharge Impression: Left hip contusion with old avulsion fracture This note was generated with [email or web address] dictation software. It may contain incorrect words, spelling, and punctuation that were not noted in review of the chart prior to signing ED Disposition - Plan for ED Patient: Disposition: Home or Assisted Living Instructions: ED Mechanical Fall Referrals: Ge Tidwell MD [Primary Care Provider] - Additional Instructions: Your xray shows an old hip fracture on the left (piece of bone pulled off) but no new fracture
[2018-04-06 19:31] VITALS: BP 166/78; PULSE 80; RESP 6; O2SAT 94
== END 2018-04-06 19:32 | disposition home or self-care (01) ==
PROVIDERS: Emergency Provider Emergency Medicine; Family Provider Family Medicine; PCP Family Medicine
DX: S70.02XA Contusion of left hip, initial encounter (principal); W06.XXXA Fall from bed, initial encounter; Y93.9 Activity, unspecified; Y92.129 Unspecified place in nursing home as the place of occurrence of the external cause; Y99.9 Unspecified external cause status; I25.10 Atherosclerotic heart disease of native coronary artery without angina pectoris; E11.9 Type 2 diabetes mellitus without complications; I10 Essential (primary) hypertension; F32.9 Major depressive disorder, single episode, unspecified; Z79.02 Long term (current) use of antithrombotics/antiplatelets; Z79.82 Long term (current) use of aspirin; Z79.899 Other long term (current) drug therapy; Z87.891 Personal history of nicotine dependence; Z95.5 Presence of coronary angioplasty implant and graft
CPT/HCPCS: 73502; 99284

== ENCOUNTER 2018-05-05 07:54 | Emergency (ER) | payer MEDICARE, OTHER, SELFPAY ==
[2018-05-05 07:55] VITALS: BP 173/68; PULSE 61; RESP 15; TEMP 36.8; O2SAT 95; BMI 30.4
--- NOTE | 2018-05-05 08:05 | CT_ITS ---
STUDY: CT BRAIN WITHOUT CONTRAST REASON FOR EXAM: Female, 77 years old. Right facial ecchymosis due to trauma. No loss of consciousness. RADIATION DOSAGE (If Supplied By Facility): CTDIvol = ( 44.99 ) mGy, DLP = ( 812.98 ) mGycm TECHNIQUE: Transaxial CT imaging of the brain was performed without administration of intravenous contrast material. Individualized dose optimization techniques were used for this CT. COMPARISON: Comparison is made with prior study dated September 16, 2016. FINDINGS: Normal soft tissue structures. Normal calvarium. There is moderate cerebral atrophy with widening of the extra-axial spaces and ventricular dilatation. There are areas of decreased attenuation within the white matter tracts of the supratentorial brain, consistent with microvascular disease changes. Normal basal ganglia and thalami. Normal brainstem. Normal cerebellum. There is no intracranial hemorrhage. There are no findings of an acute ischemic infarction. Atherosclerotic calcification of the vertebral arteries as well as the cavernous portions of the internal carotid arteries bilaterally. Normal visualized paranasal sinuses. CT/Brain/Head without Contrast IMPRESSION: Chronic involutional changes of the brain. Electronically Signed: Jona Reed, at 8:52 EDT , Service support ,
--- NOTE | 2018-05-05 08:06 | EKG12_ITS ---
Test Reason : Blood Pressure : / mmHG Vent. Rate : 062 BPM Atrial Rate : 062 BPM P-R Int : 146 ms QRS Dur : 074 ms QT Int : 430 ms P-R-T Axes : 031 -03 021 degrees QTc Int : 436 ms Normal sinus rhythm Minimal voltage criteria for LVH, may be normal variant Inferior infarct , age undetermined Abnormal ECG Confirmed by ANGELIA RIVAS, KIMBERLY ([id number]), video news editor ANN GEIGER ([id number]) on 05/07/2018 8:38:01 AM Referred By: ECHO Confirmed By:KIMBERLY GALAN MD
--- NOTE | 2018-05-05 08:07 | ED.VIS.GEN ---
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 Reason for fall is unknown. Patient was found prone position. She had trauma to her nose. She had bleeding from her nose. Patient unable to tell me what happened. She is unable to tell me if she had loss of conscious. She is on Plavix. She is on no anticoagulant. Patient is disoriented to time. Prior similar symptoms: No Recent Illness/Hospitalization: No - Past Medical History (1) CAD (coronary artery disease) Status: Chronic Comment: stent to LAD (2) Diabetes mellitus Status: Chronic (3) HTN (hypertension) Status: Chronic (4) Hyperlipidemia Status: Chronic (5) S/P PTCA (percutaneous transluminal coronary angioplasty) Status: Chronic Comment: LAD Past Medical History - Allergies and Home Meds Allergies/Adverse Reactions: Allergies ampicillin Allergy (Verified 04/06/18 17:12) Unknown codeine Allergy (Verified 04/06/18 17:12) Unknown diclofenac sodium [From Arthrotec 50] Allergy (Verified 04/06/18 17:12) Unknown doxycycline Allergy (Verified 04/06/18 17:12) Unknown fluticasone propionate [From Flonase] Allergy (Verified 04/06/18 17:12) Unknown green pepper Allergy (Verified 04/06/18 17:12) Food Allergy misoprostol [From Arthrotec 50] Allergy (Verified 04/06/18 17:12) Unknown morphine Allergy (Verified 04/06/18 17:12) Unknown Sulfa (Sulfonamide Antibiotics) Allergy (Verified 04/06/18 17:12) Unknown Tetanus Vaccines and Toxoid [Tetanus Vaccines & Toxoid] Allergy (Verified 04/06/18 17:12) Unknown Primary Care Physician: Ge Tidwell MD [Primary Care Provider] - Prior records reviewed: Yes Surgical History: angioplasty, appendectomy, cataract, cholecystectomy, total knee arthroplasty - Bilaterally, - - 3 cardiac stents, surgery for diverticulitis and diverticular abscess Lives: Jail Smoking Status: Never smoker Alcohol: None Drugs: None - Family History Maternal Family History: Family History (Last Updated 03/23/17 @ 16:07 by ANA Hobbs) Brother CAD (coronary artery disease) Family History: Reports: No pertinent history Paternal Family History: Family History (Last Updated 03/23/17 @ 16:07 by ANA Hobbs) Brother CAD (coronary artery disease) Family History: Reports: No pertinent history Sibling Family History: Family History (Last Updated 03/23/17 @ 16:07 by ANA Hobbs) Brother CAD (coronary artery disease) Family History: Reports: No pertinent history Review of Systems ROS: Unable to Obtain - Patient presently denies headache, nausea or any symptoms. Patient responded did not recall her unknown to many questions asked. Physical Exam Vital Signs/Narrative: Vital Signs Temp Pulse Resp BP Pulse Ox 05/05/18 07:55 98.3 F 61 15 173/68 H 95 Inital Vital Signs reviewed: Yes General: Well nourished, Well developed, No Acute Distress Head: Normocephalic, Trauma, Tenderness - Tenderness bridge of nose, - - There is no clinical findings of basilar skull fracture Eyes: Perrl, EOMI, - - There is no subconjunctival hemorrhage noted. Negative for: Pale conjunctiva, Scleral icterus ENT: Moist mucous membranes, No rhinorrhea, TM's clear Neck: Supple, Nontender, No lymphadenopathy, No JVD Cardiovascular: Regular rate, Regular rhythm, No murmurs, Normal S1, Normal S2 Respiratory: No distress, CTA bilaterally, Chest nontender Abdomen: Soft, Nontender, Nondistended, Normal bowel sounds, No masses. Negative for: Hepatomegaly, Splenomegaly Rectal: Deferred Back: Nontender, Normal Inspection Extremities: Nontender, Edema, - - Patient's feet are deformed secondary to diabetes, Charcot foot Skin: Normal color, No rash. Negative for: Cyanosis, Jaundice Neurological: Alert, Cranial nerves II-XII grossly intact, Normal Strength, Normal Sensation, Normal DTR - Negative clonus or Babinski sign. Negative for: Oriented x3 Psychological: Normal affect Diagnostic/Tx/Re-eval Impressions Brain CT 05/05/18 08:05 IMPRESSION: Chronic involutional changes of the brain. Electronically Signed: Jona Reed, at 8:52 EDT , Service support , 05/05/18 08:05 Brain/Head without Contrast [CT] Stat Laboratory Results 05/05/18 05/05/18 05/05/18 08:22 08:22 09:20 WBC 5.0 RBC 4.03 L Hgb 12.1 Hct 37.9 MCV 94.0 MCH 30.0 MCHC 31.9 L RDW 15.2 H RDW Differential 52.0 H Plt Count 212 MPV 12.9 H Immature Gran % (Auto) 0.400 Neut % (Auto) 73.2 H Lymph % (Auto) 13.6 L [place] % (Auto) 8.6 Eos % (Auto) 3.6 Baso % (Auto) 0.6 Absolute Neuts (auto) 3.7 Absolute Lymphs (auto) 0.68 L Total Counted Not Reportable Sodium Cancelled 140 Potassium Cancelled 3.7 Chloride Cancelled 106 Carbon Dioxide Cancelled 27.0 Anion Gap Cancelled 7 BUN Cancelled 15 Creatinine Cancelled 0.71 Estim Creat Clear Calc Cancelled 46.77 Est GFR (MDRD) Af Amer Cancelled 102 Est GFR (MDRD) Non-Af Cancelled 85 BUN/Creatinine Ratio Cancelled 21.1 H Glucose Cancelled 99 Calcium Cancelled 9.3 - Rhythm Strip Rhythm Strip: Sinus Rhythm Rate: 61 Ectopy: None - EKG Initial EKG Interpretation: Sinus Rhythm - Ventricular rate is 62. [place] interval, Q quaker QT interval and axis are normal. There is no evidence of acute ischemia. Computer reads minimal criteria for LVH by voltage criteria. - Medical Decision Making Since since because of falls unknown will obtain EKG to assess for dysrhythmia and place patient on monitor. CBC was obtained to assess H&H. Basic metabolic panel to assess electrolytes, CO2 and anion gap and glucose since she is diabetic. Also assess renal function in the event a CT with contrast is indicated. Patient's workup is unremarkable. She will be discharged to return to nursing facility. ED Disposition - Plan for ED Patient: Disposition: Long-Term Facility Diagnosis: Closed head injury with brief loss of consciousness, Contusion of nose, initial encounter Instructions: ED Head Injury Closed, ED Contusion Face Referrals: Ge Tidwell MD [Primary Care Provider] - As Needed
--- NOTE | 2018-05-05 08:11 | ED.DCSUM_ITS ---
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 Reason for fall is unknown. Patient was found prone position. She had trauma to her nose. She had bleeding from her nose. Patient unable to tell me what happened. She is unable to tell me if she had loss of conscious. She is on Plavix. She is on no anticoagulant. Patient is disoriented to time. Prior similar symptoms: No Recent Illness/Hospitalization: No - Past Medical History (1) CAD (coronary artery disease) Status: Chronic Comment: stent to LAD (2) Diabetes mellitus Status: Chronic (3) HTN (hypertension) Status: Chronic (4) Hyperlipidemia Status: Chronic (5) S/P PTCA (percutaneous transluminal coronary angioplasty) Status: Chronic Comment: LAD Past Medical History - Allergies and Home Meds Allergies/Adverse Reactions: Allergies ampicillin Allergy (Verified 04/06/18 17:12) Unknown codeine Allergy (Verified 04/06/18 17:12) Unknown diclofenac sodium [From Arthrotec 50] Allergy (Verified 04/06/18 17:12) Unknown doxycycline Allergy (Verified 04/06/18 17:12) Unknown fluticasone propionate [From Flonase] Allergy (Verified 04/06/18 17:12) Unknown green pepper Allergy (Verified 04/06/18 17:12) Food Allergy misoprostol [From Arthrotec 50] Allergy (Verified 04/06/18 17:12) Unknown morphine Allergy (Verified 04/06/18 17:12) Unknown Sulfa (Sulfonamide Antibiotics) Allergy (Verified 04/06/18 17:12) Unknown Tetanus Vaccines and Toxoid [Tetanus Vaccines & Toxoid] Allergy (Verified 04/06/18 17:12) Unknown Primary Care Physician: Ge Tidwell MD [Primary Care Provider] - Prior records reviewed: Yes Surgical History: angioplasty, appendectomy, cataract, cholecystectomy, total knee arthroplasty - Bilaterally, - - 3 cardiac stents, surgery for diverticulitis and diverticular abscess Lives: Longterm Smoking Status: Never smoker Alcohol: None Drugs: None - Family History Maternal Family History: Family History (Last Updated 03/23/17 @ 16:07 by ANA Hobbs) Brother CAD (coronary artery disease) Family History: Reports: No pertinent history Paternal Family History: Family History (Last Updated 03/23/17 @ 16:07 by ANA Hobbs) Brother CAD (coronary artery disease) Family History: Reports: No pertinent history Sibling Family History: Family History (Last Updated 03/23/17 @ 16:07 by ANA Hobbs) Brother CAD (coronary artery disease) Family History: Reports: No pertinent history Review of Systems ROS: Unable to Obtain - Patient presently denies headache, nausea or any symptoms. Patient responded did not recall her unknown to many questions asked. Physical Exam Vital Signs/Narrative: Vital Signs Temp Pulse Resp BP Pulse Ox 05/05/18 07:55 98.3 F 61 15 173/68 H 95 Inital Vital Signs reviewed: Yes General: Well nourished, Well developed, No Acute Distress Head: Normocephalic, Trauma, Tenderness - Tenderness bridge of nose, - - There is no clinical findings of basilar skull fracture Eyes: Perrl, EOMI, - - There is no subconjunctival hemorrhage noted. Negative for: Pale conjunctiva, Scleral icterus ENT: Moist mucous membranes, No rhinorrhea, TM's clear Neck: Supple, Nontender, No lymphadenopathy, No JVD Cardiovascular: Regular rate, Regular rhythm, No murmurs, Normal S1, Normal S2 Respiratory: No distress, CTA bilaterally, Chest nontender Abdomen: Soft, Nontender, Nondistended, Normal bowel sounds, No masses. Negative for: Hepatomegaly, Splenomegaly Rectal: Deferred Back: Nontender, Normal Inspection Extremities: Nontender, Edema, - - Patient's feet are deformed secondary to diabetes, Charcot foot Skin: Normal color, No rash. Negative for: Cyanosis, Jaundice Neurological: Alert, Cranial nerves II-XII grossly intact, Normal Strength, Normal Sensation, Normal DTR - Negative clonus or Babinski sign. Negative for: Oriented x3 Psychological: Normal affect Diagnostic/Tx/Re-eval Impressions Brain CT 05/05/18 08:05 IMPRESSION: Chronic involutional changes of the brain. Electronically Signed: Jona Reed, at 8:52 EDT , Service support , 05/05/18 08:05 Brain/Head without Contrast [CT] Stat Laboratory Results 05/05/18 05/05/18 05/05/18 08:22 08:22 09:20 WBC 5.0 RBC 4.03 L Hgb 12.1 Hct 37.9 MCV 94.0 MCH 30.0 MCHC 31.9 L RDW 15.2 H RDW Differential 52.0 H Plt Count 212 MPV 12.9 H Immature Gran % (Auto) 0.400 Neut % (Auto) 73.2 H Lymph % (Auto) 13.6 L [place] % (Auto) 8.6 Eos % (Auto) 3.6 Baso % (Auto) 0.6 Absolute Neuts (auto) 3.7 Absolute Lymphs (auto) 0.68 L Total Counted Not Reportable Sodium Cancelled 140 Potassium Cancelled 3.7 Chloride Cancelled 106 Carbon Dioxide Cancelled 27.0 Anion Gap Cancelled 7 BUN Cancelled 15 Creatinine Cancelled 0.71 Estim Creat Clear Calc Cancelled 46.77 Est GFR (MDRD) Af Amer Cancelled 102 Est GFR (MDRD) Non-Af Cancelled 85 BUN/Creatinine Ratio Cancelled 21.1 H Glucose Cancelled 99 Calcium Cancelled 9.3 - Rhythm Strip Rhythm Strip: Sinus Rhythm Rate: 61 Ectopy: None - EKG Initial EKG Interpretation: Sinus Rhythm - Ventricular rate is 62. VT interval, Q confucianism QT interval and axis are normal. There is no evidence of acute ischemia. Computer reads minimal criteria for LVH by voltage criteria. - Medical Decision Making Since since because of falls unknown will obtain EKG to assess for dysrhythmia and place patient on monitor. CBC was obtained to assess H&H. Basic metabolic panel to assess electrolytes, CO2 and anion gap and glucose since she is diabetic. Also assess renal function in the event a CT with contrast is indicated. Patient's workup is unremarkable. She will be discharged to return to nursing facility. ED Disposition - Plan for ED Patient: Disposition: Longterm Facility Diagnosis: Closed head injury with brief loss of consciousness, Contusion of nose, initial encounter Instructions: ED Head Injury Closed, ED Contusion Face Referrals: Ge Tidwell MD [Primary Care Provider] - As Needed
[2018-05-05 08:43] LABS: Absolute Lymphocyte Count 0.68 X10^3/ul (0.83-4.51); Absolute Neutrophil Count 3.7 X10^3/uL (2.0-7.7); Basophil# 0.03 X10^3/uL; Basophil% 0.6 % (0-1); Eosinophil# 0.18 X10^3/uL; Eosinophils% 3.6 % (0-5); Hematocrit 37.9 % (37-47); Hemoglobin 12.1 g/dl (12.0-15.0); Lymphocyte # 0.68 X10^3/ul (4.0); Lymphocyte % 13.6 % (19-41); Mean Corp Hgb Conc 31.9 g/gl (32-36); Mean Platelet Vol. 12.9 fl (6.2-12.0); Monocyte# 0.43 X10^3/uL; Monocyte% 8.6 % (0-10); Neutrophil # 3.67 X10^3/uL (2.7-7.7); Neutrophil % 73.2 % (47-70); POSITIVE COUNT NO; POSITIVE DIFFERENTIAL NO; POSITIVE MORPHOLOGY NO; Platelet Count 212 K/mm3 (150-450); RBC Distribution Width CV 15.2 % (11.6-14.6); Red Blood Count 4.03 M/mm3 (4.2-5.4)
--- NOTE | 2018-05-05 08:52 | NURSING ---
CHEMISTRIES HEMOLIZED
[2018-05-05 09:39] LABS: Anion Gap 7 (5-15); BUN 15 mg/dL (7-18); BUN/Creat Ratio 21.1 RATIO (10-20); Calcium,Total 9.3 mg/dL (8.5-10.1); Chloride 106 mmol/L (98-107); Creatinine, Serum 0.71 mg/dL (0.55-1.02); EST Glomerular Filtration Rate 85 mL/min (>60); Est Glom Filt Rate - Afr Amer 102 mL/min (>60); Estimated Creatinine Clearance 46.77 ml/min; Glucose 99 mg/dL (74-106); Potassium 3.7 mmol/L (3.5-5.1); Sodium Level 140 mmol/L (136-145)
[2018-05-05 10:18] VITALS: BP 134/74; PULSE 68; RESP 15; O2SAT 98
--- NOTE | 2018-05-05 10:35 | ED.RN ---
REPORT CALLED TO SYLVAIN REGARDING PT AND HER TEST RESULTS. PT WAITING FOR RIDE AND WILL BE GOING [facility]
== END 2018-05-05 11:33 | disposition skilled nursing facility (03) ==
PROVIDERS: Emergency Provider Emergency Medicine; Family Provider Family Medicine; PCP Family Medicine
DX: S06.9X9A Unspecified intracranial injury with loss of consciousness of unspecified duration, initial encounter (principal); S00.33XA Contusion of nose, initial encounter; W19.XXXA Unspecified fall, initial encounter; Y93.9 Activity, unspecified; Y92.9 Unspecified place or not applicable; Y99.9 Unspecified external cause status; E11.610 Type 2 diabetes mellitus with diabetic neuropathic arthropathy; I25.10 Atherosclerotic heart disease of native coronary artery without angina pectoris; I10 Essential (primary) hypertension; E78.5 Hyperlipidemia, unspecified; Z79.02 Long term (current) use of antithrombotics/antiplatelets; Z79.82 Long term (current) use of aspirin; Z79.899 Other long term (current) drug therapy; Z95.5 Presence of coronary angioplasty implant and graft; Z96.653 Presence of artificial knee joint, bilateral
CPT/HCPCS: 36415; 70450; 80048; 85025; 93005; 99285

== ENCOUNTER 2018-06-03 03:20 | Emergency (ER) | payer MEDICARE, OTHER, SELFPAY ==
[2018-06-03 03:22] VITALS: BP 180/100; PULSE 107; RESP 16; TEMP 37.2; O2SAT 92; BMI 21.6
--- NOTE | 2018-06-03 03:37 | RAD_ITS ---
STUDY: X-RAY CHEST REASON FOR EXAM: Female, 77 years old. Nausea and vomiting. TECHNIQUE: Single AP portable view of the chest. COMPARISON: Comparison is made with prior study dated November 29, 2017. FINDINGS: A normal gastric tube is seen with the tip in the proximal portion of the body of the stomach just distal to the gastroesophageal junction. There is elevation of the right hemidiaphragm. Infiltration in the right upper lobe as well as at the left lung base. Follow-up is recommended. There is no demonstrated pleural abnormality. Normal size heart. Normal mediastinum and orsalee. Normal visualized pulmonary arteries. There is atherosclerotic calcification of the aortic arch with tortuosity. There are diffuse degenerative changes of the visualized thoracic spine. Normal visualized ribs, clavicles, and shoulders. There is no demonstrated abnormality of the visualized soft tissue structures of the upper abdomen. RAD/Chest 1 View (Portable) IMPRESSION: Right upper lobe and left lower lobe infiltrate. Radiographic follow-up is recommended. Electronically Signed: Jona Reed, at 15:47 EDT , Service support ,
--- NOTE | 2018-06-03 03:38 | CT_ITS ---
HISTORY: DIFFUSE ABDOMEN PAIN,nausea and vomiting,elevated bp,pt has ng tube in placehx:diabetes,htn,cadsurgery:appendectomy,cholecystectomy,oophorectomy TECHNIQUE: Helically acquired images were obtained of the abdomen and pelvis without oral or IV contrast. A radiation dose optimization technique was used for this scan. COMPARISON: 02/09/17 CT abdomen and pelvis. FINDINGS: # of images incl. paperwork: 428 No free air or free fluid. Cluster of focally dilated loops of bowel containing air and fluid are seen in the anterior lower abdomen/pelvis, with proximal and distal transition points which are close to each other in the more cephalad mid abdomen. The more proximal and more distal loops of bowel are decompressed. There is focal mesenteric edema adjacent to the obstructed loops but no extraluminal air. Enteric tube tip in the gastric fundus. Midline anterior abdominal wall hernia containing decompressed bowel loops, unrelated to the obstruction. Appendix surgically absent. Sigmoid colon diverticulosis, no diverticulitis. Multifocal reticular-nodular and groundglass opacities in the right and left lung bases partially visible. Status post cholecystectomy. Dilation of the common bile duct chronic and unchanged. Pancreas, adrenal glands, spleen, unremarkable. Incidental cyst right kidney. No hydronephrosis or renal stone. Urinary bladder distended, otherwise unremarkable. Uterus and ovaries unremarkable. Dense calcific atherosclerosis including of the partially visualized coronary arteries. No abdominal aortic aneurysm. No acute osseous abnormality. Prominent right scoliosis lumbar spine. CT/Abdomen/Pelvis without Cont IMPRESSION: Findings highly suspicious for a closed loop type small bowel obstruction involving a cluster of dilated small bowel loops in the anterior lower abdomen and upper pelvis. Proximal and distal transition points close to each other in the more cephalad mesentery suggest either internal hernia or a mass of adhesions as etiology. The configuration of this obstruction suggests that it will not be decompressed by the NG tube. Surgery consult recommended. Lung opacities partially visible suggestive of pneumonia or edema. Other chronic findings as above. Individualized dose optimization techniques were used for this CT. at 0446 Reported and signed by: Jefe Prince MD N.B. : The above information has been verbally conveyed by Jefe Prince to Dr. Anthony MD, on 06/03/2018 04:44:30 (ET). Electronically Signed: Jefe Prince, at 4:45 EDT Tel , Service support ,
--- NOTE | 2018-06-03 03:39 | ED.VIS.GEN ---
History of Present Illness Chief Complaint: Nausea/Vomiting Informant: Patient, SNF Limited by: Dementia Onset: - - unk; n/v x 2 days Context: Gradual Onset Timing: Continuous Quality: pain Location: points to periumbilical area Current Severity: Severe Maximum Severity: Severe Narrative: According to group home staff, she has been vomiting off and on for 2 days. At some point tonight, nursing aides noticed that she was in severe abdominal discomfort, prompted nursing evaluation and transport to the emergency department. Very limited information available from the patient herself. When asked if she has had any abdominal surgeries, she states yes and cannot tell me anymore. She does not recall how long ago the abdominal pain started. She denies any pain in her chest. Capacity - Capacity Assessment Tool Can the patient make a choice & communicate that choice?: No - due to confusion Can the patient understand benefits, risks and alternatives?: No - due to confusion Can the patient make a logical, rational choice?: No - due to confusion Is there an impending, emergent risk to the patient?: Yes - SBO on CT Does the patient have an Advance Directive?: No Is there a Surrogate Available?: Yes - daughter via phone -- en route i.e. close relative (spouse, child, parent, sibling)?: Yes - Past Medical History (1) CAD (coronary artery disease) Status: Chronic Comment: stent to LAD (2) Depression Status: Chronic (3) Diabetes mellitus Status: Chronic (4) HTN (hypertension) Status: Chronic (5) Hyperlipidemia Status: Chronic (6) Type 2 diabetes mellitus Status: Chronic (7) Blindness Status: Chronic (8) Anxiety Status: Chronic (9) Depression, major Status: Chronic Past Medical History - Allergies and Home Meds Allergies/Adverse Reactions: Allergies ampicillin Allergy (Verified 06/03/18 03:26) Unknown codeine Allergy (Verified 06/03/18 03:26) Unknown diclofenac sodium [From Arthrotec 50] Allergy (Verified 06/03/18 03:26) Unknown doxycycline Allergy (Verified 06/03/18 03:26) Unknown fluticasone propionate [From Flonase] Allergy (Verified 06/03/18 03:26) Unknown green pepper Allergy (Verified 06/03/18 03:26) Food Allergy misoprostol [From Arthrotec 50] Allergy (Verified 06/03/18 03:26) Unknown morphine Allergy (Verified 06/03/18 03:26) Unknown Sulfa (Sulfonamide Antibiotics) Allergy (Verified 06/03/18 03:26) Unknown Tetanus Vaccines and Toxoid [Tetanus Vaccines & Toxoid] Allergy (Verified 06/03/18 03:26) Unknown Primary Care Physician: Ge Tidwell MD [Primary Care Provider] - Surgical History: angioplasty, appendectomy, cataract, cholecystectomy, total knee arthroplasty - Bilaterally, - - 3 cardiac stents, surgery for diverticulitis and diverticular abscess Lives: Snf Smoking Status: Never smoker - Family History Maternal Family History: Family History (Last Updated 03/23/17 @ 16:07 by ANA Hobbs) Brother CAD (coronary artery disease) Family History: Reports: No pertinent history Paternal Family History: Family History (Last Updated 03/23/17 @ 16:07 by ANA Hobbs) Brother CAD (coronary artery disease) Family History: Reports: No pertinent history Sibling Family History: Family History (Last Updated 03/23/17 @ 16:07 by ANA Hobbs) Brother CAD (coronary artery disease) Family History: Reports: No pertinent history Review of Systems General: Reports: Malaise Cardiovascular: Denies: Chest pain Respiratory: Denies: Dyspnea, Cough Gastrointestinal: Reports: Abdominal pain, Nausea, Vomiting Musculoskeletal: Denies: Swelling, Extremity Pain Neurological: Denies: Headache Physical Exam Vital Signs/Narrative: Vital Signs Temp Pulse Resp BP Pulse Ox 06/03/18 03:22 98.9 F 107 H 16 180/100 H 92 Inital Vital Signs reviewed: Yes General: Well nourished, Well developed, Acute Distress - painful, vomiting feculent nonbloody emesis Head: Normocephalic, Atraumatic Eyes: Perrl, EOMI ENT: Moist mucous membranes, No rhinorrhea Neck: Supple, Nontender Cardiovascular: Regular rate, Regular rhythm, No murmurs Respiratory: No distress, CTA bilaterally, Chest nontender Abdomen: Soft, Tender - diffusely, worse epigatrium. , Guarding, Hypoactive bowel sounds, Ventral hernia - soft, reducible. no overlying erythema. no more tender than rest of abd., - - mildly distended, soft. . Negative for: Rebound tenderness Back: Nontender, Normal Inspection. Negative for: CVA tenderness - none apparent Extremities: Nontender, No edema Skin: Normal color, No rash, No Trauma Neurological: Alert, Cranial nerves II-XII grossly intact, Normal Strength, Normal Sensation, - - moves all 4 on command. limited eval due to moaning in pain, limited answers to questions Diagnostic/Tx/Re-eval Impressions Abdomen/Pelvis CT 06/03/18 03:38 IMPRESSION: Findings highly suspicious for a closed loop type small bowel obstruction involving a cluster of dilated small bowel loops in the anterior lower abdomen and upper pelvis. Proximal and distal transition points close to each other in the more cephalad mesentery suggest either internal hernia or a mass of adhesions as etiology. The configuration of this obstruction suggests that it will not be decompressed by the NG tube. Surgery consult recommended. Lung opacities partially visible suggestive of pneumonia or edema. Other chronic findings as above. Individualized dose optimization techniques were used for this CT. at 9406 Reported and signed by: Jefe Prince MD N.B. : The above information has been verbally conveyed by Jefe Prince to Dr. Anthony MD, on 06/03/2018 04:44:30 (ET). Electronically Signed: Jefe Prince, at 4:45 EDT Tel , Service support , ADDENDUM: 06/03/18 0457 IMPRESSION: Findings highly suspicious for a closed loop type small bowel obstruction involving a cluster of dilated small bowel loops in the anterior lower abdomen and upper pelvis. Proximal and distal transition points close to each other in the more cephalad mesentery suggest either internal hernia or a mass of adhesions as etiology. The configuration of this obstruction suggests that it will not be decompressed by the NG tube. Surgery consult recommended. Lung opacities partially visible suggestive of pneumonia or edema. Other chronic findings as above. Individualized dose optimization techniques were used for this CT. at 0446 Reported and signed by: Jefe Prince MD N.B. : The above information has been verbally conveyed by Jefe Prince to Dr. Anthony MD, on 06/03/2018 04:44:30 (ET). Electronically Signed: Tawandacullen Niki, at 4:45 EDT Tel , Service support , 06/03/18 03:37 CXR [Chest 1 View (Portable)] [RAD] Stat 06/03/18 03:38 Abdomen/Pelvis without Cont [CT] Stat Laboratory Results 06/03/18 06/03/18 06/03/18 03:30 03:30 03:30 WBC 5.1 RBC 4.97 Hgb 14.7 Hct 44.6 MCV 89.7 MCH 29.6 MCHC 33.0 RDW 14.9 H RDW Differential 48.7 H Plt Count 164 MPV 11.7 Immature Gran % (Auto) 0.200 Neut % (Auto) 89.1 H Lymph % (Auto) 6.9 L [place] % (Auto) 3.2 Eos % (Auto) 0.4 Baso % (Auto) 0.2 Absolute Neuts (auto) 4.5 Absolute Lymphs (auto) 0.35 L Sodium 137 Potassium 3.5 Chloride 95 L Carbon Dioxide 32.0 Anion Gap 10 BUN 27 H Creatinine 1.13 H Estim Creat Clear Calc 38.41 Est GFR (MDRD) Af Amer 60 Est GFR (MDRD) Non-Af 49 L BUN/Creatinine Ratio 23.9 H Glucose 176 H Lactic Acid 2.9 H Calcium 9.4 Total Bilirubin 1.10 H AST 23 ALT 17 Alkaline Phosphatase 97 Troponin I 0.016 Total Protein 7.4 Albumin 3.3 Globulin 4.1 Albumin/Globulin Ratio 0.8 L Lipase 55 L - Medical Decision Making Due to the patient being in painful distress and uncontrollably vomiting along with high suspicion of a bowel obstruction, we attempted to place an NG tube by nursing prior to portable chest and abdomen radiography. They attempted to place it with the patient swallowing, she did cough a lot, appeared to tolerate to but there is no gastric contents able to be aspirated. X-ray shows suspicion of it being in the left mainstem. I had them remove it immediately, and attempt to replace it. This was successful, repeat x-ray shows placement in the upper part of the stomach. There is no free air on the x-ray. Since I am able to see enough of the upper abdomen on the chest x-ray, the KUB was canceled since we will CT her abdomen anyway. Nursing is not aspirating any gastric contents, so I asked them to insert the tube 5-6 cm further. This resulted in aspiration of gastric contents but not very much. The patient was ordered fentanyl but did not receive it because she started feeling better with regards to her pain, which was not resolved. On reexamination, the small ventral hernia is easily reducible and nontender but she is very tender in the right side of her abdomen, with deeper palpation. CT, performed after NG tube in good position, shows suspicion for a closed loop bowel obstruction related to either an internal hernia or a bed of adhesions, and it does not appear that the NG is decompressing the abnormal bowel. No sign of perforation. Radiologist agrees that the ventral hernia does not appear incarcerated or related to the obstruction. Clinically I am in agreement. The patient has had abdominal surgery in the past, but not here. I asked her where she had those done and she does not know. Her PCP is a [facility] physician, so I discussed with Dr. Maharaj who was astronomy instructor for surgery with [facility], she will be in to evaluate the patient. We also discussed with a daughter who will also be in as soon as possible; she states that the patient is normally confused. ED Disposition - Plan for ED Patient: Disposition: Acute Care [facility] Diagnosis: Small bowel obstruction Referrals: Ge Tidwell MD [Primary Care Provider] -
--- NOTE | 2018-06-03 03:57 | ED.DCSUM_ITS ---
History of Present Illness Chief Complaint: Nausea/Vomiting Informant: Patient, SNF Limited by: Dementia Onset: - - unk; n/v x 2 days Context: Gradual Onset Timing: Continuous Quality: pain Location: points to periumbilical area Current Severity: Severe Maximum Severity: Severe Narrative: According to [facility] staff, she has been vomiting off and on for 2 days. At some point tonight, nursing aides noticed that she was in severe abdominal discomfort, prompted nursing evaluation and transport to the emergency department. Very limited information available from the patient herself. When asked if she has had any abdominal surgeries, she states yes and cannot tell me anymore. She does not recall how long ago the abdominal pain started. She denies any pain in her chest. Capacity - Capacity Assessment Tool Can the patient make a choice & communicate that choice?: No - due to confusion Can the patient understand benefits, risks and alternatives?: No - due to confusion Can the patient make a logical, rational choice?: No - due to confusion Is there an impending, emergent risk to the patient?: Yes - SBO on CT Does the patient have an Advance Directive?: No Is there a Surrogate Available?: Yes - daughter via phone -- en route i.e. close relative (spouse, child, parent, sibling)?: Yes - Past Medical History (1) CAD (coronary artery disease) Status: Chronic Comment: stent to LAD (2) Depression Status: Chronic (3) Diabetes mellitus Status: Chronic (4) HTN (hypertension) Status: Chronic (5) Hyperlipidemia Status: Chronic (6) Type 2 diabetes mellitus Status: Chronic (7) Blindness Status: Chronic (8) Anxiety Status: Chronic (9) Depression, major Status: Chronic Past Medical History - Allergies and Home Meds Allergies/Adverse Reactions: Allergies ampicillin Allergy (Verified 06/03/18 03:26) Unknown codeine Allergy (Verified 06/03/18 03:26) Unknown diclofenac sodium [From Arthrotec 50] Allergy (Verified 06/03/18 03:26) Unknown doxycycline Allergy (Verified 06/03/18 03:26) Unknown fluticasone propionate [From Flonase] Allergy (Verified 06/03/18 03:26) Unknown green pepper Allergy (Verified 06/03/18 03:26) Food Allergy misoprostol [From Arthrotec 50] Allergy (Verified 06/03/18 03:26) Unknown morphine Allergy (Verified 06/03/18 03:26) Unknown Sulfa (Sulfonamide Antibiotics) Allergy (Verified 06/03/18 03:26) Unknown Tetanus Vaccines and Toxoid [Tetanus Vaccines & Toxoid] Allergy (Verified 06/03/18 03:26) Unknown Primary Care Physician: Ge Tidwell MD [Primary Care Provider] - Surgical History: angioplasty, appendectomy, cataract, cholecystectomy, total knee arthroplasty - Bilaterally, - - 3 cardiac stents, surgery for diverticulitis and diverticular abscess Lives: Shelter Smoking Status: Never smoker - Family History Maternal Family History: Family History (Last Updated 03/23/17 @ 16:07 by ANA Hobbs) Brother CAD (coronary artery disease) Family History: Reports: No pertinent history Paternal Family History: Family History (Last Updated 03/23/17 @ 16:07 by ANA Hobbs) Brother CAD (coronary artery disease) Family History: Reports: No pertinent history Sibling Family History: Family History (Last Updated 03/23/17 @ 16:07 by ANA Hobbs) Brother CAD (coronary artery disease) Family History: Reports: No pertinent history Review of Systems General: Reports: Malaise Cardiovascular: Denies: Chest pain Respiratory: Denies: Dyspnea, Cough Gastrointestinal: Reports: Abdominal pain, Nausea, Vomiting Musculoskeletal: Denies: Swelling, Extremity Pain Neurological: Denies: Headache Physical Exam Vital Signs/Narrative: Vital Signs Temp Pulse Resp BP Pulse Ox 06/03/18 03:22 98.9 F 107 H 16 180/100 H 92 Inital Vital Signs reviewed: Yes General: Well nourished, Well developed, Acute Distress - painful, vomiting feculent nonbloody emesis Head: Normocephalic, Atraumatic Eyes: Perrl, EOMI ENT: Moist mucous membranes, No rhinorrhea Neck: Supple, Nontender Cardiovascular: Regular rate, Regular rhythm, No murmurs Respiratory: No distress, CTA bilaterally, Chest nontender Abdomen: Soft, Tender - diffusely, worse epigatrium. , Guarding, Hypoactive bowel sounds, Ventral hernia - soft, reducible. no overlying erythema. no more tender than rest of abd., - - mildly distended, soft. . Negative for: Rebound tenderness Back: Nontender, Normal Inspection. Negative for: CVA tenderness - none apparent Extremities: Nontender, No edema Skin: Normal color, No rash, No Trauma Neurological: Alert, Cranial nerves II-XII grossly intact, Normal Strength, Normal Sensation, - - moves all 4 on command. limited eval due to moaning in pain, limited answers to questions Diagnostic/Tx/Re-eval Impressions Abdomen/Pelvis CT 06/03/18 03:38 IMPRESSION: Findings highly suspicious for a closed loop type small bowel obstruction involving a cluster of dilated small bowel loops in the anterior lower abdomen and upper pelvis. Proximal and distal transition points close to each other in the more cephalad mesentery suggest either internal hernia or a mass of adhesions as etiology. The configuration of this obstruction suggests that it will not be decompressed by the NG tube. Surgery consult recommended. Lung opacities partially visible suggestive of pneumonia or edema. Other chronic findings as above. Individualized dose optimization techniques were used for this CT. at 0786 Reported and signed by: Jefe Prince MD N.B. : The above information has been verbally conveyed by Jefe Prince to Dr. Anthony MD, on 06/03/2018 04:44:30 (ET). Electronically Signed: Jefe Prince, at 4:45 EDT Tel , Service support , ADDENDUM: 06/03/18 045 IMPRESSION: Findings highly suspicious for a closed loop type small bowel obstruction involving a cluster of dilated small bowel loops in the anterior lower abdomen and upper pelvis. Proximal and distal transition points close to each other in the more cephalad mesentery suggest either internal hernia or a mass of adhesions as etiology. The configuration of this obstruction suggests that it will not be decompressed by the NG tube. Surgery consult recommended. Lung opacities partially visible suggestive of pneumonia or edema. Other chronic findings as above. Individualized dose optimization techniques were used for this CT. at 0446 Reported and signed by: Jefe Prince MD N.B. : The above information has been verbally conveyed by Jefe Prince to Dr. Anthony MD, on 06/03/2018 04:44:30 (ET). Electronically Signed: Tawandacullen Niki, at 4:45 EDT Tel , Service support , 06/03/18 03:37 CXR [Chest 1 View (Portable)] [RAD] Stat 06/03/18 03:38 Abdomen/Pelvis without Cont [CT] Stat Laboratory Results 06/03/18 06/03/18 06/03/18 03:30 03:30 03:30 WBC 5.1 RBC 4.97 Hgb 14.7 Hct 44.6 MCV 89.7 MCH 29.6 MCHC 33.0 RDW 14.9 H RDW Differential 48.7 H Plt Count 164 MPV 11.7 Immature Gran % (Auto) 0.200 Neut % (Auto) 89.1 H Lymph % (Auto) 6.9 L Harris % (Auto) 3.2 Eos % (Auto) 0.4 Baso % (Auto) 0.2 Absolute Neuts (auto) 4.5 Absolute Lymphs (auto) 0.35 L Sodium 137 Potassium 3.5 Chloride 95 L Carbon Dioxide 32.0 Anion Gap 10 BUN 27 H Creatinine 1.13 H Estim Creat Clear Calc 38.41 Est GFR (MDRD) Af Amer 60 Est GFR (MDRD) Non-Af 49 L BUN/Creatinine Ratio 23.9 H Glucose 176 H Lactic Acid 2.9 H Calcium 9.4 Total Bilirubin 1.10 H AST 23 ALT 17 Alkaline Phosphatase 97 Troponin I 0.016 Total Protein 7.4 Albumin 3.3 Globulin 4.1 Albumin/Globulin Ratio 0.8 L Lipase 55 L - Medical Decision Making Due to the patient being in painful distress and uncontrollably vomiting along with high suspicion of a bowel obstruction, we attempted to place an NG tube by nursing prior to portable chest and abdomen radiography. They attempted to place it with the patient swallowing, she did cough a lot, appeared to tolerate to but there is no gastric contents able to be aspirated. X-ray shows suspicion of it being in the left mainstem. I had them remove it immediately, and attempt to replace it. This was successful, repeat x-ray shows placement in the upper part of the stomach. There is no free air on the x-ray. Since I am able to see enough of the upper abdomen on the chest x-ray, the KUB was canceled since we will CT her abdomen anyway. Nursing is not aspirating any gastric contents, so I asked them to insert the tube 5-6 cm further. This resulted in aspiration of gastric contents but not very much. The patient was ordered fentanyl but did not receive it because she started feeling better with regards to her pain, which was not resolved. On reexamination, the small ventral hernia is easily reducible and nontender but she is very tender in the right side of her abdomen, with deeper palpation. CT, performed after NG tube in good position, shows suspicion for a closed loop bowel obstruction related to either an internal hernia or a bed of adhesions, and it does not appear that the NG is decompressing the abnormal bowel. No sign of perforation. Radiologist agrees that the ventral hernia does not appear incarcerated or related to the obstruction. Clinically I am in agreement. The patient has had abdominal surgery in the past, but not here. I asked her where she had those done and she does not know. Her PCP is a [facility] physician, so I discussed with Dr. Maharaj who was educational administration teacher for surgery with [facility], she will be in to evaluate the patient. We also discussed with a daughter who will also be in as soon as possible; she states that the patient is normally confused. ED Disposition - Plan for ED Patient: Disposition: Acute Care Hospital [facility] Diagnosis: Small bowel obstruction Referrals: Ge Tidwell MD [Primary Care Provider] -
[2018-06-03 04:05] LABS: ALB/GLOB Ratio 0.8 RATIO (0.9-2.4); AST(SGOT) 23 U/L (15-37); Absolute Lymphocyte Count 0.35 X10^3/ul (0.83-4.51); Absolute Neutrophil Count 4.5 X10^3/uL (2.0-7.7); Alanine Aminotransfer ALT/SGPT 17 U/L (13-56); Albumin, Serum 3.3 g/dL (3.2-5.0); Alkaline Phosphatase 97 U/L (45-117); Anion Gap 10 (5-15); BUN 27 mg/dL (7-18); BUN/Creat Ratio 23.9 RATIO (10-20); Basophil# 0.01 X10^3/uL; Basophil% 0.2 % (0-1); Calcium,Total 9.4 mg/dL (8.5-10.1); Chloride 95 mmol/L (98-107); Creatinine, Serum 1.13 mg/dL (0.55-1.02); EST Glomerular Filtration Rate 49 mL/min (>60); Eosinophil# 0.02 X10^3/uL; Eosinophils% 0.4 % (0-5); Est Glom Filt Rate - Afr Amer 60 mL/min (>60); Estimated Creatinine Clearance 38.41 ml/min; Globulin 4.1 g/dL (2.2-4.2); Glucose 176 mg/dL (74-106); Hematocrit 44.6 % (37-47); Hemoglobin 14.7 g/dl (12.0-15.0); Lipase 55 U/L (73-393); Lymphocyte # 0.35 X10^3/ul (4.0); Lymphocyte % 6.9 % (19-41); Mean Corpuscular Hgb 29.6 pg (27.0-32.0); Mean Corpuscular Volume 89.7 fL (81-99); Mean Platelet Vol. 11.7 fl (6.2-12.0); Monocyte# 0.16 X10^3/uL; Monocyte% 3.2 % (0-10); Neutrophil # 4.52 X10^3/uL (2.7-7.7); Neutrophil % 89.1 % (47-70); Platelet Count 164 K/mm3 (150-450); Potassium 3.5 mmol/L (3.5-5.1); Protein, Total 7.4 g/dL (6.4-8.2); RBC Distribution Width CV 14.9 % (11.6-14.6); RBC Distribution Width SD 48.7 fl (35.1-43.9); Red Blood Count 4.97 M/mm3 (4.2-5.4); Sodium Level 137 mmol/L (136-145); White Blood Count 5.1 K/mm3 (4.4-11.0)
[2018-06-03 04:13] LABS: Differential Indicated SCAN CRITERIA MET; Lactic Acid 2.9 mmol/L (0.4-2.0); POSITIVE COUNT NO; POSITIVE DIFFERENTIAL YES; POSITIVE MORPHOLOGY NO
[2018-06-03] MEDS: 0.9% Normal Saline 1,000 ML 125 ML IV (04:36)
[2018-06-03] MEDS: Ondansetron 4 MG/2 ML Vial IV (04:36)
[2018-06-03 04:41] VITALS: BP 134/49; PULSE 100; RESP 18; TEMP 37.3; O2SAT 95
--- NOTE | 2018-06-03 05:54 | PCM.CONS.B ---
- Consult Date of Consult: 06/03/18 - Reason for Consult Chief Complaint: called by ED physician to see patient with - emesis, abdominal pain History of Present Illness: 77 y/o WF resident of [facility] with dementia presents with abdominal pain and emesis. Daughter states that this has been going on since Thursday, thought to be a stomach flu. Presented to ED [facility] and underwent CT scan with findings of probable closed loop bowel obstruction. Patient is confused and not coherently verbal at this time, cannot obtain history from her (history is derived from records and family) Daughter states that she had previous bowel obstruction, surgery done at [facility] in [place] - cecostomy, cecopexy, umb. herniorrhaphy Past Medical History: ? Abdominal hernia 07/14/2012 ? Abdominal pain, left lower quadrant ? ? Clostridium difficile colitis ? 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 Dr. Chavez, Pain Management ? Depressive disorder, not elsewhere classified 10/23/2004 ? Dr. Morris ? Diverticulitis of colon (without mention of hemorrhage)(562.11) ? ? Generalized osteoarthrosis, unspecified site 10/23/2004 ? Knees. Dr. Montano ? Ischemic colitis (HCC) 11/15/2011 ? w/ sepsis ? Macular degeneration (senile) of retina, unspecified 10/23/2004 ? 310 legally blind ? Myalgia and myositis, unspecified 10/23/2004 ? Fibromyalgia ? Myalgia and myositis, unspecified 10/23/2004 ? Fibromyalgia, Dr. Jensen [facility] ? Non-STEMI (non-ST elevated myocardial infarction) ([facility]) 11/15/2011 ? Other and unspecified hyperlipidemia 10/23/2004 ? Other specified disorders of arteries and arterioles ([facility]) 10/23/2004 ? Right Carotid ? Type II or unspecified type diabetes mellitus without mention of complication, not stated as uncontrolled 10/23/2004 ? Ulcerative colitis, unspecified ? ? Unspecified essential hypertension 10/23/2004 ? Unspecified essential hypertension ? ? 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 ? Unspecified vitamin D deficiency 07/29/2006 ? Urinary incontinence 02/25/2012 ? Past Surgical History: ? APPENDECTOMY ? ? ? COLONOSCOP W/ OR W/O BRSH SPEC ? 09/11/2005 ? Colonoscopy ? COLONOSCOPY W/BX ? 1999 ? COLONOSCOPY W/BX ? 02/28/2005 ? EGD W/O OR W/BRUSH/WASH ? 08/2005 ? EGD ? EXPLORATORY OF ABDOMEN ? 11/15/2011 ? cecostomy, cecopexy, umb. herniorrhaphy ? FOOT RIGHT OP SURGERY ? 2010 ? 2nd toe ? HEART CATHETERIZATION ? 05/12/2012 ? [facility] ? LEFT HEART CATH ? 05/31/13 ? left ventriculogram, coronary arteriography ? PAST SURGICAL HISTORY OF Right 10/27/2006 ? Right carotid angioplasty and stent ? PAST SURGICAL HISTORY OF Right 08/29 ? bunionectomy right foot ? REMOVAL GALLBLADDER ? ? ? Cholecystectomy ? REMOVAL OF OVARY(S) ? ? ? Oophorectomy ? REVISE MEDIAN N/CARPAL TUNNEL SURG ? 04/2006 &06/2006 ? Carpal tunnel decomp ? TOTAL KNEE REPLACEMENT Right 12/22/05 ? RIGHT ? TOTAL KNEE REPLACEMENT Bilateral 10/04/2007 ? Knee replacement, total bilateral ? TRANSCATH STENT ADDN VESSEL,PERCUT ? 05/13/2012 ? Stenting x 3, PROMUS Element plus ? Medications: reviewed and documented in ED chart Allergies: ? Reglan [Metoclopram* Intolerance? ? restlessness ? Ampicillin Rash ? Arthrotec 50 [Diclo* ? ? yeast infection ? Codeine GI Upset ? Doxycycline Itching ? Myrna [Morphine] GI Upset ? Sulfamethoxazole ? ? nausea and anxiety ? Tetanus Vaccines An* Swelling ? Tizanidine Social history: TOB use denies resident of [facility] Review of Systems: unobtainable, see HPI and PMH Physical examination: Vital signs Temp 99.1F RR 18 BP 180/100 HR 107 General WD/WN ill appearing WF in apparent abdominal discomfort, confused, verbally not coherent HEENT Normocephalic. EOM intact with sclera clear and no icterus noted. Neck is supple with no jugular venous distention noted. Trachea is midline. Lungs normal breath sounds in all lung trinh. No rales/rhonchi/wheezing noted. No labored breathing noted, such as retractions. No cough heard. Heart regular rate on monitor. Abdomen distended, tympanitic, generalized tenderness, positive rebound Extremities bruising noted, no pitting edema noted. healed right knee incision. Genitourinary/Rectal deferred Skin nomal skin integrity. Neurological non focal Psychological patient with dementia signs Impression: bowel obstruction - closed loop by CT scan elevated lactic acid elevated serum creatinine obtunded patient with known dementia Discussion/plan: I have discussed the above with the patient's family - daugher and son who is power of employment attorney. I have offered exploratory laparotomy and lysis of adhesions and possible bowel resection. I have explained that given patient's medical morbidities, there is high likelihood of requiring ICU postoperative care and prolonged hospitalization. Also, possibility of pneumonia, renal failure, [place], etc. causing fatality. Patient's family request transfer to larger medical facility. They agree with transfer to [facility]. I have answered all their questions and they have no further questions
--- NOTE | 2018-06-03 06:04 | CON.PCM_ITS ---
- Consult Date of Consult: 06/03/18 - Reason for Consult Chief Complaint: called by ED physician to see patient with - emesis, abdominal pain History of Present Illness: 77 y/o WF resident of [facility] with dementia presents with abdominal pain and emesis. Daughter states that this has been going on since Thursday, thought to be a stomach flu. Presented to ED [facility] and underwent CT scan with findings of probable closed loop bowel obstruction. Patient is confused and not coherently verbal at this time, cannot obtain history from her (history is derived from records and family) Daughter states that she had previous bowel obstruction, surgery done at [facility] in [place] - cecostomy, cecopexy, umb. herniorrhaphy Past Medical History: ? Abdominal hernia 07/14/2012 ? Abdominal pain, left lower quadrant ? ? Clostridium difficile colitis ? 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 Dr. Chavez, Pain Management ? Depressive disorder, not elsewhere classified 10/23/2004 ? Dr. Morris ? Diverticulitis of colon (without mention of hemorrhage)(562.11) ? ? Generalized osteoarthrosis, unspecified site 10/23/2004 ? Knees. Dr. Montano ? Ischemic colitis (HCC) 11/15/2011 ? w/ sepsis ? Macular degeneration (senile) of retina, unspecified 10/23/2004 ? 310 legally blind ? Myalgia and myositis, unspecified 10/23/2004 ? Fibromyalgia ? Myalgia and myositis, unspecified 10/23/2004 ? Fibromyalgia, Dr. Jensen [facility] ? Non-STEMI (non-ST elevated myocardial infarction) ([facility]) 11/15/2011 ? Other and unspecified hyperlipidemia 10/23/2004 ? Other specified disorders of arteries and arterioles ([facility]) 10/23/2004 ? Right Carotid ? Type II or unspecified type diabetes mellitus without mention of complication, not stated as uncontrolled 10/23/2004 ? Ulcerative colitis, unspecified ? ? Unspecified essential hypertension 10/23/2004 ? Unspecified essential hypertension ? ? 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 ? Unspecified vitamin D deficiency 07/29/2006 ? Urinary incontinence 02/25/2012 ? Past Surgical History: ? APPENDECTOMY ? ? ? COLONOSCOP W/ OR W/O BRSH SPEC ? 09/11/2005 ? Colonoscopy ? COLONOSCOPY W/BX ? 1999 ? COLONOSCOPY W/BX ? 02/28/2005 ? EGD W/O OR W/BRUSH/WASH ? 08/2005 ? EGD ? EXPLORATORY OF ABDOMEN ? 11/15/2011 ? cecostomy, cecopexy, umb. herniorrhaphy ? FOOT RIGHT OP SURGERY ? 2010 ? 2nd toe ? HEART CATHETERIZATION ? 05/12/2012 ? [facility] ? LEFT HEART CATH ? 05/31/13 ? left ventriculogram, coronary arteriography ? PAST SURGICAL HISTORY OF Right 10/27/2006 ? Right carotid angioplasty and stent ? PAST SURGICAL HISTORY OF Right 08/29 ? bunionectomy right foot ? REMOVAL GALLBLADDER ? ? ? Cholecystectomy ? REMOVAL OF OVARY(S) ? ? ? Oophorectomy ? REVISE MEDIAN N/CARPAL TUNNEL SURG ? 04/2006 &06/2006 ? Carpal tunnel decomp ? TOTAL KNEE REPLACEMENT Right 12/22/05 ? RIGHT ? TOTAL KNEE REPLACEMENT Bilateral 10/04/2007 ? Knee replacement, total bilateral ? TRANSCATH STENT ADDN VESSEL,PERCUT ? 05/13/2012 ? Stenting x 3, PROMUS Element plus ? Medications: reviewed and documented in ED chart Allergies: ? Reglan [Metoclopram* Intolerance? ? restlessness ? Ampicillin Rash ? Arthrotec 50 [Diclo* ? ? yeast infection ? Codeine GI Upset ? Doxycycline Itching ? Myrna [Morphine] GI Upset ? Sulfamethoxazole ? ? nausea and anxiety ? Tetanus Vaccines An* Swelling ? Tizanidine Social history: TOB use denies resident of [facility] Review of Systems: unobtainable, see HPI and PMH Physical examination: Vital signs Temp 99.1F RR 18 BP 180/100 HR 107 General WD/WN ill appearing WF in apparent abdominal discomfort, confused, verbally not coherent HEENT Normocephalic. EOM intact with sclera clear and no icterus noted. Ne ck is supple with no jugular venous distention noted. Trachea is midline. Lungs normal breath sounds in all lung trinh. No rales/rhonchi/wheezing noted. No labored breathing noted, such as retractions. No cough heard. Heart regular rate on monitor. Abdomen distended, tympanitic, generalized tenderness, positive rebound Extremities bruising noted, no pitting edema noted. healed right knee incision. Genitourinary/Rectal deferred Skin nomal skin integrity. Neurological non focal Psychological patient with dementia signs Impression: bowel obstruction - closed loop by CT scan elevated lactic acid elevated serum creatinine obtunded patient with known dementia Discussion/plan: I have discussed the above with the patient's family - daugher and son who is power of care specialist. I have offered exploratory laparotomy and lysis of adhesions and possible bowel resection. I have explained that given patient's medical morbidities, there is high likelihood of requiring ICU postoperative care and prolonged hospitalization. Also, possibility of pneumonia, renal failure, [place], etc. causing fatality. Patient's family request transfer to larger medical facility. They agree with transfer to [facility]. I have answered all their questions and they have no further questions
[2018-06-03 06:36] VITALS: BP 134/56; PULSE 90; RESP 16; TEMP 37.2; O2SAT 97
[2018-06-03 07:32] VITALS: BP 158/66; PULSE 90; RESP 17; O2SAT 99
[2018-06-03 07:47] LABS: Reflex Lactate? Y
== END 2018-06-03 07:52 | disposition short-term general hospital (02) ==
PROVIDERS: Emergency Provider Emergency Medicine; Family Provider Family Medicine; PCP Family Medicine
DX: K56.609 Unspecified intestinal obstruction, unspecified as to partial versus complete obstruction (principal); I25.10 Atherosclerotic heart disease of native coronary artery without angina pectoris; E11.9 Type 2 diabetes mellitus without complications; I10 Essential (primary) hypertension; E78.5 Hyperlipidemia, unspecified; H54.7 Unspecified visual loss; F03.90 Unspecified dementia, unspecified severity, without behavioral disturbance, psychotic disturbance, mood disturbance, and anxiety; F32.9 Major depressive disorder, single episode, unspecified; F41.9 Anxiety disorder, unspecified; Z79.82 Long term (current) use of aspirin; Z79.899 Other long term (current) drug therapy; Z96.653 Presence of artificial knee joint, bilateral; Z95.5 Presence of coronary angioplasty implant and graft
CPT/HCPCS: 71045; 74176; 80053; 83605; 83690; 84484; 85025; 96361; 96374; 99285; J7030; A4216; J2405

== ENCOUNTER 2018-06-17 02:28 | Emergency (ER) | payer MEDICARE, OTHER, SELFPAY ==
[2018-06-17 02:29] VITALS: BP 141/67; PULSE 54; RESP 14; TEMP 36.4; O2SAT 96; BMI 30.8
--- NOTE | 2018-06-17 02:50 | RAD_ITS ---
STUDY: X-RAY CHEST REASON FOR EXAM: Female, 77 years old. Fall TECHNIQUE: Frontal view COMPARISON: 06/03/2018 FINDINGS: There is suboptimal inspiration. There are bilateral perihilar infiltrates versus pulmonary edema. There is NO pleural effusion or pneumothorax. Heart size is normal. Normal mediastinum and rosalee. Normal visualized pulmonary arteries. Normal visualized aortic arch and descending thoracic aorta. Normal visualized thoracic spine. Normal visualized ribs, clavicles, and shoulders. There is no demonstrated abnormality of the visualized soft tissue structures of the upper abdomen. RAD/Chest 1 View (Portable) IMPRESSION: There is suboptimal inspiration. There are bilateral perihilar infiltrates versus pulmonary edema. There is NO pleural effusion or pneumothorax. Heart size is normal. Electronically Signed: Dom Mcfarland MD at 4:23 EDT , Service support ,
--- NOTE | 2018-06-17 02:50 | CT_ITS ---
STUDY: CT BRAIN WITHOUT CONTRAST REASON FOR EXAM: Female, 77 years old. Bruising RADIATION DOSAGE (If Supplied By Facility): CTDIvol = ( 44.99 ) mGy, DLP = ( 829.85 ) mGycm TECHNIQUE: Transaxial CT imaging of the brain was performed without administration of intravenous contrast material. Individualized dose optimization techniques were used for this CT. COMPARISON: No relevant priors. FINDINGS: Normal soft tissue structures. Normal calvarium. There is moderate cerebral atrophy with widening of the extra-axial spaces and ventricular dilatation. There are areas of decreased attenuation within the white matter tracts of the supratentorial brain, consistent with microvascular disease changes. Normal basal ganglia and thalami. Normal brainstem. There is moderate there are chronic involutional and ischemic changes. There is NO hemorrhage, edema, mass, mass effect or midline shift. Cerebellar atrophy. There is no intracranial hemorrhage. There are no findings of an acute ischemic infarction. Normal visualized paranasal sinuses. CT/Brain/Head without Contrast IMPRESSION: There is chronic involutional and ischemic change. There is NO hemorrhage, edema, mass, mass effect or midline shift. Electronically Signed: Dom Mcfarland MD at 4:25 EDT , Service support ,
--- NOTE | 2018-06-17 02:51 | EKG12_ITS ---
Test Reason : FALL Blood Pressure : / mmHG Vent. Rate : 063 BPM Atrial Rate : 063 BPM P-R Int : 118 ms QRS Dur : 072 ms QT Int : 460 ms P-R-T Axes : -10 006 043 degrees QTc Int : 470 ms Normal sinus rhythm Normal ECG Confirmed by CURTIS RIVAS, CONSTANTINO ([id number]), movie editor RANDEE AKHTAR ([id number]) on 06/21/2018 10:55:28 AM Referred By: RU Confirmed By:CONSTANTINO ACEVEDO MD
--- NOTE | 2018-06-17 02:51 | RAD_ITS ---
STUDY: X-RAY - PELVIS AND RIGHT HIP REASON FOR EXAM: Female, 77 years old. Hip TECHNIQUE: 3 views of the pelvis and hip. COMPARISON: None. FINDINGS: There is a non-specific bowel gas pattern. Normal visualized soft tissue structures. Normal bilateral iliac wings, sacroiliac joints and visualized sacrum. Normal bilateral superior and inferior pubic rami. Normal pubic symphysis. Normal bilateral ischial tuberosities. Normal visualized femoral head. Normal acetabulum. There is mild articular joint space narrowing of the hip. RAD/HIP, UNI W/ Pelvis 2-3 Views IMPRESSION: There are NO acute bony abnormalities. There is mild degenerative arthrosis of the RIGHT hip joint. Electronically Signed: Dom Mcfarland MD at 4:21 EDT , Service support ,
--- NOTE | 2018-06-17 02:51 | CT_ITS ---
STUDY: CT CERVICAL SPINE WITHOUT CONTRAST REASON FOR EXAM: Female, 77 years old. Trauma RADIATION DOSAGE (If Supplied By Facility): CTDIvol = ( 21.64 ) mGy, DLP = ( 388.35 ) mGycm TECHNIQUE: High resolution transaxial imaging was performed without contrast material. Sagittal and coronal images were reconstructed. Individualized dose optimization techniques were used for this CT. COMPARISON: None FINDINGS: Skull base and foramen magnum are intact. There are NO compression deformities of the cervical vertebrae. There is grade 1 anterior spondylolisthesis of C3 over C4 due to facet arthropathy and osteophytic ridging. There is advanced multilevel degenerative disc change. There is NO facet dislocation. There is NO soft tissue abnormality. CT/Spine Cervical without Contras IMPRESSION: There are chronic degenerative changes of the cervical spine. There is NO acute traumatic injury. Electronically Signed: Dom Mcfarland MD at 4:32 EDT , Service support ,
--- NOTE | 2018-06-17 02:51 | RAD_ITS ---
STUDY: X-RAY - RIGHT TIBIA AND FIBULA REASON FOR EXAM: Female, 77 years old. Fall TECHNIQUE: 4 view(s) of the tibia and fibula were obtained. COMPARISON: None. FINDINGS: Knee replacement hardware is intact. The tibia and fibula are intact. There is NO fracture or malalignment. There is NO soft tissue swelling or mass. There are vascular calcifications. RAD/Tibia & Fibula 2 Views IMPRESSION: There is NO acute bony abnormality. The knee replacement hardware is intact. Electronically Signed: Dom Mcfarland MD at 4:12 EDT , Service support ,
[2018-06-17] MEDS: 0.9% Normal Saline 1,000 ML 150 ML IV (03:28)
[2018-06-17 03:29] LABS: Squamous Epithelial Cells - UA 0 SEEN /hpf (5-10)
[2018-06-17 03:43] LABS: Absolute Lymphocyte Count 0.82 X10^3/ul (0.83-4.51); Absolute Neutrophil Count 4.2 X10^3/uL (2.0-7.7); Basophil# 0.07 X10^3/uL; Basophil% 1.1 % (0-1); Eosinophil# 0.29 X10^3/uL; Eosinophils% 4.7 % (0-5); Hematocrit 31.7 % (37-47); Hemoglobin 10.5 g/dl (12.0-15.0); Lymphocyte # 0.82 X10^3/ul (4.0); Lymphocyte % 13.2 % (19-41); Mean Corp Hgb Conc 33.1 g/gl (32-36); Mean Corpuscular Hgb 29.2 pg (27.0-32.0); Mean Corpuscular Volume 88.1 fL (81-99); Mean Platelet Vol. 9.8 fl (6.2-12.0); Monocyte# 0.77 X10^3/uL; Monocyte% 12.4 % (0-10); Neutrophil # 4.21 X10^3/uL (2.7-7.7); Platelet Count 277 K/mm3 (150-450); RBC Distribution Width CV 14.4 % (11.6-14.6); White Blood Count 6.2 K/mm3 (4.4-11.0)
[2018-06-17 03:44] LABS: POSITIVE COUNT NO; POSITIVE DIFFERENTIAL NO; POSITIVE MORPHOLOGY NO
[2018-06-17 03:48] LABS: Color, Urine Yellow (Yellow); Glucose, Dipstick Normal (Normal); Ketone-Dipstick Negative (Negative); Leukocyte Esterase-Dipstick 25 /ul (Negative); Nitrite-Dipstick Negative (Negative); Occult Blood-Urine 250 /ul (Negative); Protein-Dipstick 100 mg/dl (Negative); Specific Gravity, Urine 1.015 (1.002-1.030); Urine Bilirubin Dipstick Negative (Negative); Urine Clarity Sl. Cloudy (Clear); Urine Urobilinogen Normal (Normal)
[2018-06-17 03:56] LABS: Bacteria RARE /hpf (None Seen); Mucous, Urine RARE /hpf (<or=2+); Red Blood Cells-Urine 5-10 SEEN /hpf (0-5); White Blood Cells 0-5 SEEN /hpf (0-5)
[2018-06-17 03:57] LABS: Calcium Oxalate Crystals Ur 1+ /hpf (<or=2+)
[2018-06-17 04:12] LABS: Anion Gap 8 (5-15); BUN 13 mg/dL (7-18); Chloride 106 mmol/L (98-107); Creatinine, Serum 0.87 mg/dL (0.55-1.02); EST Glomerular Filtration Rate 67 mL/min (>60); Est Glom Filt Rate - Afr Amer 81 mL/min (>60); Estimated Creatinine Clearance 54.35 ml/min; Glucose 101 mg/dL (74-106); Potassium 3.8 mmol/L (3.5-5.1); Sodium Level 140 mmol/L (136-145)
--- NOTE | 2018-06-17 04:51 | ED.VISSUMM ---
- ER Visit Summary Date of Service: 06/17/18 Chief Complaint: [Fall] History of Present Illness: The patient is a 77 F [presents to the emergency department after sustaining a fall out of bed at the long term. Patient is at a long term and was discharged [facility] where she was admitted for 2 weeks for a bowel obstruction that required surgery. Patient complaining of pain in her head as well as right hip. Patient has history of coronary artery disease, diabetes, hypertension, high cholesterol, depression, anxiety. Son also states that since the time of the surgery patient's been much more confused and initially had a hard time speaking after surgery. Has not had any fevers. Patient was treated for pneumonia while at the hospital. Patient is a poor historian but she denies chest pain or shortness of breath.] Physical Examination: [HEENT-PERRLA, EOMI. Cranial nerves II through XII grossly intact. TMs clear. Mucous membranes moist. No adenopathy. Patient has diffuse C-spine tenderness on palpation. No external evidence of trauma to her head. Cardiovascular-regular rate and rhythm without murmur or ectopy Lungs-clear to auscultation, chest wall stable without crepitus or subcu emphysema Abdomen-normoactive bowel sounds, soft, nontender, no rebound or rigidity, no peritoneal signs. Extremities-intact ?4, normal range of motion, normal pulses. Right hip-patient has tenderness palpation and pain with logrolling. Right leg-patient has some ecchymosis and bruising to the anterior tibial area just inferior to the knee. No obvious deformity. Neurovascular intact distally.] Test Results: [EKG obtained arrival shows sinus rhythm with a ventricular rate of 63 bpm with no acute ST segment changes. CBC with additional count 6.2, hemoglobin 10, hematocrit 32, placed 277. Chemistries unremarkable. Urinalysis unremarkable. X-rays of the right hip and pelvis obtained showed no fractures. X-rays of the right tib-fib showed no fractures. Chest x-ray showed suboptimal inspiration and possible perihilar infiltrates versus pulmonary edema. CT of the C-spine showed chronic changes. CT of the brain showed chronic changes.] Emergency Department Course and Treatment: [] Treatment Plan: [Patient advised to follow-up with primary care physician 3 to 5 days] Disposition: [Discharged home stable condition] Impression: [Fall Close head injury Contusion right hip Confusion-chronic] This note was generated with [employer] dictation software. It may contain incorrect words, spelling, and punctuation that were not noted in review of the chart prior to signing ED Disposition - Plan for ED Patient: Referrals: Silvano Whitlock MD [Primary Care Provider] -
--- NOTE | 2018-06-17 04:54 | ED.DCSUM_ITS ---
- ER Visit Summary Date of Service: 06/17/18 Chief Complaint: [Fall] History of Present Illness: The patient is a 77 F [presents to the emergency department after sustaining a fall out of bed at the care home. Patient is at a care home and was discharged recently from [facility] where she was admitted for 2 weeks for a bowel obstruction that required surgery. Patient complaining of pain in her head as well as right hip. Patient has history of coronary artery disease, diabetes, hypertension, high cholesterol, depression, anxiety. Son also states that since the time of the surgery patient's been much more confused and initially had a hard time speaking after surgery. Has not had any fevers. Patient was treated for pneumonia while at the hospital. Patient is a poor historian but she denies chest pain or shortness of breath.] Physical Examination: [HEENT-PERRLA, EOMI. Cranial nerves II through XII grossly intact. TMs clear. Mucous membranes moist. No adenopathy. Patient has diffuse C-spine tenderness on palpation. No external evidence of trauma to her head. Cardiovascular-regular rate and rhythm without murmur or ectopy Lungs-clear to auscultation, chest wall stable without crepitus or subcu emphysema Abdomen-normoactive bowel sounds, soft, nontender, no rebound or rigidity, no peritoneal signs. Extremities-intact ?4, normal range of motion, normal pulses. Right hip-patient has tenderness palpation and pain with logrolling. Right leg-patient has some ecchymosis and bruising to the anterior tibial area just inferior to the knee. No obvious deformity. Neurovascular intact distally.] Test Results: [EKG obtained arrival shows sinus rhythm with a ventricular rate of 63 bpm with no acute ST segment changes. CBC with additional count 6.2, hemoglobin 10, hematocrit 32, placed 277. Chemistries unremarkable. Urinalysis unremarkable. X-rays of the right hip and pelvis obtained showed no fractures. X-rays of the right tib-fib showed no fractures. Chest x-ray showed suboptimal inspiration and possible perihilar infiltrates versus pulmonary edema. CT of the C-spine showed chronic changes. CT of the brain showed chronic changes.] Emergency Department Course and Treatment: [] Treatment Plan: [Patient advised to follow-up with primary care physician 3 to 5 days] Disposition: [Discharged home stable condition] Impression: [Fall Close head injury Contusion right hip Confusion-chronic] This note was generated with [employer] dictation software. It may contain incorrect words, spelling, and punctuation that were not noted in review of the chart prior to signing ED Disposition - Plan for ED Patient: Referrals: Silvano Whitlock MD [Primary Care Provider] -
--- NOTE | 2018-06-17 04:54 | ED.DEP ---
ED Disposition - Plan for ED Patient: Instructions: ED Mechanical Fall, ED Head Injury Closed, ED Contusion Hip Referrals: Slivano Whitlock MD [Primary Care Provider] - 3-5 Days
[2018-06-17 05:18] VITALS: BP 144/71; PULSE 76; RESP 18; O2SAT 96
--- NOTE | 2018-06-17 05:36 | ED.RN ---
REPORT WAS CALLED TO THE AVENUE.
== END 2018-06-17 05:39 | disposition skilled nursing facility (03) ==
LOC: ED 02:59
PROVIDERS: Emergency Provider Emergency Medicine; Family Provider Family Medicine; PCP Family Medicine
DX: S09.90XA Unspecified injury of head, initial encounter (principal); S70.01XA Contusion of right hip, initial encounter; W06.XXXA Fall from bed, initial encounter; Y93.9 Activity, unspecified; Y92.122 Bedroom in nursing home as the place of occurrence of the external cause; Y99.9 Unspecified external cause status; R41.0 Disorientation, unspecified; I25.10 Atherosclerotic heart disease of native coronary artery without angina pectoris; E11.9 Type 2 diabetes mellitus without complications; I10 Essential (primary) hypertension; E78.00 Pure hypercholesterolemia, unspecified; F32.9 Major depressive disorder, single episode, unspecified; F41.9 Anxiety disorder, unspecified; Z79.02 Long term (current) use of antithrombotics/antiplatelets; Z79.82 Long term (current) use of aspirin; Z79.899 Other long term (current) drug therapy; Z87.01 Personal history of pneumonia (recurrent)
CPT/HCPCS: 36415; 70450; 71045; 72125; 73502; 73590; 80048; 81001; 84484; 85025; 93005; 96360; 96361; 99285; J7030; A4216

== ENCOUNTER 2018-06-20 22:25 | Emergency (ER) | payer MEDICARE, OTHER, SELFPAY ==
[2018-06-20 22:26] VITALS: BP 145/64; PULSE 65; RESP 16; TEMP 36.6; O2SAT 97; BMI 30.2
--- NOTE | 2018-06-20 23:17 | CT_ITS ---
STUDY: CT BRAIN WITHOUT CONTRAST REASON FOR EXAM: Female, 77 years old. FallSCT - Brain without RADIATION DOSAGE (If Supplied By Facility): CTDIvol = ( 44.99 ) mGy, DLP = ( 812.98 ) mGycm TECHNIQUE: Transaxial CT imaging of the brain was performed without administration of intravenous contrast material. Individualized dose optimization techniques were used for this CT. COMPARISON: No relevant priors. FINDINGS: Normal soft tissue structures. Normal calvarium. There is moderate cerebral atrophy with widening of the extra-axial spaces and ventricular dilatation. There are areas of decreased attenuation within the white matter tracts of the supratentorial brain, consistent with microvascular disease changes. Normal basal ganglia and thalami. Normal brainstem. Normal cerebellum. There is no intracranial hemorrhage. There are no findings of an acute ischemic infarction. Normal visualized paranasal sinuses. CT/Brain/Head without Contrast IMPRESSION: Chronic involutional changes of the brain. Electronically Signed: Madeline Emery, at 0:05 EDT Tel , Service support ,
--- NOTE | 2018-06-20 23:17 | CT_ITS ---
STUDY: CT CERVICAL SPINE WITHOUT CONTRAST REASON FOR EXAM: Female, 77 years old. S/P FALL WITH LAC TO HEAD, NO LOC RADIATION DOSAGE (If Supplied By Facility): CTDIvol = ( 15.37 ) mGy, DLP = ( 315.68 ) mGycm TECHNIQUE: High resolution transaxial imaging was performed without contrast material. Sagittal and coronal images were reconstructed. Individualized dose optimization techniques were used for this CT. COMPARISON: None FINDINGS: Normal craniovertebral junction. There are degenerative changes of the anterior atlantoaxial articulation. Ligamentous calcification posterior to the odontoid process consistent with chondrocalcinosis. Normal odontoid process. Normal cervical lordosis. Normal vertebral bodies and posterior osseous elements. C2-3: Endplate spondylosis. Central and paracentral disc bulge. Degenerative changes of the bilateral facet joints and uncovertebral joints. Moderate narrowing of the central canal and the bilateral intervertebral neural foramina. C3-4: Endplate spondylosis. Central and paracentral disc bulge. 6 mm spondylolisthesis. Degenerative changes of the bilateral facet joints and uncovertebral joints. Severe narrowing of the central canal and the bilateral intervertebral neural foramina. C4-5: Endplate spondylosis. Central and paracentral disc bulge. Degenerative changes of the bilateral facet joints and uncovertebral joints. Moderate narrowing of the central canal and the bilateral intervertebral neural foramina. C5-6: Endplate spondylosis. Central and paracentral disc bulge. Degenerative changes of the bilateral facet joints and uncovertebral joints. Moderate narrowing of the central canal and the bilateral intervertebral neural foramina. C6-7: Endplate spondylosis. Central and paracentral disc bulge. Degenerative changes of the bilateral facet joints and uncovertebral joints. Moderate narrowing of the central canal and the bilateral intervertebral neural foramina. C7-T1: Endplate spondylosis. Central and paracentral disc bulge. 3 mm spondylolisthesis. Degenerative changes of the bilateral facet joints . Mild narrowing of the central canal and the bilateral intervertebral neural foramina. Normal visualized soft tissue structures. CT/Spine Cervical without Contras IMPRESSION: Multilevel degenerative changes, as described above. Electronically Signed: Madeline Emery, at 23:57 EDT Tel , Service support ,
--- NOTE | 2018-06-20 23:17 | ED.VISSUMM ---
- ER Visit Summary Date of Service: 06/20/18 Chief Complaint: Fall History of Present Illness: The patient is a 77 F who presents after a fall. She was transferring between beds when she slipped and hit her head against the wall. No loss of consciousness. She complains of a mild headache. No nausea or vomiting. She has on aspirin and Plavix. No amnesia. She denies any other injuries. Her neck has been sore ever since her recent hospitalization so she has some tenderness there which is not new. She otherwise denies recent illness in the last couple of days such as fevers or vomiting. Physical Examination: Afebrile vitals unremarkable There is a 3 cm left parietal scalp laceration Patient has paraspinal and spinal cervical tenderness Heart is regular rate and rhythm Lungs are clear Abdomen soft Active full range of motion x4 extremities GCS of 15 with no focal or lateralizing neurological deficit Test Results: CT of the head shows chronic changes only. CT of the cervical spine shows multilevel degenerative changes. Emergency Department Course and Treatment: CT is negative as above. Laceration was cleansed with alcohol and locally anesthetized with 1% lidocaine. Laceration repaired with 5 skin sussy. This was well-tolerated. Patient family instructed on local wound care and head injury return precautions and patient was discharged. Treatment Plan: [] Disposition: Discharge Impression: Closed head injury Scalp laceration This note was generated with [employer] dictation software. It may contain incorrect words, spelling, and punctuation that were not noted in review of the chart prior to signing ED Disposition - Plan for ED Patient: Referrals: Silvano Whitlock MD [Primary Care Provider] -
--- NOTE | 2018-06-21 00:35 | ED.DEP ---
ED Disposition - Plan for ED Patient: Instructions: ED Laceration All, ED Mechanical Fall, ED Head Injury Closed Referrals: Silvano Whitlock MD [Primary Care Provider] -
[2018-06-21 00:56] VITALS: BP 159/79; PULSE 59; RESP 16; O2SAT 95
--- NOTE | 2018-06-21 00:59 | ED.RN ---
THIS NURSE CALLED THE AVEN[facility] AT [phone] SPOKE TO ARTEMIO AND GAVE REPORT.
== END 2018-06-21 01:00 | disposition skilled nursing facility (03) ==
PROVIDERS: Emergency Provider Emergency Medicine; Family Provider Family Medicine; PCP Family Medicine
DX: S01.01XA Laceration without foreign body of scalp, initial encounter (principal); W01.198A Fall on same level from slipping, tripping and stumbling with subsequent striking against other object, initial encounter; Y93.9 Activity, unspecified; Y92.9 Unspecified place or not applicable; Y99.9 Unspecified external cause status; I25.10 Atherosclerotic heart disease of native coronary artery without angina pectoris; E11.9 Type 2 diabetes mellitus without complications; I10 Essential (primary) hypertension; K21.9 Gastro-esophageal reflux disease without esophagitis; Z79.82 Long term (current) use of aspirin; Z79.899 Other long term (current) drug therapy; Z95.5 Presence of coronary angioplasty implant and graft
CPT/HCPCS: 12002; 70450; 72125; 99285

== ENCOUNTER 2018-07-14 02:16 | Emergency (ER) | payer MEDICARE, OTHER, SELFPAY ==
[2018-07-14 02:17] VITALS: BP 152/65; PULSE 63; RESP 16; TEMP 37; O2SAT 95; BMI 29.0
--- NOTE | 2018-07-14 02:31 | CT_ITS ---
HISTORY: FALL,pt has bruising to bridge of nosehx:htn,diabetes EXAM/TECHNIQUE: CT Head or Brain W/O Contrast: Multiplanar reformats provided. COMPARISON: 06/20/18 CT brain. FINDINGS: # of images incl. paperwork: 249 No evidence of intracranial hemorrhage, hydrocephalus mass, or acute infarct. No skull fracture. Scattered chronic appearing hypodensities in the cerebral white matter. Calcific atherosclerosis of the intracranial arteries. CT/Brain/Head without Contrast IMPRESSION: No evidence of intracranial injury or skull fracture. Individualized dose optimization techniques were used for this CT. at 0308 Reported and signed by: Jefe Prince MD Electronically Signed: Jefe Prince, at 3:07 EDT Tel , Service support ,
--- NOTE | 2018-07-14 02:31 | CT_ITS ---
HISTORY: FALL,PT HAS BRUISING TO BRIDGE OF NOSEHX:HTN,DIABETES EXAM/TECHNIQUE: CT Spine Cervical W/O Contrast: Axial images obtained, multiplanar reformats provided. COMPARISON: 06/17/18 CT cervical spine. FINDINGS: # of images incl. paperwork: 364 No fracture or dislocation of the cervical spine. 7 mm degenerative anterolisthesis C3 on C4, 3 mm degenerative anterolisthesis C7 on T1, both similar to prior. Multilevel degenerative changes also similar to prior. This includes at least moderate and possibly high-grade spinal canal narrowing at C3-4 secondary to anterolisthesis and osteophytes and degenerative buckling of the ligamentum flavum. High-grade foraminal narrowing is also seen on the left at C2-3, bilaterally at C3-4, on the left at C4-5, and C5-6. No acute findings in the paraspinal soft tissues. Calcific atherosclerosis. Right ICA stent. Mild groundglass attenuation lung apices has improved compared to previous. Mild partial opacification mastoid tips also improved. CT/Spine Cervical without Contras IMPRESSION: No fracture or dislocation of the cervical spine. Prominent degenerative changes similar to prior. Individualized dose optimization techniques were used for this CT. at 0314 Reported and signed by: Jefe Prince MD Electronically Signed: Jefe Prince, at 3:13 EDT Tel , Service support ,
--- NOTE | 2018-07-14 02:32 | ED.VIS.FALL ---
History of Present Illness Chief Complaint: Fall Informant: Patient, [employer] Occurred: Today Mechanism/Context: Same level fall. Negative for: Prodromal, Dizziness, Vertigo, Lightheadedness, Near-syncope Usually ambulates: Walker - in therapy, but often in wheelchair Location: nose, neck, back Quality of Pain: Aching Current Severity: Mild Maximum Severity: Moderate Worsened by: moving head Relieved by: remaining still Associated Symptoms: - - hasn't tried to stand/walk. Negative for: Parasthesias, Weakness, Loss of function, Loss of consciousness, Amnesia Narrative: Patient states she was walking on a slick wooden floor at assisted living and slipped and fell, hitting her nasal bridge against a bar in her room. She had no loss of consciousness. She does have a headache. No nausea or vomiting. No focal peripheral neurologic symptoms but her neck and back hurt. It is difficult to assess how much of her neck and back pain is new, but she states she did not hurt like this before the fall, but apparently she did have some back and neck pains. She does not know her medications, but her list includes Plavix but no anticoagulants. She had no epistaxis. - Past Medical History (1) Type 2 diabetes mellitus Status: Chronic (2) Blindness Status: Chronic (3) Anxiety Status: Chronic (4) Depression, major Status: Chronic (5) Hyperlipidemia Status: Chronic (6) CAD (coronary artery disease) Status: Chronic Comment: stent to LAD (7) HTN (hypertension) Status: Chronic Past Medical History - Allergies and Home Meds Allergies/Adverse Reactions: Allergies ampicillin Allergy (Verified 06/17/18 02:48) Unknown codeine Allergy (Verified 06/17/18 02:48) Unknown diclofenac sodium [From Arthrotec 50] Allergy (Verified 06/17/18 02:48) Unknown doxycycline Allergy (Verified 06/17/18 02:48) Unknown fluticasone propionate [From Flonase] Allergy (Verified 06/17/18 02:48) Unknown green pepper Allergy (Verified 06/17/18 02:48) Food Allergy misoprostol [From Arthrotec 50] Allergy (Verified 06/17/18 02:48) Unknown morphine Allergy (Verified 06/17/18 02:48) Unknown Sulfa (Sulfonamide Antibiotics) Allergy (Verified 06/17/18 02:48) Unknown Tetanus Vaccines and Toxoid [Tetanus Vaccines & Toxoid] Allergy (Verified 06/17/18 02:48) Unknown Primary Care Physician: Silvano Whitlock MD [Primary Care Provider] - Surgical History: angioplasty - coronary stent, appendectomy, cataract, cholecystectomy, total knee arthroplasty - Bilaterally, - - 3 cardiac stents, surgery for diverticulitis and diverticular abscess Lives: [facility] Smoking Status: Never smoker - Family History Maternal Family History: Family History (Last Updated 03/23/17 @ 16:07 by ANA Hobbs) Brother CAD (coronary artery disease) Family History: Reports: No pertinent history Paternal Family History: Family History (Last Updated 03/23/17 @ 16:07 by ANA Hobbs) Brother CAD (coronary artery disease) Family History: Reports: No pertinent history Sibling Family History: Family History (Last Updated 03/23/17 @ 16:07 by ANA Hobbs) Brother CAD (coronary artery disease) Family History: Reports: No pertinent history Review of Systems General: Denies: Chills, Fever Eyes: Denies: Visual changes - bilaterally - Chronically blind, Diplopia ENT: Denies: Bilateral ear pain, Rhinorrhea Cardiovascular: Denies: Chest pain Respiratory: Denies: Dyspnea Gastrointestinal: Denies: Abdominal pain, Nausea, Vomiting Musculoskeletal: Reports: Neck pain, Back pain. Denies: Extremity Pain Skin: Denies: Rash, Wounds Neurological: Reports: Headache. Denies: Weakness, Numbness Physical Exam Vital Signs/Narrative: Vital Signs Temp Pulse Resp BP Pulse Ox 07/14/18 02:17 98.6 F 63 16 152/65 H 95 Inital Vital Signs reviewed: Yes General: Well nourished, Well developed Head: Normocephalic, Atraumatic Eyes: Perrl, EOMI - Without pain or extraocular entrapment. ENT: TM's clear, No hemotympanum or drainage, Nasal trauma - Bruising and tenderness to the nasal bridge without crepitance or asymmetry. No epistaxis or evidence of recent epistaxis. No nasal septal hematoma. No midface tenderness or instability. Neck: Spinal Tenderness - Mild, mid cervical, Paraspinal Tenderness Respiratory: No distress, CTA bilaterally, Chest nontender Abdomen: Soft, Nontender, Nondistended, Normal bowel sounds Back: Nontender. Negative for: Spinal Tenderness Extremeties: Patient able to stand with assistance without any significant pain. Excellent range of motion of all 4 extremities without significant pain. Neurovascularly intact distally throughout all 4 extremities. Skin: Normal color, No rash, Trauma - Contusion nasal bridge, no other signs of trauma Neurological: Alert, Oriented x3, Cranial nerves II-XII grossly intact, Normal Strength, Normal Sensation Psychological: Normal affect Diagnostic/Tx/Re-eval Impressions Brain CT 07/14/18 02:31 IMPRESSION: No evidence of intracranial injury or skull fracture. Individualized dose optimization techniques were used for this CT. at 0308 Reported and signed by: Jefe Prince MD Electronically Signed: Jefe Prince, at 3:07 EDT Tel , Service support , Cervical Spine CT 07/14/18 02:31 IMPRESSION: No fracture or dislocation of the cervical spine. Prominent degenerative changes similar to prior. Individualized dose optimization techniques were used for this CT. at 0314 Reported and signed by: Jefe Prince MD Electronically Signed: Jefe Prince, at 3:13 EDT Tel , Service support , 07/14/18 02:31 Brain/Head without Contrast [CT] Stat CT Cervical [Spine Cervical without Contras] [CT] Stat - Medical Decision Making Imaging shows no acute injury. Of note I did review the images myself, her nasal bone was fully included and is not fractured. She is stable for discharge back to assisted living. ED Disposition - Plan for ED Patient: Disposition: Home or Assisted Living Diagnosis: Fall from slip, trip, or stumble, Nasal contusion, Cervical strain, acute Instructions: ED Mechanical Fall, ED Contusion Nasal Referrals: Silvano Whitlock MD [Primary Care Provider] - 3-5 Days if not improving
--- NOTE | 2018-07-14 02:36 | ED.DCSUM_ITS ---
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 Negative for: Prodromal, Dizziness, Vertigo, Lightheadedness, Near-syncope Usually ambulates: Walker - in therapy, but often in wheelchair Location: nose, neck, back Quality of Pain: Aching Current Severity: Mild Maximum Severity: Moderate Worsened by: moving head Relieved by: remaining still Associated Symptoms: - - hasn't tried to stand/walk. Negative for: Parasthesias, Weakness, Loss of function, Loss of consciousness, Amnesia Narrative: Patient states she was walking on a slick wooden floor at assisted living and slipped and fell, hitting her nasal bridge against a bar in her room. She had no loss of consciousness. She does have a headache. No nausea or vomiting. No focal peripheral neurologic symptoms but her neck and back hurt. It is difficult to assess how much of her neck and back pain is new, but she states she did not hurt like this before the fall, but apparently she did have some ba ck and neck pains. She does not know her medications, but her list includes Plavix but no anticoagulants. She had no epistaxis. - Past Medical History (1) Type 2 diabetes mellitus Status: Chronic (2) Blindness Status: Chronic (3) Anxiety Status: Chronic (4) Depression, major Status: Chronic (5) Hyperlipidemia Status: Chronic (6) CAD (coronary artery disease) Status: Chronic Comment: stent to LAD (7) HTN (hypertension) Status: Chronic Past Medical History - Allergies and Home Meds Allergies/Adverse Reactions: Allergies ampicillin Allergy (Verified 06/17/18 02:48) Unknown codeine Allergy (Verified 06/17/18 02:48) Unknown diclofenac sodium [From Arthrotec 50] Allergy (Verified 06/17/18 02:48) Unknown doxycycline Allergy (Verified 06/17/18 02:48) Unknown fluticasone propionate [From Flonase] Allergy (Verified 06/17/18 02:48) Unknown green pepper Allergy (Verified 06/17/18 02:48) Food Allergy misoprostol [From Arthrotec 50] Allergy (Verified 06/17/18 02:48) Unknown morphine Allergy (Verified 06/17/18 02:48) Unknown Sulfa (Sulfonamide Antibiotics) Allergy (Verified 06/17/18 02:48) Unknown Tetanus Vaccines and Toxoid [Tetanus Vaccines & Toxoid] Allergy (Verified 06/17/18 02:48) Unknown Primary Care Physician: Silvano Whitlock MD [Primary Care Provider] - Surgical History: angioplasty - coronary stent, appendectomy, cataract, cholecystectomy, total knee arthroplasty - Bilaterally, - - 3 cardiac stents, surgery for diverticulitis and diverticular abscess Lives: Care Home Smoking Status: Never smoker - Family History Maternal Family History: Family History (Last Updated 03/23/17 @ 16:07 by ANA Hobbs) Brother CAD (coronary artery disease) Family History: Reports: No pertinent history Paternal Family History: Family History (Last Updated 03/23/17 @ 16:07 by ANA Hobbs) Brother CAD (coronary artery disease) Family History: Reports: No pertinent history Sibling Family History: Family History (Last Updated 03/23/17 @ 16:07 by ANA Hobbs) Brother CAD (coronary artery disease) Family History: Reports: No pertinent history Review of Systems General: Denies: Chills, Fever Eyes: Denies: Visual changes - bilaterally - Chronically blind, Diplopia ENT: Denies: Bilateral ear pain, Rhinorrhea Cardiovascular: Denies: Chest pain Respiratory: Denies: Dyspnea Gastrointestinal: Denies: Abdominal pain, Nausea, Vomiting Musculoskeletal: Reports: Neck pain, Back pain. Denies: Extremity Pain Skin: Denies: Rash, Wounds Neurological: Reports: Headache. Denies: Weakness, Numbness Physical Exam Vital Signs/Narrative: Vital Signs Temp Pulse Resp BP Pulse Ox 07/14/18 02:17 98.6 F 63 16 152/65 H 95 Inital Vital Signs reviewed: Yes General: Well nourished, Well developed Head: Normocephalic, Atraumatic Eyes: Perrl, EOMI - Without pain or extraocular entrapment. ENT: TM's clear, No hemotympanum or drainage, Nasal trauma - Bruising and tenderness to the nasal bridge without crepitance or asymmetry. No epistaxis or evidence of recent epistaxis. No nasal septal hematoma. No midface tenderness or instability. Neck: Spinal Tenderness - Mild, mid cervical, Paraspinal Tenderness Respiratory: No distress, CTA bilaterally, Chest nontender Abdomen: Soft, Nontender, Nondistended, Normal bowel sounds Back: Nontender. Negative for: Spinal Tenderness Extremeties: Patient able to stand with assistance without any significant pain. Excellent range of motion of all 4 extremities without significant pain. Neurovascularly intact distally throughout all 4 extremities. Skin: Normal color, No rash, Trauma - Contusion nasal bridge, no other signs of trauma Neurological: Alert, Oriented x3, Cranial nerves II-XII grossly intact, Normal Strength, Normal Sensation Psychological: Normal affect Diagnostic/Tx/Re-eval Impressions Brain CT 07/14/18 02:31 IMPRESSION: No evidence of intracranial injury or skull fracture. Individualized dose optimization techniques were used for this CT. at 0308 Reported and signed by: Jefe Prince MD Electronically Signed: Jefe Prince, at 3:07 EDT Tel , Service support , Cervical Spine CT 07/14/18 02:31 IMPRESSION: No fracture or dislocation of the cervical spine. Prominent degenerative changes similar to prior. Individualized dose optimization techniques were used for this CT. at 0314 Reported and signed by: Jefe Prince MD Electronically Signed: Jefe Prince, at 3:13 EDT Tel , Service support , 07/14/18 02:31 Brain/Head without Contrast [CT] Stat CT Cervical [Spine Cervical without Contras] [CT] Stat - Medical Decision Making Imaging shows no acute injury. Of note I did review the images myself, her nasal bone was fully included and is not fractured. She is stable for discharge back to assisted living. ED Disposition - Plan for ED Patient: Disposition: Home or Assisted Living Diagnosis: Fall from slip, trip, or stumble, Nasal contusion, Cervical strain, acute Instructions: ED Mechanical Fall, ED Contusion Nasal Referrals: Silvano Whitlock MD [Primary Care Provider] - 3-5 Days if not improving
[2018-07-14 04:12] VITALS: BP 147/83; PULSE 65; RESP 14; O2SAT 97
== END 2018-07-14 04:13 | disposition home or self-care (01) ==
PROVIDERS: Emergency Provider Emergency Medicine; Family Provider Family Medicine; PCP Family Medicine
DX: S16.1XXA Strain of muscle, fascia and tendon at neck level, initial encounter (principal); S00.33XA Contusion of nose, initial encounter; W01.10XA Fall on same level from slipping, tripping and stumbling with subsequent striking against unspecified object, initial encounter; Y93.01 Activity, walking, marching and hiking; Y92.099 Unspecified place in other non-institutional residence as the place of occurrence of the external cause; Y99.9 Unspecified external cause status; H54.7 Unspecified visual loss; I25.10 Atherosclerotic heart disease of native coronary artery without angina pectoris; E11.9 Type 2 diabetes mellitus without complications; I10 Essential (primary) hypertension; E78.5 Hyperlipidemia, unspecified; F32.9 Major depressive disorder, single episode, unspecified; F41.9 Anxiety disorder, unspecified; Z88.6 Allergy status to analgesic agent; Z88.0 Allergy status to penicillin; Z88.2 Allergy status to sulfonamides; Z79.02 Long term (current) use of antithrombotics/antiplatelets; Z79.82 Long term (current) use of aspirin; Z79.899 Other long term (current) drug therapy; Z96.653 Presence of artificial knee joint, bilateral; Z95.5 Presence of coronary angioplasty implant and graft
CPT/HCPCS: 70450; 72125; 99284

== ENCOUNTER 2018-07-15 00:55 | Observation (INO) | payer MEDICARE, OTHER, SELFPAY ==
[2018-07-14 02:17] VITALS: BMI 29.0
[2018-07-15] VITALS (10 sets, daily range): BP systolic 121–145; BP diastolic 56–65; PULSE 65–90; RESP 16–18; TEMP 36.5–37; O2SAT 94–96; BMI 27.4; BMI 26.5
--- NOTE | 2018-07-15 01:17 | RAD_ITS ---
HISTORY: fallpt fell severe pain all overpainful back due to curvature EXAM: XR Chest 1 View COMPARISON: 06/17/18 CXR FINDINGS: LINES/DEVICES: None. LUNGS: There are chronic interstitial changes. No pneumothorax. No consolidation or effusion. MEDIASTINUM AND CARDIOVASCULAR STRUCTURES: Cardiac silhouette not enlarged. Central airways and mediastinal contour are unremarkable. Atherosclerosis thoracic aorta. BONES AND SOFT TISSUES: No acute findings. Prominent reverse S-shaped scoliosis. RAD/Chest 1 View (Portable) IMPRESSION: Chronic interestitial changes. No radiographic evidence of acute cardiopulmonary disease. at 0321 Reported and signed by: Jefe Prince MD Electronically Signed: Jefe Prince, at 3:20 EDT Tel , Service support ,
--- NOTE | 2018-07-15 01:17 | CT_ITS ---
HISTORY: FALL,LT FACIAL HEMATOMA,SEEN YESTERDAY FOR FALL EXAM/TECHNIQUE: CT Head or Brain W/O Contrast: Multiplanar reformats provided. COMPARISON: Several previous head CTs. FINDINGS: # of images incl. paperwork: 261 No evidence of intracranial hemorrhage, hydrocephalus mass, or acute infarct. No skull fracture. Scattered chronic appearing hypodensities in the cerebral white matter. Calcific atherosclerosis of the intracranial arteries. Left preorbital soft tissue swelling. Abnormal density in the posterior aspect of the left globe, chronic and unchanged. CT/Brain/Head without Contrast IMPRESSION: No evidence of intracranial injury or skull fracture. Left preorbital soft tissue swelling. Abnormal density in the posterior aspect of the left globe, chronic and unchanged compared to 05/05/18. Most likely retinal detachment. If not previously interrogated consider ophthalmologic follow-up. Individualized dose optimization techniques were used for this CT. at 0239 Reported and signed by: Jefe Prince MD Electronically Signed: Jefe Prince, at 2:38 EDT Tel , Service support ,
--- NOTE | 2018-07-15 01:17 | RAD_ITS ---
HISTORY: Pain after falling. EXAM/TECHNIQUE: XR Spine Lumbar 2 or 3 Views: COMPARISON: 06/03/18 CT abdomen and pelvis. FINDINGS: # of images incl. paperwork: 4 No apparent fracture or dislocation or osseous destruction. Marked right scoliosis centered at L2 again demonstrated. Multilevel prominent degenerative changes. No acute findings in the soft tissues. Calcific atherosclerosis. RAD/Lumbar Spine 2 or 3 Views IMPRESSION: No acute findings. at 0322 Reported and signed by: Jefe Prince MD Electronically Signed: Jefe Prince, at 3:21 EDT Tel , Service support ,
--- NOTE | 2018-07-15 01:17 | CT_ITS ---
HISTORY: FALL,LT FACIAL HEMATOMA,SEEN YESTERDAY FOR FALL EXAM/TECHNIQUE: CT Maxillofacial W/O Contrast: Multiplanar reformats provided. COMPARISON: Several previous head CTs. FINDINGS: # of images incl. paperwork: 431 No facial fracture. Globes have normal contour, no proptosis. 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 Left facial hematoma superficial to the left orbit and left zygomatic arch. Trace fluid left sphenoid sinus. Otherwise the paranasal sinuses, mastoid air cells, and middle ears are patent. CT/Sinus/Facial Bone IMPRESSION: Left periorbital/facial soft tissue swelling and hematoma but with no facial fracture. Abnormal appearance of the left globe, similar to 05/05/18, probably retinal detachment. Consider ophthalmologic follow-up if not previously interrogated. Individualized dose optimization techniques were used for this CT. at 0237 Reported and signed by: Jefe Prince MD Electronically Signed: Jefe Prince, at 2:36 EDT Tel , Service support ,
--- NOTE | 2018-07-15 01:17 | RAD_ITS ---
HISTORY: Pain after falling. EXAM/TECHNIQUE: XR Spine Thoracic 2 Views: COMPARISON: Chest radiograph 06/17/18 FINDINGS: # of images incl. paperwork: 2 No fracture or dislocation or osseous destruction. Mild left scoliosis thoracic spine. Mild degenerative changes. No acute findings in the soft tissues. Calcific atherosclerosis. RAD/Thoracic Spine 2 Views IMPRESSION: No acute findings. at 0323 Reported and signed by: Jefe Prince MD Electronically Signed: Jefe Prince, at 3:22 EDT Tel , Service support ,
--- NOTE | 2018-07-15 01:17 | EKG12_ITS ---
Test Reason : FALL Blood Pressure : / mmHG Vent. Rate : 067 BPM Atrial Rate : 067 BPM P-R Int : 126 ms QRS Dur : 076 ms QT Int : 434 ms P-R-T Axes : -12 -05 045 degrees QTc Int : 458 ms Normal sinus rhythm Inferior infarct , age undetermined Abnormal ECG Confirmed by TASHIA DALTON ([id number]), editor managing newspaper RANDEE AKHTAR ([id number]) on 07/22/2018 8:55:06 AM Referred By: Gurdeep Silveira Confirmed By:TASHIA DALTON
--- NOTE | 2018-07-15 01:17 | CT_ITS ---
HISTORY: FALL,LT FACIAL HEMATOMA,SEEN YESTERDAY FOR FALL EXAM/TECHNIQUE: CT Spine Cervical W/O Contrast: Axial images obtained, multiplanar reformats provided. COMPARISON: Several previous CTs of the cervical spine most recent yesterday. FINDINGS: # of images incl. paperwork: 366 No fracture or dislocation of the cervical spine. 7 mm degenerative anterolisthesis C3 on C4, 3 mm degenerative anterolisthesis C7 on T1, both similar to prior. Multilevel degenerative changes also similar to prior. This includes at least moderate and possibly high-grade spinal canal narrowing at C3-4 secondary to anterolisthesis and osteophytes and degenerative buckling of the ligamentum flavum. High-grade foraminal narrowing is also seen on the left at C2-3, bilaterally at C3-4, on the left at C4-5, and C5-6. No acute findings in the paraspinal soft tissues. Calcific atherosclerosis. Right ICA stent. Mild groundglass attenuation lung apices has improved compared to previous. Mild partial opacification mastoid tips also improved. CT/Spine Cervical without Contras IMPRESSION: No fracture or dislocation of the cervical spine. Prominent degenerative changes similar to prior. Individualized dose optimization techniques were used for this CT. at 0243 Reported and signed by: Jefe Prince MD Electronically Signed: Jefe Prince, at 2:42 EDT Tel , Service support ,
[2018-07-15 01:41] LABS: Absolute Lymphocyte Count 0.77 X10^3/ul (0.83-4.51); Absolute Neutrophil Count 2.7 X10^3/uL (2.0-7.7); Basophil# 0.06 X10^3/uL; Basophil% 1.4 % (0-1); Eosinophil# 0.23 X10^3/uL; Eosinophils% 5.4 % (0-5); Hematocrit 32.8 % (37-47); Hemoglobin 10.7 g/dl (12.0-15.0); Lymphocyte # 0.77 X10^3/ul (4.0); Lymphocyte % 18.2 % (19-41); Mean Corp Hgb Conc 32.6 g/gl (32-36); Mean Corpuscular Hgb 29.6 pg (27.0-32.0); Mean Corpuscular Volume 90.6 fL (81-99); Mean Platelet Vol. 11.1 fl (6.2-12.0); Monocyte% 11.8 % (0-10); Neutrophil # 2.65 X10^3/uL (2.7-7.7); Neutrophil % 62.7 % (47-70); Platelet Count 189 K/mm3 (150-450); RBC Distribution Width CV 15.9 % (11.6-14.6); RBC Distribution Width SD 51.7 fl (35.1-43.9); Red Blood Count 3.62 M/mm3 (4.2-5.4); White Blood Count 4.2 K/mm3 (4.4-11.0)
[2018-07-15 01:46] LABS: POSITIVE COUNT NO; POSITIVE DIFFERENTIAL NO; POSITIVE MORPHOLOGY NO
[2018-07-15 01:52] LABS: Anion Gap 7 (5-15); BUN 14 mg/dL (7-18); BUN/Creat Ratio 17.9 RATIO (10-20); Calcium,Total 9.3 mg/dL (8.5-10.1); Chloride 104 mmol/L (98-107); Creatinine, Serum 0.78 mg/dL (0.55-1.02); EST Glomerular Filtration Rate 76 mL/min (>60); Est Glom Filt Rate - Afr Amer 92 mL/min (>60); Estimated Creatinine Clearance 42.09 ml/min; Glucose 98 mg/dL (74-106); Potassium 4.2 mmol/L (3.5-5.1); Sodium Level 138 mmol/L (136-145)
[2018-07-15 02:42] LABS: Mucous, Urine 0 SEEN /hpf (<or=2+); Red Blood Cells-Urine 0 SEEN /hpf (0-5); Squamous Epithelial Cells - UA 0 SEEN /hpf (5-10)
[2018-07-15 02:44] LABS: Color, Urine Yellow (Yellow); Glucose, Dipstick Normal (Normal); Ketone-Dipstick Negative (Negative); Leukocyte Esterase-Dipstick 500 /ul (Negative); Nitrite-Dipstick Positive (Negative); Occult Blood-Urine 50 /ul (Negative); Protein-Dipstick 30 mg/dl (Negative); Urine Bilirubin Dipstick Negative (Negative); Urine Clarity Turbid (Clear); Urine Urobilinogen Normal (Normal)
[2018-07-15] MEDS: Ondansetron 4 MG/2 ML Vial IV (02:48)
[2018-07-15] MEDS: fentaNYL 100 MCG/2 ML Ampul 25 MCG IV (02:48)
[2018-07-15 02:53] LABS: Bacteria 2+ /hpf (None Seen); White Blood Cells >100 SEEN /hpf (0-5)
--- NOTE | 2018-07-15 03:47 | ED.DCSUM_ITS ---
- ER Visit Summary Date of Service: 07/15/18 Chief Complaint: Fall History of Present Illness: The patient is a 77 F who presents after a fall. She has had multiple recent ER visits for falls. Family states she has not supposed to get out of bed on her own but does attempt to do so. She states she was leaning against a wall when her hand slipped. She fell and hit her head on the floor. She denies loss of consciousness. She complains of mild headache and mild back pain mild neck pain. He otherwise denies recent illness such as fever chest pain shortness of breath nausea vomiting diarrhea. Physical Examination: Afebrile vitals normal There is a 1 cm laceration at the left eyebrow with mild bleeding and associated left facial hematoma and soft tissue swelling Patient has midline and paraspinal cervical tenderness Heart is regular rate and rhythm Lungs are clear Abdomen soft nontender Active full range of motion x4 extremities GCS of 15 with no focal or lateralizing neurological deficits Test Results: EKG shows sinus rhythm at a rate of 67. Labs including CBC BMP unremarkable. UA is consistent with cystitis with 500 leukocyte esterase, positive nitrates, greater than 100 WBCs. X-rays of the thoracic spine and lumbar spine show no acute findings. Chest x-ray shows chronic changes. CT the head shows no intracranial hemorrhage or skull fracture. CT of the cervical spine shows no fractures. CT of the facial bones shows left periorbital and facial soft tissue swelling and hematoma no fracture. Left eye globe deformity is noted which is unchanged from prior imaging and likely related to retinal detachment. Emergency Department Course and Treatment: Work-up as above. Patient was given IV fentanyl and Zofran for pain. She was given IV Rocephin for UTI. She is from a [facility] facility. However I am concerned about her safety given multiple recent falls and family states they are unable to do bed alarms at this facility. Patient discussed with the hospitalist and admitted. Although the facial laceration is full-thickness of the skin the skin is very thin in this area and I do not believe is amenable to sutured wound closure. Wounds were cleansed and dressed and a hemostatic dressing applied. Treatment Plan: [] Disposition: Admit Impression: Closed head injury Facial laceration Multiple contusions UTI This note was generated with [employer] software. It may contain incorrect words, spelling, and punctuation that were not noted in review of the chart prior to signing ED Disposition - Plan for ED Patient: Referrals: Silvano Whitlock MD [Primary Care Provider] -
[2018-07-15] MEDS: Ceftriaxone 1 GM/50 ML BAG IV (03:52)
--- NOTE | 2018-07-15 04:12 | PCM.HP.STD ---
Problem List (1) Acute on recurrent fall Status: Acute (2) Laceration left frontal region Status: Acute (3) UTI (urinary tract infection) Status: Acute History of Present Illness Date of Admission: 07/15/18 Chief Complaint: Fall The patient is a 77 year old F with multiple comorbidities including diabetes mellitus 2 with macular degeneration and legal blindness was [facility] after she had fall. Patient accompanied by her daughter, Ms. Katherine Heaton who said she is wheelchair dependent. Patient further said that she needed to go to bathroom and she slipped and fell down on her left side. She has a bruise on the nasal bridge, left periorbital edema and bruise and laceration on left frontal region. [] She had multiple imaging test done which did not show any new fracture or dislocation. UA is positive of pyuria, nitrite and bacteria but she denies dysuria, increased frequency urgency more than her baseline. She had Foster catheter which was removed 2 weeks ago after she had laparotomy for bowel obstruction but did not require bowel resection. Past Medical History Past Medical History (Chronic Problems): Chronic Problems (Last Updated 03/23/17 @ 16:07 by ANA Hobbs) Type 2 diabetes mellitus (Chronic) Blindness (Chronic) Anxiety (Chronic) Depression, major (Chronic) Hyperlipidemia (Chronic) Depression (Chronic) Coronary arteriosclerosis (Chronic) CAD (coronary artery disease) (Chronic) stent to LAD S/P PTCA (percutaneous transluminal coronary angioplasty) (Chronic ~2013) LAD HTN (hypertension) (Chronic) Diabetes mellitus (Chronic) Medical History: Medical History (Last Updated 03/23/17 @ 16:07 by ANA Hobbs) Hyperlipidemia (Chronic) E78.5 Coronary arteriosclerosis (Chronic) I25.10 CAD (coronary artery disease) (Chronic) I25.10 stent to LAD HTN (hypertension) (Chronic) I10 Diabetes mellitus (Chronic) E11.9 Allergies ampicillin Allergy (Verified 07/15/18 00:56) Unknown codeine Allergy (Verified 07/15/18 00:56) Unknown diclofenac sodium [From Arthrotec 50] Allergy (Verified 07/15/18 00:56) Unknown doxycycline Allergy (Verified 07/15/18 00:56) Unknown fluticasone propionate [From Flonase] Allergy (Verified 07/15/18 00:56) Unknown green pepper Allergy (Verified 07/15/18 00:56) Food Allergy misoprostol [From Arthrotec 50] Allergy (Verified 07/15/18 00:56) Unknown morphine Allergy (Verified 07/15/18 00:56) Unknown Sulfa (Sulfonamide Antibiotics) Allergy (Verified 07/15/18 00:56) Unknown Tetanus Vaccines and Toxoid [Tetanus Vaccines & Toxoid] Allergy (Verified 07/15/18 00:56) Unknown Home Medications: Ambulatory Orders Medication Instructions Recorded Leflunomide 20 mg PO DAILY 09/16/16 Omeprazole [Prilosec] 20 mg PO DAILY 09/16/16 atorvastatin 40 mg tablet 40 mg PO QHS 90 Days #90 03/23/17 Clopidogrel Bisulfate [Plavix] 75 mg PO DAILY 12/01/17 Lisinopril [Zestril] 20 mg PO DAILY 12/01/17 Metoprolol Tartrate [Lopressor 50 mg PO BID 12/01/17 (beta hermilo)] Aspirin [Adult Aspirin] 81 mg PO DAILY 12/02/17 Acetaminophen [Tylenol Tablet] 650 mg PO Q6H PRN PRN tablet 12/18/17 Fentanyl 1 each TD Q72H 06/03/18 Lorazepam [Ativan] 0.5 mg PO TID PRN PRN 06/03/18 Oxybutynin Chloride 5 mg PO BID 06/03/18 Ibuprofen [Advil] 400 mg PO Q6H PRN PRN 06/17/18 Lidocaine HCl [Aspercreme] 76.5 gm TP BID 06/17/18 Calcium Carbonate/Vitamin D3 1 each PO BID 07/14/18 [Calcium 500-Vit D3 200 Tablet] Sertraline HCl 100 mg PO DAILY 07/14/18 Surgical History: Surgical History (Last Updated 03/23/17 @ 16:07 by ANA Hobbs) S/P PTCA (percutaneous transluminal coronary angioplasty) (Chronic) Onset Date: ~2012 Z98.61 LAD Surgical History: angioplasty - coronary stent, appendectomy, cataract, cholecystectomy, total knee arthroplasty - Bilaterally, - - 3 cardiac stents, surgery for diverticulitis and diverticular abscess Smoking Status: Never smoker - *Family History Maternal Family History: Family History (Last Updated 03/23/17 @ 16:07 by ANA Hobbs) Brother CAD (coronary artery disease) History Items: No pertinent history Paternal Family History: Family History (Last Updated 03/23/17 @ 16:07 by ANA Hobbs) Brother CAD (coronary artery disease) History Items: No pertinent history Sibling Family History: Family History (Last Updated 03/23/17 @ 16:07 by ANA Hobbs) Brother CAD (coronary artery disease) History Items: No pertinent history Review of Systems Constitutional: Denies: Chills, Fever, Weight Change Eyes: Reports: Blurred vision, - - Legal blindness HEENT: Reports: Difficulty Hearing, Head Aches, Hearing Changes Cardiovascular: Denies: Chest Pain, Palpitations Respiratory: Denies: Cough, Shortness of breath at rest, Sputum production Gastrointestinal: Denies: Abdominal Pain, Hematemesis, Hematochezia, Nausea, Melena, Vomiting Genitourinary: Reports: Incontinence. Denies: Dysuria, Frequency Musculoskeletal: Reports: Back Pain, Joint Pain, Joint stiffness, Joint Tenderness Neurological: Reports: Balance problems, Incoordination Unable to obtain accurate/complete ROS d/t: Patient is mild lethargic VTE Information - Inpt Only VTE Present on Admission: No VTE Mechan Device Prophylaxis: SCD's, None Reason prophylaxis not ordered:: Medical Contraindication Patient Problems: Active and Suspected Problems (Last Updated 03/23/17 @ 16:07 by ANA Hobbs) Acute on recurrent fall (Acute) Laceration left frontal region (Acute) UTI (urinary tract infection) (Acute) - Physical Exam General: Disoriented - Disoriented to time. Patient is awake and answers simple question., Lethargic HEENT: PERRLA, EOMI, - - Legal blindness. Left periorbital edema and bruise. She has bandages of the left frontal laceration which is small as per nursing staff. Tenderness present over nasal bridge and periorbital region Oral: Dry Mucosa Neck: Supple, No JVD, Negative Carotid Bruits Lungs: Clear to auscultation, No rhonchi, No wheeze, No rales, Diminished Cardiovascular: Regular rate, Regular Rhythm, Normal S1, Normal S2, No murmurs Abdomen: Bowel Sounds Present, Soft, Non Tender, Non-Distended, - - Mid abdomen surgical scar well-healed Extremities: Edema Musculoskeletal: Arthritic Changes, Muscle Wasting Lymphatic: No Cervical, Supraclavicular, or Inguinal Adenopathy Neurological: Cranial nerves II-XII grossly intact, Deep Tendon Reflexes 2+/4 and Symmetrical, Neuro grossly intact Vital Signs Temp Pulse Resp BP Pulse Ox 98.2 F 65 16 145/56 H 96 07/15/18 03:57 07/15/18 04:01 07/15/18 03:57 07/15/18 03:57 07/15/18 03:57 Oxygen Delivery Method Room Air Weight: 126 lb 12.253 oz Body Mass Index (BMI) 27.4 Laboratory Tests Past 24 Hrs 07/15/18 07/15/18 07/15/18 01:35 01:35 02:30 WBC 4.2 L RBC 3.62 L Hgb 10.7 L Hct 32.8 L MCV 90.6 MCH 29.6 MCHC 32.6 RDW 15.9 H RDW Differential 51.7 H Plt Count 189 MPV 11.1 Immature Gran % (Auto) 0.500 Neut % (Auto) 62.7 Lymph % (Auto) 18.2 L [place] % (Auto) 11.8 H Eos % (Auto) 5.4 H Baso % (Auto) 1.4 H Absolute Neuts (auto) 2.7 Absolute Lymphs (auto) 0.77 L Total Counted Not Reportable Sodium 138 Potassium 4.2 Chloride 104 Carbon Dioxide 27.0 Anion Gap 7 BUN 14 Creatinine 0.78 Estim Creat Clear Calc 42.09 Est GFR (MDRD) Af Amer 92 Est GFR (MDRD) Non-Af 76 BUN/Creatinine Ratio 17.9 Glucose 98 Calcium 9.3 Urine Color Yellow Urine Clarity Turbid Urine pH 6.0 Ur Specific [place] 1.010 Urine Protein 30 H Urine Glucose (UA) Normal Urine Ketones Negative Urine Occult Blood 50 H Urine Nitrite Positive H Urine Bilirubin Negative Urine Urobilinogen Normal Ur Leukocyte Esterase 500 H Urine RBC 0 SEEN Urine WBC >100 SEEN Ur Squamous Epith Cells 0 SEEN Urine Bacteria 2+ Urine Mucus 0 SEEN Assessment/Plan All Active Problems (Last Updated 03/23/17 @ 16:07 by ANA Hobbs) Closed avulsion fracture of greater trochanter of femur (Acute) Acute on recurrent fall (Acute) Laceration left frontal region (Acute) UTI (urinary tract infection) (Acute) The patient is a 77 year old F with multiple comorbidities including diabetes mellitus 2 with macular degeneration and legal blindness, wheelchair dependent is being [facility] for acute on recurrent fall, decreased physical activity/capacity and multiple bruise. She denies loss of consciousness. UA positive of pyuria. 1. Acute on recurrent fall with bruise and left frontal small laceration: Patient had frequent 6 ER visit since March 2018 for fall, head laceration, most recent was yesterday. There is further PT/OT and speech/swallow evaluation. She denies loss of consciousness. 2. Asymptomatic bacteriuria/CAUTI, cystitis: As mentioned above patient had Foster catheter removed about 2 weeks ago. Started empirically on IV ceftriaxone. Urine culture ordered. 3. Generalized degenerative joint disease with recent evolution fracture of left greater trochanter of femur, multiple bruise and incomplete activities of daily living/limited physical activity. 4. Diabetes mellitus type 2 with macular degeneration with legal blindness: This may be contributing to her fall. 5. Hypertension, dyslipidemia and coronary artery disease: Patient home medication continued. 6. Anxiety and depression, GERD: DVT prophylaxis: In view of multiple bruise and recent injury, pharmacological prophylaxis contraindicated. Bilateral SCDs. Advanced directive/goal of life: Discussed with the patient's daughter, Ms. Murphy. Power of photographic developer and printer is her brother, Mr. Xander Woods. Patient and her daughter was given brief description of full code, DNR CC arrest and DNR CC. Currently she is not able to make decision and needs more time. Currently by default she will be full code. Total time spent in [id number] encounter in discussion of advanced directive 18 minutes. Clinical Impression(s) from Imaging Studies Brain CT 07/15/18 01:17 IMPRESSION: No evidence of intracranial injury or skull fracture. Left preorbital soft tissue swelling. Abnormal density in the posterior aspect of the left globe, chronic and unchanged compared to 05/05/18. Most likely retinal detachment. If not previously interrogated consider ophthalmologic follow-up. Individualized dose optimization techniques were used for this CT. Cervical Spine CT 07/15/18 01:17 IMPRESSION: No fracture or dislocation of the cervical spine. Prominent degenerative changes similar to prior. Individualized dose optimization techniques were used for this CT. Chest X-Ray 07/15/18 01:17 IMPRESSION: Chronic interestitial changes. No radiographic evidence of acute cardiopulmonary disease. Facial/Sinus 07/15/18 01:17 IMPRESSION: Left periorbital/facial soft tissue swelling and hematoma but with no facial fracture. Abnormal appearance of the left globe, similar to 05/05/18, probably retinal detachment. Consider ophthalmologic follow-up if not previously interrogated. Individualized dose optimization techniques were used for this CT. Lumbar Spine X-Ray 07/15/18 01:17 IMPRESSION: No acute findings. Thoracic Spine X-Ray 07/15/18 01:17 IMPRESSION: No acute findings. Code Visit OBSV E&M: 05169 Initial observation care L3 Procedures: 13953 Advncd Care Plan 30 Min
[2018-07-15] MEDS: 0.9% Normal Saline 1,000 ML 100 ML IV ×3 (05:02→23:52)
--- NOTE | 2018-07-15 05:44 | NURSING ---
The Fentynal patch that pt. came with from assisted was removed and wasted with Jeri Dudley RN.
[2018-07-15 06:56] LABS: Bedside Glucose 118 mg/dL (70-110)
--- NOTE | 2018-07-15 08:16 | PCM.PN.BLA ---
Progress Note Patient is a 77-year-old lady with history of legal blindness resident at an extended care facility brought to the emergency department with recurrent falls. Patient assessment was consistent with acute cystitis on admission admitted to regular nursing for further management GENERAL: No apparent distress HEENT: Left periorbital bruising with a scalp laceration EYES; Anicteric, Normal Conjunctiva NECK; supple, normal thyroid, RESPIRATORY: Diminished to auscultation bilaterally, CARDIOVASCULAR: Regular S1 S2, GI: soft, non-tender, normoactive bowel sounds, : No Renal angle tenderness; EXTREMITIES: No edema, no clubbing, NEURO: Awake; SKIN: Preoperative bruising PSYCH; Normal affect 1. Acute cystitis attributed to pre-recent Foster use at the [facility] which has since been removed. Started on Rocephin cultures sent 2. Recurrent falls with recent avulsion fracture of the left greater trochanter of the femur. Requested for PT OT eval 3. Degenerative joint 4. Diabetes mellitus type 2 5. Essential hypertension 6. Dyslipidemia 7. Coronary artery disease 8. Depression with anxiety 9. GERD 10. DVT prophylaxis bilateral SCDs
[2018-07-15] MEDS: Sertraline 100 MG Tablet PO (08:26)
[2018-07-15] MEDS: Calcium Carb/Vitamin D 1 TABLET Tablet PO ×2 (08:26→21:35)
[2018-07-15] MEDS: Pantoprazole Sodium 20 MG Tablet PO (08:26)
[2018-07-15] MEDS: Oxybutynin 5 MG Tablet PO ×2 (08:26→21:31)
[2018-07-15] MEDS: Metoprolol Tartrate 50 MG Tablet PO ×2 (08:26→21:32)
[2018-07-15] MEDS: Lisinopril 20 MG Tablet PO (08:27)
[2018-07-15] MEDS: Aspirin E.C. 81 MG Tablet PO (08:27)
[2018-07-15] MEDS: Ibuprofen 400 MG Tablet PO ×2 (09:09→18:19)
[2018-07-15] MEDS: Leflunomide 10 MG TABLET 20 MG PO (09:10)
--- NOTE | 2018-07-15 10:06 | CASEMGMT ---
Social Work Note Pt is listed as being from [facility]. LUKE placed a call to Kim at [facility]. 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 LUKE met with pt, introduced self and role at [facility]. Pt is currently confused, did give permission to this worker to call her children either Katherine or Xander. LUKE placed a call to ginette Murphy message to confirm discharge plans. LUKE placed a call to Xander Terrell confirms pt came from [facility] and the plan is for pt to return there at discharge. LUKE faxed updated clinicals to [facility]. Per Physician pt is not medically cleared for discharge today and maybe tomorrow. LUKE wrote on fax facesheet that pt is likely discharging tomorrow. Plan: Return to [facility] once medically cleared Green sheet and transportation form on pt's chart. Sofia Moses [employer]ER, MACHINE OPERATOR PICKER
[2018-07-15] MEDS: LORazepam 0.5 MG Tablet PO ×3 (11:18→23:50)
[2018-07-15 11:41] LABS: Bedside Glucose 146 mg/dL (70-110)
[2018-07-15] MEDS: Senna Tablet 1 TABLET PO ×2 (13:36→21:36)
[2018-07-15 17:06] LABS: Bedside Glucose 105 mg/dL (70-110)
[2018-07-15] MEDS: Atorvastatin Calcium 40 MG Tablet PO (21:35)
[2018-07-15 21:45] LABS: Bedside Glucose 114 mg/dL (70-110)
[2018-07-16] VITALS (8 sets, daily range): BP systolic 132–206; BP diastolic 58–115; PULSE 70–81; RESP 16–18; TEMP 36.1–37.1; O2SAT 93–99
[2018-07-16] MEDS: LORazepam 0.5 MG Tablet PO ×3 (05:38→22:04)
[2018-07-16 06:35] LABS: Bedside Glucose 101 mg/dL (70-110)
--- NOTE | 2018-07-16 07:16 | PN_ITS ---
Patient Problems: Active and Suspected Problems (Last Updated 03/23/17 @ 16:07 by ANA Hobbs) Acute on recurrent fall (Acute) Laceration left frontal region (Acute) UTI (urinary tract infection) (Acute) Subjective: Patient is a 77-year-old lady with history of legal blindness resident at an extended care facility brought to the emergency department with recurrent falls. Patient assessment was consistent with acute cystitis on admission admitted to regular nursing for further management 07/16/2018: Patient seen appears comfortable at rest. Per nursing staff patient was tearful and delirious during the night Objective: GENERAL: No apparent distress HEENT: Left periorbital bruising with a laceration above the eyelid EYES; Anicteric, Normal Conjunctiva NECK; supple, normal thyroid, RESPIRATORY: Diminished to auscultation bilaterally, CARDIOVASCULAR: Regular S1 S2, GI: soft, non-tender, normoactive bowel sounds, : No Renal angle tenderness; EXTREMITIES: No edema, no clubbing, NEURO: Awake; SKIN: Preoperative bruising PSYCH; flat affect Vitals/I&O's: Vital Signs Temp Pulse Resp BP Pulse Ox 98.3 F 70 16 132/58 H 93 07/16/18 02:41 07/16/18 02:41 07/16/18 02:41 07/16/18 02:41 07/16/18 02:41 Oxygen Delivery Method Room Air Weight: 55.6 kg Body Mass Index (BMI) 26.5 Intake and Output for Last 24 Hours 07/14/18 07/15/18 07/16/18 23:59 23:59 23:59 Intake Total 1795 / 1795 1823 / 1823 Output Total 600 / 600 1000 / 1000 Balance 1195 / 1195 823 / 823 Laboratory Results 07/15/18 11:24: POC Glucose 146 H 07/15/18 17:01: POC Glucose 105 07/15/18 21:16: POC Glucose 114 H 07/16/18 06:20: WBC Pending, RBC Pending, Hgb Pending, Hct Pending, MCV Pending, MCH Pending, MCHC Pending, RDW Pending, RDW Differential Pending, Plt Count Pending, Neut % (Auto) Pending, Absolute Neuts (auto) Pending, Total Counted Pending 07/16/18 06:33: POC Glucose 101 Current Medications Acetaminophen (Tylenol) 650 mg PO Q6H PRN PRN PRN Reason: Mild Pain (0-3/10)/Headache Acetaminophen (Tylenol) 650 mg PO Q6H PRN PRN PRN Reason: Mild Pain (1-3)/Temp > 100.7 F Al Hydroxide/Mg Hydroxide (Mylanta Ii) 30 ml PO Q6H PRN PRN PRN Reason: Gastric Burning Aspirin (Ecotrin) 81 mg PO DAILY [facility] Last Admin: 07/15/18 08:27 Dose: 81 mg Atorvastatin Calcium (Lipitor) 40 mg PO QHS [facility] Last Admin: 07/15/18 21:35 Dose: 40 mg Calcium/Vitamin D (Os-Apollo 500mg + D) 1 tablet PO BID [facility] Last Admin: 07/15/18 21:35 Dose: 1 tablet Dextrose (D50w Syringe) 0 gm IV X1 PRN; Protocol PRN Reason: Hypoglycemia Glucagon () 1 mg IM .X1 PRN PRN Reason: Hypoglycemia Sodium Chloride () 1,000 mls @ 100 mls/hr IV .Q10H [facility] Last Admin: 07/15/18 23:52 Dose: 100 mls/hr Sodium Chloride () 250 mls @ 15 mls/hr IV .[id number] PRN PRN Reason: SALINE FLUSH Ibuprofen (Motrin) 400 mg PO Q6H PRN PRN PRN Reason: PAIN Last Admin: 07/15/18 18:19 Dose: 400 mg Insulin Human Lispro (Humalog Kwikpen (Bkc)) 0 unit SQ ACHS [facility]; Protocol Last Admin: 07/16/18 06:48 Dose: Not Given Leflunomide (Leflunomide) 20 mg PO DAILY [facility] Last Admin: 07/15/18 09:10 Dose: 20 mg Lisinopril (Zestril) 20 mg PO DAILY [facility] Last Admin: 07/15/18 08:27 Dose: 20 mg Lorazepam (Ativan) 0.5 mg PO TID PRN PRN PRN Reason: ANXIETY Last Admin: 07/16/18 05:38 Dose: 0.5 mg Metoprolol Tartrate (Lopressor (Beta Maximiliano)) 50 mg PO BID [facility] Last Admin: 07/15/18 21:32 Dose: 50 mg Ondansetron HCl (Zofran) 4 mg IV Q8H PRN PRN PRN Reason: NAUSEA/VOMITING Oxybutynin Chloride (Ditropan) 5 mg PO BID [facility] Last Admin: 07/15/18 21:31 Dose: 5 mg Pantoprazole Sodium (Protonix) 20 mg PO DAILY [facility] Last Admin: 07/15/18 08:26 Dose: 20 mg Promethazine HCl (Phenergan) 12.5 mg IV Q6H PRN PRN PRN Reason: Breakthrough nausea/vomiting Senna (Senokot) 1 tablet PO BID [facility] Last Admin: 07/15/18 21:36 Dose: 1 tablet Sertraline HCl (Zoloft) 100 mg PO DAILY [facility] Last Admin: 07/15/18 08:26 Dose: 100 mg Sodium Chloride () 5 - 15 ml IV UD PRN PRN Reason: SALINE FLUSH Medical Necessity - Tobacco Use Smoking Status: Never smoker Assessment/Plan All Active Problems (Last Updated 03/23/17 @ 16:07 by ANA Hobbs) Closed avulsion fracture of greater trochanter of femur (Acute) Acute on recurrent fall (Acute) Laceration left frontal region (Acute) UTI (urinary tract infection) (Acute) Patient is a 77-year-old lady with history of legal blindness resident at an extended care facility brought to the emergency department with recurrent falls. Patient assessment was consistent with acute cystitis on admission admitted to regular nursing for further management 1. Acute cystitis attributed to pre-recent Foster use at the [facility] which has since been removed. Started on Rocephin cultures sent. Results of cultures pending 2. Recurrent falls with recent avulsion fracture of the left greater trochanter of the femur.. Patient presented with closed head injury with left periorbital contusion and eyebrow laceration. Admitted to regular nursing floor for symptomatic management ;requested for PT OT eval services to assist with discharge planning 3. Abnormal density in the posterior aspect of the left globe, chronic and unchanged compared to 05/05/18. Most likely retinal detachment. Plan is for patient to follow-up with ophthalmology following her discharge ophthalmologic follow-up. 4. Diabetes mellitus type 2: Managed with diet please on Accu-Cheks before meals and at bedtime with sliding scale coverage 5. Essential hypertension-blood pressure controlled, home medications continued with dose adjustment as needed 6. Dyslipidemia-patient is on statin therapy, continued at home dose 7. Coronary artery disease previous PTCA of her lady 8. Depression with anxiety: Patient is on SSRI 9. GERD; PPI 10. Degenerative joint: 11. DVT prophylaxis bilateral SCDs Active Medications Acetaminophen (Tylenol) 650 mg PO Q6H PRN PRN PRN Reason: Mild Pain (0-3/10)/Headache Acetaminophen (Tylenol) 650 mg PO Q6H PRN PRN PRN Reason: Mild Pain (1-3)/Temp > 100.7 F Al Hydroxide/Mg Hydroxide (Mylanta Ii) 30 ml PO Q6H PRN PRN PRN Reason: Gastric Burning Aspirin (Ecotrin) 81 mg PO DAILY [facility] Last Admin: 07/15/18 08:27 Dose: 81 mg Atorvastatin Calcium (Lipitor) 40 mg PO QHS [facility] Last Admin: 07/15/18 21:35 Dose: 40 mg Calcium/Vitamin D (Os-Apollo 500mg + D) 1 tablet PO BID [facility] Last Admin: 07/15/18 21:35 Dose: 1 tablet Dextrose (D50w Syringe) 0 gm IV X1 PRN; Protocol PRN Reason: Hypoglycemia Glucagon () 1 mg IM .X1 PRN PRN Reason: Hypoglycemia Sodium Chloride () 1,000 mls @ 100 mls/hr IV .Q10H [facility] Last Admin: 07/15/18 23:52 Dose: 100 mls/hr Sodium Chloride () 250 mls @ 15 mls/hr IV .[id number] PRN PRN Reason: SALINE FLUSH Ibuprofen (Motrin) 400 mg PO Q6H PRN PRN PRN Reason: PAIN Last Admin: 07/15/18 18:19 Dose: 400 mg Insulin Human Lispro (Humalog Kwikpen (Bkc)) 0 unit SQ ACHS [facility]; Protocol Last Admin: 07/16/18 06:48 Dose: Not Given Leflunomide (Leflunomide) 20 mg PO DAILY [facility] Last Admin: 07/15/18 09:10 Dose: 20 mg Lisinopril (Zestril) 20 mg PO DAILY [facility] Last Admin: 07/15/18 08:27 Dose: 20 mg Lorazepam (Ativan) 0.5 mg PO TID PRN PRN PRN Reason: ANXIETY Last Admin: 07/16/18 05:38 Dose: 0.5 mg Metoprolol Tartrate (Lopressor (Beta Maximiliano)) 50 mg PO BID [facility] Last Admin: 07/15/18 21:32 Dose: 50 mg Ondansetron HCl (Zofran) 4 mg IV Q8H PRN PRN PRN Reason: NAUSEA/VOMITING Oxybutynin Chloride (Ditropan) 5 mg PO BID [facility] Last Admin: 07/15/18 21:31 Dose: 5 mg Pantoprazole Sodium (Protonix) 20 mg PO DAILY [facility] Last Admin: 07/15/18 08:26 Dose: 20 mg Promethazine HCl (Phenergan) 12.5 mg IV Q6H PRN PRN PRN Reason: Breakthrough nausea/vomiting Senna (Senokot) 1 tablet PO BID [facility] Last Admin: 07/15/18 21:36 Dose: 1 tablet Sertraline HCl (Zoloft) 100 mg PO DAILY [facility] Last Admin: 07/15/18 08:26 Dose: 100 mg Sodium Chloride () 5 - 15 ml IV UD PRN PRN Reason: SALINE FLUSH Clinical Impression(s) from Imaging Studies Brain CT 07/15/18 01:17 IMPRESSION: No evidence of intracranial injury or skull fracture. Left preorbital soft tissue swelling. Abnormal density in the posterior aspect of the left globe, chronic and unchanged compared to 05/05/18. Most likely retinal detachment. If not previously interrogated consider ophthalmologic follow-up. Individualized dose optimization techniques were used for this CT. at 0239 Reported and signed by: Jefe Prince MD Electronically Signed: Jefe Prince, at 2:38 EDT Tel , Service support , Cervical Spine CT 07/15/18 01:17 IMPRESSION: No fracture or dislocation of the cervical spine. Prominent degenerative changes similar to prior. Individualized dose optimization techniques were used for this CT. at 0243 Reported and signed by: Jefe Prince MD Electronically Signed: Jefe Prince, at 2:42 EDT Tel , Service support , Chest X-Ray 07/15/18 01:17 IMPRESSION: Chronic interestitial changes. No radiographic evidence of acute cardiopulmonary disease. at 0321 Reported and signed by: Jefe Prince MD Electronically Signed: Jefe Prince, at 3:20 EDT Tel , Service support , Facial/Sinus 07/15/18 01:17 IMPRESSION: Left periorbital/facial soft tissue swelling and hematoma but with no facial fracture. Abnormal appearance of the left globe, similar to 05/05/18, probably retinal detachment. Consider ophthalmologic follow-up if not previously interrogated. Individualized dose optimization techniques were used for this CT. at 0237 Reported and signed by: Jefe Prince MD Electronically Signed: Jefe Pirnce, at 2:36 EDT Tel , Service support , Lumbar Spine X-Ray 07/15/18 01:17 IMPRESSION: No acute findings. at 0322 Reported and signed by: Jefe Prince MD Electronically Signed: Jefe Prince, at 3:21 EDT Tel , Service support , Thoracic Spine X-Ray 07/15/18 01:17 IMPRESSION: No acute findings. at 0323 Reported and signed by: Jefe Prince MD Electronically Signed: Jefe Prince, at 3:22 EDT Tel , Service support , Code Visit OBSV E&M: 90921 Subsequent observation care L3
[2018-07-16 07:23] LABS: Absolute Lymphocyte Count 0.65 X10^3/ul (0.83-4.51); Absolute Neutrophil Count 2.7 X10^3/uL (2.0-7.7); Basophil# 0.03 X10^3/uL; Basophil% 0.7 % (0-1); Eosinophil# 0.26 X10^3/uL; Eosinophils% 6.3 % (0-5); Hematocrit 30.9 % (37-47); Hemoglobin 9.6 g/dl (12.0-15.0); Lymphocyte # 0.65 X10^3/ul (4.0); Lymphocyte % 15.8 % (19-41); Mean Corp Hgb Conc 31.1 g/gl (32-36); Mean Corpuscular Hgb 28.5 pg (27.0-32.0); Mean Corpuscular Volume 91.7 fL (81-99); Mean Platelet Vol. 11.1 fl (6.2-12.0); Monocyte# 0.49 X10^3/uL; Monocyte% 11.9 % (0-10); Neutrophil # 2.67 X10^3/uL (2.7-7.7); Neutrophil % 65.1 % (47-70); Platelet Count 173 K/mm3 (150-450); RBC Distribution Width CV 16.2 % (11.6-14.6); RBC Distribution Width SD 52.8 fl (35.1-43.9); Red Blood Count 3.37 M/mm3 (4.2-5.4); White Blood Count 4.1 K/mm3 (4.4-11.0)
[2018-07-16 07:29] LABS: POSITIVE COUNT NO; POSITIVE DIFFERENTIAL NO; POSITIVE MORPHOLOGY NO
[2018-07-16] MEDS: Senna Tablet 1 TABLET PO ×2 (08:43→22:07)
[2018-07-16] MEDS: Aspirin E.C. 81 MG Tablet PO (08:43)
[2018-07-16] MEDS: Pantoprazole Sodium 20 MG Tablet PO (08:44)
[2018-07-16] MEDS: Metoprolol Tartrate 50 MG Tablet PO ×2 (08:44→22:06)
[2018-07-16] MEDS: Lisinopril 20 MG Tablet PO ×2 (08:44→22:07)
[2018-07-16] MEDS: Sertraline 100 MG Tablet PO (08:44)
[2018-07-16] MEDS: Oxybutynin 5 MG Tablet PO ×2 (08:44→22:05)
[2018-07-16] MEDS: Leflunomide 10 MG TABLET 20 MG PO (08:44)
[2018-07-16] MEDS: Calcium Carb/Vitamin D 1 TABLET Tablet PO ×2 (08:45→22:05)
[2018-07-16] MEDS: 0.9% Normal Saline 1,000 ML 100 ML IV (10:49)
--- NOTE | 2018-07-16 11:02 | CASEMGMT ---
SW called [facility], let Catia know(Kim is in a meeting) that pt will be here at least until tomorrow. Green sheet is on chart w/transport forms in anticipation of discharge back to [facility] tomorrow. FEDE Velasquez
[2018-07-16 11:30] LABS: Bedside Glucose 95 mg/dL (70-110)
[2018-07-16] MEDS: amLODIPine 10 MG Tablet PO (14:21)
[2018-07-16 16:35] LABS: Bedside Glucose 142 mg/dL (70-110)
--- NOTE | 2018-07-16 19:06 | NURSING ---
Son Xander raised concerns about patient returning to the [facility] with her current status and confusion. Alert to self only at this time. Xander states since (November 2017) she has had 8 falls, 1 requiring sussy in head. Son wishes to consider different placement options for Discharge. States the [facility] do not use chair/bed alarms as they consider them a restraint. He feels she is not safe returning there. Xander stated patient lost her 3 weeks ago and has not been the same since. Instructed Xander to follow up with social work.
[2018-07-16] MEDS: 0.9% NaCl Peripheral Flush Adult/Peds IV ×2 (20:08→22:16)
[2018-07-16] MEDS: Ibuprofen 400 MG Tablet PO (20:45)
[2018-07-16] MEDS: Atorvastatin Calcium 40 MG Tablet PO (22:05)
[2018-07-16] MEDS: hydrALAZINE 20 MG/ML Vial 10 MG IV (22:12)
[2018-07-16 22:25] LABS: Bedside Glucose 122 mg/dL (70-110)
[2018-07-17] VITALS (9 sets, daily range): BP systolic 138–184; BP diastolic 75–100; PULSE 74–86; RESP 16–20; TEMP 36.7–37.1; O2SAT 94–99
[2018-07-17] MEDS: 0.9% Normal Saline 1,000 ML 100 ML IV ×3 (00:52→23:18)
[2018-07-17] MEDS: Acetaminophen 325 MG Tablet 650 MG PO (00:53)
[2018-07-17] MEDS: hydrALAZINE 20 MG/ML Vial 10 MG IV (03:57)
[2018-07-17] MEDS: 0.9% NaCl Peripheral Flush Adult/Peds IV (04:01)
[2018-07-17] MEDS: LORazepam 0.5 MG Tablet PO ×2 (06:11→21:55)
[2018-07-17 06:16] LABS: Bedside Glucose 119 mg/dL (70-110)
--- NOTE | 2018-07-17 08:38 | NURSING ---
spoke with Ghotra son of pt. and informed him that dr lawler saw pt and fells that [facility]. also informed him that nursing homes in [place] are unable to use bed alarms. Told son that pt has a uti and feels that that is why she may be falling more lately. we will be sending her back with antibiotics to treat her uti.pt son ok with pt going back to [facility]. told pt that we will be notifying hem later on transfer information.
[2018-07-17] MEDS: Leflunomide 10 MG TABLET 20 MG PO (08:45)
[2018-07-17] MEDS: Aspirin E.C. 81 MG Tablet PO (08:45)
[2018-07-17] MEDS: Lisinopril 20 MG Tablet PO ×2 (08:45→21:51)
[2018-07-17] MEDS: Senna Tablet 1 TABLET PO ×2 (08:45→21:51)
[2018-07-17] MEDS: Metoprolol Tartrate 50 MG Tablet PO ×2 (08:45→21:50)
[2018-07-17] MEDS: Sertraline 100 MG Tablet PO (08:45)
[2018-07-17] MEDS: Oxybutynin 5 MG Tablet PO ×2 (08:45→21:50)
[2018-07-17] MEDS: Pantoprazole Sodium 20 MG Tablet PO (08:45)
[2018-07-17] MEDS: Calcium Carb/Vitamin D 1 TABLET Tablet PO ×2 (08:45→21:51)
[2018-07-17] MEDS: amLODIPine 10 MG Tablet PO (08:45)
--- NOTE | 2018-07-17 08:54 | NURSING ---
arlyn the son called back and requesting to talk to dr lawler. txt him and and informed him that pt son wants to talk to him
--- NOTE | 2018-07-17 08:54 | PCM.TXEXTCAR ---
- Diet 07/15/18 04:43 Diet: Calorie Controlled Food consistency:: Mechanical Soft/Ground Liquid Consistency:: Regular/Thin Diet Comments: SUPERVISE/ASSIST W/ INTAKE, HOB 90 DEGREES How many daily calories?: 1800 calorie - Routine Orders/Code Status Code Status: Full Code - Wound(s) LEFT EYEBROW Wound Type: Laceration LFA Wound Type: Skin Tear - Therapies Physical Therapy: Eval and Treat Occupational Therapy: Eval and Treat - Allergies/Procedures Done in Hospital Allergies/Adverse Reactions: Allergies ampicillin Allergy (Verified 07/15/18 00:56) Unknown codeine Allergy (Verified 07/15/18 00:56) Unknown diclofenac sodium [From Arthrotec 50] Allergy (Verified 07/15/18 00:56) Unknown doxycycline Allergy (Verified 07/15/18 00:56) Unknown fluticasone propionate [From Flonase] Allergy (Verified 07/15/18 00:56) Unknown green pepper Allergy (Verified 07/15/18 00:56) Food Allergy misoprostol [From Arthrotec 50] Allergy (Verified 07/15/18 00:56) Unknown morphine Allergy (Verified 07/15/18 00:56) Unknown Sulfa (Sulfonamide Antibiotics) Allergy (Verified 07/15/18 00:56) Unknown Tetanus Vaccines and Toxoid [Tetanus Vaccines & Toxoid] Allergy (Verified 07/15/18 00:56) Unknown - Type of Care/Length of Stay Estimated LOS: Convalescent Care Less Than 30 days Type of Care Needed: Skilled Rehab Potential: Good Prognosis: Good - Additional Orders/Day of Discharge Day of Discharge: 07/17/18 - Follow Up Care Primary Care Physician: Silvano Whitlock MD [Primary Care Provider] - Please follow up with your Primary Care Physician in: 3-5 days
--- NOTE | 2018-07-17 10:41 | PCM.PN.HOSP ---
Patient Problems: Active and Suspected Problems (Last Updated 03/23/17 @ 16:07 by ANA Hobbs) Acute on recurrent fall (Acute) Laceration left frontal region (Acute) UTI (urinary tract infection) (Acute) Subjective: Doing well, feels better than when she came in. Denies any fevers or chills, denies any nausea or vomiting. Vitals/I&O's: Vital Signs Temp Pulse Resp BP Pulse Ox 98.1 F 84 18 176/100 H 94 07/17/18 07:10 07/17/18 08:45 07/17/18 07:10 07/17/18 07:10 07/17/18 07:10 Oxygen Delivery Method Room Air Weight: 122 lb 9.232 oz Body Mass Index (BMI) 26.5 Intake and Output for Last 24 Hours 07/15/18 07/16/18 07/17/18 23:59 23:59 23:59 Intake Total 1795 / 1795 3673 / 3673 954 / 954 Output Total 600 / 600 1999 / 1999 700 / 700 Balance 1195 / 1195 1673 / 1673 254 / 254 General: Alert, Cooperative, No apparent distress, - - Oriented to person and place not time HEENT: Atraumatic, EOMI, Normocephalic Oral: Moist Mucosa Neck: Supple, No JVD Lungs: Clear to auscultation, Normal air movement, No rhonchi, No wheeze, No rales Cardiovascular: Regular rate, Regular Rhythm, Normal S1, Normal S2, No murmurs Abdomen: Soft, Non Tender, Non-Distended, No Hepato-splenomegaly Extremities: No edema, Capillary Refill Less than 3 Seconds Skin: No rashes, No breakdown Neurological: Neuro grossly intact, Sensory exam intact to light touch and pain Psych/Mental Status: Normal Affect, Appropriate Microbiology Past 72 Hours 07/15/18 02:30 Urine, Clean Catch Urine Culture - Final Citrobacter freundii Laboratory Results 07/16/18 11:23: POC Glucose 95 07/16/18 16:20: POC Glucose 142 H 07/16/18 22:04: POC Glucose 122 H 07/17/18 06:12: POC Glucose 119 H Current Medications Acetaminophen (Tylenol) 650 mg PO Q6H PRN PRN PRN Reason: Mild Pain (0-3/10)/Headache Last Admin: 07/17/18 00:53 Dose: 650 mg Acetaminophen (Tylenol) 650 mg PO Q6H PRN PRN PRN Reason: Mild Pain (1-3)/Temp > 100.7 F Al Hydroxide/Mg Hydroxide (Mylanta Ii) 30 ml PO Q6H PRN PRN PRN Reason: Gastric Burning Amlodipine Besylate (Norvasc) 10 mg PO DAILY [facility] Last Admin: 07/17/18 08:45 Dose: 10 mg Aspirin (Ecotrin) 81 mg PO DAILY [facility] Last Admin: 07/17/18 08:45 Dose: 81 mg Atorvastatin Calcium (Lipitor) 40 mg PO QHS [facility] Last Admin: 07/16/18 22:05 Dose: 40 mg Calcium/Vitamin D (Os-Apollo 500mg + D) 1 tablet PO BID [facility] Last Admin: 07/17/18 08:45 Dose: 1 tablet Dextrose (D50w Syringe) 0 gm IV X1 PRN; Protocol PRN Reason: Hypoglycemia Glucagon () 1 mg IM .X1 PRN PRN Reason: Hypoglycemia Hydralazine HCl (Apresoline Iv) 10 mg IV Q4H PRN PRN PRN Reason: for SBP > 150 Last Admin: 07/17/18 03:57 Dose: 10 mg Sodium Chloride () 1,000 mls @ 100 mls/hr IV .Q10H [facility] Last Admin: 07/17/18 00:52 Dose: 100 mls/hr Sodium Chloride () 250 mls @ 15 mls/hr IV .[id number] PRN PRN Reason: SALINE FLUSH Ciprofloxacin (Cipro) 400 mg in 200 mls @ 200 mls/hr IV Q12 [facility] Ibuprofen (Motrin) 400 mg PO Q6H PRN PRN PRN Reason: PAIN Last Admin: 07/16/18 20:45 Dose: 400 mg Insulin Human Lispro (Humalog Kwikpen (Bkc)) 0 unit SQ ACHS [facility]; Protocol Last Admin: 07/17/18 06:13 Dose: Not Given Leflunomide (Leflunomide) 20 mg PO DAILY [facility] Last Admin: 07/17/18 08:45 Dose: 20 mg Lisinopril (Zestril) 20 mg PO BID [facility] Last Admin: 07/17/18 08:45 Dose: 20 mg Lorazepam (Ativan) 0.5 mg PO TID PRN PRN PRN Reason: ANXIETY Last Admin: 07/17/18 06:11 Dose: 0.5 mg Metoprolol Tartrate (Lopressor (Beta Maximiliano)) 50 mg PO BID [facility] Last Admin: 07/17/18 08:45 Dose: 50 mg Ondansetron HCl (Zofran) 4 mg IV Q8H PRN PRN PRN Reason: NAUSEA/VOMITING Oxybutynin Chloride (Ditropan) 5 mg PO BID [facility] Last Admin: 07/17/18 08:45 Dose: 5 mg Pantoprazole Sodium (Protonix) 20 mg PO DAILY [facility] Last Admin: 07/17/18 08:45 Dose: 20 mg Promethazine HCl (Phenergan) 12.5 mg IV Q6H PRN PRN PRN Reason: Breakthrough nausea/vomiting Senna (Senokot) 1 tablet PO BID [facility] Last Admin: 07/17/18 08:45 Dose: 1 tablet Sertraline HCl (Zoloft) 100 mg PO DAILY [facility] Last Admin: 07/17/18 08:45 Dose: 100 mg Sodium Chloride () 5 - 15 ml IV UD PRN PRN Reason: SALINE FLUSH Last Admin: 07/17/18 04:01 Dose: 10 ml Medical Necessity - Tobacco Use Smoking Status: Never smoker Assessment/Plan All Active Problems (Last Updated 03/23/17 @ 16:07 by ANA Hobbs) Closed avulsion fracture of greater trochanter of femur (Acute) Acute on recurrent fall (Acute) Laceration left frontal region (Acute) UTI (urinary tract infection) (Acute) 1. Altered mental status and falls secondary to acute cystitis/closed head injury with left periorbital contusion and eyebrow laceration -Her urine culture came back with Citrobacter that was resistant to the Rocephin she was being given -We will transition to Cipro twice daily -I discussed this with the son who requested that even though she is on the correct antibiotic he would like her to stay another night -CT scan of the brain did not show any bleeding -PT/OT 2. 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 DM2 -Continue with sliding scale coverage as well as is appropriate diet -Blood sugars are in the low 100s 4. CAD status post stent/HTN/HLD -We will continue with lisinopril 20 mg daily as well as Norvasc and her metoprolol. -Continue with statin and aspirin but hold the Plavix secondary to her falls -We will continue the Plavix on discharge 5. Depression/anxiety -Stable -Continue with SSRI 6. GERD -Stable -Continue with PPI 7. Degenerative joint disease -Also appears to be stable -Continue with leflunomide DVT: SCDs Code Visit OBSV E&M: 20621 Subsequent observation care L2
[2018-07-17] MEDS: Ciprofloxacin 400 MG/200 ML BAG 200 MG IV ×2 (10:42→21:49)
--- NOTE | 2018-07-17 10:56 | PN_ITS ---
Patient Problems: Active and Suspected Problems (Last Updated 03/23/17 @ 16:07 by ANA Hobbs) Acute on recurrent fall (Acute) Laceration left frontal region (Acute) UTI (urinary tract infection) (Acute) Subjective: Doing well, feels better than when she came in. Denies any fevers or chills, denies any nausea or vomiting. Vitals/I&O's: Vital Signs Temp Pulse Resp BP Pulse Ox 98.1 F 84 18 176/100 H 94 07/17/18 07:10 07/17/18 08:45 07/17/18 07:10 07/17/18 07:10 07/17/18 07:10 Oxygen Delivery Method Room Air Weight: 122 lb 9.232 oz Body Mass Index (BMI) 26.5 Intake and Output for Last 24 Hours 07/15/18 07/16/18 07/17/18 23:59 23:59 23:59 Intake Total 1795 / 1795 3673 / 3673 954 / 954 Output Total 600 / 600 1999 / 1999 700 / 700 Balance 1195 / 1195 1673 / 1673 254 / 254 General: Alert, Cooperative, No apparent distress, - - Oriented to person and place not time HEENT: Atraumatic, EOMI, Normocephalic Oral: Moist Mucosa Neck: Supple, No JVD Lungs: Clear to auscultation, Normal air movement, No rhonchi, No wheeze, No rales Cardiovascular: Regular rate, Regular Rhythm, Normal S1, Normal S2, No murmurs Abdomen: Soft, Non Tender, Non-Distended, No Hepato-splenomegaly Extremities: No edema, Capillary Refill Less than 3 Seconds Skin: No rashes, No breakdown Neurological: Neuro grossly intact, Sensory exam intact to light touch and pain Psych/Mental Status: Normal Affect, Appropriate Microbiology Past 72 Hours 07/15/18 02:30 Urine, Clean Catch Urine Culture - Final Citrobacter freundii Laboratory Results 07/16/18 11:23: POC Glucose 95 07/16/18 16:20: POC Glucose 142 H 07/16/18 22:04: POC Glucose 122 H 07/17/18 06:12: POC Glucose 119 H Current Medications Acetaminophen (Tylenol) 650 mg PO Q6H PRN PRN PRN Reason: Mild Pain (0-3/10)/Headache Last Admin: 07/17/18 00:53 Dose: 650 mg Acetaminophen (Tylenol) 650 mg PO Q6H PRN PRN PRN Reason: Mild Pain (1-3)/Temp > 100.7 F Al Hydroxide/Mg Hydroxide (Mylanta Ii) 30 ml PO Q6H PRN PRN PRN Reason: Gastric Burning Amlodipine Besylate (Norvasc) 10 mg PO DAILY [facility] Last Admin: 07/17/18 08:45 Dose: 10 mg Aspirin (Ecotrin) 81 mg PO DAILY [facility] Last Admin: 07/17/18 08:45 Dose: 81 mg Atorvastatin Calcium (Lipitor) 40 mg PO QHS [facility] Last Admin: 07/16/18 22:05 Dose: 40 mg Calcium/Vitamin D (Os-Apollo 500mg + D) 1 tablet PO BID [facility] Last Admin: 07/17/18 08:45 Dose: 1 tablet Dextrose (D50w Syringe) 0 gm IV X1 PRN; Protocol PRN Reason: Hypoglycemia Glucagon () 1 mg IM .X1 PRN PRN Reason: Hypoglycemia Hydralazine HCl (Apresoline Iv) 10 mg IV Q4H PRN PRN PRN Reason: for SBP > 150 Last Admin: 07/17/18 03:57 Dose: 10 mg Sodium Chloride () 1,000 mls @ 100 mls/hr IV .Q10H DANIEL Last Admin: 07/17/18 00:52 Dose: 100 mls/hr Sodium Chloride () 250 mls @ 15 mls/hr IV .[id number] PRN PRN Reason: SALINE FLUSH Ciprofloxacin (Cipro) 400 mg in 200 mls @ 200 mls/hr IV Q12 [facility] Ibuprofen (Motrin) 400 mg PO Q6H PRN PRN PRN Reason: PAIN Last Admin: 07/16/18 20:45 Dose: 400 mg Insulin Human Lispro (Humalog Kwikpen (Bkc)) 0 unit SQ ACHS [facility]; Protocol Last Admin: 07/17/18 06:13 Dose: Not Given Leflunomide (Leflunomide) 20 mg PO DAILY [facility] Last Admin: 07/17/18 08:45 Dose: 20 mg Lisinopril (Zestril) 20 mg PO BID [facility] Last Admin: 07/17/18 08:45 Dose: 20 mg Lorazepam (Ativan) 0.5 mg PO TID PRN PRN PRN Reason: ANXIETY Last Admin: 07/17/18 06:11 Dose: 0.5 mg Metoprolol Tartrate (Lopressor (Beta Maximiliano)) 50 mg PO BID [facility] Last Admin: 07/17/18 08:45 Dose: 50 mg Ondansetron HCl (Zofran) 4 mg IV Q8H PRN PRN PRN Reason: NAUSEA/VOMITING Oxybutynin Chloride (Ditropan) 5 mg PO BID [facility] Last Admin: 07/17/18 08:45 Dose: 5 mg Pantoprazole Sodium (Protonix) 20 mg PO DAILY [facility] Last Admin: 07/17/18 08:45 Dose: 20 mg Promethazine HCl (Phenergan) 12.5 mg IV Q6H PRN PRN PRN Reason: Breakthrough nausea/vomiting Senna (Senokot) 1 tablet PO BID [facility] Last Admin: 07/17/18 08:45 Dose: 1 tablet Sertraline HCl (Zoloft) 100 mg PO DAILY [facility] Last Admin: 07/17/18 08:45 Dose: 100 mg Sodium Chloride () 5 - 15 ml IV UD PRN PRN Reason: SALINE FLUSH Last Admin: 07/17/18 04:01 Dose: 10 ml Medical Necessity - Tobacco Use Smoking Status: Never smoker Assessment/Plan All Active Problems (Last Updated 03/23/17 @ 16:07 by ANA Hobbs) Closed avulsion fracture of greater trochanter of femur (Acute) Acute on recurrent fall (Acute) Laceration left frontal region (Acute) UTI (urinary tract infection) (Acute) 1. Altered mental status and falls secondary to acute cystitis/closed head injury with left periorbital contusion and eyebrow laceration -Her urine culture came back with Citrobacter that was resistant to the Rocephin she was being given -We will transition to Cipro twice daily -I discussed this with the son who requested that even though she is on the correct antibiotic he would like her to stay another night -CT scan of the brain did not show any bleeding -PT/OT 2. 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 DM2 -Continue with sliding scale coverage as well as is appropriate diet -Blood sugars are in the low 100s 4. CAD status post stent/HTN/HLD -We will continue with lisinopril 20 mg daily as well as Norvasc and her metoprolol. -Continue with statin and aspirin but hold the Plavix secondary to her falls -We will continue the Plavix on discharge 5. Depression/anxiety -Stable -Continue with SSRI 6. GERD -Stable -Continue with PPI 7. Degenerative joint disease -Also appears to be stable -Continue with leflunomide DVT: SCDs Code Visit OBSV E&M: 97227 Subsequent observation care L2
[2018-07-17 11:36] LABS: Bedside Glucose 167 mg/dL (70-110)
[2018-07-17 17:05] LABS: Bedside Glucose 122 mg/dL (70-110)
[2018-07-17] MEDS: Atorvastatin Calcium 40 MG Tablet PO (21:50)
[2018-07-17 22:05] LABS: Bedside Glucose 142 mg/dL (70-110)
[2018-07-18] MEDS: Ibuprofen 400 MG Tablet PO (04:50)
[2018-07-18 04:53] VITALS: BP 149/74; PULSE 78; RESP 18; TEMP 37.4; O2SAT 95
[2018-07-18 06:05] LABS: Absolute Lymphocyte Count 0.69 X10^3/ul (0.83-4.51); Absolute Neutrophil Count 3.7 X10^3/uL (2.0-7.7); Basophil# 0.03 X10^3/uL; Basophil% 0.6 % (0-1); Eosinophil# 0.17 X10^3/uL; Eosinophils% 3.3 % (0-5); Hemoglobin 9.3 g/dl (12.0-15.0); Lymphocyte # 0.69 X10^3/ul (4.0); Lymphocyte % 13.2 % (19-41); Mean Corp Hgb Conc 32.1 g/gl (32-36); Mean Corpuscular Hgb 29.1 pg (27.0-32.0); Mean Corpuscular Volume 90.6 fL (81-99); Mean Platelet Vol. 10.5 fl (6.2-12.0); Monocyte# 0.58 X10^3/uL; Monocyte% 11.1 % (0-10); Neutrophil # 3.71 X10^3/uL (2.7-7.7); Neutrophil % 71.2 % (47-70); Platelet Count 184 K/mm3 (150-450); RBC Distribution Width CV 16.1 % (11.6-14.6); RBC Distribution Width SD 51.6 fl (35.1-43.9); White Blood Count 5.2 K/mm3 (4.4-11.0)
[2018-07-18 06:16] LABS: POSITIVE COUNT NO; POSITIVE DIFFERENTIAL NO; POSITIVE MORPHOLOGY NO
[2018-07-18 06:28] LABS: Anion Gap 7 (5-15); BUN 5 mg/dL (7-18); BUN/Creat Ratio 8.6 RATIO (10-20); Calcium,Total 8.5 mg/dL (8.5-10.1); Chloride 112 mmol/L (98-107); Creatinine, Serum 0.58 mg/dL (0.55-1.02); EST Glomerular Filtration Rate 106 mL/min (>60); Est Glom Filt Rate - Afr Amer 128 mL/min (>60); Glucose 115 mg/dL (74-106); Potassium 3.1 mmol/L (3.5-5.1); Sodium Level 141 mmol/L (136-145)
[2018-07-18] MEDS: LORazepam 0.5 MG Tablet PO (06:50)
[2018-07-18 07:04] VITALS: O2SAT 96
[2018-07-18 07:05] LABS: Bedside Glucose 116 mg/dL (70-110)
--- NOTE | 2018-07-18 07:59 | NURSING ---
attempted to call report to [facility] left message.
[2018-07-18] MEDS: Ciprofloxacin 400 MG/200 ML BAG 200 MG IV (08:22)
[2018-07-18] MEDS: Senna Tablet 1 TABLET PO (08:22)
[2018-07-18] MEDS: Sertraline 100 MG Tablet PO (08:22)
[2018-07-18] MEDS: Lisinopril 20 MG Tablet PO (08:22)
[2018-07-18 08:23] VITALS: PULSE 91
[2018-07-18] MEDS: Leflunomide 10 MG TABLET 20 MG PO (08:23)
[2018-07-18] MEDS: Oxybutynin 5 MG Tablet PO (08:23)
[2018-07-18] MEDS: Metoprolol Tartrate 50 MG Tablet PO (08:23)
[2018-07-18] MEDS: Pantoprazole Sodium 20 MG Tablet PO (08:23)
[2018-07-18] MEDS: Calcium Carb/Vitamin D 1 TABLET Tablet PO (08:23)
[2018-07-18] MEDS: amLODIPine 10 MG Tablet PO (08:23)
[2018-07-18] MEDS: Aspirin E.C. 81 MG Tablet PO (08:23)
[2018-07-18 08:42] VITALS: BP 195/106; PULSE 91; RESP 18; TEMP 36.8; O2SAT 97
--- NOTE | 2018-07-18 09:12 | DS.PCM_ITS ---
Discharge Date and Diagnosis - Problem List Patient Problems: Active and Suspected Problems (Last Updated 03/23/17 @ 16:07 by ANA Hobbs) Acute on recurrent fall (Acute) Laceration left frontal region (Acute) UTI (urinary tract infection) (Acute) Date of Admission: 07/15/18 Date of Discharge: 07/18/18 - Primary Discharge Diagnosis Active and Suspected Problems (Last Updated 03/23/17 @ 16:07 by ANA Hobbs) Acute on recurrent fall (Acute) Laceration left frontal region (Acute) UTI (urinary tract infection) (Acute) - Secondary Discharge Diagnosis Chronic Problems (Last Updated 03/23/17 @ 16:07 by ANA Hobbs) Type 2 diabetes mellitus (Chronic) Blindness (Chronic) Anxiety (Chronic) Depression, major (Chronic) Hyperlipidemia (Chronic) Depression (Chronic) Coronary arteriosclerosis (Chronic) CAD (coronary artery disease) (Chronic) stent to LAD S/P PTCA (percutaneous transluminal coronary angioplasty) (Chronic ~2012) LAD HTN (hypertension) (Chronic) Diabetes mellitus (Chronic) Hospital Course and Treatment Imaging Results: CT Brain: IMPRESSION: No evidence of intracranial injury or skull fracture. Left preorbital soft tissue swelling. Abnormal density in the posterior aspect of the left globe, chronic and unchanged compared to 05/05/18. Most likely retinal detachment. If not previously interrogated consider ophthalmologic follow-up. Individualized dose optimization techniques were used for this CT. CT C-spine: IMPRESSION: No fracture or dislocation of the cervical spine. Prominent degenerative changes similar to prior. Individualized dose optimization techniques were used for this CT. CXR: IMPRESSION: Chronic interestitial changes. No radiographic evidence of acute cardiopulmonary disease. CT Face: IMPRESSION: Left periorbital/facial soft tissue swelling and hematoma but with no facial fracture. Abnormal appearance of the left globe, similar to 05/05/18, probably retinal detachment. Consider ophthalmologic follow-up if not previously interrogated. Individualized dose optimization techniques were used for this CT. XRay Lumbar/Thoracic: IMPRESSION: No acute findings. Consults: None Operations: None Procedures: None Summary of Care Provided: Per HPI: The patient is a 77 year old F with multiple comorbidities including diabetes mellitus 2 with macular degeneration and legal blindness was brought into ER from long-term after she had fall. Patient accompanied by her daughter, Ms. Katherine Heaton who said she is wheelchair dependent. Patient further said that she needed to go to bathroom and she slipped and fell down on her left side. She has a bruise on the nasal bridge, left periorbital edema and bruise and laceration on left frontal region. [] She had multiple imaging test done which did not show any new fracture or dislocation. UA is positive of pyuria, nitrite and bacteria but she denies dysuria, increased frequency urgency more than her baseline. She had Foster catheter which was removed 2 weeks ago after she had laparotomy for bowel obstr uction but did not require bowel resection. Hospital Course: 1. Altered mental status and fall secondary to acute cystitis/closed head injury with left periorbital contusion and eyebrow [id number] female who lives at the [facility] presented after a fall in the long-term. She had multiple contusions on her face which prompted multiple CT scans of her head and neck and face which were all negative for fracture. She has been falling per the son at the long-term for the last month or so and we discussed that at least this time it was likely secondary to the urinary tract infection. She was started on Rocephin as empiric therapy, however cultures came back with Citrobacter which was resistant to the Rocephin she was transitioned to IV Cipro. She was given 2 doses yesterday and seems to be doing a little bit better today, and I anticipate though that while she is not quite back to her baseline with her completing the antibiotic treatment she should be. She was seen by physical therapy who recommended rehab at a [facility] facility. She will be returning to the [facility] on the skilled side. She is to complete 5 more days of p.o. Cipro. This was discussed with the son who understood and agreed to the plan. 2. Abnormal density in the posterior aspect of the left globe-this was felt to be likely secondary to retinal detachment and is unchanged from a previous scan in April. She will need outpatient follow-up with ophthalmology when she is stabilized from her urinary tract infection and altered mental status. 3. Her other medical diagnoses were evaluated in her home medications were continued where appropriate Patient Problems: Active and Suspected Problems (Last Updated 03/23/17 @ 16:07 by ANA Hobbs) Acute on recurrent fall (Acute) Laceration left frontal region (Acute) UTI (urinary tract infection) (Acute) Objective: General: Alert, Cooperative, No apparent distress, - - Oriented to person and place not time HEENT: Atraumatic, EOMI, Normocephalic Oral: Moist Mucosa Neck: Supple, No JVD Lungs: Clear to auscultation, Normal air movement, No rhonchi, No wheeze, No rales Cardiovascular: Regular rate, Regular Rhythm, Normal S1, Normal S2, No murmurs Abdomen: Soft, Non Tender, Non-Distended, No Hepato-splenomegaly Extremities: No edema, Capillary Refill Less than 3 Seconds Skin: No rashes, No breakdown Neurological: Neuro grossly intact, Sensory exam intact to light touch and pain Psych/Mental Status: Normal Affect, Appropriate - Physical Exam Vital Signs Temp Pulse Resp BP Pulse Ox 99.4 F H 91 18 149/74 H 96 07/18/18 04:53 07/18/18 08:23 07/18/18 04:53 07/18/18 04:53 07/18/18 07:04 Oxygen Delivery Method Room Air Weight: 122 lb 9.232 oz Body Mass Index (BMI) 26.5 Intake and Output for Last 24 Hours 07/16/18 07/17/18 07/18/18 23:59 23:59 23:59 Intake Total 3673 / 3673 2913 / 2913 1784 / 1784 Output Total 1999 1450 / 1450 300 / 300 Balance 1673 / 1673 1463 / 1463 1484 / 1484 Microbiology Past 72 Hours 07/15/18 02:30 Urine Culture - Final Urine, Clean Catch Citrobacter freundii Laboratory Tests Past 24 Hrs 07/18/18 07/18/18 05:38 05:38 WBC 5.2 RBC 3.20 L Hgb 9.3 L Hct 29.0 L MCV 90.6 MCH 29.1 MCHC 32.1 RDW 16.1 H RDW Differential 51.6 H Plt Count 184 MPV 10.5 Immature Gran % (Auto) 0.600 Neut % (Auto) 71.2 H Lymph % (Auto) 13.2 L Love % (Auto) 11.1 H Eos % (Auto) 3.3 Baso % (Auto) 0.6 Absolute Neuts (auto) 3.7 Absolute Lymphs (auto) 0.69 L Total Counted Not Reportable Sodium 141 Potassium 3.1 L Chloride 112 H Carbon Dioxide 22.0 Anion Gap 7 BUN 5 L Creatinine 0.58 Estim Creat Clear Calc 40.70 Est GFR (MDRD) Af Amer 128 Est GFR (MDRD) Non-Af 106 BUN/Creatinine Ratio 8.6 L Glucose 115 H Calcium 8.5 POC Glucose 07/18/18 07/17/18 07/17/18 06:55 21:44 17:00 POC Glucose 116 H 142 H 122 H 07/17/18 11:28 POC Glucose 167 H Call your doctor if you observe: Fever of 101 or Higher, Shortness of breath, Dizziness, Fainting spells, Swelling in the ankles, Chest pain, Increased palpitations (irregular heartbeat) Home Medications: Medications to take at Discharge Leflunomide 20 mg PO DAILY 09/16/16 Omeprazole [Prilosec] 20 mg PO DAILY 09/16/16 atorvastatin 40 mg tablet 40 mg PO QHS 90 Days #90 03/23/17 Clopidogrel Bisulfate [Plavix] 75 mg PO DAILY 12/01/17 Lisinopril [Zestril] 20 mg PO DAILY 12/01/17 Metoprolol Tartrate [Lopressor (beta hermilo)] 50 mg PO BID 12/01/17 Aspirin [Adult Aspirin] 81 mg PO DAILY 12/02/17 Acetaminophen [Tylenol Tablet] 650 mg PO Q6H PRN PRN tablet 12/18/17 Fentanyl 1 each TD Q72H 06/03/18 Lorazepam [Ativan] 0.5 mg PO TID PRN PRN 06/03/18 Oxybutynin Chloride 5 mg PO BID 06/03/18 Ibuprofen [Advil] 400 mg PO Q6H PRN PRN 06/17/18 Lidocaine HCl [Aspercreme] 76.5 gm TP BID 06/17/18 Calcium Carbonate/Vitamin D3 [Calcium 500-Vit D3 200 Tablet] 1 each PO BID 07/14/18 Sertraline HCl 100 mg PO DAILY 07/14/18 Amlodipine [Norvasc] 10 mg PO DAILY tablet 07/17/18 Ciprofloxacin [Cipro] 500 mg PO BID #10 tablet 07/17/18 Following Prescrptions Were Given to Patient: Ciprofloxacin [Cipro] 500 mg PO BID #10 tablet Primary Care Physician: Silvano Whitlock MD [Primary Care Provider] - Please follow up with your Primary Care Physician in: 3-5 days Disposition: [facility] facility Minutes spent on discharge:: 35 Patient Condition:: Stable Medical Necessity - Tobacco Use Smoking Status: Never smoker Meaningful Use Info Meaningful Use Diagnoses (Choose all that apply): None applicable Code Visit Inpatient E&M: 01581 Disch Hosp
--- NOTE | 2018-07-18 10:34 | NURSING ---
called son arlyn that pt is leaving via ambulance to [facility]
== END 2018-07-18 10:33 | disposition skilled nursing facility (03) ==
LOC: ED 03:54 → MS3 04:03
PROVIDERS: Internal Medicine; Admitting Provider Internal Medicine; Emergency Provider Emergency Medicine; Family Provider Family Medicine; PCP Family Medicine; Referring Provider Internal Medicine; Visit Provider Family Medicine
DX: N30.00 Acute cystitis without hematuria (principal); S01.112A Laceration without foreign body of left eyelid and periocular area, initial encounter; W18.39XA Other fall on same level, initial encounter; Y93.89 Activity, other specified; Y92.9 Unspecified place or not applicable; M54.2 Cervicalgia; H35.30 Unspecified macular degeneration; E11.9 Type 2 diabetes mellitus without complications; I25.10 Atherosclerotic heart disease of native coronary artery without angina pectoris; S00.83XA Contusion of other part of head, initial encounter; E78.5 Hyperlipidemia, unspecified; F41.9 Anxiety disorder, unspecified; F32.9 Major depressive disorder, single episode, unspecified; H54.7 Unspecified visual loss; Z91.81 History of falling; Z79.899 Other long term (current) drug therapy; Z79.02 Long term (current) use of antithrombotics/antiplatelets; Z79.82 Long term (current) use of aspirin; Z95.5 Presence of coronary angioplasty implant and graft
CPT/HCPCS: 36415; 70450; 70486; 71045; 72070; 72100; 72125; 80048; 81001; 82962; 85025; 87077; 87086; 87088; 87186; 92610; 93005; 96361; 96365; 96366; 96367; 96375; 96376; 97162; 97166; 97530; 97535; 99218; 99285; J7030; J7050; A4216; G0378; J0744; J2405

== ENCOUNTER 2018-07-26 23:25 | Observation (INO) | payer MEDICARE, OTHER, SELFPAY ==
[2018-07-15 04:20] VITALS: BMI 26.5
[2018-07-26 23:26] VITALS: BP 49/35; PULSE 841; RESP 17; TEMP 36.2; O2SAT 81; BMI 26.4
--- NOTE | 2018-07-26 23:30 | ED.VIS.GEN ---
History of Present Illness Chief Complaint: GI Bleed Narrative: This patient is a 77-year-old female who presents with abdominal pain. History is limited due to altered mental status. She was complaining of constipation today. Her last bowel movement was yesterday. Per EMS she was moaning and then had an episode of diarrhea and her symptoms improved. The nursing facility reported low blood pressure although this was normal for EMS. Patient reports nausea without vomiting. Further history and review of systems was unable to be obtained. The nursing facility did report the diarrhea was bloody. Patient has a prior history of GI bleed and per EMS a history of frequent falls. She was noted to have bruising along her left face and neck which EMS reports is old from a previous fall. Past Medical History - Allergies and Home Meds Allergies/Adverse Reactions: Allergies ampicillin Allergy (Verified 07/26/18 23:26) Unknown codeine Allergy (Verified 07/26/18 23:26) Unknown diclofenac sodium [From Arthrotec 50] Allergy (Verified 07/26/18 23:26) Unknown doxycycline Allergy (Verified 07/26/18 23:26) Unknown fluticasone propionate [From Flonase] Allergy (Verified 07/26/18 23:26) Unknown green pepper Allergy (Verified 07/26/18 23:26) Food Allergy misoprostol [From Arthrotec 50] Allergy (Verified 07/26/18 23:26) Unknown morphine Allergy (Verified 07/26/18 23:26) Unknown Sulfa (Sulfonamide Antibiotics) Allergy (Verified 07/26/18 23:26) Unknown Tetanus Vaccines and Toxoid [Tetanus Vaccines & Toxoid] Allergy (Verified 07/26/18 23:26) Unknown Primary Care Physician: Silvano Whitlock MD [Primary Care Provider] - Past Medical History: - - Diabetes, hypertension, hyperlipidemia, coronary artery disease, repeated falls, Surgical History: angioplasty - coronary stent, appendectomy, cataract, cholecystectomy, total knee arthroplasty - Bilaterally, - - 3 cardiac stents, surgery for diverticulitis and diverticular abscess Smoking Status: Never smoker - Family History Maternal Family History: Family History (Last Updated 03/23/17 @ 16:07 by ANA Hobbs) Brother CAD (coronary artery disease) Family History: Reports: No pertinent history Paternal Family History: Family History (Last Updated 03/23/17 @ 16:07 by ANA Hobbs) Brother CAD (coronary artery disease) Family History: Reports: No pertinent history Sibling Family History: Family History (Last Updated 03/23/17 @ 16:07 by ANA Hobbs) Brother CAD (coronary artery disease) Family History: Reports: No pertinent history Review of Systems ROS: Unable to Obtain Physical Exam Vital Signs/Narrative: Vital Signs Temp Pulse Resp Pulse Ox 07/26/18 23:26 97.1 F L 841 H 17 81 Inital Vital Signs reviewed: Yes General: - - Patient appears uncomfortable, moaning in pain Head: - - Ecchymosis noted along the left face and left and anterior neck Eyes: Perrl, EOMI ENT: Moist mucous membranes Cardiovascular: Regular rate Respiratory: No distress, CTA bilaterally Abdomen: Soft, - - Patient has diffuse nonfocal abdominal tenderness without guarding, without rebound, normal bowel sounds Extremities: Nontender, - - Trace pitting lower extremity edema, 3+ Skin: - - Bruising of the left face and neck as above skin warm and dry Neurological: Lethargic Diagnostic/Tx/Re-eval - Medical Decision Making Patient was seen on arrival. She was initially hypotensive. She did respond well to fluids and blood pressure normalized. She did have a large episode of diarrhea here which appeared blood-streaked and was Hemoccult positive. Laboratory studies including CBC BMP urinalysis and INR normal. Chest x-ray shows no acute process. CT of the abdomen and pelvis is consistent with colitis. I have sent off an enteric pathogen stool panel. I would hold on antibiotics until we receive these results. Patient will be discussed with hospitalist and admitted. ED Disposition - Plan for ED Patient: Diagnosis: GI bleed, Colitis, Hypovolemia, Altered mental status Referrals: Silvano Whitlock MD [Primary Care Provider] -
[2018-07-26 23:31] VITALS: O2SAT 95
--- NOTE | 2018-07-26 23:34 | EKG12_ITS ---
Test Reason : Blood Pressure : / mmHG Vent. Rate : 078 BPM Atrial Rate : 340 BPM P-R Int : 000 ms QRS Dur : 060 ms QT Int : 402 ms P-R-T Axes : 000 -27 062 degrees QTc Int : 458 ms Ectopic atrial rhythm Leftward axis Low voltage QRS (limb leads) Abnormal ECG Confirmed by CURTIS RIVAS, SILVANO ([id number]), content editor ANN GEIGER ([id number]) on 07/30/2018 6:23:27 AM Referred By: Silvano Whitlock Confirmed By:SILVANO ACEVEDO MD
[2018-07-26 23:37] VITALS: BP 81/51; PULSE 83; RESP 18
[2018-07-26] MEDS: Ondansetron 4 MG/2 ML Vial IV (23:47)
[2018-07-26] MEDS: 0.9% Normal Saline 1,000 ML 1000 ML IV (23:47)
[2018-07-26] MEDS: fentaNYL 100 MCG/2 ML Ampul 25 MCG IV (23:47)
[2018-07-27] VITALS (11 sets, daily range): BP systolic 81–157; BP diastolic 56–91; PULSE 68–94; RESP 16–20; TEMP 36.6–37; O2SAT 94–100; BMI 25.0
--- NOTE | 2018-07-27 | RAD_ITS ---
HISTORY: HYPOXIA AND ABD PAIN EXAMINATION/TECHNIQUE: XR Chest 1 View: Portable upright AP COMPARISON: 07/15/18 CXR FINDINGS: LINES/DEVICES: None. LUNGS: There are chronic interstitial changes. Elevation right hemidiaphragm with overlying atelectasis again demonstrated. No evidence of pneumothorax, pleural effusion, consolidation, or pulmonary edema. MEDIASTINUM AND CARDIOVASCULAR STRUCTURES: Cardiac silhouette not enlarged. Central airways and mediastinal contour are unremarkable. Atherosclerosis thoracic aorta again demonstrated. BONES AND SOFT TISSUES: No acute findings. RAD/Chest 1 View (Portable) IMPRESSION: Chronic interestitial changes. No radiographic evidence of acute cardiopulmonary disease. at 0038 Reported and signed by: Jefe Prince MD Electronically Signed: Jefe Prince, at 0:37 EDT Tel , Service support ,
[2018-07-27 00:21] LABS: International Normalized Ratio 1.1; Prothrombin Time (Protime)PT. 13.6 SECONDS (11.7-14.9)
[2018-07-27 00:25] LABS: Bacteria 0 SEEN /hpf (None Seen); Mucous, Urine 0 SEEN /hpf (<or=2+); Red Blood Cells-Urine 0 SEEN /hpf (0-5); Squamous Epithelial Cells - UA 0 SEEN /hpf (5-10); White Blood Cells 0 SEEN /hpf (0-5)
--- NOTE | 2018-07-27 00:27 | ED.RN ---
PT WAS INCONTINENT OF STOOL AND URINE. PT WAS CLEANED WITH BATH WIPES BY THIS NURSE AND LOGAN CRUZ RN. PT HAS MULTIPLE BRUISES TO FACE, NECK AND LLE. PT HAS RED AREAS TO GROIN, LABIA, AND BUTTOCKS. SKIN THIN AND INTACT TO BUTTOCKS AT THIS TIME.
--- NOTE | 2018-07-27 00:28 | ED.RN ---
THIS RN CALLED [facility] TWICE HOME AND CELL PHONE NUMBER TO NOTIFY THAT PT WAS HERE IN ED. UNABLE TO LEAVE A MESSAGE. WILL CONTINUE TO MONITOR.
[2018-07-27 00:33] LABS: Color, Urine Yellow (Yellow); Glucose, Dipstick Normal (Normal); Ketone-Dipstick Negative (Negative); Leukocyte Esterase-Dipstick Negative /ul (Negative); Nitrite-Dipstick Negative (Negative); Occult Blood-Urine Negative /ul (Negative); Protein-Dipstick Negative (Negative); Specific Gravity, Urine 1.015 (1.002-1.030); Urine Bilirubin Dipstick Negative (Negative); Urine Clarity Clear (Clear); Urine Urobilinogen Normal (Normal)
[2018-07-27 00:36] LABS: Bedside Glucose 145 mg/dL (70-110)
[2018-07-27 00:37] LABS: ALB/GLOB Ratio 0.8 RATIO (0.9-2.4); AST(SGOT) 25 U/L (15-37); Alanine Aminotransfer ALT/SGPT 16 U/L (13-56); Albumin, Serum 2.8 g/dL (3.2-5.0); Alkaline Phosphatase 104 U/L (45-117); Anion Gap 7 (5-15); BUN 16 mg/dL (7-18); BUN/Creat Ratio 14.5 RATIO (10-20); Calcium,Total 9.1 mg/dL (8.5-10.1); Chloride 107 mmol/L (98-107); EST Glomerular Filtration Rate 51 mL/min (>60); Est Glom Filt Rate - Afr Amer 62 mL/min (>60); Estimated Creatinine Clearance 31.81 ml/min; Globulin 3.5 g/dL (2.2-4.2); Glucose 155 mg/dL (74-106); Lactic Acid 1.8 mmol/L (0.4-2.0); Lipase 75 U/L (73-393); Potassium 4.2 mmol/L (3.5-5.1); Protein, Total 6.3 g/dL (6.4-8.2); Sodium Level 140 mmol/L (136-145)
[2018-07-27 00:44] LABS: Hematocrit 40.4 % (37-47); Mean Corpuscular Hgb 29.9 pg (27.0-32.0); Mean Corpuscular Volume 92.9 fL (81-99); Red Blood Count 4.35 M/mm3 (4.2-5.4); White Blood Count 9.5 K/mm3 (4.4-11.0)
[2018-07-27 00:45] LABS: Basophil% 0.5 % (0-1); Differential Indicated SCAN CRITERIA MET; Eosinophils% 1.3 % (0-5); Lymphocyte % 7.7 % (19-41); Mean Corp Hgb Conc 32.2 g/gl (32-36); Mean Platelet Vol. 10.4 fl (6.2-12.0); Monocyte% 4.4 % (0-10); POSITIVE COUNT YES; POSITIVE DIFFERENTIAL NO; POSITIVE MORPHOLOGY YES; Platelet Count 208 K/mm3 (150-450); RBC Distribution Width CV 17.5 % (11.6-14.6); RBC Distribution Width SD 59.5 fl (35.1-43.9)
[2018-07-27 00:46] LABS: Absolute Lymphocyte Count 0.73 X10^3/ul (0.83-4.51); Absolute Neutrophil Count 8.1 X10^3/uL (2.0-7.7); Basophil# 0.05 X10^3/uL; Eosinophil# 0.12 X10^3/uL; Lymphocyte # 0.73 X10^3/ul (4.0); Monocyte# 0.42 X10^3/uL; Neutrophil # 8.14 X10^3/uL (2.7-7.7)
[2018-07-27 01:13] LABS: Anisocytosis RARE; Platelet Estimate ADEQUATE (ADEQ); Platelet Morphology LARGE
[2018-07-27 01:14] LABS: Macrocytosis RARE
--- NOTE | 2018-07-27 01:27 | PCM.HP.STD ---
Problem List (1) Type 2 diabetes mellitus Status: Chronic (2) Blindness Status: Chronic (3) Anxiety Status: Chronic (4) Depression, major Status: Chronic (5) Colitis Status: Acute (6) Hypovolemia Status: Acute (7) Altered mental status Status: Acute (8) Hyperlipidemia Status: Chronic Qualifiers: (9) Coronary arteriosclerosis Status: Chronic History of Present Illness Date of Admission: 07/27/18 Chief Complaint: abdominal pain,hypovolemia The patient is a 77 year old female patient brought in by squad to the emergency department due to altered mental status and complaint of abdominal pain. She has a history of frequent falls gastrointestinal bleed history. The patient is a poor historian due to her mental status which as of now appears to be at baseline as I take care of [facility] at the [facility] as well. Initial blood pressure upon arrival was 80/40 and she responded to IV fluid bolus and is currently normotensive. Her current hemoglobin is 13. CT scan reveals colitis and etiology is unknown. Stool cultures were ordered and are pending at time of admission. Patient will be admitted for observation and IV hydration therapy. Past Medical History Past Medical History (Chronic Problems): Chronic Problems (Last Updated 03/23/17 @ 16:07 by ANA Hobbs) Type 2 diabetes mellitus (Chronic) Blindness (Chronic) Anxiety (Chronic) Depression, major (Chronic) Hyperlipidemia (Chronic) Depression (Chronic) Coronary arteriosclerosis (Chronic) CAD (coronary artery disease) (Chronic) stent to LAD S/P PTCA (percutaneous transluminal coronary angioplasty) (Chronic ~2013) LAD HTN (hypertension) (Chronic) Diabetes mellitus (Chronic) Medical History: Medical History (Last Updated 03/23/17 @ 16:07 by ANA Hobbs) Hyperlipidemia (Chronic) E78.5 Coronary arteriosclerosis (Chronic) I25.10 CAD (coronary artery disease) (Chronic) I25.10 stent to LAD HTN (hypertension) (Chronic) I10 Diabetes mellitus (Chronic) E11.9 Allergies ampicillin Allergy (Verified 07/26/18 23:26) Unknown codeine Allergy (Verified 07/26/18 23:26) Unknown diclofenac sodium [From Arthrotec 50] Allergy (Verified 07/26/18 23:26) Unknown doxycycline Allergy (Verified 07/26/18 23:26) Unknown fluticasone propionate [From Flonase] Allergy (Verified 07/26/18 23:26) Unknown green pepper Allergy (Verified 07/26/18 23:26) Food Allergy misoprostol [From Arthrotec 50] Allergy (Verified 07/26/18 23:26) Unknown morphine Allergy (Verified 07/26/18 23:26) Unknown Sulfa (Sulfonamide Antibiotics) Allergy (Verified 07/26/18 23:26) Unknown Tetanus Vaccines and Toxoid [Tetanus Vaccines & Toxoid] Allergy (Verified 07/26/18 23:26) Unknown Home Medications: Ambulatory Orders Medication Instructions Recorded Leflunomide 20 mg PO DAILY 09/16/16 Omeprazole [Prilosec] 20 mg PO DAILY 09/16/16 atorvastatin 40 mg tablet 40 mg PO QHS 90 Days #90 03/23/17 Clopidogrel Bisulfate [Plavix] 75 mg PO DAILY 12/01/17 Lisinopril [Zestril] 20 mg PO DAILY 12/01/17 Metoprolol Tartrate [Lopressor 50 mg PO BID 12/01/17 (beta hermilo)] Aspirin [Adult Aspirin] 81 mg PO DAILY 12/02/17 Acetaminophen [Tylenol Tablet] 650 mg PO Q6H PRN PRN tablet 12/18/17 Fentanyl 1 each TD Q72H 06/03/18 Lorazepam [Ativan] 0.5 mg PO TID PRN PRN 06/03/18 Oxybutynin Chloride 5 mg PO BID 06/03/18 Ibuprofen [Advil] 400 mg PO Q6H PRN PRN 06/17/18 Lidocaine HCl [Aspercreme] 76.5 gm TP BID 06/17/18 Calcium Carbonate/Vitamin D3 1 each PO BID 07/14/18 [Calcium 500-Vit D3 200 Tablet] Sertraline HCl 100 mg PO DAILY 07/14/18 Amlodipine [Norvasc] 10 mg PO DAILY tablet 07/17/18 Bisacodyl [Laxative Suppository] 10 mg RC PRN PRN 07/27/18 Surgical History: Surgical History (Last Updated 03/23/17 @ 16:07 by ANA Hobbs) S/P PTCA (percutaneous transluminal coronary angioplasty) (Chronic) Onset Date: ~2012 Z98.61 LAD Surgical History: angioplasty - coronary stent, appendectomy, cataract, cholecystectomy, total knee arthroplasty - Bilaterally, - - 3 cardiac stents, surgery for diverticulitis and diverticular abscess Smoking Status: Never smoker - *Family History Maternal Family History: Family History (Last Updated 03/23/17 @ 16:07 by ANA Hobbs) Brother CAD (coronary artery disease) History Items: No pertinent history Paternal Family History: Family History (Last Updated 03/23/17 @ 16:07 by ANA Hobbs) Brother CAD (coronary artery disease) History Items: No pertinent history Sibling Family History: Family History (Last Updated 03/23/17 @ 16:07 by ANA Hobbs) Brother CAD (coronary artery disease) History Items: No pertinent history Review of Systems Constitutional: Denies: Chills, Fever, Weight Change HEENT: Denies: Head Aches, Sinus Congestion, Sinus Drainage Cardiovascular: Denies: Chest Pain, Palpitations Respiratory: Denies: Cough, Shortness of breath at rest, Sputum production Gastrointestinal: Reports: Abdominal Pain. Denies: Nausea, Vomiting Genitourinary: Denies: Dysuria Musculoskeletal: Denies: Joint Pain, Joint Tenderness Skin: Reports: - - bruise face/neck. Denies: Rash, Wounds Neurological: Denies: Numbness, Tingling, Focal weakness Psychiatric: Denies: Anxiety, Depression, Homicidal Ideations, Suicidal Ideations Hematologic/ Lymphatic: Denies: Easy Bruising, Easy Bleeding VTE Information - Inpt Only VTE Present on Admission: No VTE Mechan Device Prophylaxis: SCD's VTE Pharm Prophylaxis ordered?: No Patient Problems: Active and Suspected Problems (Last Updated 03/23/17 @ 16:07 by ANA Hobbs) GI bleed (Acute) Colitis (Acute) Hypovolemia (Acute) Altered mental status (Acute) - Physical Exam General: Alert, Cooperative, Confused HEENT: Atraumatic, Normocephalic Neck: Supple Lungs: Clear to auscultation, Normal air movement Cardiovascular: Regular rate, No murmurs Abdomen: Bowel Sounds Present, Soft, Tender - diffusely no guarding Extremities: No edema, Capillary Refill Less than 3 Seconds Skin: No rashes Musculoskeletal: No Tenderness to Palpation of Joints or Extremities Neurological: Neuro grossly intact Psych/Mental Status: Normal Affect, Appropriate Vital Signs Temp Pulse Resp BP Pulse Ox 97.1 F L 79 16 101/68 98 06/03/19 23:26 07/27/18 01:00 07/27/18 01:00 07/27/18 01:00 07/27/18 01:00 Oxygen Flow Rate (L/min) 4 Oxygen Delivery Method Nasal Cannula Weight: 140 lb 3.424 oz Body Mass Index (BMI) 26.4 Finger Stick Blood Glucose 145 Microbiology Past 72 Hours 07/27/18 00:00 Stool Occult Blood (ANIYA) - Final Stool Occult Blood Positive Laboratory Tests Past 24 Hrs 07/26/18 07/26/18 07/26/18 23:55 23:55 23:55 WBC 9.5 RBC 4.35 Hgb 13.0 Hct 40.4 MCV 92.9 MCH 29.9 MCHC 32.2 RDW 17.5 H RDW Differential 59.5 H Plt Count 208 MPV 10.4 Immature Gran % (Auto) 0.100 Neut % (Auto) 86.0 H Lymph % (Auto) 7.7 L Williams % (Auto) 4.4 Eos % (Auto) 1.3 Baso % (Auto) 0.5 Absolute Neuts (auto) 8.1 H Absolute Lymphs (auto) 0.73 L Total Counted Not Reportable Differential Comment SEE COMMENT Platelet Estimate ADEQUATE Plt Morphology Comment LARGE Anisocytosis RARE Macrocytosis RARE PT 13.6 INR 1.1 Sodium 140 Potassium 4.2 Chloride 107 Carbon Dioxide 26.0 Anion Gap 7 BUN 16 Creatinine 1.10 H Estim Creat Clear Calc 31.81 Est GFR (MDRD) Af Amer 62 Est GFR (MDRD) Non-Af 51 L BUN/Creatinine Ratio 14.5 Glucose 155 H Lactic Acid Calcium 9.1 Total Bilirubin 0.50 AST 25 ALT 16 Alkaline Phosphatase 104 Total Protein 6.3 L Albumin 2.8 L Globulin 3.5 Albumin/Globulin Ratio 0.8 L Lipase 75 Urine Color Urine Clarity Urine pH Ur Specific [place] Urine Protein Urine Glucose (UA) Urine Ketones Urine Occult Blood Urine Nitrite Urine Bilirubin Urine Urobilinogen Ur Leukocyte Esterase Urine RBC Urine WBC Ur Squamous Epith Cells Urine Bacteria Urine Mucus 07/26/18 07/27/18 23:55 00:15 WBC RBC Hgb Hct MCV MCH MCHC RDW RDW Differential Plt Count MPV Immature Gran % (Auto) Neut % (Auto) Lymph % (Auto) Williams % (Auto) Eos % (Auto) Baso % (Auto) Absolute Neuts (auto) Absolute Lymphs (auto) Total Counted Differential Comment Platelet Estimate Plt Morphology Comment Anisocytosis Macrocytosis PT INR Sodium Potassium Chloride Carbon Dioxide Anion Gap BUN Creatinine Estim Creat Clear Calc Est GFR (MDRD) Af Amer Est GFR (MDRD) Non-Af BUN/Creatinine Ratio Glucose Lactic Acid 1.8 Calcium Total Bilirubin AST ALT Alkaline Phosphatase Total Protein Albumin Globulin Albumin/Globulin Ratio Lipase Urine Color Yellow Urine Clarity Clear Urine pH 5.0 Ur Specific [place] 1.015 Urine Protein Negative Urine Glucose (UA) Normal Urine Ketones Negative Urine Occult Blood Negative Urine Nitrite Negative Urine Bilirubin Negative Urine Urobilinogen Normal Ur Leukocyte Esterase Negative Urine RBC 0 SEEN Urine WBC 0 SEEN Ur Squamous Epith Cells 0 SEEN Urine Bacteria 0 SEEN Urine Mucus 0 SEEN POC Glucose 07/27/18 00:31 POC Glucose 145 H Assessment/Plan All Active Problems (Last Updated 03/23/17 @ 16:07 by ANA Hobbs) Closed avulsion fracture of greater trochanter of femur (Acute) Acute on recurrent fall (Acute) Laceration left frontal region (Acute) UTI (urinary tract infection) (Acute) GI bleed (Acute) Colitis (Acute) Hypovolemia (Acute) Altered mental status (Acute) Assessment/plan 1. Abdominal pain?pain is now controlled with medication in the emergency room we will continue to have PRN medication to the course of her hospitalization. Will maintain patient n.p.o. over the course of the evening into the morning and start a liquid diet advance as tolerated at that point one stool cultures have been resulted. 2. Hypotension/hypovolemia?continue IV hydration with normal saline at 100 cc/h. Repeat CBC BMP in the morning 3. Colitis?stool cultures are pending. Currently patient is afebrile and antibiotics are not warranted at this point. 4. History of GI bleed?current hemoglobin is stable we will repeat CBC in the morning 5. DVT prophylaxis?SCDs 6. Restart routine medications in the a.m. once patient is able to handle oral medication. Code Visit OBSV E&M: [id number] Initial observation care L2
[2018-07-27 03:10] LABS: Hematocrit 42.2 % (37-47); Hemoglobin 13.7 g/dl (12.0-15.0)
[2018-07-27] MEDS: 0.9% Normal Saline 1,000 ML 100 ML IV ×3 (03:23→23:24)
--- NOTE | 2018-07-27 03:53 | NURSING ---
This RN sitting in patient's room at this time. She has been agitated and trying to climb out of bed.
[2018-07-27 05:54] LABS: Absolute Lymphocyte Count 0.42 X10^3/ul (0.83-4.51); Absolute Neutrophil Count 12.8 X10^3/uL (2.0-7.7); Basophil# 0.03 X10^3/uL; Basophil% 0.2 % (0-1); Hematocrit 38.6 % (37-47); Hemoglobin 12.5 g/dl (12.0-15.0); Lymphocyte # 0.42 X10^3/ul (4.0); Mean Corp Hgb Conc 32.4 g/gl (32-36); Mean Corpuscular Hgb 30.1 pg (27.0-32.0); Mean Platelet Vol. 10.7 fl (6.2-12.0); Monocyte# 0.66 X10^3/uL; Monocyte% 4.7 % (0-10); Neutrophil # 12.77 X10^3/uL (2.7-7.7); Neutrophil % 91.8 % (47-70); Platelet Count 170 K/mm3 (150-450); RBC Distribution Width CV 17.4 % (11.6-14.6); RBC Distribution Width SD 57.9 fl (35.1-43.9); Red Blood Count 4.15 M/mm3 (4.2-5.4); White Blood Count 13.9 K/mm3 (4.4-11.0)
[2018-07-27 06:02] LABS: Anion Gap 10 (5-15); BUN 20 mg/dL (7-18); BUN/Creat Ratio 18.2 RATIO (10-20); Chloride 110 mmol/L (98-107); EST Glomerular Filtration Rate 51 mL/min (>60); Est Glom Filt Rate - Afr Amer 62 mL/min (>60); Estimated Creatinine Clearance 31.81 ml/min; Glucose 200 mg/dL (74-106); Potassium 4.3 mmol/L (3.5-5.1); Sodium Level 141 mmol/L (136-145)
[2018-07-27 06:06] LABS: POSITIVE COUNT NO; POSITIVE DIFFERENTIAL NO; POSITIVE MORPHOLOGY NO
[2018-07-27] MEDS: fentaNYL 25 MCG Patch TRANSDERM. (06:20)
[2018-07-27 06:50] LABS: Anisocytosis RARE; Macrocytosis RARE; Platelet Estimate ADEQUATE (ADEQ)
--- NOTE | 2018-07-27 10:03 | NURSING ---
pt awake most of night and is currently sleeping-able to wean off o2 and is now 97 on room air-bed exit is on, sitter remains in room-pt currently NPO-will monitor
--- NOTE | 2018-07-27 11:25 | CASEMGMT ---
Addendum entered by Sofia Moses 07/27/18 12:10: SW received call from pt's daughter Katherine who confirms the plan is for pt to discharge back to [facility] once medically cleared. Original Note: Social Work Note SW familiar with pt from previous visits. Pt is [facility] resident at [facility]. LUKE placed a call to Kim at [facility]. 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 Kim states her staff had talked to pt and her family regarding Hospice and they were not willing to sign with Hospice at that time. LUKE faxed updated clinicals to [facility]. LUKE placed a call to pt's daughter Katherine as she is listed as person to notify, left message, asking for call back to confirm discharge plans. LUKE waiting for call back. Plan: Likely return to [facility] once medically cleared Sofia Moses EMPLOYMENT SERVICES DIRECTOR, HANDHOLE MACHINE OPERATOR
--- NOTE | 2018-07-27 13:25 | NURSING ---
daughter in room and updated on consult with dr cavazos
[2018-07-27] MEDS: Menthol/Lanolin/Calamine/Znox 113 GM Tube 1 APPLIC TOPICAL ×3 (13:37→21:25)
[2018-07-27 14:19] LABS: Hematocrit 35.9 % (37-47); Hemoglobin 11.5 g/dl (12.0-15.0)
--- NOTE | 2018-07-27 14:57 | PCM.PROGNOTE ---
<Sudheer Villa - Last Filed: 07/27/18 14:57> Patient Problems: Active and Suspected Problems (Last Updated 03/23/17 @ 16:07 by ANA Hobbs) GI bleed (Acute) Colitis (Acute) Hypovolemia (Acute) Altered mental status (Acute) Subjective: Patient complains of ongoing loose stools, she had one colored stool this morning and tested positive for Hemoccult for blood. She does complain of generalized abdominal pain however when I push on her stomach deep she does not react. No fevers or chills overnight. No shortness of breath. She has extensive ecchymosis all over her body from recent falling at the alf. Affect is severely depressed, she is very lethargic. Later I went back to the patient's room and was able to talk to her daughter. The patient was recently in the emergency room here June 01 and found to have a bowel obstruction was transferred out per Dr. Maharaj's recommendation after [facility]. Her daughter tells me that she was treated surgically for a twisted bowel. She is not sure the specific diagnosis, she can tell me that she had an open laparotomy. Will consult general surgery. Later in the day also had issues with patient becoming very confused and thrashing around. Her mental status has severely worsened ever since her recently. - Physical Exam General: Alert, Cooperative, Confused, Lethargic HEENT: Atraumatic, PERRLA, EOMI, Normocephalic Neck: Supple, No JVD, Negative Carotid Bruits Lungs: Clear to auscultation, Normal air movement Cardiovascular: Regular rate, No murmurs Abdomen: Bowel Sounds Present, Soft, Non Tender Extremities: No edema, Capillary Refill Less than 3 Seconds Skin: No rashes, No breakdown Musculoskeletal: No Tenderness to Palpation of Joints or Extremities Neurological: Cranial nerves II-XII grossly intact Psych/Mental Status: Normal Affect, Appropriate Vital Signs Temp Pulse Resp BP Pulse Ox 98.6 F 81 16 123/56 H 100 07/27/18 09:48 07/27/18 09:48 07/27/18 09:48 07/27/18 09:48 07/27/18 09:48 Oxygen Flow Rate (L/min) 2 Oxygen Delivery Method Room Air Weight: 132 lb 4.438 oz Body Mass Index (BMI) 25.0 Finger Stick Blood Glucose 145 Intake and Output for Last 24 Hours 07/25/18 07/26/18 07/27/18 23:59 23:59 23:59 Intake Total 978 / 978 Balance 978 / 978 Microbiology Past 72 Hours 07/27/18 00:58 Enteric Bacteriology - Final Stool 07/27/18 00:00 Stool Occult Blood (ANIYA) - Final Stool Occult Blood Positive Laboratory Tests Past 24 Hrs 07/26/18 07/26/18 07/26/18 23:55 23:55 23:55 WBC 9.5 RBC 4.35 Hgb 13.0 Hct 40.4 MCV 92.9 MCH 29.9 MCHC 32.2 RDW 17.5 H RDW Differential 59.5 H Plt Count 208 MPV 10.4 Immature Gran % (Auto) 0.100 Neut % (Auto) 86.0 H Lymph % (Auto) 7.7 L [place] % (Auto) 4.4 Eos % (Auto) 1.3 Baso % (Auto) 0.5 Absolute Neuts (auto) 8.1 H Absolute Lymphs (auto) 0.73 L Total Counted Not Reportable Differential Comment SEE COMMENT Platelet Estimate ADEQUATE Plt Morphology Comment LARGE Anisocytosis RARE Macrocytosis RARE PT 13.6 INR 1.1 Sodium 140 Potassium 4.2 Chloride 107 Carbon Dioxide 26.0 Anion Gap 7 BUN 16 Creatinine 1.10 H Estim Creat Clear Calc 31.81 Est GFR (MDRD) Af Amer 62 Est GFR (MDRD) Non-Af 51 L BUN/Creatinine Ratio 14.5 Glucose 155 H Lactic Acid Calcium 9.1 Total Bilirubin 0.50 AST 25 ALT 16 Alkaline Phosphatase 104 Total Protein 6.3 L Albumin 2.8 L Globulin 3.5 Albumin/Globulin Ratio 0.8 L Lipase 75 Urine Color Urine Clarity Urine pH Ur Specific H[place]le Urine Protein Urine Glucose (UA) Urine Ketones Urine Occult Blood Urine Nitrite Urine Bilirubin Urine Urobilinogen Ur Leukocyte Esterase Urine RBC Urine WBC Ur Squamous Epith Cells Urine Bacteria Urine Mucus Blood Type Antibody Screen 07/26/18 07/27/18 07/27/18 23:55 00:15 03:05 WBC RBC Hgb 13.7 Hct 42.2 MCV MCH MCHC RDW RDW Differential Plt Count MPV Immature Gran % (Auto) Neut % (Auto) Lymph % (Auto) [place] % (Auto) Eos % (Auto) Baso % (Auto) Absolute Neuts (auto) Absolute Lymphs (auto) Total Counted Differential Comment Platelet Estimate Plt Morphology Comment Anisocytosis Macrocytosis PT INR Sodium Potassium Chloride Carbon Dioxide Anion Gap BUN Creatinine Estim Creat Clear Calc Est GFR (MDRD) Af Amer Est GFR (MDRD) Non-Af BUN/Creatinine Ratio Glucose Lactic Acid 1.8 Calcium Total Bilirubin AST ALT Alkaline Phosphatase Total Protein Albumin Globulin Albumin/Globulin Ratio Lipase Urine Color Yellow Urine Clarity Clear Urine pH 5.0 Ur Specific [place] 1.015 Urine Protein Negative Urine Glucose (UA) Normal Urine Ketones Negative Urine Occult Blood Negative Urine Nitrite Negative Urine Bilirubin Negative Urine Urobilinogen Normal Ur Leukocyte Esterase Negative Urine RBC 0 SEEN Urine WBC 0 SEEN Ur Squamous Epith Cells 0 SEEN Urine Bacteria 0 SEEN Urine Mucus 0 SEEN Blood Type Antibody Screen 07/27/18 07/27/18 07/27/18 05:24 05:24 14:00 WBC 13.9 H RBC 4.15 L Hgb 12.5 11.5 L Hct 38.6 35.9 L MCV 93.0 MCH 30.1 MCHC 32.4 RDW 17.4 H RDW Differential 57.9 H Plt Count 170 MPV 10.7 Immature Gran % (Auto) 0.300 Neut % (Auto) 91.8 H Lymph % (Auto) 3.0 L [place] % (Auto) 4.7 Eos % (Auto) 0.0 Baso % (Auto) 0.2 Absolute Neuts (auto) 12.8 H Absolute Lymphs (auto) 0.42 L Total Counted Not Reportable Differential Comment SEE COMMENT Platelet Estimate ADEQUATE Plt Morphology Comment Anisocytosis RARE Macrocytosis RARE PT INR Sodium 141 Potassium 4.3 Chloride 110 H Carbon Dioxide 21.0 Anion Gap 10 BUN 20 H Creatinine 1.10 H Estim Creat Clear Calc 31.81 Est GFR (MDRD) Af Amer 62 Est GFR (MDRD) Non-Af 51 L BUN/Creatinine Ratio 18.2 Glucose 200 H Lactic Acid Calcium 9.0 Total Bilirubin AST ALT Alkaline Phosphatase Total Protein Albumin Globulin Albumin/Globulin Ratio Lipase Urine Color Urine Clarity Urine pH Ur Specific [place]le Urine Protein Urine Glucose (UA) Urine Ketones Urine Occult Blood Urine Nitrite Urine Bilirubin Urine Urobilinogen Ur Leukocyte Esterase Urine RBC Urine WBC Ur Squamous Epith Cells Urine Bacteria Urine Mucus Blood Type Antibody Screen 07/27/18 14:00 WBC RBC Hgb Hct MCV MCH MCHC RDW RDW Differential Plt Count MPV Immature Gran % (Auto) Neut % (Auto) Lymph % (Auto) [place] % (Auto) Eos % (Auto) Baso % (Auto) Absolute Neuts (auto) Absolute Lymphs (auto) Total Counted Differential Comment Platelet Estimate Plt Morphology Comment Anisocytosis Macrocytosis PT INR Sodium Potassium Chloride Carbon Dioxide Anion Gap BUN Creatinine Estim Creat Clear Calc Est GFR (MDRD) Af Amer Est GFR (MDRD) Non-Af BUN/Creatinine Ratio Glucose Lactic Acid Calcium Total Bilirubin AST ALT Alkaline Phosphatase Total Protein Albumin Globulin Albumin/Globulin Ratio Lipase Urine Color Urine Clarity Urine pH Ur Specific [place]le Urine Protein Urine Glucose (UA) Urine Ketones Urine Occult Blood Urine Nitrite Urine Bilirubin Urine Urobilinogen Ur Leukocyte Esterase Urine RBC Urine WBC Ur Squamous Epith Cells Urine Bacteria Urine Mucus Blood Type Pending Antibody Screen Pending POC Glucose 07/27/18 00:31 POC Glucose 145 H Medical Necessity - Tobacco Use Smoking Status: Never smoker Assessment/Plan All Active Problems (Last Updated 03/23/17 @ 16:07 by ANA Hobbs) Closed avulsion fracture of greater trochanter of femur (Acute) Acute on recurrent fall (Acute) Laceration left frontal region (Acute) UTI (urinary tract infection) (Acute) GI bleed (Acute) Colitis (Acute) Hypovolemia (Acute) Altered mental status (Acute) 1. Abdominal pain secondary to acute colitis-unclear etiology. Suspect viral gastroenteritis. CT of the abdomen demonstrates mild diffuse colitis infectious versus inflammatory or ischemic in etiology. Prominent fluid in the bowel suggestive of diarrheal illness. There is no abscess or perforation noted. The patient was recently transferred from here to [facility] for bowel obstruction resulting in open laparotomy we will consult general surgery. Enteric panel is negative, C. difficile is pending. 2. Acute GI bleed-unclear etiology-we will trend H&H, hemoglobin is mildly down. Avoid any blood thinning agents-these include aspirin, Plavix, ibuprofen that she was on previously.. Continue PPI IV twice daily. 3. Worsening of dementia with severe depression-Case management to consult crisis for possible Mary psych needs. 4. Type 2 diabetes mellitus-sliding scale insulin 5. Anxiety depression-as above possibly needs Mary psych placement. 6. Hyperlipidemia, hypertension-Home medications are held at this point. DVT prophylaxis: SCDs Discharge planning: PT OT, crisis eval This patient was seen by Sudheer Villa PA-C under the supervision of Doctor Yordy. <YordyMala - Last Filed: 07/27/18 16:08> - Physical Exam Vital Signs Temp Pulse Resp BP Pulse Ox 98.5 F 68 16 155/91 H 95 07/27/18 15:12 07/27/18 15:12 07/27/18 15:12 07/27/18 15:12 07/27/18 15:12 Oxygen Flow Rate (L/min) 2 Oxygen Delivery Method Room Air Weight: 132 lb 4.438 oz Body Mass Index (BMI) 25.0 Finger Stick Blood Glucose 145 Intake and Output for Last 24 Hours 07/25/18 07/26/18 07/27/18 23:59 23:59 23:59 Intake Total 978 / 978 Balance 978 / 978 Microbiology Past 72 Hours 07/27/18 00:58 Enteric Bacteriology - Final Stool 07/27/18 00:00 Stool Occult Blood (ANIYA) - Final Stool Occult Blood Positive Laboratory Tests Past 24 Hrs 07/26/18 07/26/18 07/26/18 23:55 23:55 23:55 WBC 9.5 RBC 4.35 Hgb 13.0 Hct 40.4 MCV 92.9 MCH 29.9 MCHC 32.2 RDW 17.5 H RDW Differential 59.5 H Plt Count 208 MPV 10.4 Immature Gran % (Auto) 0.100 Neut % (Auto) 86.0 H Lymph % (Auto) 7.7 L [place] % (Auto) 4.4 Eos % (Auto) 1.3 Baso % (Auto) 0.5 Absolute Neuts (auto) 8.1 H Absolute Lymphs (auto) 0.73 L Total Counted Not Reportable Differential Comment SEE COMMENT Platelet Estimate ADEQUATE Plt Morphology Comment LARGE Anisocytosis RARE Macrocytosis RARE PT 13.6 INR 1.1 Sodium 140 Potassium 4.2 Chloride 107 Carbon Dioxide 26.0 Anion Gap 7 BUN 16 Creatinine 1.10 H Estim Creat Clear Calc 31.81 Est GFR (MDRD) Af Amer 62 Est GFR (MDRD) Non-Af 51 L BUN/Creatinine Ratio 14.5 Glucose 155 H Lactic Acid Calcium 9.1 Total Bilirubin 0.50 AST 25 ALT 16 Alkaline Phosphatase 104 Total Protein 6.3 L Albumin 2.8 L Globulin 3.5 Albumin/Globulin Ratio 0.8 L Lipase 75 Urine Color Urine Clarity Urine pH Ur Specific [place] Urine Protein Urine Glucose (UA) Urine Ketones Urine Occult Blood Urine Nitrite Urine Bilirubin Urine Urobilinogen Ur Leukocyte Esterase Urine RBC Urine WBC Ur Squamous Epith Cells Urine Bacteria Urine Mucus Blood Type Antibody Screen 07/26/18 07/27/18 07/27/18 23:55 00:15 03:05 WBC RBC Hgb 13.7 Hct 42.2 MCV MCH MCHC RDW RDW Differential Plt Count MPV Immature Gran % (Auto) Neut % (Auto) Lymph % (Auto) [place] % (Auto) Eos % (Auto) Baso % (Auto) Absolute Neuts (auto) Absolute Lymphs (auto) Total Counted Differential Comment Platelet Estimate Plt Morphology Comment Anisocytosis Macrocytosis PT INR Sodium Potassium Chloride Carbon Dioxide Anion Gap BUN Creatinine Estim Creat Clear Calc Est GFR (MDRD) Af Amer Est GFR (MDRD) Non-Af BUN/Creatinine Ratio Glucose Lactic Acid 1.8 Calcium Total Bilirubin AST ALT Alkaline Phosphatase Total Protein Albumin Globulin Albumin/Globulin Ratio Lipase Urine Color Yellow Urine Clarity Clear Urine pH 5.0 Ur Specific [place] 1.015 Urine Protein Negative Urine Glucose (UA) Normal Urine Ketones Negative Urine Occult Blood Negative Urine Nitrite Negative Urine Bilirubin Negative Urine Urobilinogen Normal Ur Leukocyte Esterase Negative Urine RBC 0 SEEN Urine WBC 0 SEEN Ur Squamous Epith Cells 0 SEEN Urine Bacteria 0 SEEN Urine Mucus 0 SEEN Blood Type Antibody Screen 07/27/18 07/27/18 07/27/18 05:24 05:24 14:00 WBC 13.9 H RBC 4.15 L Hgb 12.5 11.5 L Hct 38.6 35.9 L MCV 93.0 MCH 30.1 MCHC 32.4 RDW 17.4 H RDW Differential 57.9 H Plt Count 170 MPV 10.7 Immature Gran % (Auto) 0.300 Neut % (Auto) 91.8 H Lymph % (Auto) 3.0 L [place] % (Auto) 4.7 Eos % (Auto) 0.0 Baso % (Auto) 0.2 Absolute Neuts (auto) 12.8 H Absolute Lymphs (auto) 0.42 L Total Counted Not Reportable Differential Comment SEE COMMENT Platelet Estimate ADEQUATE Plt Morphology Comment Anisocytosis RARE Macrocytosis RARE PT INR Sodium 141 Potassium 4.3 Chloride 110 H Carbon Dioxide 21.0 Anion Gap 10 BUN 20 H Creatinine 1.10 H Estim Creat Clear Calc 31.81 Est GFR (MDRD) Af Amer 62 Est GFR (MDRD) Non-Af 51 L BUN/Creatinine Ratio 18.2 Glucose 200 H Lactic Acid Calcium 9.0 Total Bilirubin AST ALT Alkaline Phosphatase Total Protein Albumin Globulin Albumin/Globulin Ratio Lipase Urine Color Urine Clarity Urine pH Ur Specific [place] Urine Protein Urine Glucose (UA) Urine Ketones Urine Occult Blood Urine Nitrite Urine Bilirubin Urine Urobilinogen Ur Leukocyte Esterase Urine RBC Urine WBC Ur Squamous Epith Cells Urine Bacteria Urine Mucus Blood Type Antibody Screen 07/27/18 14:00 WBC RBC Hgb Hct MCV MCH MCHC RDW RDW Differential Plt Count MPV Immature Gran % (Auto) Neut % (Auto) Lymph % (Auto) [place] % (Auto) Eos % (Auto) Baso % (Auto) Absolute Neuts (auto) Absolute Lymphs (auto) Total Counted Differential Comment Platelet Estimate Plt Morphology Comment Anisocytosis Macrocytosis PT INR Sodium Potassium Chloride Carbon Dioxide Anion Gap BUN Creatinine Estim Creat Clear Calc Est GFR (MDRD) Af Amer Est GFR (MDRD) Non-Af BUN/Creatinine Ratio Glucose Lactic Acid Calcium Total Bilirubin AST ALT Alkaline Phosphatase Total Protein Albumin Globulin Albumin/Globulin Ratio Lipase Urine Color Urine Clarity Urine pH Ur Specific [place] Urine Protein Urine Glucose (UA) Urine Ketones Urine Occult Blood Urine Nitrite Urine Bilirubin Urine Urobilinogen Ur Leukocyte Esterase Urine RBC Urine WBC Ur Squamous Epith Cells Urine Bacteria Urine Mucus Blood Type B NEGATIVE Antibody Screen NEGATIVE POC Glucose 07/27/18 00:31 POC Glucose 145 H Assessment/Plan Patient seen by Sudheer Villa PA-C under my supervision. Patient was admitted with a complaint of abdominal pain. She was found to be hypotensive, and responded to IVF. Hb was [address] abdomen showed colitis. Stool cultures were ordered. Patient seen and examined this morning. Abdominal pain has improved. She was very lethargic. She had a sitter by her. Patient has a history of very frequent falls and also refuses to use a walker. Abdominal pain had improved. Of note, she was seen in the hospital a month ago for abdominal pain and was found to have intestinal obstruction and transferred to [facility]. Review of systems otherwise negative. o/e: Vital Signs Height 5 ft 1 in Weight: 132 lb 4.438 oz Weight in Pounds 132.3 lbs Pulse Ox 95 Temperature 98.5 F Pulse Rate 68 Respiratory Rate 16 Blood Pressure 155/91 Blood Pressure Position Right Lateral General: Alert, Cooperative, very Confused, Lethargic HEENT: Atraumatic, PERRLA, EOMI, Normocephalic Neck: Supple, No JVD, Negative Carotid Bruits Lungs: Clear to auscultation, Normal air movement Cardiovascular: Regular rate, No murmurs Abdomen: Bowel Sounds Present, Soft, Non Tender Extremities: No edema, Capillary Refill Less than 3 Seconds Skin: No rashes, No breakdown Musculoskeletal: No Tenderness to Palpation of Joints or Extremities Neurological: Cranial nerves II-XII grossly intact Psych/Mental Status: flat affect Plan is for general surgery consult as she tested positive for blood in stool. Enteric panel was negative for C. difficile is pending. Continue hydration with IV fluids. On IV PPI. When she is medically stable, she may need mental health crisis team evaluation for geropsych services. Daughter counseled about this. Continue fall precautions. Trend hemoglobin. Rest of management as per Sudheer Villa PA-C's note which I reviewed and endorsed. Code Visit OBSV E&M: 99783 Subsequent observation care L3
--- NOTE | 2018-07-27 15:16 | CASEMGMT ---
Social Work Note As per physician notes, once pt is medically cleared crisis will be consulted to evaluate pt for possible goyo-psych placement. SW will continue to follow. Sofia Moses TAP PULLER, [employer]
--- NOTE | 2018-07-27 17:03 | PCM.CONS.B ---
- Consult Date of Consult: 07/27/18 - Reason for Consult Chief Complaint: asked by hospitalist service to evaluate patient for 'bowel obstruction' (this was told to me by the nurse which was the only communication that I received regarding this patient) History of Present Illness: 77 y/o WF admitted to hospital for generalized weakness and abdominal pain. Sustained fall with significant ecchymoses to left side of face and left arm injury. Nurses state that patient was combative last night - hitting, shouting, etc. She is s/p laparoscopic GORGE at [facility] on 06/03/18, she was discharged to [facility] [facility]. She had a rick postoperative course because of her debilitated state and multiple medical problems - aspiration pneumonia, speech therapy recommended pureed diet with nectar thick liquids with 1:1 supervision feeds, has dysphagia, urinary retention requiring catheter placement, malnutrition, stress echo EF 65% Was placed on reglan and erythromycin postop to help with peristalsis CT scan obtained - Evidence of a mild diffuse colitis which could be infectious, inflammatory, or ischemic in etiology. Prominent fluid in the bowel suggestive of resulting diarrheal illness. No obstruction or perforation or abscess. PAST?MEDICAL?HISTORY ? Abdominal hernia 07/14/2012 ? Abdominal pain, left lower quadrant ? ? Clostridium difficile colitis ? 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 Dr. Chavez, Pain Management ? Depressive disorder, not elsewhere classified 10/23/2004 ? Dr. Morris ? Diverticulitis of colon (without mention of hemorrhage)(562.11) ? ? Generalized osteoarthrosis, unspecified site 10/23/2004 ? Knees. Dr. Montano ? Ischemic colitis (HCC) 11/15/2011 ? w/ sepsis ? Macular degeneration (senile) of retina, unspecified 10/23/2004 ? 3/10 legally blind ? Myalgia and myositis, unspecified 10/23/2004 ? Fibromyalgia ? Myalgia and myositis, unspecified 10/23/2004 ? Fibromyalgia, Dr. Jensen [facility] ? Non-STEMI (non-ST elevated myocardial infarction) (HCC) 11/15/2011 ? Other and unspecified hyperlipidemia 10/23/2004 ? Other specified disorders of arteries and arterioles (HCC) 10/23/2004 ? Right Carotid ? Type II or unspecified type diabetes mellitus without mention of complication, not stated as uncontrolled 10/23/2004 ? Ulcerative colitis, unspecified ? ? Unspecified essential hypertension 10/23/2004 ? Unspecified essential hypertension ? ? 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 ? Unspecified vitamin D deficiency 07/29/2006 ? urinary incontinence 02/25/2012 ? PAST?SURGICAL?HISTORY ? APPENDECTOMY ? ? ? COLONOSCOP W/ OR W/O BRSH SPEC ? 09/11/2005 ? Colonoscopy ? COLONOSCOPY W/BX ? 1999 ? COLONOSCOPY W/BX ? 02/28/2005 ? EGD W/O OR W/BRUSH/WASH ? 08/2005 ? EGD ? EXPLORATORY OF ABDOMEN ? 11/15/2011 ? cecostomy, cecopexy, umb. herniorrhaphy ? FOOT RIGHT OP SURGERY ? 2010 ? 2nd toe ? HEART CATHETERIZATION ? 05/12/2012 ? [facility] ? LEFT HEART CATH ? 05/31/13 ? left ventriculogram, coronary arteriography ? PAST SURGICAL HISTORY OF Right 10/27/2006 ? Right carotid angioplasty and stent ? PAST SURGICAL HISTORY OF Right 08/29 ? bunionectomy right foot ? REMOVAL GALLBLADDER ? ? ? Cholecystectomy ? REMOVAL OF OVARY(S) ? ? ? Oophorectomy ? REVISE MEDIAN N/CARPAL TUNNEL SURG ? 04/2006 &06/2006 ? Carpal tunnel decomp ? TOTAL KNEE REPLACEMENT Right 12/22/05 ? RIGHT ? TOTAL KNEE REPLACEMENT Bilateral 10/04/2007 ? Knee replacement, total bilateral ? TRANSCATH STENT ADDN VESSEL,PERCUT ? 05/13/2012 ? Stenting x 3, PROMUS Element plus Medications: amLODIPine (NORVASC) 10 mg tablet?() aspirin, enteric coated (ASPIRIN, ENTERIC COATED) 81 mg EC tablet LORazepam (ATIVAN) 0.5 mg tab fentaNYL (DURAGESIC) 25 mcg/hr sertraline (ZOLOFT) 25 mg tablet sertraline (ZOLOFT) 50 mg tablet ibuprofen (ADVIL) 200 mg tablet lidocaine HCl (ASPERCREME, LIDOCAINE,) 4 % crea bisacodyl (DULCOLAX) 10 mg supp docusate sodium (COLACE) 100 mg capsule mineral oil (FLEET MINERAL OIL ENEMA) enema Loperamide HCl (IMODIUM A-D) 2 mg tab lisinopril (ZESTRIL, PRINIVIL) 20 mg tablet magnesium hydroxide (MILK OF MAGNESIA) 400 mg/5 mL suspension nystatin (MYCOSTATIN) powder omeprazole (PRILOSEC) 20 mg capsule [id number] D3 500 mg(1,250mg) -200 unit per tablet acetaminophen (TYLENOL) 325 mg tablet oxybutynin (DITROPAN) 5 mg tablet atorvastatin (LIPITOR) 40 mg tablet metoprolol tartrate, short acting, (LOPRESSOR) 50 mg tablet leflunomide (ARAVA) 20 mg tablet clopidogrel 75 mg tablet Allergies: Reglan [Metoclopramide Hcl]Intolerance AmpicillinRash Arthrotec 50 [Diclofenac-misoprostol] CodeineGI Upset DiclofenacUnknown DoxycyclineItching Green PepperHives Myrna [Morphine]GI Upset MisoprostolUnknown Sulfamethoxazole Tetanus AntitoxinUnknown Tetanus Vaccines And ToxoidSwelling TizanidineMental Status Change Social history: TOB use denies resident of [facility] - totally dependent Review of Systems: General - denies fevers Cardiovascular denies chest pain Pulmonary denies coughing up blood Gastrointestinal as per HPI Neurological denies seizures Genitourinary incontinent of urine Hematological denies spontaneous/prolonged bleeding Musculoskeletal: left arm injury Skin bruising of face, no rashes noted Psychological dementia, known depression Physical examination: Vital signs Temp 98.6F BP 123/56 HR 81 RR 16 General WD/WN elderly appearing WF in no apparent distress, alert and oriented, not septic appearing HEENT Normocephalic. Ecchymoses to left side of face Lungs normal breath sounds in all lung trinh. No rales/rhonchi/wheezing noted. No labored breathing noted, such as retractions. No cough heard. Heart regular Abdomen soft and benign. Patient states no pain with deep palpation. Normal bowel sounds Extremities dependent bilateral lower extremity swelling. Genitourinary/Rectal deferred Skin normal skin integrity. Neurological non focal. Psychological somnolent, however patient responds to my questions appropriately and denies abdominal pain Impression: I was consulted for bowel obstruction and abdominal pain - patient appears to have this resolved, no further diarrhea since hospitalization Patient does have mild anemia, stool guaiac positive, abnormal CT scan with possible colitis - though patient is asymptomatic Discussion/Plan: I have evaluated the patient. I have reviewed the medical records for her admission and also laboratory studies. She is somnolent, but responds to my examination and questions. No surgical intervention required at this point. If hospitalist services wants to proceed with colonoscopy, earliest that this can be done will be , otherwise, can consider for this patient to have a colonoscopy as an outpatient.
--- NOTE | 2018-07-27 17:09 | CON.PCM_ITS ---
- Consult Date of Consult: 07/27/18 - Reason for Consult Chief Complaint: asked by hospitalist service to evaluate patient for 'bowel obstruction' (this was told to me by the nurse which was the only communication that I received regarding this patient) History of Present Illness: 77 y/o WF admitted to hospital for generalized weakness and abdominal pain. Sustained fall with significant ecchymoses to left side of face and left arm injury. Nurses state that patient was combative last night - hitting, shouting, etc. She is s/p laparoscopic GORGE at [facility] on 06/03/18, she was discharged to long term. She had a rick postoperative course because of her debilitated state and mult iple medical problems - aspiration pneumonia, speech therapy recommended pureed diet with nectar thick liquids with 1:1 supervision feeds, has dysphagia, urinary retention requiring catheter placement, malnutrition, stress echo EF 65% Was placed on reglan and erythromycin postop to help with peristalsis CT scan obtained - Evidence of a mild diffuse colitis which could be infectious, inflammatory, or ischemic in etiology. Prominent fluid in the bowel suggestive of resulting diarrheal illness. No obstruction or perforation or abscess. PAST?MEDICAL?HISTORY ? Abdominal hernia 07/14/2012 ? Abdominal pain, left lower quadrant ? ? Clostridium difficile colitis ? 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 Dr. Chavez, Pain Management ? Depressive disorder, not elsewhere classified 10/23/2004 ? Dr. Morris ? Diverticulitis of colon (without mention of hemorrhage)(562.11) ? ? Generalized osteoarthrosis, unspecified site 10/23/2004 ? Knees. Dr. Montano ? Ischemic colitis (HCC) 11/15/2011 ? w/ sepsis ? Macular degeneration (senile) of retina, unspecified 10/23/2004 ? 3/10 legally blind ? Myalgia and myositis, unspecified 10/23/2004 ? Fibromyalgia ? Myalgia and myositis, unspecified 10/23/2004 ? Fibromyalgia, Dr. Jensen [facility] ? Non-STEMI (non-ST elevated myocardial infarction) ([facility]) 11/15/2011 ? Other and unspecified hyperlipidemia 10/23/2004 ? Other specified disorders of arteries and arterioles ([facility]) 10/23/2004 ? Right Carotid ? Type II or unspecified type diabetes mellitus without mention of complication, not stated as uncontrolled 10/23/2004 ? Ulcerative colitis, unspecified ? ? Unspecified essential hypertension 10/23/2004 ? Unspecified essential hypertension ? ? 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 ? Unspecified vitamin D deficiency 07/29/2006 ? urinary incontinence 02/25/2012 ? PAST?SURGICAL?HISTORY ? APPENDECTOMY ? ? ? COLONOSCOP W/ OR W/O BRSH SPEC ? 09/11/2005 ? Colonoscopy ? COLONOSCOPY W/BX ? 1999 ? COLONOSCOPY W/BX ? 02/28/2005 ? EGD W/O OR W/BRUSH/WASH ? 08/2005 ? EGD ? EXPLORATORY OF ABDOMEN ? 11/15/2011 ? cecostomy, cecopexy, umb. herniorrhaphy ? FOOT RIGHT OP SURGERY ? 2010 ? 2nd toe ? HEART CATHETERIZATION ? 05/12/2012 ? [facility] ? LEFT HEART CATH ? 05/31/13 ? left ventriculogram, coronary arteriography ? PAST SURGICAL HISTORY OF Right 10/27/2006 ? Right carotid angioplasty and stent ? PAST SURGICAL HISTORY OF Right 08/29 ? bunionectomy right foot ? REMOVAL GALLBLADDER ? ? ? Cholecystectomy ? REMOVAL OF OVARY(S) ? ? ? Oophorectomy ? REVISE MEDIAN N/CARPAL TUNNEL SURG ? 04/2006 &06/2006 ? Carpal tunnel decomp ? TOTAL KNEE REPLACEMENT Right 12/22/05 ? RIGHT ? TOTAL KNEE REPLACEMENT Bilateral 10/04/2007 ? Knee replacement, total bilateral ? TRANSCATH STENT ADDN VESSEL,PERCUT ? 05/13/2012 ? Stenting x 3, PROMUS Element plus Medications: amLODIPine (NORVASC) 10 mg tablet?() aspirin, enteric coated (ASPIRIN, ENTERIC COATED) 81 mg EC tablet LORazepam (ATIVAN) 0.5 mg tab fentaNYL (DURAGESIC) 25 mcg/hr sertraline (ZOLOFT) 25 mg tablet sertraline (ZOLOFT) 50 mg tablet ibuprofen (ADVIL) 200 mg tablet lidocaine HCl (ASPERCREME, LIDOCAINE,) 4 % crea bisacodyl (DULCOLAX) 10 mg supp docusate sodium (COLACE) 100 mg capsule mineral oil (FLEET MINERAL OIL ENEMA) enema Loperamide HCl (IMODIUM A-D) 2 mg tab lisinopril (ZESTRIL, PRINIVIL) 20 mg tablet magnesium hydroxide (MILK OF MAGNESIA) 400 mg/5 mL suspension nystatin (MYCOSTATIN) powder omeprazole (PRILOSEC) 20 mg capsule idhlqow-gichnrurb-tiheaub D3 500 mg(1,250mg) -200 unit per tablet acetaminophen (TYLENOL) 325 mg tablet oxybutynin (DITROPAN) 5 mg tablet atorvastatin (LIPITOR) 40 mg tablet metoprolol tartrate, short acting, (LOPRESSOR) 50 mg tablet leflunomide (ARAVA) 20 mg tablet clopidogrel 75 mg tablet Allergies: Reglan [Metoclopramide Hcl]Intolerance AmpicillinRash Arthrotec 50 [Diclofenac-misoprostol] CodeineGI Upset DiclofenacUnknown DoxycyclineItching Green PepperHives Myrna [Morphine]GI Upset MisoprostolUnknown Sulfamethoxazole Tetanus AntitoxinUnknown Tetanus Vaccines And ToxoidSwelling TizanidineMental Status Change Social history: TOB use denies resident of long term - totally dependent Review of Systems: General - denies fevers Cardiovascular denies chest pain Pulmonary denies coughing up blood Gastrointestinal as per HPI Neurological denies seizures Genitourinary incontinent of urine Hematological denies spontaneous/prolonged bleeding Musculoskeletal: left arm injury Skin bruising of face, no rashes noted Psychological dementia, known depression Physical examination: Vital signs Temp 98.6F BP 123/56 HR 81 RR 16 General WD/WN elderly appearing WF in no apparent distress, alert and oriented, not septic appearing HEENT Normocephalic. Ecchymoses to left side of face Lungs normal breath sounds in all lung trinh. No rales/rhonchi/wheezing noted. No labored breathing noted, such as retractions. No cough heard. Heart regular Abdomen soft and benign. Patient states no pain with deep palpation. Normal bowel sounds Extremities dependent bilateral lower extremity swelling. Genitourinary/Rectal deferred Skin normal skin integrity. Neurological non focal. Psychological somnolent, however patient responds to my questions appropriately and denies abdominal pain Impression: I was consulted for bowel obstruction and abdominal pain - patient appears to have this resolved, no further diarrhea since hospitalization Patient does have mild anemia, stool guaiac positive, abnormal CT scan with possible colitis - though patient is asymptomatic Discussion/Plan: I have evaluated the patient. I have reviewed the medical records for her admission and also laboratory studies. She is somnolent, but responds to my examination and questions. No surgical intervention required at this point. If hospitalist services wants to proceed with colonoscopy, earliest that this can be done will be , otherwise, can consider for this patient to have a colonoscopy as an outpatient.
[2018-07-27 20:24] LABS: Hematocrit 32.7 % (37-47); Hemoglobin 10.5 g/dl (12.0-15.0)
--- NOTE | 2018-07-27 23:34 | CT_ITS ---
HISTORY: ABD PAIN, BLOOD IN STOOL, LOW 02, FREQUENT FALLS EXAMINATION: CT Abdomen And Pelvis W/O Contrast TECHNIQUE: Helically acquired images were obtained of the abdomen and pelvis without oral or IV contrast as per renal stone protocol. A radiation dose optimization technique was used for this scan. IV Contrast dosage and agent: None. Oral contrast: None. COMPARISON: 06/03/18 CT abdomen and pelvis. FINDINGS: LOWER CHEST: Groundglass attenuation and right greater than left atelectasis lung bases, improved aeration compared to prior. Elevation right hemidiaphragm. Heart size normal. Coronary artery atherosclerosis. LIVER: Homogeneous. No focal mass. GALLBLADDER AND BILIARY TREE: Status post cholecystectomy. Mild common bile but dilation chronic and unchanged. KIDNEYS AND URETERS: No hydronephrosis or renal stone. Incidental cysts both kidneys. ADRENAL GLANDS: Non-enlarged. SPLEEN: Normal size without focal cystic or solid mass. PANCREAS: No focal cystic or solid mass. BOWEL: Appendix not identified. No evidence of appendicitis. No bowel obstruction. Mild but diffuse colonic wall thickening. Prominent fluid throughout the bowel with little formed stool. Scattered colonic diverticula, no diverticulitis. LYMPH NODES: No enlarged mesenteric or retroperitoneal lymph nodes. PERITONEUM: Trace free fluid. No free air. VESSELS: Severe atherosclerosis. No abdominal aortic aneurysm. URINARY BLADDER: Not fully distended. Thick-walled. REPRODUCTIVE ORGANS: No pelvic masses. Uterus and ovaries are unremarkable. ABDOMINAL WALL: No discrete abdominal or pelvic wall hernia observed. BONES: No acute finding. Marked right scoliosis centered at L2, degenerative changes again demonstrated. CT/Abdomen/Pelvis without Cont IMPRESSION: Evidence of a mild diffuse colitis which could be infectious, inflammatory, or ischemic in etiology. Prominent fluid in the bowel suggestive of resulting diarrheal illness. No obstruction or perforation or abscess. Mild urinary bladder wall thickening may be due to under distention or cystitis. Improved aeration of the partially visible lungs with mild residual groundglass opacities. Severe atherosclerosis, other chronic findings as above. Individualized dose optimization techniques were used for this CT. at 0104 Reported and signed by: Jefe Prince MD Electronically Signed: Jefe Prince, at 1:03 EDT Tel , Service support ,
[2018-07-28 03:15] VITALS: BP 146/55; PULSE 108; RESP 20; TEMP 37.8; O2SAT 93
[2018-07-28] MEDS: Acetaminophen 650 MG Suppository RECTAL (05:29)
[2018-07-28 06:24] LABS: Absolute Lymphocyte Count 0.57 X10^3/ul (0.83-4.51); Absolute Neutrophil Count 7.4 X10^3/uL (2.0-7.7); Basophil# 0.03 X10^3/uL; Basophil% 0.3 % (0-1); Differential Indicated SCAN CRITERIA MET; Eosinophil# 0.04 X10^3/uL; Eosinophils% 0.4 % (0-5); Hematocrit 29.6 % (37-47); Hemoglobin 9.4 g/dl (12.0-15.0); Lymphocyte # 0.57 X10^3/ul (4.0); Lymphocyte % 6.3 % (19-41); Mean Corp Hgb Conc 31.8 g/gl (32-36); Mean Corpuscular Hgb 29.9 pg (27.0-32.0); Mean Corpuscular Volume 94.3 fL (81-99); Mean Platelet Vol. 10.6 fl (6.2-12.0); Monocyte# 0.89 X10^3/uL; Monocyte% 9.9 % (0-10); Neutrophil # 7.44 X10^3/uL (2.7-7.7); Neutrophil % 82.8 % (47-70); POSITIVE COUNT NO; POSITIVE DIFFERENTIAL YES; POSITIVE MORPHOLOGY NO; Platelet Count 126 K/mm3 (150-450); RBC Distribution Width SD 59.2 fl (35.1-43.9); Red Blood Count 3.14 M/mm3 (4.2-5.4)
[2018-07-28 06:42] LABS: Anion Gap 6 (5-15); BUN 14 mg/dL (7-18); BUN/Creat Ratio 19.6 RATIO (10-20); Calcium,Total 8.4 mg/dL (8.5-10.1); Chloride 115 mmol/L (98-107); Creatinine, Serum 0.71 mg/dL (0.55-1.02); EST Glomerular Filtration Rate 84 mL/min (>60); Est Glom Filt Rate - Afr Amer 102 mL/min (>60); Estimated Creatinine Clearance 34.99 ml/min; Glucose 107 mg/dL (74-106); Potassium 3.5 mmol/L (3.5-5.1); Sodium Level 143 mmol/L (136-145)
[2018-07-28 07:08] VITALS: O2SAT 88
--- NOTE | 2018-07-28 07:33 | NURSING ---
@ 0715, assuming care for this pt-pt sleeping, resp are 16, uneven and non labored-pox is 94% on room air-this is nurse is sitting at bedside w/ pt at this time-bed exit is on, pt sleeping at this time
[2018-07-28 07:36] VITALS: BP 119/68; PULSE 92; RESP 16; TEMP 37.3; O2SAT 94
[2018-07-28] MEDS: Lidocaine 5% Patch 1 PATCH TOPICAL (09:19)
[2018-07-28] MEDS: Menthol/Lanolin/Calamine/Znox 113 GM Tube 1 APPLIC TOPICAL (09:19)
[2018-07-28] MEDS: Potassium Chloride 10mEq/100mL 10 MEQ/100 ML IV.SOLN. 100 MEQ IV BOLUS ×2 (09:26→10:55)
--- NOTE | 2018-07-28 09:35 | NURSING ---
speech in with pt and pt passed for reg thin clear liquids
--- NOTE | 2018-07-28 09:45 | CASEMGMT ---
Social Work Note LUKE did place a call to pt's son Xander and updated him that Hospice referral will be made per his request and that Hospice will be calling him to arrange meeting time. LUKE informed Xander that per physician pt will be discharged back to [facility] today and that Hospice can follow up with him and pt at [facility] [place]. Xander states understanding. Sofia Moses INSULATION BLOWER, SENIOR ENERGY ANALYST
[2018-07-28] MEDS: Loperamide 2 MG Capsule PO (09:56)
--- NOTE | 2018-07-28 09:57 | CASEMGMT ---
Social Work Note Per PA pt's son Xander requested Hospice/Palliative Care Referral be made. PA and Physician both state that pt is able to discharge to [facility] today and that Hospice can follow up with pt and pt's family once pt returns to [facility] today. LUKE placed a call to [facility] and provided referral to CORRINE Soler. SW faxed referral to [facility]. LUKE placed a call to Kim at [facility], updated her that pt will be discharged back to [facility] and that Hospice referral has been made per pt's son Xander request. Plan: Pt to return to [facility] today with Hospice referral Sofia Moses NURSE RN BSN, LOG COOKER
--- NOTE | 2018-07-28 10:46 | PCM.EXTCARCO ---
- Diet 07/27/18 19:25 Diet: Clear Liquid Is pt able to select menu?: No Diet Comments: no reds, pt not in isolations at this time - Routine Orders/Code Status Suppository Type: Dulcolax 10mg Suppository Frequency: Daily PRN Routine Lab Work: CBC - tomorrow, BMP - 1 week Code Status: Full Code - Wound(s) left jainism Wound Type: Abrasion - Therapies Physical Therapy: Eval and Treat Occupational Therapy: Eval and Treat Speech Therapy: Eval and Treat - Allergies/Procedures Done in Hospital Allergies/Adverse Reactions: Allergies ampicillin Allergy (Verified 07/26/18 23:26) Unknown codeine Allergy (Verified 07/26/18 23:26) Unknown diclofenac sodium [From Arthrotec 50] Allergy (Verified 07/26/18 23:26) Unknown doxycycline Allergy (Verified 07/26/18 23:26) Unknown fluticasone propionate [From Flonase] Allergy (Verified 07/26/18 23:26) Unknown green pepper Allergy (Verified 07/26/18 23:26) Food Allergy misoprostol [From Arthrotec 50] Allergy (Verified 07/26/18 23:26) Unknown morphine Allergy (Verified 07/26/18 23:26) Unknown Sulfa (Sulfonamide Antibiotics) Allergy (Verified 07/26/18 23:26) Unknown Tetanus Vaccines and Toxoid [Tetanus Vaccines & Toxoid] Allergy (Verified 07/26/18 23:26) Unknown Procedures: None - Type of Care/Length of Stay Estimated LOS: Convalescent Care Less Than 30 days Type of Care Needed: Skilled Rehab Potential: Fair Prognosis: Fair - Additional Orders/Day of Discharge Day of Discharge: 07/28/18 - Dietary and Speech Recommendations Dietitian Recommendations/Changes: Rec adv diet as tolerated to transitional. May need BOOTS AND SHOES SUPERVISOR evaluation if issues chewing/swallowing persist. Rec Glucerna ONS w/ medpass when PO diet advanced; will d/c at this time as pt is NPO. - Follow Up Care Primary Care Physician: Silvano Whitlock MD [Primary Care Provider] - Please follow up with your Primary Care Physician in: 1 week Please Follow Up With: Carole Maharaj MD When: As needed
[2018-07-28] MEDS: Ondansetron 4 MG/2 ML Vial IV (10:54)
--- NOTE | 2018-07-28 11:30 | CASEMGMT ---
Addendum entered by Sofia Moses 07/28/18 12:15: LUKE was finally able to contact pt's daughter Katherine and update her on pt's discharge today and transportation time. Original Note: Social Work Note Pt is discharging back to [facility] today oysterman with Hospice consult. LUKE faxed discharge paperwork to [facility] including transfer to extended care facility, signed medication list and any scripts. Original in SNF folder and copy on pt's chart. LUKE spoke with RN who states pt is able to be transported via cot and requested transportation be arranged for 12:00pm or 12:30pm. LUKE placed a call to [facility] and arranged transportation via cot at 12:30pm. Transportation form on SNF folder and copy on pt's chart. LUKE attempted to call Kim at [facility] to update on transportation time, phones are currently not working. LUKE did call Kim at [facility] via personal cell phone and left message informing her of discharge time for pt. LUKE attempted to call pt's son Xander and daughter Katherine multiple times but due to phones being down LUKE unable to contact pt's son or daughter. After multiple attempts, LUKE was able to call pt's son Xander and was able to update him that pt is being discharged to [facility] today and of transportation time. LUKE again tried to all pt's daughter Katherine with no luck due to phones not working. LUKE will continue to try to call pt's daughter Katherine to update on discharge and transportation time. RN updated on transportation time. Plan: Pt is discharging back to [facility] today alf with Hospice referral. Sean is transporting pt via cot at 12:30pm. Sofia Moses COLORECTAL SURGEON, WELDING PRODUCTION SUPERVISOR
[2018-07-28 11:41] VITALS: BP 142/81; PULSE 96; RESP 18; TEMP 36.7; O2SAT 97
--- NOTE | 2018-07-28 12:38 | PCM.DC.SUM ---
<Sudheer Villa - Last Filed: 07/28/18 12:38> Discharge Date and Diagnosis Date of Admission: 07/27/18 Date of Discharge: 07/28/18 - Primary Discharge Diagnosis Acute colitis suspect 2/2 viral gastroenteritis Acute lower GI bleed 2/2 above Mild acute blood loss anemia 2/2 above CAD on plavix / aspirin Thrombocytopenia Worsening of underlying dementia Functional decline, failure to thrive T2DM Anxiety/Depression HLD - Secondary Discharge Diagnosis Chronic Problems (Last Updated 03/23/17 @ 16:07 by ANA Hobbs) Type 2 diabetes mellitus (Chronic) Blindness (Chronic) Anxiety (Chronic) Depression, major (Chronic) Hyperlipidemia (Chronic) Depression (Chronic) Coronary arteriosclerosis (Chronic) CAD (coronary artery disease) (Chronic) stent to LAD S/P PTCA (percutaneous transluminal coronary angioplasty) (Chronic ~2012) LAD HTN (hypertension) (Chronic) Diabetes mellitus (Chronic) Hospital Course and Treatment Imaging Results: RAD/Chest 1 View (Portable) IMPRESSION: Chronic interestitial changes. No radiographic evidence of acute cardiopulmonary disease. at 0038 Reported and signed by: Jefe Prince MD CT/Abdomen/Pelvis without Cont IMPRESSION: Evidence of a mild diffuse colitis which could be infectious, inflammatory, or ischemic in etiology. Prominent fluid in the bowel suggestive of resulting diarrheal illness. No obstruction or perforation or abscess. Mild urinary bladder wall thickening may be due to under distention or cystitis. Improved aeration of the partially visible lungs with mild residual groundglass opacities. Severe atherosclerosis, other chronic findings as above. Individualized dose optimization techniques were used for this CT. Consults: Maharaj - Gen Surgery Operations: None Procedures: None Summary of Care Provided: Hospital course: The patient is a 77 year old F with past medical history of recent admission to [facility] with volvulus and bowel obstruction, also with a history of advanced dementia, CAD, type 2 diabetes, anxiety and depression, hypertension hyperlipidemia, who [facility] with worsening mentation, generalized abdominal pain, and diarrhea. In the emergency room she had a low blood pressure 49/35 improved with IV fluids to 112/76, and had a CT demonstrating diffuse colitis, she had no fever, she did have a leukocytosis at 13.9. She was admitted to the general medical floor with acute gastroenteritis, suspected viral. She was given supportive care. She did have a lingular bowel movement that was sent to the lab and tested positive for blood. General surgery was consulted and did not feel that he intervention was necessary at this time and recommended possibly having an outpatient colonoscopy. The patient was not interested at all in a colonoscopy when explained to her. The patient's mentation was poor throughout. She had moments of agitation and irrational behavior. She did not have significant improvement in her mentation during her stay here. She is A/Ox1. She does not move very much and does not interact or talk to staff very much. The patient has ongoing functional decline worsening of her dementia. Is felt that she could benefit from hospice care at this point. Recommendation was made, hospice will follow up with the patient [facility]. Bleeding stopped, hemoglobin is 9.4 this time. Her aspirin and Plavix, and prn ibuprofen are discontinued. She should not receive any blood thinning agents. She has no further diarrhea today. She is [facility] to the [facility] in stable condition. Follow-up with Dr. Maharaj as directed such as if she decides to pursue a colonoscopy. Please also follow-up with your PCP in 1 to 2 weeks. This patient was seen by Sudheer Villa PA-C under the supervision of Doctor Scales. [] - Physical Exam General: Alert, Confused, Lethargic, - - diffuse all over ecchymosis HEENT: Atraumatic, PERRLA, EOMI, Normocephalic Neck: Supple, No JVD, Negative Carotid Bruits Lungs: Clear to auscultation, Normal air movement Cardiovascular: Regular rate, No murmurs Abdomen: Bowel Sounds Present, Soft, Non Tender Extremities: No edema, Capillary Refill Less than 3 Seconds Skin: No rashes, No breakdown Musculoskeletal: No Tenderness to Palpation of Joints or Extremities Neurological: Cranial nerves II-XII grossly intact Psych/Mental Status: Normal Affect, Appropriate, Alert and oriented to time, place, person, mood and affect Vital Signs Temp Pulse Resp BP Pulse Ox 98.1 F 96 18 142/81 H 97 07/28/18 11:41 07/28/18 11:41 07/28/18 11:41 07/28/18 11:41 07/28/18 11:41 Oxygen Flow Rate (L/min) 2 Oxygen Delivery Method Room Air Weight: 132 lb 4.438 oz Body Mass Index (BMI) 25.0 Finger Stick Blood Glucose 145 Intake and Output for Last 24 Hours 07/26/18 07/27/18 07/28/18 23:59 23:59 23:59 Intake Total 2530 / 2530 1447 / 1447 Output Total 230 / 230 Balance 2529 / 2529 1217 / 1217 Microbiology Past 72 Hours 07/27/18 19:10 C. difficile DNA Amplification - Final Stool 07/27/18 00:58 Enteric Bacteriology - Final Stool 07/27/18 00:00 Stool Occult Blood (ANIYA) - Final Stool Occult Blood Positive Laboratory Tests Past 24 Hrs 07/27/18 07/27/18 07/27/18 14:00 14:00 20:10 WBC RBC Hgb 11.5 L 10.5 L Hct 35.9 L 32.7 L MCV MCH MCHC RDW RDW Differential Plt Count MPV Immature Gran % (Auto) Neut % (Auto) Lymph % (Auto) [place] % (Auto) Eos % (Auto) Baso % (Auto) Absolute Neuts (auto) Absolute Lymphs (auto) Total Counted Sodium Potassium Chloride Carbon Dioxide Anion Gap BUN Creatinine Estim Creat Clear Calc Est GFR (MDRD) Af Amer Est GFR (MDRD) Non-Af BUN/Creatinine Ratio Glucose Calcium Blood Type B NEGATIVE Antibody Screen NEGATIVE 07/28/18 07/28/18 05:46 05:46 WBC 9.0 RBC 3.14 L Hgb 9.4 L Hct 29.6 L MCV 94.3 MCH 29.9 MCHC 31.8 L RDW 18.0 H RDW Differential 59.2 H Plt Count 126 L MPV 10.6 Immature Gran % (Auto) 0.300 Neut % (Auto) 82.8 H Lymph % (Auto) 6.3 L [place] % (Auto) 9.9 Eos % (Auto) 0.4 Baso % (Auto) 0.3 Absolute Neuts (auto) 7.4 Absolute Lymphs (auto) 0.57 L Total Counted Not Reportable Sodium 143 Potassium 3.5 Chloride 115 H Carbon Dioxide 22.0 Anion Gap 6 BUN 14 Creatinine 0.71 Estim Creat Clear Calc 34.99 Est GFR (MDRD) Af Amer 102 Est GFR (MDRD) Non-Af 84 BUN/Creatinine Ratio 19.6 Glucose 107 H Calcium 8.4 L Blood Type Antibody Screen Discharge Diet: No Restrictions Discharge Activity: Return to Normal Activity Home Medications: Medications to take at Discharge Leflunomide 20 mg PO DAILY 09/16/16 atorvastatin 40 mg tablet 40 mg PO QHS 90 Days #90 03/23/17 Lisinopril [Zestril] 20 mg PO DAILY 12/01/17 Metoprolol Tartrate [Lopressor (beta hermilo)] 50 mg PO BID 12/01/17 Acetaminophen [Tylenol Tablet] 650 mg PO Q6H PRN PRN tablet 12/18/17 Fentanyl 25 mcg TOPICAL Q72H 06/03/18 Lorazepam [Ativan] 0.5 mg PO TID PRN PRN 06/03/18 Oxybutynin Chloride 5 mg PO BID 06/03/18 Lidocaine HCl [Aspercreme] 76.5 gm TP BID 06/17/18 Calcium Carbonate/Vitamin D3 [Calcium 500-Vit D3 200 Tablet] 1 each PO BID 07/14/18 Sertraline HCl 100 mg PO DAILY 07/14/18 Amlodipine [Norvasc] 10 mg PO DAILY tablet 07/17/18 Bisacodyl [Laxative Suppository] 10 mg RC PRN PRN 07/27/18 Loperamide [Imodium] 2 mg PO Q6H PRN PRN capsule 07/28/18 Omeprazole [Prilosec] 20 mg PO BID #60 07/28/18 Primary Care Physician: Silvano Whitlock MD [Primary Care Provider] - Please follow up with your Primary Care Physician in: 1 week Please Follow Up With: Carole Maharaj MD When: As needed Disposition: Home Minutes spent on discharge:: 35 Patient Condition:: Stable Medical Necessity - Tobacco Use Smoking Status: Never smoker Meaningful Use Info Meaningful Use Diagnoses (Choose all that apply): None applicable <Mala Scales - Last Filed: 07/28/18 15:04> Discharge Date and Diagnosis - Secondary Discharge Diagnosis Chronic Problems (Last Updated 03/23/17 @ 16:07 by ANA Hobbs) Type 2 diabetes mellitus (Chronic) Blindness (Chronic) Anxiety (Chronic) Depression, major (Chronic) Hyperlipidemia (Chronic) Depression (Chronic) Coronary arteriosclerosis (Chronic) CAD (coronary artery disease) (Chronic) stent to LAD S/P PTCA (percutaneous transluminal coronary angioplasty) (Chronic ~2013) LAD HTN (hypertension) (Chronic) Diabetes mellitus (Chronic) Hospital Course and Treatment Summary of Care Provided: Patient seen by Sudheer Villa PA-C under my supervision The patient is a 77 year old F with past medical history as listed. She was [facility] the ED [facility] a [facility] with a complaint of altered mental status as well as generalized abdominal pain and diarrhea. She was noted to be hypotensive in the ED which improved with IV fluid administration. CT of the abdomen done showed mild diffuse colitis with prominent fluid in the bowel suggestive of resulting diarrheal illness. Patient was admitted and managed for her enteritis which was suspected to be viral. Of note, patient had recently been seen at [facility] for volvulus and small bowel obstruction. General surgery was consulted on account of positive occult blood but thought this was likely due to colitis and recommended patient having outpatient colonoscopy but patient was not interested in this. Patient remained confused throughout his stay here. This was thought to be due to worsening of her dementia. Family was receptive to the option of hospice care and this was to be arranged at her [facility] after discharge. Patient remained stable and hemoglobin was 9.4 at time of discharge. Her aspirin and Plavix as well as PRN ibuprofen were discontinued on account of positive occult blood and rectal bleeding. [facility] 07[facility]2018 and is to follow-up with general surgery she decides to have a colonoscopy. She is also to follow-up with hospice care in her [facility]. Patient also to follow-up with her primary care doctor. Patient seen and examined prior to discharge. She remained confused. Unable to do competency review of system as patient is very confused. Labs and vitals reviewed. Home medication reviewed and reconciled. o/e: Vital Signs Height 5 ft 1 in Weight: 132 lb 4.438 oz Weight in Pounds 132.3 lbs Pulse Ox 97 Temperature 98.1 F Pulse Rate 96 Respiratory Rate 18 Blood Pressure 142/81 Blood Pressure Position Sitting [] General: Alert, Cooperative, Confused, Lethargic HEENT: Atraumatic, PERRLA, EOMI, Normocephalic Neck: Supple, No JVD, Negative Carotid Bruits Lungs: Clear to auscultation, Normal air movement Cardiovascular: Regular rate, No murmurs Abdomen: Bowel Sounds Present, Soft, Non Tender Extremities: No edema, Capillary Refill Less than 3 Seconds Skin: No rashes, No breakdown Musculoskeletal: No Tenderness to Palpation of Joints or Extremities Neurological: Cranial nerves II-XII grossly intact Psych/Mental Status: very confused. Plan as above. Rest of management as per Sudheer Villa PA-C's note which I have reviewed and endorsed. - Physical Exam Vital Signs Temp Pulse Resp BP Pulse Ox 98.1 F 96 18 142/81 H 97 07/28/18 11:41 07/28/18 11:41 07/28/18 11:41 07/28/18 11:41 07/28/18 11:41 Oxygen Flow Rate (L/min) 2 Oxygen Delivery Method Room Air Weight: 132 lb 4.438 oz Body Mass Index (BMI) 25.0 Finger Stick Blood Glucose 145 Intake and Output for Last 24 Hours 07/26/18 07/27/18 07/28/18 23:59 23:59 23:59 Intake Total 2530 / 2530 1447 / 1447 Output Total 230 / 230 Balance 2529 / 2529 1217 / 1217 Microbiology Past 72 Hours 07/27/18 19:10 C. difficile DNA Amplification - Final Stool 07/27/18 00:58 Enteric Bacteriology - Final Stool 07/27/18 00:00 Stool Occult Blood (ANIYA) - Final Stool Occult Blood Positive Laboratory Tests Past 24 Hrs 07/27/18 07/27/18 07/28/18 14:00 20:10 05:46 WBC 9.0 RBC 3.14 L Hgb 10.5 L 9.4 L Hct 32.7 L 29.6 L MCV 94.3 MCH 29.9 MCHC 31.8 L RDW 18.0 H RDW Differential 59.2 H Plt Count 126 L MPV 10.6 Immature Gran % (Auto) 0.300 Neut % (Auto) 82.8 H Lymph % (Auto) 6.3 L [place] % (Auto) 9.9 Eos % (Auto) 0.4 Baso % (Auto) 0.3 Absolute Neuts (auto) 7.4 Absolute Lymphs (auto) 0.57 L Total Counted Not Reportable Sodium Potassium Chloride Carbon Dioxide Anion Gap BUN Creatinine Estim Creat Clear Calc Est GFR (MDRD) Af Amer Est GFR (MDRD) Non-Af BUN/Creatinine Ratio Glucose Calcium Blood Type B NEGATIVE Antibody Screen NEGATIVE 07/28/18 05:46 WBC RBC Hgb Hct MCV MCH MCHC RDW RDW Differential Plt Count MPV Immature Gran % (Auto) Neut % (Auto) Lymph % (Auto) [place] % (Auto) Eos % (Auto) Baso % (Auto) Absolute Neuts (auto) Absolute Lymphs (auto) Total Counted Sodium 143 Potassium 3.5 Chloride 115 H Carbon Dioxide 22.0 Anion Gap 6 BUN 14 Creatinine 0.71 Estim Creat Clear Calc 34.99 Est GFR (MDRD) Af Amer 102 Est GFR (MDRD) Non-Af 84 BUN/Creatinine Ratio 19.6 Glucose 107 H Calcium 8.4 L Blood Type Antibody Screen Code Visit Inpatient E&M: 84528 Disch Hosp
--- NOTE | 2018-07-28 12:44 | DS.PCM_ITS ---
<Sudheer Villa - Last Filed: 07/28/18 12:38> Discharge Date and Diagnosis Date of Admission: 07/27/18 Date of Discharge: 07/28/18 - Primary Discharge Diagnosis Acute colitis suspect 2/2 viral gastroenteritis Acute lower GI bleed 2/2 above Mild acute blood loss anemia 2/2 above CAD on plavix / aspirin Thrombocytopenia Worsening of underlying dementia Functional decline, failure to thrive T2DM Anxiety/Depression HLD - Secondary Discharge Diagnosis Chronic Problems (Last Updated 03/23/17 @ 16:07 by ANA Hobbs) Type 2 diabetes mellitus (Chronic) Blindness (Chronic) Anxiety (Chronic) Depression, major (Chronic) Hyperlipidemia (Chronic) Depression (Chronic) Coronary arteriosclerosis (Chronic) CAD (coronary artery disease) (Chronic) stent to LAD S/P PTCA (percutaneous transluminal coronary angioplasty) (Chronic ~2012) LAD HTN (hypertension) (Chronic) Diabetes mellitus (Chronic) Hospital Course and Treatment Imaging Results: RAD/Chest 1 View (Portable) IMPRESSION: Chronic interestitial changes. No radiographic evidence of acute cardiopulmonary disease. at 0038 Reported and signed by: Jefe Prince MD CT/Abdomen/Pelvis without Cont IMPRESSION: Evidence of a mild diffuse colitis which could be infectious, inflammatory, or ischemic in etiology. Prominent fluid in the bowel suggestive of resulting diarrheal illness. No obstruction or perforation or abscess. Mild urinary bladder wall thickening may be due to under distention or cystitis. Improved aeration of the partially visible lungs with mild residual groundglass opacities. Severe atherosclerosis, other chronic findings as above. Individualized dose optimization techniques were used for this CT. Consults: Maharaj - Gen Surgery Operations: None Procedures: None Summary of Care Provided: Hospital course: The patient is a 77 year old F with past medical history of recent admission to [facility] with volvulus and bowel obstruction, also with a history of advanced dementia, CAD, type 2 diabetes, anxiety and depression, hypertension hyperlipidemia, who presented to the emergency room from longterm with worsening mentation, generalized abdominal pain, and diarrhea. In the emergency room she had a low blood pressure 49/35 improved with IV fluids to 112/76, and had a CT demonstrating diffuse colitis, she had no fever, she did have a leukocytosis at 13.9. She was admitted to the general medical floor with acute gastroenteritis, suspected viral. She was given supportive care. She did have a lingular bowel movement that was sent to the lab and tested positive for blood. General surgery was consulted and did not feel that he intervention was necessary at this time and recommended possibly having an outpatient colonoscopy. The patient was not interested at all in a colonoscopy when explained to her. The patient's mentation was poor throughout. She had moments of agitation and irrational behavior. She did not have significant improvement in her mentation during her stay here. She is A/Ox1. She does not move very much and does not interact or talk to staff very much. The patient has ongoing functional decline worsening of her dementia. Is felt that she could benefit from hospice care at this point. Recommendation was made, hospice will follow up with the patient when she gets back to the [place] [facility]. Bleeding stopped, hemoglobin is 9.4 this time. Her aspirin and Plavix, and prn ibuprofen are discontinued. She should not receive any blood thinning agents. She has no further diarrhea today. She is discharged back to the [place] [facility] in stable condition. Follow-up with Dr. Maharaj as directed such as if she decides to pursue a colonoscopy. Please also follow-up with your PCP in 1 to 2 weeks. This patient was seen by Sudheer Villa PA-C under the supervision of Doctor Scales. [] - Physical Exam General: Alert, Confused, Lethargic, - - diffuse all over ecchymosis HEENT: Atraumatic, PERRLA, EOMI, Normocephalic Neck: Supple, No JVD, Negative Carotid Bruits Lungs: Clear to auscultation, Normal air movement Cardiovascular: Regular rate, No murmurs Abdomen: Bowel Sounds Present, Soft, Non Tender Extremities: No edema, Capillary Refill Less than 3 Seconds Skin: No rashes, No breakdown Musculoskeletal: No Tenderness to Palpation of Joints or Extremities Neurological: Cranial nerves II-XII grossly intact Psych/Mental Status: Normal Affect, Appropriate, Alert and oriented to time, place, person, mood and affect Vital Signs Temp Pulse Resp BP Pulse Ox 98.1 F 96 18 142/81 H 97 07/28/18 11:41 07/28/18 11:41 07/28/18 11:41 07/28/18 11:41 07/28/18 11:41 Oxygen Flow Rate (L/min) 2 Oxygen Delivery Method Room Air Weight: 132 lb 4.438 oz Body Mass Index (BMI) 25.0 Finger Stick Blood Glucose 145 Intake and Output for Last 24 Hours 07/26/18 07/27/18 07/28/18 23:59 23:59 23:59 Intake Total 2530 / 2530 1447 / 1447 Output Total 230 / 230 Balance 2529 / 2529 1217 / 1217 Microbiology Past 72 Hours 07/27/18 19:10 C. difficile DNA Amplification - Final Stool 07/27/18 00:58 Enteric Bacteriology - Final Stool 07/27/18 00:00 Stool Occult Blood (ANIYA) - Final Stool Occult Blood Positive Laboratory Tests Past 24 Hrs 07/27/18 07/27/18 07/27/18 14:00 14:00 20:10 WBC RBC Hgb 11.5 L 10.5 L Hct 35.9 L 32.7 L MCV MCH MCHC RDW RDW Differential Plt Count MPV Immature Gran % (Auto) Neut % (Auto) Lymph % (Auto) Lee % (Auto) Eos % (Auto) Baso % (Auto) Absolute Neuts (auto) Absolute Lymphs (auto) Total Counted Sodium Potassium Chloride Carbon Dioxide Anion Gap BUN Creatinine Estim Creat Clear Calc Est GFR (MDRD) Af Amer Est GFR (MDRD) Non-Af BUN/Creatinine Ratio Glucose Calcium Blood Type B NEGATIVE Antibody Screen NEGATIVE 07/28/18 07/28/18 05:46 05:46 WBC 9.0 RBC 3.14 L Hgb 9.4 L Hct 29.6 L MCV 94.3 MCH 29.9 MCHC 31.8 L RDW 18.0 H RDW Differential 59.2 H Plt Count 126 L MPV 10.6 Immature Gran % (Auto) 0.300 Neut % (Auto) 82.8 H Lymph % (Auto) 6.3 L Lee % (Auto) 9.9 Eos % (Auto) 0.4 Baso % (Auto) 0.3 Absolute Neuts (auto) 7.4 Absolute Lymphs (auto) 0.57 L Total Counted Not Reportable Sodium 143 Potassium 3.5 Chloride 115 H Carbon Dioxide 22.0 Anion Gap 6 BUN 14 Creatinine 0.71 Estim Creat Clear Calc 34.99 Est GFR (MDRD) Af Amer 102 Est GFR (MDRD) Non-Af 84 BUN/Creatinine Ratio 19.6 Glucose 107 H Calcium 8.4 L Blood Type Antibody Screen Discharge Diet: No Restrictions Discharge Activity: Return to Normal Activity Home Medications: Medications to take at Discharge Leflunomide 20 mg PO DAILY 09/16/16 atorvastatin 40 mg tablet 40 mg PO QHS 90 Days #90 03/23/17 Lisinopril [Zestril] 20 mg PO DAILY 12/01/17 Metoprolol Tartrate [Lopressor (beta hermilo)] 50 mg PO BID 12/01/17 Acetaminophen [Tylenol Tablet] 650 mg PO Q6H PRN PRN tablet 12/18/17 Fentanyl 25 mcg TOPICAL Q72H 06/03/18 Lorazepam [Ativan] 0.5 mg PO TID PRN PRN 06/03/18 Oxybutynin Chloride 5 mg PO BID 06/03/18 Lidocaine HCl [Aspercreme] 76.5 gm TP BID 06/17/18 Calcium Carbonate/Vitamin D3 [Calcium 500-Vit D3 200 Tablet] 1 each PO BID 07/14/18 Sertraline HCl 100 mg PO DAILY 07/14/18 Amlodipine [Norvasc] 10 mg PO DAILY tablet 07/17/18 Bisacodyl [Laxative Suppository] 10 mg RC PRN PRN 07/27/18 Loperamide [Imodium] 2 mg PO Q6H PRN PRN capsule 07/28/18 Omeprazole [Prilosec] 20 mg PO BID #60 07/28/18 Primary Care Physician: Silvano Whitlock MD [Primary Care Provider] - Please follow up with your Primary Care Physician in: 1 week Please Follow Up With: Carole Maharaj MD When: As needed Disposition: Home Minutes spent on discharge:: 35 Patient Condition:: Stable Medical Necessity - Tobacco Use Smoking Status: Never smoker Meaningful Use Info Meaningful Use Diagnoses (Choose all that apply): None applicable <Mala Scales - Last Filed: 07/28/18 15:04> Discharge Date and Diagnosis - Secondary Discharge Diagnosis Chronic Problems (Last Updated 03/23/17 @ 16:07 by ANA Hobbs) Type 2 diabetes mellitus (Chronic) Blindness (Chronic) Anxiety (Chronic) Depression, major (Chronic) Hyperlipidemia (Chronic) Depression (Chronic) Coronary arteriosclerosis (Chronic) CAD (coronary artery disease) (Chronic) stent to LAD S/P PTCA (percutaneous transluminal coronary angioplasty) (Chronic ~2013) LAD HTN (hypertension) (Chronic) Diabetes mellitus (Chronic) Hospital Course and Treatment Summary of Care Provided: Patient seen by Sudheer Villa PA-C under my supervision The patient is a 77 year old F with past medical history as listed. She was admitted through the ED from a longterm facility with a complaint of altered mental status as well as generalized abdominal pain and diarrhea. She was noted to be hypotensive in the ED which improved with IV fluid adminis tration. CT of the abdomen done showed mild diffuse colitis with prominent fluid in the bowel suggestive of resulting diarrheal illness. Patient was admitted and managed for her enteritis which was suspected to be viral. Of note, patient had recently been seen at [facility] for volvulus and small bowel obstruction. General surgery was consulted on account of positive occult blood but thought this was likely due to colitis and recommended patient having outpatient colonoscopy but patient was not interested in this. Patient remained confused throughout his stay here. This was thought to be due to worsening of her dementia. Family was receptive to the option of hospice care and this was to be arranged at her [place] [facility] after discharge. Patient remained stable and hemoglobin was 9.4 at time of discharge. Her aspirin and Plavix as well as PRN ibuprofen were discontinued on account of positive occult blood and rectal bleeding. She was discharged back to her [place] [facility] on 07/28/2018 and is to follow-up with general surgery she decides to have a colonoscopy. She is also to follow-up with hospice care in her [place] [facility]. Patient also to follow-up with her primary care doctor. Patient seen and examined prior to discharge. She remained confused. Unable to do competency review of system as patient is very confused. Labs and vitals reviewed. Home medication reviewed and reconciled. o/e: Vital Signs Height 5 ft 1 in Weight: 132 lb 4.438 oz Weight in Pounds 132.3 lbs Pulse Ox 97 Temperature 98.1 F Pulse Rate 96 Respiratory Rate 18 Blood Pressure 142/81 Blood Pressure Position Sitting [] General: Alert, Cooperative, Confused, Lethargic HEENT: Atraumatic, PERRLA, EOMI, Normocephalic Neck: Supple, No JVD, Negative Carotid Bruits Lungs: Clear to auscultation, Normal air movement Cardiovascular: Regular rate, No murmurs Abdomen: Bowel Sounds Present, Soft, Non Tender Extremities: No edema, Capillary Refill Less than 3 Seconds Skin: No rashes, No breakdown Musculoskeletal: No Tenderness to Palpation of Joints or Extremities Neurological: Cranial nerves II-XII grossly intact Psych/Mental Status: very confused. Plan as above. Rest of management as per Sudheer Villa PA-C's note which I have reviewed and endorsed. - Physical Exam Vital Signs Temp Pulse Resp BP Pulse Ox 98.1 F 96 18 142/81 H 97 07/28/18 11:41 07/28/18 11:41 07/28/18 11:41 07/28/18 11:41 07/28/18 11:41 Oxygen Flow Rate (L/min) 2 Oxygen Delivery Method Room Air Weight: 132 lb 4.438 oz Body Mass Index (BMI) 25.0 Finger Stick Blood Glucose 145 Intake and Output for Last 24 Hours 07/26/18 07/27/18 07/28/18 23:59 23:59 23:59 Intake Total 2530 / 2530 1447 / 1447 Output Total 230 / 230 Balance 2529 / 2529 1217 / 1217 Microbiology Past 72 Hours 07/27/18 19:10 C. difficile DNA Amplification - Final Stool 07/27/18 00:58 Enteric Bacteriology - Final Stool 07/27/18 00:00 Stool Occult Blood (ANIYA) - Final Stool Occult Blood Positive Laboratory Tests Past 24 Hrs 07/27/18 07/27/18 07/28/18 14:00 20:10 05:46 WBC 9.0 RBC 3.14 L Hgb 10.5 L 9.4 L Hct 32.7 L 29.6 L MCV 94.3 MCH 29.9 MCHC 31.8 L RDW 18.0 H RDW Differential 59.2 H Plt Count 126 L MPV 10.6 Immature Gran % (Auto) 0.300 Neut % (Auto) 82.8 H Lymph % (Auto) 6.3 L Lee % (Auto) 9.9 Eos % (Auto) 0.4 Baso % (Auto) 0.3 Absolute Neuts (auto) 7.4 Absolute Lymphs (auto) 0.57 L Total Counted Not Reportable Sodium Potassium Chloride Carbon Dioxide Anion Gap BUN Creatinine Estim Creat Clear Calc Est GFR (MDRD) Af Amer Est GFR (MDRD) Non-Af BUN/Creatinine Ratio Glucose Calcium Blood Type B NEGATIVE Antibody Screen NEGATIVE 07/28/18 05:46 WBC RBC Hgb Hct MCV MCH MCHC RDW RDW Differential Plt Count MPV Immature Gran % (Auto) Neut % (Auto) Lymph % (Auto) Lee % (Auto) Eos % (Auto) Baso % (Auto) Absolute Neuts (auto) Absolute Lymphs (auto) Total Counted Sodium 143 Potassium 3.5 Chloride 115 H Carbon Dioxide 22.0 Anion Gap 6 BUN 14 Creatinine 0.71 Estim Creat Clear Calc 34.99 Est GFR (MDRD) Af Amer 102 Est GFR (MDRD) Non-Af 84 BUN/Creatinine Ratio 19.6 Glucose 107 H Calcium 8.4 L Blood Type Antibody Screen Code Visit Inpatient E&M: 16120 Disch Hosp
== END 2018-07-28 12:31 | disposition skilled nursing facility (03) ==
LOC: ED 23:40 → MS3 07-27 01:41
PROVIDERS: Physician Assistant; Admitting Provider Family Medicine; Emergency Provider Emergency Medicine; Family Provider Family Medicine; PCP Family Medicine; Referring Provider Family Medicine; Visit Provider Student in an Organized Health Care Education/Training Program
DX: K52.9 Noninfective gastroenteritis and colitis, unspecified (principal); D62 Acute posthemorrhagic anemia; I25.10 Atherosclerotic heart disease of native coronary artery without angina pectoris; E11.9 Type 2 diabetes mellitus without complications; D69.6 Thrombocytopenia, unspecified; E78.5 Hyperlipidemia, unspecified; F03.90 Unspecified dementia, unspecified severity, without behavioral disturbance, psychotic disturbance, mood disturbance, and anxiety; F41.9 Anxiety disorder, unspecified; S00.83XD Contusion of other part of head, subsequent encounter; S10.93XD Contusion of unspecified part of neck, subsequent encounter; W19.XXXD Unspecified fall, subsequent encounter; F32.9 Major depressive disorder, single episode, unspecified; Z79.899 Other long term (current) drug therapy; Z79.02 Long term (current) use of antithrombotics/antiplatelets; Z79.82 Long term (current) use of aspirin; K59.00 Constipation, unspecified; Z95.5 Presence of coronary angioplasty implant and graft; R29.6 Repeated falls; I10 Essential (primary) hypertension; M79.7 Fibromyalgia
CPT/HCPCS: 36415; 71045; 74176; 80048; 80053; 81001; 82274; 82962; 83605; 83690; 85014; 85018; 85025; 85610; 86850; 86900; 87493; 87506; 92610; 93005; 96361; 96365; 96366; 96375; 96376; 99218; 99285; J7030; A4216; G0378; J2405

== ENCOUNTER 2018-07-29 05:02 | Emergency (ER) | payer MEDICARE, OTHER, SELFPAY ==
[2018-07-27 02:09] VITALS: BMI 25.0
[2018-07-29 05:04] VITALS: BP 122/68; PULSE 106; RESP 18; TEMP 37.2; O2SAT 94; BMI 25.9
[2018-07-29 05:16] LABS: Bedside Glucose 83 mg/dL (70-110)
--- NOTE | 2018-07-29 05:23 | RAD_ITS ---
STUDY: X-RAY CHEST REASON FOR EXAM: Female, 77 years old. Hypoxia and lethargy. TECHNIQUE: Single AP portable view of the chest. COMPARISON: July 27, 2018. FINDINGS: Cardiac monitoring leads are present. The lungs are underexpanded. There is moderate elevation of the right hemidiaphragm. There is left basilar subsegmental atelectasis. There is heterogeneous left basilar airspace disease and/or atelectasis. There is right-sided subsegmental atelectasis. There is no demonstrated pleural abnormality. Normal size heart. There is prominence of bilateral hilar areas. This could be the result of lymphadenopathy or prominent pulmonary arteries. There is prominence of the pulmonary hilar arteries without peripheral pulmonary vascular congestion. There is atherosclerotic calcification of the aortic arch with tortuosity. There is demineralization of the osseous structures. Normal visualized ribs, clavicles, and shoulders. There is no demonstrated abnormality of the visualized soft tissue structures of the upper abdomen. RAD/Chest 1 View (Portable) IMPRESSION: 1. Bilateral subsegmental atelectasis. 2. Heterogeneous left basilar interstitial and/or airspace disease possibly representing pneumonia. Electronically Signed: Marie Gray MD at 5:57 EDT , Service support ,
--- NOTE | 2018-07-29 05:23 | EKG12_ITS ---
Test Reason : Blood Pressure : / mmHG Vent. Rate : 100 BPM Atrial Rate : 100 BPM P-R Int : 108 ms QRS Dur : 066 ms QT Int : 356 ms P-R-T Axes : -27 -16 037 degrees QTc Int : 459 ms Sinus rhythm with short AL Inferior infarct , age undetermined Anterior infarct , age undetermined Abnormal ECG Confirmed by ANGELIA RIVAS, KIMBERLY ([id number]), sound editor ANN GEIGER ([id number]) on 07/30/2018 6:04:32 AM Referred By: PARTHA Confirmed By:KIMBERLY GALAN MD
--- NOTE | 2018-07-29 05:27 | ED.VIS.GEN ---
History of Present Illness Chief Complaint: Abd Pain Narrative: The patient is a 77 F who presents with weakness and elevated heart rate. She has had extensive recent ER visits and hospitalizations. I just saw her a few days ago for abdominal pain diarrhea colitis. She was admitted and actually just discharged back to the nursing facility yesterday. Per report the patient got up to use the commode had a bout of diarrhea and then became weak and transiently unresponsive developed tachycardia and hypoxia. She was placed on oxygen and brought in by EMS. They also reported that she was confused and lethargic however on all of my recent times seeing her she was oriented only to self with altered mental status. It is also noted that this had not improved during her hospitalization stay and is likely near baseline. History is limited due to the patient's altered mental status but she denies any pain or feeling short of breath. Past Medical History - Allergies and Home Meds Allergies/Adverse Reactions: Allergies ampicillin Allergy (Verified 07/29/18 05:08) Unknown codeine Allergy (Verified 07/29/18 05:08) Unknown diclofenac sodium [From Arthrotec 50] Allergy (Verified 07/29/18 05:08) Unknown doxycycline Allergy (Verified 07/29/18 05:08) Unknown fluticasone propionate [From Flonase] Allergy (Verified 07/29/18 05:08) Unknown green pepper Allergy (Verified 07/29/18 05:08) Food Allergy misoprostol [From Arthrotec 50] Allergy (Verified 07/29/18 05:08) Unknown morphine Allergy (Verified 07/29/18 05:08) Unknown Sulfa (Sulfonamide Antibiotics) Allergy (Verified 07/29/18 05:08) Unknown Tetanus Vaccines and Toxoid [Tetanus Vaccines & Toxoid] Allergy (Verified 07/29/18 05:08) Unknown Primary Care Physician: Silvano Whitlock MD [Primary Care Provider] - Prior records reviewed: Yes Past Medical History: - - Diabetes, hypertension, hyperlipidemia, coronary disease, frequent falls Surgical History: angioplasty - coronary stent, appendectomy, cataract, cholecystectomy, total knee arthroplasty - Bilaterally, - - 3 cardiac stents, surgery for diverticulitis and diverticular abscess Smoking Status: Never smoker - Family History Maternal Family History: Family History (Last Updated 03/23/17 @ 16:07 by ANA Hobbs) Brother CAD (coronary artery disease) Family History: Reports: No pertinent history Paternal Family History: Family History (Last Updated 03/23/17 @ 16:07 by ANA Hobbs) Brother CAD (coronary artery disease) Family History: Reports: No pertinent history Sibling Family History: Family History (Last Updated 03/23/17 @ 16:07 by ANA Hobbs) Brother CAD (coronary artery disease) Family History: Reports: No pertinent history Review of Systems ROS: Unable to Obtain Physical Exam Vital Signs/Narrative: Vital Signs Temp Pulse Resp BP Pulse Ox 07/29/18 05:04 98.9 F 106 H 18 122/68 H 94 General: - - Lethargic Head: - - Left-sided face and neck ecchymosis Eyes: Perrl ENT: Moist mucous membranes Cardiovascular: - - Heart regular, slightly tachycardic Respiratory: No distress, CTA bilaterally Abdomen: Soft, - - Mild diffuse tenderness without guarding without rebound, nondistended Skin: - - Ecchymosis as above, skin warm and dry Neurological: - - Oriented to self only Diagnostic/Tx/Re-eval - Medical Decision Making Patient's laboratory studies including CBC, BMP, lactic acid urinalysis all essentially unremarkable. Chest x-ray showed atelectasis possible infiltrate. However she does not have fever or leukocytosis. Given patient's multiple recent hospitalizations I am also concerned for possible pulmonary embolism given sudden onset of tachycardia and hypoxia. At the time of this dictation a CTA of the chest is pending and patient has been signed out to the oncoming physician, Dr. Eddy to follow-up on results. ED Disposition - Plan for ED Patient: Disposition: [facility] Hospital Diagnosis: Hypoxia, Tachycardia, Altered mental status Referrals: Silvano Whitlock MD [Primary Care Provider] -
[2018-07-29 05:33] LABS: Absolute Lymphocyte Count 0.86 X10^3/ul (0.83-4.51); Absolute Neutrophil Count 5.9 X10^3/uL (2.0-7.7); Basophil# 0.02 X10^3/uL; Basophil% 0.3 % (0-1); Eosinophil# 0.16 X10^3/uL; Eosinophils% 2.1 % (0-5); Hematocrit 30.2 % (37-47); Hemoglobin 9.5 g/dl (12.0-15.0); Lymphocyte # 0.86 X10^3/ul (4.0); Lymphocyte % 11.3 % (19-41); Mean Corp Hgb Conc 31.5 g/gl (32-36); Mean Corpuscular Hgb 29.6 pg (27.0-32.0); Mean Corpuscular Volume 94.1 fL (81-99); Mean Platelet Vol. 10.6 fl (6.2-12.0); Monocyte# 0.69 X10^3/uL; Monocyte% 9.1 % (0-10); Neutrophil # 5.87 X10^3/uL (2.7-7.7); Neutrophil % 77.1 % (47-70); Platelet Count 115 K/mm3 (150-450); RBC Distribution Width CV 18.1 % (11.6-14.6); Red Blood Count 3.21 M/mm3 (4.2-5.4); White Blood Count 7.6 K/mm3 (4.4-11.0)
[2018-07-29 05:42] LABS: POSITIVE COUNT NO; POSITIVE DIFFERENTIAL NO; POSITIVE MORPHOLOGY NO
[2018-07-29 05:54] LABS: ALB/GLOB Ratio 0.7 RATIO (0.9-2.4); AST(SGOT) 17 U/L (15-37); Alanine Aminotransfer ALT/SGPT 14 U/L (13-56); Albumin, Serum 2.3 g/dL (3.2-5.0); Alkaline Phosphatase 69 U/L (45-117); Anion Gap 8 (5-15); BUN 12 mg/dL (7-18); BUN/Creat Ratio 17.2 RATIO (10-20); Calcium,Total 8.4 mg/dL (8.5-10.1); Chloride 114 mmol/L (98-107); EST Glomerular Filtration Rate 86 mL/min (>60); Est Glom Filt Rate - Afr Amer 104 mL/min (>60); Estimated Creatinine Clearance 36.67 ml/min; Globulin 3.2 g/dL (2.2-4.2); Glucose 81 mg/dL (74-106); Potassium 3.4 mmol/L (3.5-5.1); Protein, Total 5.5 g/dL (6.4-8.2); Sodium Level 145 mmol/L (136-145)
--- NOTE | 2018-07-29 06:02 | CT_ITS ---
STUDY: CTA CHEST REASON FOR EXAM: Female, 77 years old. Hypoxia and lethargy. RADIATION DOSAGE (If Supplied By Facility): CTDIvol = ( 21.7 ) mGy, DLP = ( 299.89 ) mGycm TECHNIQUE: The examination was performed with the intravenous administration of 75 mL of Isovue 370. Post-processing of the angiographic images was performed, with multiplanar reformation and 3D reconstruction. Individualized dose optimization techniques were used for this CT. COMPARISON: None. FINDINGS: Normal enhancement of the main pulmonary artery and right and left pulmonary arteries. Normal enhancement of the bilateral peripheral pulmonary arteries. There is no demonstrated pulmonary embolism. There is atherosclerotic calcification of the aortic arch with tortuosity. Maximum transverse dimension of the ascending thoracic aorta measures approximately 3.4 cm. There is no demonstrated aortic dissection. Normal heart and pericardium. There are calcifications of the coronary arteries. Normal mediastinum. Normal hilar regions. Normal visualized trachea and bronchi. There is moderate elevation of the right hemidiaphragm. The left lung is expanded. There is heterogeneous groundglass attenuation particularly in the lingula and left lower lobe with associated bronchiectasis and thickening of interlobular septa. There are patchy airspace opacities in the lingula and bilateral lower lobes that may represent a combination of airspace disease and dependent atelectasis. There is also evidence of bronchiectasis in the right lower lobe. There may be subsegmental atelectasis in the right lower lobe. There appear to be small pleural effusions and/or pleural thickening. Normal chest wall structures. There are degenerative changes of thoracic spine. There is periportal prominence within the liver. There is extensive atherosclerotic calcification of the intra-abdominal arteries. Appears be a left-sided renal cyst measuring approximately 2.[address]/CTA Chest W/WO Contrast IMPRESSION: 1. No CTA demonstrated pulmonary embolism or arterial dissection. 2. Bilateral airspace disease, atelectasis and small pleural effusions. 3. Bilateral basilar bronchiectasis. 4. Sequela of coronary artery vascular disease. Electronically Signed: Marie Gray MD at 8:06 EDT , Service support ,
[2018-07-29 06:06] VITALS: BP 154/100; PULSE 101; RESP 18; TEMP 36.7; O2SAT 96
[2018-07-29 06:08] LABS: Bacteria 0 SEEN /hpf (None Seen); Mucous, Urine 0 SEEN /hpf (<or=2+); Red Blood Cells-Urine 0 SEEN /hpf (0-5); Squamous Epithelial Cells - UA 0 SEEN /hpf (5-10)
[2018-07-29 06:16] LABS: Color, Urine Yellow (Yellow); Glucose, Dipstick Normal (Normal); Ketone-Dipstick Negative (Negative); Leukocyte Esterase-Dipstick 25 /ul (Negative); Nitrite-Dipstick Negative (Negative); Occult Blood-Urine Negative /ul (Negative); Protein-Dipstick 30 mg/dl (Negative); Urine Bilirubin Dipstick Negative (Negative); Urine Clarity Clear (Clear); Urine Urobilinogen Normal (Normal)
[2018-07-29 06:33] LABS: White Blood Cells 0-5 SEEN /hpf (0-5)
[2018-07-29 06:34] LABS: Amorphous Sediment 2+
[2018-07-29 06:42] LABS: Lactic Acid 0.9 mmol/L (0.4-2.0)
[2018-07-29 07:20] VITALS: BP 142/64; PULSE 93; RESP 18; TEMP 37.2; O2SAT 99
--- NOTE | 2018-07-29 08:19 | ED.VISSUMM ---
- ER Visit Summary Date of Service: 07/29/18 Chief Complaint: [] History of Present Illness: The patient is a 77 F [] Physical Examination: [] Test Results: [] Emergency Department Course and Treatment: [] Treatment Plan: [] Disposition: [] Impression: [] This note was generated with [employer] dictation software. It may contain incorrect words, spelling, and punctuation that were not noted in review of the chart prior to signing ED Disposition - Plan for ED Patient: Disposition: Snf Facility Diagnosis: Hypoxia, Tachycardia, Altered mental status, Vasovagal reaction, History of coronary artery disease Instructions: ED Syncope Vasovagal Referrals: Silvano Whitlock MD [Primary Care Provider] - 3-5 Days
[2018-07-29 09:06] VITALS: BP 165/85; PULSE 99; RESP 19; TEMP 37.1; O2SAT 94
--- NOTE | 2018-07-29 09:28 | CASEMGMT ---
Kristie from [facility] called, inquiring if pt is here as they had a referral. SW reviewed, pt was in ED and is discharged, should be returning to [facility] today. Kristie asked for updates, updates faxed. Kristie will check in w/[facility] later to make sure pt has returned, there is a meeting set up w/family for 2pm. FEDE Velasquez
== END 2018-07-29 09:10 | disposition intermediate care facility (04) ==
PROVIDERS: Emergency Provider Emergency Medicine; Family Provider Family Medicine; PCP Family Medicine
DX: R09.02 Hypoxemia (principal); R00.0 Tachycardia, unspecified; R41.82 Altered mental status, unspecified; E11.9 Type 2 diabetes mellitus without complications; I10 Essential (primary) hypertension; E78.5 Hyperlipidemia, unspecified; Z88.2 Allergy status to sulfonamides; Z95.5 Presence of coronary angioplasty implant and graft; Z96.653 Presence of artificial knee joint, bilateral
CPT/HCPCS: 71045; 71275; 80053; 81001; 82962; 83605; 84484; 85025; 93005; 99285; J7030; J7040; P9612; Q9967; A4216